=== PATIENT | male | born 1935 | race Caucasian/White ===

== ENCOUNTER 2023-03-28 11:26 | Emergency (ER) | payer MEDICARE, SELFPAY ==
--- NOTE | 2023-03-28 11:47 | ED.WOUNDLAC ---
HPI - Wound/Laceration General Chief Complaint: Wound/Laceration Stated Complaint: fall/skin tear rt elbow Time Seen by Provider: 03/28/23 11:32 Source: patient Mode of arrival: ambulatory Limitations: no limitations History of Present Illness HPI narrative: Patient is a 87 y/o M that presents with skin tear that happened one week ago. Patient states he has been cleaning it and applying antibiotic ointment. States he usually heals faster than he is currently. States there was surrounding redness and it has improved a lot but it is still there. States pain has resolved. Denies any drainage from wound. unsure of last tetanus shot. Related Data Allergies Allergy/AdvReac Type Severity Reaction Status Date / Time No Known Allergies Allergy Verified 03/28/23 11:51 Review of Systems Review of Systems: All systems reviewed & are unremarkable except as noted in HPI and below Constitutional: Constitutional: Denies body ache(s), Denies chills, Denies fatigue, Denies fever(s), Denies headache(s), Denies malaise and Denies weakness Eyes: Eyes: Denies blurry vision, Denies irritation and Denies loss of vision ENT: Denies otalgia, Denies headache(s), Denies nasal discharge, Denies sinus pain and Denies sore throat Cardiovascular: Cardiovascular: Denies chest pain, Denies irregular heart rhythm and Denies dyspnea Respiratory: Respiratory: Denies dyspnea Gastrointestinal: Gastrointestinal: Denies abdominal pain, Denies melena, Denies hematochezia, Denies diarrhea, Denies nausea and Denies vomiting Musculoskeletal: Musculoskeletal: Denies back pain, Denies myalgias and Denies arthralgias Integumentary/Breasts: Skin/Breast: Denies pruritus, Denies rash and Reports wounds Neurologic: Denies headache(s), Denies loss of vision and Denies weakness Psychiatric: Psychiatric: Reports no additional psychiatric complaints Endocrine: Endocrine: Denies fatigue PMFSH Comments At time of signature, agree with nursing past medical, surgical, social and family history. There is no relevant family history pertinent to the presenting complaint. Exam Const: General: cooperative, healthy appearing, comfortable, no acute distress and well nourished Nutritional Appearance: well nourished Orientation/consciousness: patient oriented x3 Limitations: no limitations HENMT: Head: normal to inspection, normocephalic and atraumatic Ears: hearing grossly normal bilaterally and external ears normal Face/Nose/Sinus: Normal external nose present, normal facial exam and face symmetric Face and sinus: normal facial exam and face symmetric Mouth: Yes lip normal Eyes: General: appearance normal, both eyes and all related structures Alignment and Position: alignment normal and position normal Periorbital: periorbital findings normal Eyelids: eyelids normal Pupils: Equal, round and reactive pupils present EOM: EOMs intact bilaterally Neck: Neck: normal visual inspection, full ROM and supple Chest: Chest palpation & inspection: normal inspection of the chest Resp: Effort & Inspection: normal respiratory effort and able to speak in complete sentences Auscultation: clear to auscultation bilaterally Cardio: Rate: regular rate Rhythm: regular rhythm Heart sounds: S1 normal heart sound present and S2 normal heart sound present GI: Inspection: normal to inspection Skin: General skin exam: normal color and no rashes or lesions noted Trauma: abrasion Full body images: 1. 5x7 cm area of healing granulation tissue. minor surrounding erythema and warmth. Skin tear in crescent shape. Neuro: General: patient oriented x3 and moves all extremities Cranial nerves: Yes Equal, round and reactive pupils present Speech: normal speech Gait exam (Neuro): Normal gait present Extrem: General: normal to inspection, full ROM and no edema Psych: Appearance: grossly normal and well kempt Mental Status: mental status grossly normal Speech and movement: Normal speech and
[2023-03-28 11:50] VITALS: BP 134/78; PULSE 97; RESP 18; TEMP 36; O2SAT 96
[2023-03-28 11:52] VITALS: BP 134/78; PULSE 97; RESP 18; TEMP 36; O2SAT 96
[2023-03-28] MEDS: TETANUS/DIPHTHERIA TOXOIDS ADSORB 0.5 ML VIAL (*BKC) IM (12:07)
== END 2023-03-28 12:10 | disposition home or self-care (01) ==
PROVIDERS: Emergency Provider Nurse Practitioner Family; PCP Family Medicine
DX: S51.011A Laceration without foreign body of right elbow, initial encounter (principal); L08.9 Local infection of the skin and subcutaneous tissue, unspecified; X58.XXXA Exposure to other specified factors, initial encounter; Z23 Encounter for immunization
CPT/HCPCS: 90471; 90714; 99213; G0463

== ENCOUNTER 2023-04-25 06:12 | Inpatient (IN) | payer MEDICARE, MEDICAID, SELFPAY ==
[2023-04-25] VITALS (19 sets, daily range): BP systolic 114–135; BP diastolic 57–74; PULSE 84–123; RESP 18–28; TEMP 36.6–37.4; O2SAT 94–100; BMI 28.8
--- NOTE | ~2023-04-25 | XR_ITS ---
EXAMINATION: XR chest 1V DATE: 05/01/2023 15:12 INDICATION: Cough TECHNIQUE: PA and view of the chest was obtained. COMPARISON: Chest radiograph dated 04/27/2023 FINDINGS: Persistent mild interstitial opacities at the bilateral lung bases and lateral right midlung zone. No new airspace opacities, pulmonary edema, pleural effusion or pneumothorax. Heart size is normal with bilateral pericardial fat pads. There are bridging osteophytes at multiple levels in the thoracic sp ine consistent with diffuse idiopathic skeletal hyperostosis (DISH). IMPRESSION: 1. Stable mild bibasilar predominant chronic interstitial lung disease. Reviewed, dictated and finalized at location A. SIGNAL WORKER
--- NOTE | ~2023-04-25 | XR_ITS ---
EXAMINATION: XR chest 1V portable DATE: 04/27/2023 08:42 INDICATION: Shortness of breath. TECHNIQUE: A single frontal view of the chest was obtained. COMPARISON: Chest single view 04/26/2023, chest CT 04/26/2023 FINDINGS: There are interstitial opacities in right midlung zone in the lower lung zones. No pleural effusion or pneumothorax. The heart size is normal. IMPRESSION: 1. Stable mild chronic interstitial lung disease. Reviewed, dictated and finalized at location A. ENTION PLANNER
--- NOTE | ~2023-04-25 | XR_ITS ---
EXAMINATION: XR chest 1V portable DATE: 04/25/2023 08:20 INDICATION: Weakness. TECHNIQUE: A single frontal view of the chest was obtained. COMPARISON: Chest 2 views 07/28/2017 FINDINGS: There is no pneumonia, pleural effusion, or pneumothorax. The heart size is normal. IMPRESSION: 1. No acute cardiopulmonary disease. Reviewed, dictated and finalized at location A. MARKER
--- NOTE | ~2023-04-25 | XR_ITS ---
EXAMINATION: XR lumbar spine 2-3V DATE: 05/01/2023 15:12 INDICATION: Back pain and left flank bruising post fall TECHNIQUE: Anteroposterior and lateral views of the lumbar spine, and cone-down lateral view of the l umbosacral junction were obtained. COMPARISON: 01/15/2016 FINDINGS: 12 degrees lumbar levoscoliosis. Sagittal alignment is normal. Vertebral body heights are normal. No evident fractures. Mild disc height loss at T12-L1, moderate disc height loss at L1-L2 and moderate t o severe disc height loss at L2-L3 through L5-S1. 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 Mild bilateral hip and sacroiliac osteoarthritis. IMPRESSION: 1. Moderate to severe lumbar spondylosis. Reviewed, dictated and finalized at location A. D SIGNAL DESIGN ENGINEER
--- NOTE | ~2023-04-25 | CT_ITS ---
EXAMINATION: CT brain wo con DATE: 04/25/2023 07:23 INDICATION: Head injury. TECHNIQUE: Computed tomography (CT) of the head was performed without intravenous contrast. The mA wa s adjusted according to patient size. Iterative reconstruction technique was employed. The dose-lengt h product was 605.33 mGy-cm. 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 There are scattered areas of low atte nuation in the cerebral white matter, which is within normal limits for the patient's age. There is n o intracranial hemorrhage, acute infarction, or abnormal intracranial mass lesion. The ventricles are normal in size. The orbits are normal. There is mild mucosal thickening in the paranasal sinuses. Th e mastoid air cells are normal. IMPRESSION: 1. 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 Reviewed, dictated and finalized at location A. IAL EDUCATION RESOURCE ROOM TEACHER
--- NOTE | ~2023-04-25 | XR_ITS ---
EXAMINATION: XR chest 1V portable DATE: 04/26/2023 13:42 INDICATION: Increased work of breathing. TECHNIQUE: A single frontal view of the chest was obtained. COMPARISON: Chest single view 04/25/2023, chest CT 04/26/2023 FINDINGS: There are interstitial opacities in right midlung zone and the lower lung zones. No pleural effusion or pneumothorax. The heart size is normal. IMPRESSION: 1. Mild chronic interstitial lung disease. Reviewed, dictated and finalized at location A. N RESOURCES EXECUTIVE
--- NOTE | ~2023-04-25 | US_ITS ---
EXAMINATION: US venous doppler [facility] DATE: 04/25/2023 17:18 INDICATION: Lower extremity swelling. TECHNIQUE: Grayscale images without and with compression and Doppler images of the bilateral lower ex tremity veins were obtained. COMPARISON: None FINDINGS: The right common femoral vein, profunda (deep) femoral vein, femoral vein, popliteal vein, peroneal v ein, posterior tibial veins, gastrocnemius vein, and greater saphenous vein are patent. Acute nonocclusive thrombus in the left femoral and popliteal veins. The left common femoral vein, pr ofunda (deep) femoral vein, peroneal vein, posterior tibial veins, gastrocnemius vein, and greater s aphenous vein are patent. IMPRESSION: Acute nonocclusive DVT in the left femoral and popliteal veins. Otherwise patent bilateral lower extr emity veins. No evidence of deep venous thrombosis on the right. Reviewed, dictated and finalized at location K. O WORKER IMPRESSION: Acute nonocclusive DVT in the left femoral and popliteal veins. Otherwise paten t bilateral lower extremity veins. No evidence of deep venous thrombosis on the right.
--- NOTE | ~2023-04-25 | CT_ITS ---
EXAMINATION: CT cervical spine wo con DATE: 04/25/2023 07:23 INDICATION: Head injury. TECHNIQUE: Computed tomography (CT) of the cervical spine was performed without intravenous contrast. Automated exposure control and iterative reconstruction technique were employed. The dose-length pro duct was 413.69 mGy-cm. COMPARISON: None FINDINGS: There is mild kyphosis of cervical spine. There is 2 mm anterolisthesis of C7 on T1. Verteb ral body heights are normal. There is mildly decreased disc height at C3-C4 and severely decreased di sc height from C4-C5 through C6-C7. There are bridging endplate osteophytes at C4-C5. There is interb moriah fusion at C6-C7. The following disc levels are specifically discussed: C2-C3: There is mild bilateral uncovertebral joint osteoarthritis. There is severe bilateral facet heriberto int osteoarthritis. There is mild bilateral neural foraminal stenosis. There is mild central canal st enosis. C3-C4: There is mild bilateral uncovertebral joint osteoarthritis. There is severe bilateral facet heriberto int osteoarthritis. There is mild bilateral neural foraminal stenosis. There is mild central canal st enosis. C4-C5: There is severe bilateral uncovertebral joint osteoarthritis. There is moderate right and marie re left facet joint osteoarthritis. There is mild right and moderate left neural foraminal stenosis. There is mild central canal stenosis. C5-C6: There is severe bilateral uncovertebral joint osteoarthritis. There is severe bilateral facet joint osteoarthritis. There is mild right and moderate left neural foraminal stenosis. There is mild central canal stenosis. C6-C7: There is severe bilateral uncovertebral joint hypertrophy. There is mild right and severe left facet joint osteoarthritis. There is mild right and moderate left neural foraminal stenosis. There i s mild central canal stenosis. C7-T1: There is no uncovertebral joint osteoarthritis. There is severe bilateral facet joint osteoart hritis. There is mild bilateral neural foraminal stenosis. There is no central canal stenosis. IMPRESSION: 1. No fracture. 2. Severe cervical spondylosis. Reviewed, dictated and finalized at location A. TRANSITION
--- NOTE | ~2023-04-25 | CT_ITS ---
EXAMINATION: CTA chest PE protocol DATE: 04/26/2023 10:04 INDICATION: Elevated troponin. Deep vein thrombosis. TECHNIQUE: Computed tomography angiography (CTA) of the chest was performed with 100 mL Omnipaque-350 intravenous contrast timed to evaluate the pulmonary arteries. Coronal maximum intensity projection 3D-reconstructions were created by the technologist. Automated exposure control and iterative reconst ruction technique were employed. The dose-length product was 534.15 mGy-cm. COMPARISON: None. FINDINGS: There is mild emphysema. There is peripheral septal thickening in the upper lobes and lower lobes. No bronchiectasis or honeycombing. No pleural effusion. The heart size is normal. No pleural effusion. 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 There is no pulmonary embolus. There is mild bilateral gynecomastia. There are bridging endplate osteophytes at multiple levels in the spine, consistent with diffuse idiopathic skeletal hyperostosis (DISH). There is moderate thoraci c spondylosis. IMPRESSION: 1. No pulmonary embolus. Sensitivity is mildly decreased by motion artifact. 2. 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 3. 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 Reviewed, dictated and finalized at location E. E SPECIALIST
--- NOTE | 2023-04-25 07:35 | ECG_ITS ---
Measurements Intervals [place] Rate: 90 P: 255 NC: 282 QRS: 36 QRSD: 138 T: 33 QT: 357 QTc: 437 Interpretive Statements SINUS RHYTHM WITH FIRST DEGREE AV BLOCK RIGHT BUNDLE BRANCH BLOCK BASELINE ARTIFACT- I, II, III, AVR, V1-V6 ABNORMAL ECG NO PREVIOUS ECG AVAILABLE FOR COMPARISON Electronically Signed On 04-25-2023 15:40:51 SKIDDER by Jamal Werner D.O.
[2023-04-25] MEDS: LACTATED RINGERS 1,000 ML 999 ML IV CONT (08:02)
[2023-04-25 08:06] LABS: Basophils Percent Auto 0.3 % (0.2-1.2); Eosinophils Percent Auto 0.2 % (0-4.4); Hematocrit 37.9 % (42.0-52.0); Hemoglobin 12.4 g/dL (14.0-18.0); Immature Granulocyte Absolute 0.01 K/mm3 (0.00-0.031); Immature Granulocyte Percent A 0.2 % (0-0.5); Lymphocytes Absolute Auto 0.36 K/mm3 (0.9-3.2); Lymphocytes Percent Auto 6.2 % (18.3-44.2); Mean Corpuscular HGB Conc 32.7 g/dl (32-36); Mean Corpuscular Volume 97.9 fl (80-100); Monocytes Absolute Auto 0.4 K/mm3 (0.1-0.6); Monocytes Percent Auto 7.6 % (2.6-8.5); Neutrophils Percent Auto 85.5 % (45.5-73.1); Platelet Count Result 142 k/mm3 (150-375); Red Blood Count 3.87 M/mm3 (4.6-6.20); Red Cell Distribution Width 13.9 % (11.5-14.5); White Blood Count 5.8 K/mm3 (4.5-10.0)
--- NOTE | 2023-04-25 08:06 | ED.FALL ---
HPI - Fall General Chief Complaint: Fall Stated Complaint: fall Time Seen by Provider: 04/25/23 07:05 History of Present Illness HPI Narrative: Patient states that yesterday he started feeling wobbly, and felt like he could not walk well, fell and had trouble getting up because he felt weak all over, he refused initially to come to the emergency room. This morning he got up and went to the bathroom, and after he flushed the toilet, he again felt like his legs were going to give out on him, and he fell to the ground, slicing his left ear and injuring his left elbow. When he is laying flat in the bed he states that he feels fine and has no issues. Related Data Allergies Allergy/AdvReac Type Severity Reaction Status Date / Time No Known Allergies Allergy Verified 04/25/23 06:20 Review of Systems Review of Systems: CONST: No fever. HEENT: Bleeding left ear C/V: No chest pain RESP: No cough GI: No abdominal pain : No dysuria. M/S: Chronic right hip pain SKIN: Bruising left elbow, cut left ear NEURO: Lightheadedness PSYCH: [No depression] Exam Narrative: EXAMINATION OF ORGAN SYSTEMS/BODY AREAS: Constitutional: Vital signs per nursing GENERAL:[No acute distress, non-toxic appearing.] HEAD: Normal with no signs of head trauma. EYES: EOMI, conjunctiva normal ENT: Laceration beneath pinna 0.5 cm in length LUNGS: Nonlabored breathing. HEART: [Regular rate and rhythm] ABD: [Soft], [nontender to palpation] EXT: Normal range of motion SKIN: lac below L ear; bruising L elbow NEURO: [Alert and oriented x 3. No gross focal sensory or strength deficits.] Moving all extremities. No facial droop, speech is clear. PSYCH: Normal affect Course Vital Signs Vital signs: Vital Signs Temperature 97.8 F 04/25/23 06:13 Pulse Rate 84 04/25/23 06:13 Respiratory Rate 18 04/25/23 06:13 Blood Pressure 119/70 04/25/23 06:13 Pulse Oximetry 94 04/25/23 06:13 Oxygen Delivery Room Air 04/25/23 06:13 Temperature 97.8 F 04/25/23 06:13 Pulse Rate 84 04/25/23 06:13 Respiratory Rate 18 04/25/23 06:13 Blood Pressure 119/70 04/25/23 06:13 Pulse Oximetry 94 04/25/23 06:13 Oxygen Delivery Room Air 04/25/23 06:13 Procedures Laceration Laceration 1: Date: 04/25/23 Time: 08:15 Site: face Side (If applicable): left Size (cm): 0.5 Description: linear Depth: simple, single layer Local Anesthetic: lidocaine 1% Amount of anesthesia used (mL): 1 Pre-repair: wound explored, irrigated and deep structures intact ====== Skin Level ====== Skin layer closed with: nylon Size (cm): 5-0 Number of sutures: 2 Technique: simple, interrupted ====== Subcutaneous Layer ====== ====== Muscle Layer ====== ====== Tendon Layer ====== MDM - Fall MDM Narrative Medical decision making narrative: 87M p/w 2 falls in last 2 days he states he has felt generalized weakness/ wobbly when he stands/walks. VSS, on exam has lac below pinna L ear and some bruising but no deformities, neuro intact. Lac cleaned/closed. CT head/C spine ordered due to trauma, neg for acute abnl. I will obtain labs and infectious w/u and give IVF and check orthostatics. Labs +trop; EKG w/o ischemic changes, sinus rhythm RBBB rate 90, SD 282 ms, QRS 138, Qtc 404. No JAMES. COVID+. CXR interpreted by myself, no obvious consolidations. Will adm to IMU for trop trend; pt continues to deny chest pain so will hold heparin at this time, especially given questionable h/o coumadin (pt denies this but [facility] paperwork showing coumadin on med list), p: cards recs. D/w hospitalist for admission. 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 D/w pt and family. Lab Data 04/25/23 07:44 04/25/23 07:44 Labs: Lab Results 04/25/23 04/25/23 04/25/23 Range/Units 07:43 07:44 08:42 WBC 5.8 (4.5-10.0) K/mm3 RBC 3.87 L (4.6-6.20) M
--- NOTE | 2023-04-25 08:09 | PC.NURSE ---
Pt states he received Tdap booster recently.
[2023-04-25 08:17] LABS: Alanine Aminotransferase 22 U/L (6-50); Albumin Level 3.9 g/dL (3.5-5.1); Alkaline Phosphatase 86 U/L (38-126); Anion Gap 6 mmol/L (8-16); Aspartate Amino Transferase 26 U/L (17-59); Bilirubin,Total 0.6 mg/dL (0.2-1.3); Blood Urea Nitrogen 23 mg/dL (9-20); Calcium 9.9 mg/dL (8.4-10.2); Carbon Dioxide 27 mmol/L (22-30); Chloride 103 mmol/L (98-107); Estimated CRCL calculation 39 ml/min; Estimated Glomerular Filt Rate 58; Glucose 126 mg/dL (65-110); Potassium 4.4 mmol/L (3.4-5.0); Sodium 136 mmol/L (137-145)
[2023-04-25 08:29] LABS: Troponin I 0.224 ng/mL (0.000-0.034)
[2023-04-25 08:31] LABS: Influenza A QL RT-PCR Negative (Negative); Influenza B QL RT-PCR Negative (Negative); RSV RNA, RT-PCR Negative (Negative); SARS-CoV-2 RNA PCR Positive (Negative)
[2023-04-25 08:51] LABS: Appearance Urine Clear (Clear); Bacteria Urine None Seen /hpf; Bilirubin Urine Negative (Negative); Blood Urine Negative (Negative); Color Urine Yellow (Yellow); Glucose Urine UA Negative (Negative); Ketones Urine Negative (Negative); Leukocyte Esterase Ur Negative LEU/UL (Negative); Nitrate Urine Negative (Negative); Non Pathogenic Casts 0-2; Protein Urine Trace mg/dL (Negative); RBC Urine 0-2 /hpf (0-2); Squamous Epithelial Cell Urine None seen /hpf (Few); WBC Urine 0-5 /hpf; pH Urine 6.5 (5.0-9.0)
[2023-04-25 08:52] LABS: Add Urine Microscopic? YES
[2023-04-25 09:35] LABS: INR 1.1; Prothrombin Time 14.4 Seconds (11.1-14.7)
[2023-04-25 09:36] LABS: Partial Thromboplastin Time 26.5 SECONDS (22.3-36.8)
--- NOTE | 2023-04-25 10:14 | PM.IMHP ---
H&P: HPI History of Present Illness Date/Time: 04/25/23 10:14 Chief Complaint: Fall and general weakness Narrative: Patient with unclear medical history, present ED with a chief complaint of general weakness, fall. Patient has been feeling weak in past few more days, and patient has cough with scant phlegm. Patient went to bathroom yesterday, the patient stood up, patient felt dizzy and fell on the floor. Patient denies headache, focal weakness, vision change, abdomen pain, nausea vomiting diarrhea dysuria recently. Patient fell to the ground, slicing his left ear and injuring his left elbow.? Patient was brought to ED for evaluation. In the ED, patient was found have hyponatremia, dehydration, elevated BUN creatinine patient is afebrile, white blood cell within normal limit, urinalysis unremarkable, COVID positive, flu negative. X-ray shows no acute cardiopulmonary issues. CT of head shows no acute intracranial issues, supper scan shows no fracture. Elevated troponin x1, EKG shows sinus rhythm no specific ST T wave changes. Patient received remdesivir in the ED Review of Systems Review of Systems: ROS negative except above PMFSH Social History Social History Smoking status: Never smoker Alcohol intake: current Drinks per week: 7 Substance use: never Lack of Transportation: No Lack of Food: Never True Current Housing: I Have Housing Concerned About Future Housing: No Difficulty Paying Gas/Electric Bills: No Difficulty Paying for Meds: No Currently Unemployed: No Education: High School Diploma/GED Difficulty w/ Childcare or Family Care: No Spiritual care concerns: No Meds Home Medications and Allergies Home Medications Medication Instructions Recorded Confirmed Type mupirocin 2 % topical ointment 1 applic topical BID #15 grams 03/28/23 Rx sulfamethoxazole 800 1 tablet PO Q12H 7 days #14 tabs 03/28/23 Rx mg-trimethoprim 160 mg tablet Allergies Allergy/AdvReac Type Severity Reaction Status Date / Time No Known Allergies Allergy Verified 04/25/23 06:20 Vital Signs Vital Signs - 24 hr 04/25/23 06:13 Temperature 97.8 F Pulse Rate 84 Respiratory Rate 18 Blood Pressure 119/70 Pulse Oximetry 94 Oxygen Delivery Room Air Exam Narrative: GENERAL: PLEASANT, IN NO ACUTE DISTRESS. WELL-NOURISHED. - EYES: EOMI. ANICTERIC. - HENT: MOIST MUCOUS MEMBRANES. - LUNGS: CLEAR TO AUSCULTATION BILATERALLY, NO WHEEZING, RHONCHI, OR RALES. - CARDIOVASCULAR: REGULAR RATE AND RHYTHM. NO MURMUR. NO JVD. - ABDOMEN: SOFT, NON-TENDER AND NON-DISTENDED. NO PALPABLE MASSES. - EXTREMITIES: NO EDEMA. PERIPHERAL PULSES 2+. NON-TENDER. Left elbow bruises - NEUROLOGIC: NO FOCAL NEUROLOGICAL DEFICITS. CN II-XII GROSSLY INTACT. - PSYCHIATRIC: AWAKE, ALERT AND ORIENTED X 3. APPROPRIATE MOOD AND AFFECT. - SKIN: NO RASHES OR LESIONS. WARM. - LYMPH: NO CERVICAL LYMPHADENOPATHY. H&P: Results Labs Labs: Short CBC 04/25/23 Range/Units 07:44 WBC 5.8 (4.5-10.0) K/mm3 Hgb 12.4 L (14.0-18.0) g/dL Hct 37.9 L (42.0-52.0) % Plt Count 142 L (150-375) k/mm3 BMP 04/25/23 07:44 Sodium 136 L Potassium 4.4 Chloride 103 Carbon Dioxide 27 BUN 23 H Creatinine 1.20 Glucose 126 H Calcium 9.9 Cardiac Enzymes 04/25/23 Range/Units 07:44 Troponin I 0.224 H* (0.000-0.034) ng/mL Liver Function 04/25/23 Range/Units 07:44 Total Bilirubin 0.6 (0.2-1.3) mg/dL AST 26 (17-59) U/L ALT 22 (6-50) U/L Alkaline Phosphatase 86 (38-126) U/L Albumin 3.9 (3.5-5.1) g/dL Urine 04/25/23 Range/Units 08:42 Urine Color Yellow (Yellow) Urine Appearance Clear (Clear) Urine pH 6.5 (5.0-9.0) Ur Specific [place] 1.020 (1.001-1.035) Urine Protein Trace (Negative) mg/dL Urine Glucose (UA) Negative (Negative) mg/dL Assessment and Plan Assessment and plan (1
[2023-04-25] MEDS: REMDESIVIR 200 MG/NS 250 ML 200 MG/250 ML BAG 250 MG IVPB (10:22)
--- NOTE | 2023-04-25 10:26 | ECHO_ITS ---
Patient Info Name: Ranulfo Gongora Age: 87 years : 1935 Gender: Male Ht: 68 in Wt: 195 lbs BSA: 2.08 m2 HR: 92 bpm BP: 121 / 70 mmHg Heart Rhythm: Sinus Rhythm, Right Bundle Branch Block Technical Quality: Good Exam Date: 04/25/2023 2:16 PM Exam Location: Echo Lab Patient Status: Inpatient Admit Date: 04/25/2023 Staff Ordering Physician: Jak Reyes MD Office Machine Punch Operator: Silke Washington RDCS Attending Provider: Jak Reyes MD Exam Type: CA echo doppler color flow Study Info Indications - elevated troponin Complete two-dimensional, color flow and Doppler transthoracic echocardiogram is performed. Summary 1. Technically difficult study with limited views (Patient did not allow completion of echocardiogram). 2. Left ventricular chamber dimension is normal. 3. Left ventricular systolic function is normal, estimated at 60-65%. 4. There is mildly increased left ventricular wall thickness. 5. The left ventricular diastolic function is grade I diastolic dysfunction. 6. Right ventricular systolic function is normal. 7. There is trace mitral valve regurgitation. 8. There is trace tricuspid valve regurgitation. 9. There is small anterior pericardial effusion. Left Ventricle Left ventricular chamber dimension is normal. Left ventricular systolic function is normal, estimated at 60-65%. There is mildly increased left ventricular wall thickness. The left ventricular diastolic function is grade I diastolic dysfunction. Right Ventricle Right ventricular chamber dimension is normal. Right ventricular systolic function is normal. Left Atria Left atrial chamber dimension is normal. Right Atria Right atrial chamber dimension is normal. Atrial Septum Intact interatrial septum visualized by color flow imaging. Aortic Valve The aortic valve is not well visualized. There is mild aortic valve sclerosis. There is no aortic valve stenosis. There is no aortic valve regurgitation. Pulmonic Valve The pulmonic valve is not well visualized. Mitral Valve There is trace mitral valve regurgitation. The mitral valve annulus is mildly calcified. Tricuspid Valve There is trace tricuspid valve regurgitation. Pericardium/Pleural There is small anterior pericardial effusion. Inferior Vena Cava Inferior vena cava is not well visualized. Aorta The aortic root size at the sinus of Valsalva is mildly dilated. Left Ventricular Outflow Tract Name Value Normal LVOT 2D LVOT Diameter 2.2 cm LVOT Doppler LVOT Peak Gradient 5 mmHg LVOT Mean Gradient 3 mmHg LVOT VTI 23 cm LVOT VTI/AV VTI Ratio 0.8 LVOT Stroke Volume 86 ml LVOT CO 6.5 l/min LVOT CI 3.1 l/min/m2 Pulmonic Valve Name Value Normal RVOT Doppler RVOT Peak Gradient 2
[2023-04-25 10:46] LABS: Troponin I 0.231 ng/mL (0.000-0.034)
--- NOTE | 2023-04-25 11:40 | ADMGEN ---
This patient, Ranulfo Gongora, was admitted to IMU Room 231-01. Patient/family oriented to hospital policies and general routines including ID bracelet, bed and alarms, visiting hours, pain management, procedures, bathroom and other care routines, personal items, smoking policy, room service/diet, and visiting hours. Information on how to activate the Rapid Response Team has been discussed. Patient/Family are encouraged to report perceived risks to care and to ask questions if they do not understand what they are told or what they should do.
[2023-04-25] MEDS: ASPIRIN 81 MG CHEWABLE TABLET 324 MG PO (12:05)
[2023-04-25] MEDS: SODIUM CHLORIDE 0.9% IV 1,000 ML 75 ML IV CONT (12:12)
--- NOTE | 2023-04-25 12:15 | PM.CNCAR ---
Assessment and Plan Assessment and plan (1) Elevated troponin: Code(s): R79.89 - Other specified abnormal findings of blood chemistry Status: Acute Assessment and Plan: EKG with sinus rhythm with RBBB. Troponin of 0.224 with repeat at 0.231. Patient denies any chest pain. Denies any prior cardiac history. Troponins are flat, not indicative of an acute coronary syndrome. Echocardiogram has been ordered and is pending. If echocardiogram without any significant abnormality, then no further cardiac workup needed. (2) Generalized weakness: Code(s): R53.1 - Weakness Status: Acute Assessment and Plan: Management as per Hospitalist. (3) COVID-19: Code(s): U07.1 - COVID-19 Status: Acute Assessment and Plan: Management as per Hospitalist. History of Present Illness History of Present Illness Consult date/time: 04/25/23 12:15 Requesting physician: Dee Samuel MD Consult reason: Other (Elevated troponin) Reason For Visit: Elev Trop, COVID+, Falls Narrative: We are consulted for elevated troponin. This is an 87 year old male who presented after a fall. He was feeling wobbly yesterday and felt like he could not walk well and had trouble getting up because he felt weak. This morning, he got up to use the bathroom and felt like his legs were giving out on him and then he fell to the ground, injuring his left ear and left elbow. ER workup showed EKG with sinus rhythm with RBBB. Troponin of 0.224 with repeat at 0.231. COVID is positive. CXR without acute findings. Patient denies any chest pain. Denies any prior cardiac history. He is currently feeling well sitting up in bed. Review of Systems Review of Systems: All systems reviewed & are unremarkable except as noted in HPI and below (HPI) REPLACED BY [facility] Social History Social History Smoking status: Never smoker Alcohol intake: current Drinks per week: 7 Substance use: never Lack of Transportation: No Lack of Food: Never True Current Housing: I Have Housing Concerned About Future Housing: No Difficulty Paying Gas/Electric Bills: No Difficulty Paying for Meds: No Currently Unemployed: No Education: High School Diploma/GED Difficulty w/ Childcare or Family Care: No Spiritual care concerns: No Meds Home Medications and Allergies Home Medications Medication Instructions Recorded Confirmed Type mupirocin 2 % topical ointment 1 applic topical BID #15 grams 03/28/23 Rx sulfamethoxazole 800 1 tablet PO Q12H 7 days #14 tabs 03/28/23 Rx mg-trimethoprim 160 mg tablet Allergies Allergy/AdvReac Type Severity Reaction Status Date / Time No Known Allergies Allergy Verified 04/25/23 06:20 Vital Signs Vital Signs - 24 hr 04/25/23 06:13 04/25/23 08:32 04/25/23 09:31 Temperature 36.6 C Pulse Rate 84 95 96 Respiratory Rate 18 21 H 22 H Blood Pressure 119/70 122/71 Pulse Oximetry 94 99 Oxygen Delivery Room Air 04/25/23 09:32 04/25/23 09:45 04/25/23 09:46 Temperature Pulse Rate 95 97 95 Respiratory Rate 22 H 25 H 22 H Blood Pressure 130/69 Pulse Oximetry 98 98 96 Oxygen Delivery 04/25/23 10:00 04/25/23 10:01 04/25/23 10:15 Temperature Pulse Rate 95 96 98 Respiratory Rate 21 H 21 H 28 H Blood Pressure 114/69 129/72 Pulse Oximetry 98 100 Oxygen Delivery 04/25/23 10:16 04/25/23 10:30 04/25/23 10:31 Temperature Pulse Rate 98 96 92 Respiratory Rate 20 19 22 H Blood Pressure 121/70 Pulse Oximetry Oxygen Delivery Exam Const: General: comfortable and no acute distress HENMT: Mouth: Yes moist mucous membranes Eyes: General: appearance normal, both eyes and all related structures Sclera: sclerae normal Neck: Neck: supple Resp: Effort & Inspection: normal respiratory effort Auscultation: clear to auscultation bilaterally Cardio: Rate: regular rate Rhythm: regular rhythm Heart s
[2023-04-25 13:52] LABS: Troponin I 0.217 ng/mL (0.000-0.034)
[2023-04-25 15:07] LABS: Cholesterol 161 mg/dL (0-200); HDL Direct 43 mg/dL; Triglycerides 78 mg/dL (<150)
[2023-04-25] MEDS: ACETAMINOPHEN 325 MG TABLET 650 MG PO (15:09)
[2023-04-25 15:18] LABS: LDL Cholesterol Direct 90 mg/dL
[2023-04-25] MEDS: LORATADINE 10 MG TABLET PO (17:37)
[2023-04-25] MEDS: guaiFENesin/CODEINE (*CRX) 200/20 MG 10 ML SYRUP 5 ML PO (21:05)
[2023-04-26] VITALS (17 sets, daily range): BP systolic 124–159; BP diastolic 57–92; PULSE 72–128; RESP 15–34; TEMP 36.7–39.2; O2SAT 90–100
[2023-04-26] MEDS: ACETAMINOPHEN 325 MG TABLET 650 MG PO ×3 (02:45→16:48)
[2023-04-26] MEDS: guaiFENesin/CODEINE (*CRX) 200/20 MG 10 ML SYRUP 5 ML PO ×3 (06:18→17:50)
--- NOTE | 2023-04-26 09:12 | PM.IMPN ---
Progress Note: A&P Assessment and Plan (1) Elevated troponin: Code(s): R79.89 - Other specified abnormal findings of blood chemistry Status: Acute (2) Generalized weakness: Code(s): R53.1 - Weakness Status: Acute (3) COVID-19: Code(s): U07.1 - COVID-19 Status: Acute (4) Laceration of left ear: Code(s): S01.312A - Laceration without foreign body of left ear, initial encounter Status: Acute (5) Multiple falls: Code(s): R29.6 - Repeated falls Status: Acute (6) Dehydration: Code(s): E86.0 - Dehydration Status: Acute (7) Acute DVT (deep venous thrombosis): Code(s): I82.409 - Acute embolism and thrombosis of unspecified deep veins of unspecified lower extremity Status: Acute (8) Acute respiratory failure: Code(s): J96.00 - Acute respiratory failure, unspecified whether with hypoxia or hypercapnia Status: Acute (9) Multifocal pneumonia: Code(s): J18.9 - Pneumonia, unspecified organism Status: Acute (10) Acute heart failure: Code(s): I50.9 - Heart failure, unspecified Status: Acute (11) COPD exacerbation: Code(s): J44.1 - Chronic obstructive pulmonary disease with (acute) exacerbation Status: Acute Plan General weakness, multiple falls Likely due to deconditioning, COVID infection, poor intake, dehydration CT head shows no acute intracranial issues, patient has no focal weakness Service scan shows no fracture Consult PT OT oncology social work caser for evaluation and assisting placement Elevated troponin Unclear etiology need to rule out ACS Start aspirin 325 mg once, 81 mg daily p.o., Lipitor 40 mg daily p.o. Per patient medication list, patient is on warfarin. But patient denies taking warfarin and other medications Follow-up D-dimer, venous Doppler lower extremities Follow-up echocardiogram Telemetry monitoring Consult water systems engineer for evaluation treatment COVID-19 infection Patient received remdesivir in the ED. Given patient's age and decondition, will continue remdesivir add dexamethasone iv Monitor vital signs closely Dehydration Elevated BUN creatinine Possible due to poor intake Started normal saline yesterday and stopped in the evening yesterday Cr stable Follow-up BMP, correct electrolyte abnormality accordingly Acute DVT Venous Doppler shows acute nonocclusive DVT in the left femoral and popliteal veins. Otherwise patent bilateral lower extremity veins. No evidence of deep venous thrombosis on the right. s/w Lovenox 1 milligram/kilos q.12 hour CTA shows no PE but emphysema and mild interstitial changes Acute respiratory failure Patient had a sudden onset of respiratory distress, hypoxemia On water systems engineer, differential includes acute heart failure, aspiration, Received Lasix 40 mg times 2 IV push, patient made it significant fever output Receive Solu-Medrol 125 mg once, Decadron 10 mg IV daily Acute heart failure Possible acute heart failure given elevated troponin Receive Lasix Monitor input output closely Discuss case with water systems engineer, water systems engineer will see the patient Suspecting multifocal pneumonia Stat x-ray shows patchy infiltrate in right middle lobe and lower lobe Possible multifocal pneumonia, suspected aspiration Start Zosyn IV Follow-up CBC BMP COPD exacerbation CTA suggested emphysema, possible on diagnosis COPD Start bronchodilators scheduled and p.r.n. and add dexamethasone iv Patient condition is critical, I have discussed case with reel and rewinder operator. Given significant improvement of cardiac management, and patient code status of DNR DNI, will monitor patient closely in step-down ICU. I also called and discussed patient condition with patient's daughter dontrell. She understood her father condition unstable, and she also new patient's code status DNR DNI. We will keep her updated about her father's condition changes , and a she
[2023-04-26] MEDS: ATORVASTATIN 40 MG TABLET PO (09:14)
[2023-04-26] MEDS: LORATADINE 10 MG TABLET PO (09:15)
[2023-04-26] MEDS: ASPIRIN 81 MG ENTERIC TABLET PO (09:15)
[2023-04-26] MEDS: guaiFENesin 12 HR 600 MG TABCR PO ×2 (09:37→20:23)
[2023-04-26 09:43] LABS: Basophils Percent Auto 0.3 % (0.2-1.2); Eosinophils Percent Auto 0.3 % (0-4.4); Hematocrit 37.5 % (42.0-52.0); Hemoglobin 12.2 g/dL (14.0-18.0); Immature Granulocyte Absolute 0.02 K/mm3 (0.00-0.031); Immature Granulocyte Percent A 0.3 % (0-0.5); Immature Platelet Fraction Pct 4.9 % (0.9-11.2); Lymphocytes Absolute Auto 0.58 K/mm3 (0.9-3.2); Mean Corpuscular HGB Conc 32.5 g/dl (32-36); Mean Corpuscular Hemoglobin 32.3 pg (26-34); Mean Corpuscular Volume 99.2 fl (80-100); Mean Platelet Volume 10.3 fl (7.4-10.4); Monocytes Absolute Auto 0.6 K/mm3 (0.1-0.6); Monocytes Percent Auto 9.7 % (2.6-8.5); Neutrophils Absolute Auto 5.2 K/mm3 (1.3-6.7); Neutrophils Percent Auto 80.4 % (45.5-73.1); Platelet Count Result 141 k/mm3 (150-375); Red Blood Count 3.78 M/mm3 (4.6-6.20); Red Cell Distribution Width 14.2 % (11.5-14.5); White Blood Count 6.5 K/mm3 (4.5-10.0)
[2023-04-26 09:56] LABS: Anion Gap 8 mmol/L (8-16); Blood Urea Nitrogen 25 mg/dL (9-20); Calcium 9.8 mg/dL (8.4-10.2); Carbon Dioxide 25 mmol/L (22-30); Chloride 104 mmol/L (98-107); Estimated CRCL calculation 39 ml/min; Estimated Glomerular Filt Rate 58; Glucose 112 mg/dL (65-110); Sodium 137 mmol/L (137-145)
--- NOTE | 2023-04-26 10:18 | PCOTNOTE ---
Spoke with RN prior to attempting OT eval, patient has new DVT. Hold off on therapy until tomorrow. Will follow.
[2023-04-26] MEDS: REMDESIVIR 100 MG/NS 250 ML 100 MG/250 ML BAG 250 MG IVPB (10:31)
[2023-04-26] MEDS: ENOXAPARIN 100 MG/ML SYRINGE 85 MG SUB-Q ×2 (11:56→20:23)
--- NOTE | 2023-04-26 12:23 | PCPTNOTE ---
HOLD PT eval due to new Doppler test reports LE DVT, not yet received treatment for it.
[2023-04-26] MEDS: FUROSEMIDE INJ 40 MG/4 ML VIAL IV PUSH ×2 (13:30)
[2023-04-26] MEDS: methylPREDNISolone SOD SUCC 125 MG VIAL IV PUSH (13:30)
[2023-04-26 13:44] LABS: Alveolar/Arterial O2 Gradient 456.5 mmHg; Base Excess ABG -6.5 mEq/l (+/-2.0); Fractional Inspired Oxygen 100 %; HCO3 ABG 18.8 mEq/l (22.0-26.0); Oxygen Content ABG 20.2 %vol (16.0-22.0); Oxygen Saturation ABG 99.4 % (95.0-100.0); Oxyhemoglobin 98.3 % THb (90.0-100.0); PO2 ABG 219.5 mmHg (80.0-100.0); PO2 FiO2 Ratio Arterial Blood 2.19 %; Total Hemoglobin 14.3 g/dL (12.0-18.0); pH ABG 7.324 (7.350-7.450)
[2023-04-26 13:45] LABS: Device NON-REBREATHER MASK; Modified Allen's Test Pass; Site Drawn RIGHT RADIAL
[2023-04-26] MEDS: LEVALBUTEROL NEB 1.25 MG/3 ML (13:57)
[2023-04-26 15:13] LABS: Basophils Percent Auto 0.3 % (0.2-1.2); Hematocrit 40.9 % (42.0-52.0); Hemoglobin 13.3 g/dL (14.0-18.0); Immature Granulocyte Absolute 0.01 K/mm3 (0.00-0.031); Immature Granulocyte Percent A 0.3 % (0-0.5); Lymphocytes Absolute Auto 0.17 K/mm3 (0.9-3.2); Lymphocytes Percent Auto 4.7 % (18.3-44.2); Mean Corpuscular HGB Conc 32.5 g/dl (32-36); Mean Corpuscular Hemoglobin 31.7 pg (26-34); Mean Corpuscular Volume 97.6 fl (80-100); Mean Platelet Volume 10.3 fl (7.4-10.4); Monocytes Absolute Auto 0.2 K/mm3 (0.1-0.6); Monocytes Percent Auto 5.8 % (2.6-8.5); Neutrophils Absolute Auto 3.2 K/mm3 (1.3-6.7); Neutrophils Percent Auto 88.9 % (45.5-73.1); Platelet Count Result 129 k/mm3 (150-375); Red Blood Count 4.19 M/mm3 (4.6-6.20); White Blood Count 3.6 K/mm3 (4.5-10.0)
[2023-04-26 15:21] LABS: Anion Gap 12 mmol/L (8-16); Blood Urea Nitrogen 25 mg/dL (9-20); Carbon Dioxide 21 mmol/L (22-30); Chloride 104 mmol/L (98-107); Estimated CRCL calculation 39 ml/min; Estimated Glomerular Filt Rate 58; Glucose 158 mg/dL (65-110); Potassium 3.8 mmol/L (3.4-5.0); Sodium 137 mmol/L (137-145)
[2023-04-26 15:48] LABS: NT Pro B Type Natriuretic Pept 5500 pg/mL (19.9-100)
[2023-04-26] MEDS: PIPERACILLN/TAZ 3.375GM/NS50ML 3.375 GM/50 ML BAG IVPB ×2 (16:34→20:24)
[2023-04-27] VITALS (21 sets, daily range): BP systolic 118–173; BP diastolic 64–94; PULSE 59–115; RESP 16–24; TEMP 36.4–37.1; O2SAT 93–100
[2023-04-27] MEDS: PIPERACILLN/TAZ 3.375GM/NS50ML 3.375 GM/50 ML BAG IVPB ×4 (03:32→20:56)
[2023-04-27 05:30] LABS: Basophils Percent Auto 0.2 % (0.2-1.2); Hematocrit 37.3 % (42.0-52.0); Hemoglobin 12.3 g/dL (14.0-18.0); Immature Platelet Fraction Pct 6.6 % (0.9-11.2); Lymphocytes Absolute Auto 0.26 K/mm3 (0.9-3.2); Lymphocytes Percent Auto 4.4 % (18.3-44.2); Mean Corpuscular Volume 97.1 fl (80-100); Mean Platelet Volume 10.6 fl (7.4-10.4); Monocytes Absolute Auto 0.3 K/mm3 (0.1-0.6); Monocytes Percent Auto 5.4 % (2.6-8.5); Neutrophils Absolute Auto 5.4 K/mm3 (1.3-6.7); Platelet Count Result 144 k/mm3 (150-375); Red Blood Count 3.84 M/mm3 (4.6-6.20); Red Cell Distribution Width 13.7 % (11.5-14.5)
[2023-04-27 05:48] LABS: Alanine Aminotransferase 28 U/L (6-50); Albumin Level 3.6 g/dL (3.5-5.1); Alkaline Phosphatase 65 U/L (38-126); Anion Gap 9 mmol/L (8-16); Aspartate Amino Transferase 42 U/L (17-59); Bilirubin,Total 0.7 mg/dL (0.2-1.3); Blood Urea Nitrogen 30 mg/dL (9-20); Carbon Dioxide 27 mmol/L (22-30); Chloride 102 mmol/L (98-107); Estimated CRCL calculation 34 ml/min; Estimated Glomerular Filt Rate 48; Glucose 155 mg/dL (65-110); INR 1.3; Potassium 3.6 mmol/L (3.4-5.0); Prothrombin Time 16.5 Seconds (11.1-14.7); Sodium 138 mmol/L (137-145)
[2023-04-27 06:06] LABS: Platelet Estimate Adequate (Adequate)
[2023-04-27 06:07] LABS: Anisocytosis 1+ (NORMAL); Large Platelets Present; Platelet Clumps Present; Schistocytes None Seen (NORMAL)
--- NOTE | 2023-04-27 07:47 | PM.IMPN ---
Progress Note: A&P Assessment and Plan (1) Elevated troponin: Code(s): R79.89 - Other specified abnormal findings of blood chemistry Status: Acute (2) Generalized weakness: Code(s): R53.1 - Weakness Status: Acute (3) COVID-19: Code(s): U07.1 - COVID-19 Status: Acute (4) Laceration of left ear: Code(s): S01.312A - Laceration without foreign body of left ear, initial encounter Status: Acute (5) Multiple falls: Code(s): R29.6 - Repeated falls Status: Acute (6) Dehydration: Code(s): E86.0 - Dehydration Status: Acute (7) Acute DVT (deep venous thrombosis): Code(s): I82.409 - Acute embolism and thrombosis of unspecified deep veins of unspecified lower extremity Status: Acute (8) Acute respiratory failure: Code(s): J96.00 - Acute respiratory failure, unspecified whether with hypoxia or hypercapnia Status: Acute (9) Multifocal pneumonia: Code(s): J18.9 - Pneumonia, unspecified organism Status: Acute (10) Acute heart failure: Code(s): I50.9 - Heart failure, unspecified Status: Acute (11) COPD exacerbation: Code(s): J44.1 - Chronic obstructive pulmonary disease with (acute) exacerbation Status: Acute Plan General weakness, multiple falls Likely due to deconditioning, COVID infection, poor intake, dehydration CT head shows no acute intracranial issues, patient has no focal weakness Service scan shows no fracture Consult PT OT psychosocial rehabilitation counselor case advocate for evaluation and assisting placement Elevated troponin Unclear etiology need to rule out ACS Start aspirin 325 mg once, 81 mg daily p.o., Lipitor 40 mg daily p.o. Per patient medication list, patient is on warfarin. But patient denies taking warfarin and other medications Follow-up D-dimer, venous Doppler lower extremities Follow-up echocardiogram, and reviewed, normal EF 60 to 65% of left ventricle, grade 1 diastolic dysfunction, no significant valvular disease Telemetry monitoring Consult account receivable associate for evaluation treatment COVID-19 infection Patient received remdesivir in the ED. Given patient's age and decondition, will continue remdesivir add dexamethasone iv Monitor vital signs closely Dehydration Elevated BUN creatinine Possible due to poor intake Started normal saline yesterday and stopped in the evening yesterday Cr stable Follow-up BMP, correct electrolyte abnormality accordingly Acute DVT Venous Doppler shows acute nonocclusive DVT in the left femoral and popliteal veins. Otherwise patent bilateral lower extremity veins. No evidence of deep venous thrombosis on the right. s/w Lovenox 1 milligram/kilos q.12 hour CTA shows no PE but emphysema and mild interstitial changes Acute respiratory failure Patient had a sudden onset of respiratory distress, hypoxemia On account receivable associate, differential includes acute heart failure, aspiration, Received Lasix 40 mg times 2 IV push, patient made it significant fever output Receive Solu-Medrol 125 mg once, Decadron 6 mg IV daily Acute heart failure Possible acute heart failure given elevated troponin Receive Lasix Monitor input output closely Discuss case with account receivable associate, account receivable associate will see the patient Suspecting multifocal pneumonia Stat x-ray shows patchy infiltrate in right middle lobe and lower lobe Possible multifocal pneumonia, suspected aspiration Start Zosyn IV Follow-up CBC BMP COPD exacerbation CTA suggested emphysema, possible undiagnosis COPD Worsening because of the COVID-19 pneumonia and aspiration Start bronchodilators scheduled and p.r.n. add dexamethasone iv Consult cloth edge singer for evaluation and treatment Patient condition is critical, I have discussed case with prosthetic aide. Given significant improvement of cardiac management, and patient code status of DNR DNI, will monitor patient closely in step-down ICU. I also called and discussed
--- NOTE | 2023-04-27 08:18 | PCOTNOTE ---
Spoke with nursing, as pt. currently on BiPap, nursing plans to wean and pt. may be able to participate in therapy services later today. Following.
[2023-04-27] MEDS: ATORVASTATIN 40 MG TABLET PO (09:01)
[2023-04-27] MEDS: ENOXAPARIN 100 MG/ML SYRINGE 85 MG SUB-Q ×2 (09:01→20:56)
[2023-04-27] MEDS: LORATADINE 10 MG TABLET PO (09:01)
[2023-04-27] MEDS: guaiFENesin 12 HR 600 MG TABCR PO ×2 (09:01→20:56)
[2023-04-27] MEDS: ASPIRIN 81 MG ENTERIC TABLET PO (09:01)
[2023-04-27 09:39] LABS: Procalcitonin 4.6 ng/mL
[2023-04-27] MEDS: ACETAMINOPHEN 325 MG TABLET 650 MG PO (09:49)
[2023-04-27] MEDS: REMDESIVIR 100 MG/NS 250 ML 100 MG/250 ML BAG 250 MG IVPB (11:34)
--- NOTE | 2023-04-27 12:39 | PM.CNPUL ---
Assessment and Plan Assessment and plan (1) Pneumonia due to COVID-19 virus: Code(s): U07.1 - COVID-19; J12.82 - Pneumonia due to coronavirus disease 2018 Status: Acute Assessment and Plan: Patient tested positive for COVID-19 on 04/25/2023 and started on remdesivir, dexamethasone on 04/25/23. Zosyn started on 04/26/2023 for possible aspiration. Remdesivir for 10 days Unless he should recover and tolerate room air with rest, ambulation and while sleeping. - Dexamethasone 6 mg IV for 10 days - Continuous pulse oximetry - Avoid any fluid overload. - emperic zosyn for possible aspiration. Will continue for now. Keep saturations are 90-94% with nasal cannula up to 15 L, if fails then Airvo high flow nasal cannula. Will follow with you. (2) Acute DVT (deep venous thrombosis): Code(s): I82.409 - Acute embolism and thrombosis of unspecified deep veins of unspecified lower extremity Status: Acute Assessment and Plan: Patient with left lower extremity swelling for 2 months and a DVT in his left lower extremity. Patient is on Lovenox 1 milligram/kilos twice a day. Will continue this for now. Once patient is improving and will not require any invasive procedures will switch the patient to DOAC that insurancw will cover. (3) Hypoxic respiratory failure: Code(s): J96.91 - Respiratory failure, unspecified with hypoxia Status: Acute Assessment and Plan: Etiology of hypoxic respiratory failure is likely COVID pneumonia, aspiratoration, fluid overload. He is on no oxygen at home. 04/25 06:00 room air , sats 94% 04/26 08:00 room air, sats 96% 04/26 12:15 15 L non-rebreather saturations 95% 04/26 16:00 BiPAP 10/, 50%, saturations 100% 04/27 09:00: 4 L nasal cannula saturations 98%. 04/27 12:00 2 L nasal cannula saturation 99%. 04/27 13:00 room air saturations 96%. Keep saturations are 90-94% with nasal cannula up to 15 L, if fails then Airvo high flow nasal cannula and tocilizumab or baricitinib. Patient is listed as a DNR. History of Present Illness History of Present Illness Consult date: 04/27/23 Chief complaint: Elev Trop, COVID+, Falls Narrative: 04/27/2023: This is a new pulmonary consult for COPD, COVID pneumonia and respiratory failure. 87-year-old with unknown medical history of arthritis on PRN tylenol. At baseline the patient has no activity limitation due to respiratory issues. He can walk at least 1 block. He rides a stationary bike 20-25 minutes 7 days a week for the last 10 years and has had no change in this exercise capacity. Patient smokes cigarettes from age [age] at 1/2 pack per day for a total of 1 pack years. Patient was exposed to secondhand smoke from both of his parents but none since. Patient denies vaping, illicit drug use. 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 Patient denies sandblasting, welding, asbestos were, professional painting or steel colloid mill operator. The patient tells me that for the last 2 months his left lower extremity was swollen. Patient was in his usual state of health until 04/25/2022 when he was tired and fell. He denies fever, chills, rigors, cough, phlegm production or shortness of breath at that time. Presented to the emergency room on 04/25/2023 after he had a fall. His room air saturations were 94%. His blood pressure was 119/70, his pulse rest heart rate was 84 and he was afebrile. His white blood cell count was 5.8, eosinophils 0.2%. Hemoglobin 12.4, platelets 142 1000, creatinine 1.20, his COVID RT PCR was positive. Chest x-ray on 04/25 was no acute cardiopulmonary disease. Lower extremity Doppler showed acute nonocclusive DVT in the left femoral and popliteal veins. Patient was started on remdesivir on 04/25/2023. Troponin was positive 0.224 with a repeat to 0.217. Lovenox 1 milligram/kilos q.12 was started. Lasix was given. weight on admission was 88.7 kg On 04/26
--- NOTE | 2023-04-27 13:23 | PCPTNOTE ---
Spoke to Dr. Reyes who stated pt can come off bedrest to work with therapy. Will make RN aware.
--- NOTE | 2023-04-27 14:38 | PCSTNOTE ---
Please refer to the Bedside Swallow Evaluation in the EMR. Please note, silent aspiration cannot be ruled out at bedside.
[2023-04-27] MEDS: guaiFENesin/CODEINE (*CRX) 200/20 MG 10 ML SYRUP 5 ML PO (23:24)
[2023-04-28] VITALS (11 sets, daily range): BP systolic 119–134; BP diastolic 49–72; PULSE 74–97; RESP 18–20; TEMP 35.7–36.7; O2SAT 94–99
[2023-04-28] MEDS: BENZOCAINE/MENTHOL (*BKC) 18 EA LOZENGE 1 LOZENGE PO ×2 (00:10→03:15)
[2023-04-28] MEDS: PIPERACILLN/TAZ 3.375GM/NS50ML 3.375 GM/50 ML BAG IVPB ×2 (03:46→09:16)
[2023-04-28] MEDS: ACETAMINOPHEN 325 MG TABLET 650 MG PO (05:54)
[2023-04-28] MEDS: LORATADINE 10 MG TABLET PO (05:54)
[2023-04-28 06:13] LABS: Basophils Percent Auto 0.1 % (0.2-1.2); Hematocrit 37.4 % (42.0-52.0); Hemoglobin 12.2 g/dL (14.0-18.0); Immature Granulocyte Absolute 0.01 K/mm3 (0.00-0.031); Immature Granulocyte Percent A 0.1 % (0-0.5); Lymphocytes Absolute Auto 0.41 K/mm3 (0.9-3.2); Lymphocytes Percent Auto 5.3 % (18.3-44.2); Mean Corpuscular HGB Conc 32.6 g/dl (32-36); Mean Corpuscular Hemoglobin 31.6 pg (26-34); Mean Corpuscular Volume 96.9 fl (80-100); Mean Platelet Volume 11.2 fl (7.4-10.4); Monocytes Absolute Auto 0.5 K/mm3 (0.1-0.6); Monocytes Percent Auto 5.9 % (2.6-8.5); Neutrophils Absolute Auto 6.9 K/mm3 (1.3-6.7); Neutrophils Percent Auto 88.6 % (45.5-73.1); Platelet Count Result 169 k/mm3 (150-375); Red Blood Count 3.86 M/mm3 (4.6-6.20); Red Cell Distribution Width 13.5 % (11.5-14.5); White Blood Count 7.8 K/mm3 (4.5-10.0)
[2023-04-28 06:35] LABS: Anion Gap 8 mmol/L (8-16); Blood Urea Nitrogen 43 mg/dL (9-20); Calcium 9.9 mg/dL (8.4-10.2); Carbon Dioxide 26 mmol/L (22-30); Chloride 104 mmol/L (98-107); Estimated CRCL calculation 36 ml/min; Estimated Glomerular Filt Rate 52; Glucose 122 mg/dL (65-110); Potassium 3.6 mmol/L (3.4-5.0); Sodium 138 mmol/L (137-145)
[2023-04-28] MEDS: guaiFENesin/CODEINE (*CRX) 200/20 MG 10 ML SYRUP 5 ML PO (09:10)
[2023-04-28] MEDS: guaiFENesin 12 HR 600 MG TABCR PO ×2 (09:11→21:23)
[2023-04-28] MEDS: ASPIRIN 81 MG ENTERIC TABLET PO (09:11)
[2023-04-28] MEDS: ATORVASTATIN 40 MG TABLET PO (09:11)
[2023-04-28] MEDS: ENOXAPARIN 100 MG/ML SYRINGE 85 MG SUB-Q ×2 (09:12→21:23)
[2023-04-28] MEDS: REMDESIVIR 100 MG/NS 250 ML 100 MG/250 ML BAG 250 MG IVPB (09:29)
--- NOTE | 2023-04-28 11:00 | PM.PNPUL ---
Progress Note: A&P Assessment and Plan (1) Pneumonia due to COVID-19 virus: Code(s): U07.1 - COVID-19; J12.82 - Pneumonia due to coronavirus disease 2018 Status: Acute Assessment and Plan: Patient tested positive for COVID-19 on 04/25/2023 and started on remdesivir, dexamethasone on 04/25/23. Zosyn started on 04/26/2023 for possible aspiration. Remdesivir for 10 days Unless he should recover and tolerate room air with rest, ambulation and while sleeping. - Dexamethasone 6 mg IV for 10 days - Continuous pulse oximetry - Avoid any fluid overload. - emperic zosyn for possible aspiration. Will continue for now. Keep saturations are 90-94% with nasal cannula up to 15 L, if fails then Airvo high flow nasal cannula. 04/28 patient states he is improved. He is walking in his room. His congestion is better. His hoarse voice is better. His white blood cell count is 7.8, his creatinine is 1.3 he is afebrile. He is on room air with saturations 94%. Plan: Patient is on remdesivir, day 4, dexamethasone day 3. He has improved and is currently on room air. I would finish 5 days of remdesivir and 5 days of dexamethasone. I will obtain a chest x-ray prior to discharge to serve as a new baseline. Patient does not require pulmonary specific follow-up in he should follow-up with his PCP. Will sign off, call with questions. (2) Acute DVT (deep venous thrombosis): Code(s): I82.409 - Acute embolism and thrombosis of unspecified deep veins of unspecified lower extremity Status: Acute Assessment and Plan: Patient with left lower extremity swelling for 2 months and a DVT in his left lower extremity. Patient is on Lovenox 1 milligram/kilos twice a day. Will continue this for now. Once patient is improving and will not require any invasive procedures will switch the patient to DOAC that insurancw will cover. 04/28: Patient is stable with no evidence of active bleeding. Would transition patient to DOAC that his insurance would cover. (3) Hypoxic respiratory failure: Code(s): J96.91 - Respiratory failure, unspecified with hypoxia Status: Acute Assessment and Plan: Etiology of hypoxic respiratory failure is likely COVID pneumonia, aspiration, fluid overload. He is on no oxygen at home. 04/25 06:00 room air , sats 94% 04/26 08:00 room air, sats 96% 04/26 12:15 15 L non-rebreather saturations 95% 04/26 16:00 BiPAP 10/6, 50%, saturations 100% 04/27 09:00: 4 L nasal cannula saturations 98%. 04/27 12:00 2 L nasal cannula saturation 99%. 04/27 13:00 room air saturations 96%. 04/28 08:00 room air saturations 98% 04/28: At this point I would discontinue Zosyn since he is improved clinically with no evidence of an aspiration pneumonia. Subjective Date/time seen: 04/28/23 11:00 Interval history: 04/27/2023:? This is a new pulmonary consult for COPD, COVID pneumonia and respiratory failure.? 87-year-old with unknown medical history of arthritis on PRN tylenol. At baseline the patient has no activity limitation due to respiratory issues.? He can walk at least 1 block.? He rides a stationary bike 20-25 minutes 7 days a week for the last 10 years and has had no change in this exercise capacity. Patient smokes cigarettes from age [age] at 1/2 pack per day for a total of 1 pack years.? Patient was exposed to secondhand smoke from both of his parents but none since.? Patient denies vaping, illicit drug use.? 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 Patient denies sandblasting, welding, asbestos were, professional painting or steel paper mill manager. The patient tells me that for the last 2 months his left lower extremity was swollen.? Patient was in his usual state of health until 04/25/2022 when he was tired and fell.? He denies fever, chills, rigors, cough, phlegm production or shortness of breath at that time. Presented to the emergency room on
--- NOTE | 2023-04-28 13:22 | PCPTNOTE ---
Patient declined PT stating he just returned to bed and is tired. Patient states he has been up in the chair most of the morning and has walked several times to the bathroom today. Patient requests PT return tomorrow. PT will continue to follow up per plan of care.
[2023-04-28] MEDS: polyethylene glycoL 3350 17 GM POWD.PACK PO (13:29)
--- NOTE | 2023-04-28 15:36 | PM.IMPN ---
Progress Note: A&P Assessment and Plan (1) Elevated troponin: Code(s): R79.89 - Other specified abnormal findings of blood chemistry Status: Acute (2) Generalized weakness: Code(s): R53.1 - Weakness Status: Acute (3) COVID-19: Code(s): U07.1 - COVID-19 Status: Acute (4) Laceration of left ear: Code(s): S01.312A - Laceration without foreign body of left ear, initial encounter Status: Acute (5) Multiple falls: Code(s): R29.6 - Repeated falls Status: Acute (6) Dehydration: Code(s): E86.0 - Dehydration Status: Acute (7) Acute DVT (deep venous thrombosis): Code(s): I82.409 - Acute embolism and thrombosis of unspecified deep veins of unspecified lower extremity Status: Acute (8) Acute respiratory failure: Code(s): J96.00 - Acute respiratory failure, unspecified whether with hypoxia or hypercapnia Status: Acute (9) Multifocal pneumonia: Code(s): J18.9 - Pneumonia, unspecified organism Status: Acute (10) Acute heart failure: Code(s): I50.9 - Heart failure, unspecified Status: Acute (11) COPD exacerbation: Code(s): J44.1 - Chronic obstructive pulmonary disease with (acute) exacerbation Status: Acute Plan General weakness, multiple falls Likely due to deconditioning, COVID infection, poor intake, dehydration CT head shows no acute intracranial issues, patient has no focal weakness Scan shows no fracture Consult PT OT social media strategist case management coordinator for evaluation and assisting placement Elevated troponin Unclear etiology need to rule out ACS Start aspirin 325 mg once, 81 mg daily p.o., Lipitor 40 mg daily p.o. Per patient medication list, patient is on warfarin. But patient denies taking warfarin and other medications Follow-up D-dimer, venous Doppler lower extremities Follow-up echocardiogram, and reviewed, normal EF 60 to 65% of left ventricle, grade 1 diastolic dysfunction, no significant valvular disease Telemetry monitoring Consult structural fitter for evaluation treatment COVID-19 infection Patient received remdesivir in the ED. Given patient's age and decondition, will continue remdesivir add dexamethasone iv transition to oral pt to complete 5 days of remdesivir Dehydration DC fluids Acute DVT Venous Doppler shows acute nonocclusive DVT in the left femoral and popliteal veins. Otherwise patent bilateral lower extremity veins. No evidence of deep venous thrombosis on the right. s/w Lovenox 1 milligram/kilos q.12 hour CTA shows no PE but emphysema and mild interstitial changes Acute respiratory failure Patient had a sudden onset of respiratory distress, hypoxemia On structural fitter, differential includes acute heart failure, aspiration, Received Lasix 40 mg times 2 IV push, patient made it significant fever output Receive Solu-Medrol 125 mg once, Decadron 6 mg IV daily change to oral Acute heart failure Possible acute heart failure given elevated troponin Received LasixDC lasix now Suspecting multifocal pneumonia Stat x-ray shows patchy infiltrate in right middle lobe and lower lobe Possible multifocal pneumonia, suspected aspiration stop iv zosyn COPD exacerbation CTA suggested emphysema, possible undiagnosis COPD Worsening because of the COVID-19 pneumonia and aspiration Start bronchodilators scheduled and p.r.n. add dexamethasone iv change to oral Consult commercial solar sales consultant for evaluation and treatment Patient may benefit from rehab on discharge Subjective Date/time seen: 04/28/23 15:36 Interval history: Pt doing much better off BIPAP able to eat and drink better Pt admitted with COVID and possible aspiration PNEUMONIA Doing better on RA on remdesivir continue for total of 5 days can downgrade to medical floor Review of Systems Review of Systems: No specific complaints Exam Narrative: GENERAL: No obvious distress in the morning
[2023-04-28 16:20] LABS: Basophils Percent Auto 0.1 % (0.2-1.2); Hemoglobin 12.9 g/dL (14.0-18.0); Immature Granulocyte Absolute 0.03 K/mm3 (0.00-0.031); Immature Granulocyte Percent A 0.4 % (0-0.5); Lymphocytes Absolute Auto 0.36 K/mm3 (0.9-3.2); Lymphocytes Percent Auto 4.2 % (18.3-44.2); Mean Corpuscular HGB Conc 33.9 g/dl (32-36); Mean Corpuscular Volume 94.3 fl (80-100); Mean Platelet Volume 10.8 fl (7.4-10.4); Monocytes Absolute Auto 0.3 K/mm3 (0.1-0.6); Monocytes Percent Auto 3.5 % (2.6-8.5); Neutrophils Absolute Auto 7.9 K/mm3 (1.3-6.7); Neutrophils Percent Auto 91.8 % (45.5-73.1); Platelet Count Result 188 k/mm3 (150-375); Red Blood Count 4.03 M/mm3 (4.6-6.20); Red Cell Distribution Width 13.6 % (11.5-14.5); White Blood Count 8.6 K/mm3 (4.5-10.0)
[2023-04-28 16:30] LABS: Anion Gap 9 mmol/L (8-16); Blood Urea Nitrogen 45 mg/dL (9-20); Calcium 9.8 mg/dL (8.4-10.2); Carbon Dioxide 23 mmol/L (22-30); Chloride 105 mmol/L (98-107); Estimated CRCL calculation 39 ml/min; Estimated Glomerular Filt Rate 58; Glucose 111 mg/dL (65-110); Potassium 4.1 mmol/L (3.4-5.0); Sodium 137 mmol/L (137-145)
--- NOTE | 2023-04-28 17:56 | PC.NURSE ---
Addendum entered by Katey Leon RN 04/28/23 18:32: PT MOVED AT 1830 Original Note: PT MEDICAL /SURG STATUS- REPORT GIVEN TO KAIN ELI- PT MOVED TO ROOM 304 VIA BED ACCOMPANIED BY STAFF- BELONGINGS WITH PT - PT STATED HE WILL CALL HIS DAUGHTER
--- NOTE | 2023-04-28 18:35 | PC.NURSE ---
This patient, Ranulfo Gongora, was received from [facility] on 04/28/23 at 1835. Patient/family oriented to unit policies and routines
[2023-04-29 05:25] VITALS: BP 128/79; PULSE 83; RESP 20; TEMP 35.6; O2SAT 98
[2023-04-29] MEDS: LORATADINE 10 MG TABLET PO (06:19)
[2023-04-29] MEDS: ACETAMINOPHEN 325 MG TABLET 650 MG PO (06:21)
[2023-04-29 07:04] LABS: Alanine Aminotransferase 34 U/L (6-50); Albumin Level 3.5 g/dL (3.5-5.1); Alkaline Phosphatase 69 U/L (38-126); Aspartate Amino Transferase 40 U/L (17-59); Bilirubin,Total 0.7 mg/dL (0.2-1.3)
[2023-04-29 07:10] LABS: INR 1.2; Prothrombin Time 15.7 Seconds (11.1-14.7)
[2023-04-29 08:00] VITALS: BP 145/85; PULSE 50; RESP 20; TEMP 35.8; O2SAT 100
[2023-04-29] MEDS: polyethylene glycoL 3350 17 GM POWD.PACK PO (08:05)
[2023-04-29] MEDS: DEXAMETHASONE 2 MG TABLET 6 MG PO (08:05)
[2023-04-29] MEDS: ASPIRIN 81 MG CHEWABLE TABLET PO (08:05)
[2023-04-29] MEDS: ATORVASTATIN 40 MG TABLET PO (08:05)
[2023-04-29] MEDS: ENOXAPARIN 100 MG/ML SYRINGE 85 MG SUB-Q ×2 (08:05→20:39)
[2023-04-29] MEDS: guaiFENesin 12 HR 600 MG TABCR PO ×2 (08:05→20:39)
[2023-04-29] MEDS: REMDESIVIR 100 MG/NS 250 ML 100 MG/250 ML BAG 250 MG IVPB (09:29)
--- NOTE | 2023-04-29 12:40 | P.CDI_ITS ---
CDI Query Clarification Request CHF noted in the assessment and plan. Elevated BNP on 04/26/23 lab work. Patient has received Lasix. Please specify type and acuity of heart failure if known. * Acute * Chronic * Acute on Chronic * Unknown * Systolic * Diastolic * Combined Systolic and Diastolic * Unknown <Essence Ray RN - Last Filed: 04/29/23 12:43> Clarified Diagnosis Clarified Diagnosis: Acute on chronic systolic <Sarita Arreola MD - Last Filed: 04/30/23 15:54>
--- NOTE | 2023-04-29 12:40 | WPDCDIQUERY2 ---
CDI Query Clarification Request CHF noted in the assessment and plan. Elevated BNP on 04/26/23 lab work. Patient has received Lasix. Please specify type and acuity of heart failure if known. Acute Chronic Acute on Chronic Unknown Systolic Diastolic Combined Systolic and Diastolic Unknown <Essence Ray RN - Last Filed: 04/29/23 12:43> Clarified Diagnosis Clarified Diagnosis: Acute on chronic systolic <Sarita Arreola MD - Last Filed: 04/30/23 15:54>
[2023-04-29] MEDS: traMADol HCL (*CRX) 50 MG TABLET PO ×2 (14:33→18:34)
[2023-04-29 16:00] VITALS: BP 129/71; PULSE 85; RESP 19; TEMP 36.4; O2SAT 97
--- NOTE | 2023-04-29 18:49 | PM.IMPN ---
Progress Note: A&P Assessment and Plan (1) Elevated troponin: Code(s): R79.89 - Other specified abnormal findings of blood chemistry Status: Acute (2) Generalized weakness: Code(s): R53.1 - Weakness Status: Acute (3) COVID-19: Code(s): U07.1 - COVID-19 Status: Acute (4) Laceration of left ear: Code(s): S01.312A - Laceration without foreign body of left ear, initial encounter Status: Acute (5) Multiple falls: Code(s): R29.6 - Repeated falls Status: Acute (6) Dehydration: Code(s): E86.0 - Dehydration Status: Acute (7) Acute DVT (deep venous thrombosis): Code(s): I82.409 - Acute embolism and thrombosis of unspecified deep veins of unspecified lower extremity Status: Acute (8) Acute respiratory failure: Code(s): J96.00 - Acute respiratory failure, unspecified whether with hypoxia or hypercapnia Status: Acute (9) Multifocal pneumonia: Code(s): J18.9 - Pneumonia, unspecified organism Status: Acute (10) Acute heart failure: Code(s): I50.9 - Heart failure, unspecified Status: Acute (11) COPD exacerbation: Code(s): J44.1 - Chronic obstructive pulmonary disease with (acute) exacerbation Status: Acute Plan General weakness, multiple falls Likely due to deconditioning, COVID infection, poor intake, dehydration CT head shows no acute intracranial issues, patient has no focal weakness Scan shows no fracture Consult PT OT social media intern block and case maker for evaluation and assisting placement Elevated troponin Unclear etiology need to rule out ACS Start aspirin 325 mg once, 81 mg daily p.o., Lipitor 40 mg daily p.o. Per patient medication list, patient is on warfarin. But patient denies taking warfarin and other medications Follow-up D-dimer, venous Doppler lower extremities Follow-up echocardiogram, and reviewed, normal EF 60 to 65% of left ventricle, grade 1 diastolic dysfunction, no significant valvular disease Telemetry monitoring Consult coding file clerk for evaluation treatment COVID-19 infection Patient received remdesivir in the ED. Given patient's age and decondition, will continue remdesivir add dexamethasone iv transition to oral pt to complete 5 days of remdesivir Dehydration DC fluids Acute DVT Venous Doppler shows acute nonocclusive DVT in the left femoral and popliteal veins. Otherwise patent bilateral lower extremity veins. No evidence of deep venous thrombosis on the right. s/w Lovenox 1 milligram/kilos q.12 hour CTA shows no PE but emphysema and mild interstitial changes Acute respiratory failure Patient had a sudden onset of respiratory distress, hypoxemia On coding file clerk, differential includes acute heart failure, aspiration, Received Lasix 40 mg times 2 IV push, patient made it significant fever output Receive Solu-Medrol 125 mg once, Decadron 6 mg IV daily change to oral Acute heart failure Possible acute heart failure given elevated troponin Received LasixDC lasix now Suspecting multifocal pneumonia Stat x-ray shows patchy infiltrate in right middle lobe and lower lobe Possible multifocal pneumonia, suspected aspiration stop iv zosyn COPD exacerbation CTA suggested emphysema, possible undiagnosis COPD Worsening because of the COVID-19 pneumonia and aspiration Start bronchodilators scheduled and p.r.n. add dexamethasone iv change to oral Consult referral management liaison for evaluation and treatment Patient may benefit from rehab on discharge Subjective Date/time seen: 04/29/23 18:49 Interval history: Pt doing much better off BIPAP able to eat and drink better Pt admitted with COVID and possible aspiration PNEUMONIA Doing better on RA on remdesivir continue for total of 5 days can downgrade to medical floor Pt concerned about back pains and weakness Pt is on day 4 of remdesvir Review of Systems Review of Systems: Back pains Exa
[2023-04-29 20:00] VITALS: PULSE 85; RESP 19; O2SAT 97
[2023-04-29] MEDS: MORPHINE SULFATE (*CRX) 2 MG/ML INJ IV PUSH (20:46)
[2023-04-30] VITALS (7 sets, daily range): BP systolic 114–153; BP diastolic 64–71; PULSE 70–91; RESP 18–24; TEMP 35.7–36.1; O2SAT 96–97
[2023-04-30] MEDS: traMADol HCL (*CRX) 50 MG TABLET PO (05:27)
[2023-04-30] MEDS: LORATADINE 10 MG TABLET PO (05:28)
[2023-04-30] MEDS: MORPHINE SULFATE (*CRX) 2 MG/ML INJ IV PUSH (06:43)
[2023-04-30] MEDS: ENOXAPARIN 100 MG/ML SYRINGE 85 MG SUB-Q ×2 (08:28→21:25)
[2023-04-30] MEDS: DEXAMETHASONE 2 MG TABLET 6 MG PO (08:28)
[2023-04-30] MEDS: ATORVASTATIN 40 MG TABLET PO (08:29)
[2023-04-30] MEDS: guaiFENesin 12 HR 600 MG TABCR PO ×2 (08:29→21:24)
[2023-04-30] MEDS: ASPIRIN 81 MG CHEWABLE TABLET PO (08:29)
--- NOTE | 2023-04-30 12:31 | PM.IMPN ---
Progress Note: A&P Assessment and Plan (1) Elevated troponin: Code(s): R79.89 - Other specified abnormal findings of blood chemistry Status: Acute (2) Generalized weakness: Code(s): R53.1 - Weakness Status: Acute (3) COVID-19: Code(s): U07.1 - COVID-19 Status: Acute (4) Laceration of left ear: Code(s): S01.312A - Laceration without foreign body of left ear, initial encounter Status: Acute (5) Multiple falls: Code(s): R29.6 - Repeated falls Status: Acute (6) Dehydration: Code(s): E86.0 - Dehydration Status: Acute (7) Acute DVT (deep venous thrombosis): Code(s): I82.409 - Acute embolism and thrombosis of unspecified deep veins of unspecified lower extremity Status: Acute (8) Acute respiratory failure: Code(s): J96.00 - Acute respiratory failure, unspecified whether with hypoxia or hypercapnia Status: Acute (9) Multifocal pneumonia: Code(s): J18.9 - Pneumonia, unspecified organism Status: Acute (10) Acute heart failure: Code(s): I50.9 - Heart failure, unspecified Status: Acute (11) COPD exacerbation: Code(s): J44.1 - Chronic obstructive pulmonary disease with (acute) exacerbation Status: Acute Plan General weakness, multiple falls Likely due to deconditioning, COVID infection, poor intake, dehydration CT head shows no acute intracranial issues, patient has no focal weakness Scan shows no fracture Consult PT OT social director case therapist for evaluation and assisting placement Elevated troponin Unclear etiology need to rule out ACS Start aspirin 325 mg once, 81 mg daily p.o., Lipitor 40 mg daily p.o. Per patient medication list, patient is on warfarin. But patient denies taking warfarin and other medications Follow-up D-dimer, venous Doppler lower extremities Follow-up echocardiogram, and reviewed, normal EF 60 to 65% of left ventricle, grade 1 diastolic dysfunction, no significant valvular disease Telemetry monitoring Consult tableau analyst for evaluation treatment COVID-19 infection Patient received remdesivir in the ED. Given patient's age and decondition, will continue remdesivir add dexamethasone iv transition to oral pt to complete 5 days of remdesivir 5 th day today and DC tl hopefully to rehab placement Dehydration DC fluids Acute DVT Venous Doppler shows acute nonocclusive DVT in the left femoral and popliteal veins. Otherwise patent bilateral lower extremity veins. No evidence of deep venous thrombosis on the right. s/w Lovenox 1 milligram/kilos q.12 hour CTA shows no PE but emphysema and mild interstitial changes Acute respiratory failure Patient had a sudden onset of respiratory distress, hypoxemia On tableau analyst, differential includes acute heart failure, aspiration, Received Lasix 40 mg times 2 IV push, patient made it significant fever output Receive Solu-Medrol 125 mg once, Decadron 6 mg IV daily change to oral Acute heart failure Possible acute heart failure given elevated troponin Received LasixDC lasix now Suspecting multifocal pneumonia Stat x-ray shows patchy infiltrate in right middle lobe and lower lobe Possible multifocal pneumonia, suspected aspiration stop iv zosyn COPD exacerbation CTA suggested emphysema, possible undiagnosis COPD Worsening because of the COVID-19 pneumonia and aspiration Start bronchodilators scheduled and p.r.n. add dexamethasone iv change to oral Consult tank crewmember for evaluation and treatment Patient may benefit from rehab on discharge Subjective Date/time seen: 04/30/23 12:31 Interval history: Pt doing much better off BIPAP able to eat and drink better Pt admitted with COVID and possible aspiration PNEUMONIA Doing better on RA on remdesivir continue for total of 5 days can downgrade to medical floor Pt concerned about back pains and weakness Pt is on day 5 of remdesvir Pt wanti
--- NOTE | 2023-04-30 13:22 | PM.DS ---
DS: Admitting Diagnosis Discharge Date 04/30/2023 Admitting Diagnosis Fall and general weakness DS: Discharge Diagnosis Discharge Diagnosis (1) Elevated troponin: Code(s): R79.89 - Other specified abnormal findings of blood chemistry Status: Acute (2) Generalized weakness: Code(s): R53.1 - Weakness Status: Acute (3) COVID-19: Code(s): U07.1 - COVID-19 Status: Acute (4) Laceration of left ear: Code(s): S01.312A - Laceration without foreign body of left ear, initial encounter Status: Acute (5) Multiple falls: Code(s): R29.6 - Repeated falls Status: Acute (6) Dehydration: Code(s): E86.0 - Dehydration Status: Acute (7) Acute DVT (deep venous thrombosis): Code(s): I82.409 - Acute embolism and thrombosis of unspecified deep veins of unspecified lower extremity Status: Acute (8) Acute respiratory failure: Code(s): J96.00 - Acute respiratory failure, unspecified whether with hypoxia or hypercapnia Status: Acute (9) Multifocal pneumonia: Code(s): J18.9 - Pneumonia, unspecified organism Status: Acute (10) Acute heart failure: Code(s): I50.9 - Heart failure, unspecified Status: Acute (11) COPD exacerbation: Code(s): J44.1 - Chronic obstructive pulmonary disease with (acute) exacerbation Status: Acute Plan General weakness, multiple falls Likely due to deconditioning, COVID infection, poor intake, dehydration CT head shows no acute intracranial issues, patient has no focal weakness Scan shows no fracture Consult PT OT social insurance analyst therapeutic case manager for evaluation and assisting placement Elevated troponin Unclear etiology need to rule out ACS Start aspirin 325 mg once, 81 mg daily p.o., Lipitor 40 mg daily p.o. Per patient medication list, patient is on warfarin. But patient denies taking warfarin and other medications Follow-up D-dimer, venous Doppler lower extremities Follow-up echocardiogram, and reviewed, normal EF 60 to 65% of left ventricle, grade 1 diastolic dysfunction, no significant valvular disease Telemetry monitoring Consult sweet goods machine operator for evaluation treatment COVID-19 infection Patient received remdesivir in the ED. Given patient's age and decondition, will continue remdesivir add dexamethasone iv transition to oral pt to complete 5 days of remdesivir 5 th day today and DC tl hopefully to rehab placement Dehydration DC fluids Acute DVT Venous Doppler shows acute nonocclusive DVT in the left femoral and popliteal veins. Otherwise patent bilateral lower extremity veins. No evidence of deep venous thrombosis on the right. s/w Lovenox 1 milligram/kilos q.12 hour CTA shows no PE but emphysema and mild interstitial changes Acute respiratory failure Patient had a sudden onset of respiratory distress, hypoxemia On sweet goods machine operator, differential includes acute heart failure, aspiration, Received Lasix 40 mg times 2 IV push, patient made it significant fever output Receive Solu-Medrol 125 mg once, Decadron 6 mg IV daily change to oral Acute heart failure Possible acute heart failure given elevated troponin Received LasixDC lasix now Suspecting multifocal pneumonia Stat x-ray shows patchy infiltrate in right middle lobe and lower lobe Possible multifocal pneumonia, suspected aspiration stop iv zosyn COPD exacerbation CTA suggested emphysema, possible undiagnosis COPD Worsening because of the COVID-19 pneumonia and aspiration Start bronchodilators scheduled and p.r.n. add dexamethasone iv change to oral Consult policy and planning manager for evaluation and treatment Patient may benefit from rehab on discharge DS: Summary Time Spent with Patient Time attestation: Total time spent providing and/or coordinating discharge services: Exam Narrative: GENERAL: No obvious distress in the morning, sudden onset respiratory distress abdomen. WELL-NOURISHED. - EY
[2023-04-30] MEDS: LIDOCAINE 5% PATCH 1 PATCH TRANSDERM (13:26)
[2023-05-01 01:10] VITALS: BP 130/91; PULSE 75; RESP 16; TEMP 35.6; O2SAT 98
[2023-05-01] MEDS: traMADol HCL (*CRX) 50 MG TABLET PO ×3 (03:19→21:12)
[2023-05-01] MEDS: ACETAMINOPHEN 325 MG TABLET 650 MG PO (05:49)
[2023-05-01] MEDS: LORATADINE 10 MG TABLET PO (05:49)
[2023-05-01 06:00] VITALS: BP 120/49; PULSE 68; RESP 16; TEMP 36; O2SAT 95
[2023-05-01] MEDS: LIDOCAINE 5% PATCH 1 PATCH TRANSDERM (08:46)
[2023-05-01] MEDS: ATORVASTATIN 40 MG TABLET PO (08:46)
[2023-05-01] MEDS: ASPIRIN 81 MG CHEWABLE TABLET PO (08:46)
[2023-05-01] MEDS: DEXAMETHASONE 2 MG TABLET 6 MG PO (08:46)
[2023-05-01] MEDS: ENOXAPARIN 100 MG/ML SYRINGE 85 MG SUB-Q ×2 (08:46→21:11)
[2023-05-01] MEDS: guaiFENesin 12 HR 600 MG TABCR PO ×2 (08:46→21:10)
--- NOTE | 2023-05-01 12:44 | PM.IMPN ---
Progress Note: A&P Assessment and Plan (1) Elevated troponin: Code(s): R79.89 - Other specified abnormal findings of blood chemistry Status: Acute (2) Generalized weakness: Code(s): R53.1 - Weakness Status: Acute (3) COVID-19: Code(s): U07.1 - COVID-19 Status: Acute (4) Laceration of left ear: Code(s): S01.312A - Laceration without foreign body of left ear, initial encounter Status: Acute (5) Multiple falls: Code(s): R29.6 - Repeated falls Status: Acute (6) Dehydration: Code(s): E86.0 - Dehydration Status: Acute (7) Acute DVT (deep venous thrombosis): Code(s): I82.409 - Acute embolism and thrombosis of unspecified deep veins of unspecified lower extremity Status: Acute (8) Acute respiratory failure: Code(s): J96.00 - Acute respiratory failure, unspecified whether with hypoxia or hypercapnia Status: Acute (9) Multifocal pneumonia: Code(s): J18.9 - Pneumonia, unspecified organism Status: Acute (10) Acute heart failure: Code(s): I50.9 - Heart failure, unspecified Status: Acute (11) COPD exacerbation: Code(s): J44.1 - Chronic obstructive pulmonary disease with (acute) exacerbation Status: Acute Plan Patient presented on 04/25/2023 with and fall to the ground. CT head and cervical spine was negative for any acute intracranial injury. Had left ear laceration. Mild troponin elevation with flat trend. Cardiology consulted. Tested positive for COVID. Chest x-ray with mild chronic interstitial lung disease. CTA with no PE. 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 Emphysema and mild chronic interstitial lung disease noted. Venous duplex acute non-occlusive DVT in the left femoral and popliteal vein. Started on Lovenox. Echo with EF 60-65%. Grade 1 diastolic dysfunction. No valvular abnormality Acute hypoxic respiratory failure on 04/26/23. Needing BiPAP support. Now off. related to COVID and/or aspiration. Treated with Solu Medrol diuretics. Nebulizers. treated with empiric Zosyn. D 6 off Decadron/10. Finish remdesivir 5 day course Patient reports some back pain nonradiating. Reports not able to get up to walk. Breathing has improved. Leg swelling has improved. Will switch Lovenox to oral anticoagulant Deconditioning back check x-ray currently on lidocaine patch p.r.n. Disposition: May benefit from short-term rehab. Subjective Date/time seen: 05/01/23 12:44 Interval history: Patient presented on 04/25/2023 with and fall to the ground. CT head and cervical spine was negative for any acute intracranial injury. Had left ear laceration. Mild troponin elevation with flat trend. Cardiology consulted. Tested positive for COVID. Has recurrent falls. Chest x-ray with mild chronic interstitial lung disease. CTA with no PE. 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 Emphysema and mild chronic interstitial lung disease noted. Venous duplex acute non-occlusive DVT in the left femoral and popliteal vein. Started on Lovenox. Echo with EF 60-65%. Grade 1 diastolic dysfunction. No valvular abnormality Acute hypoxic respiratory failure on 04/26/23. Needing BiPAP support. Related to COVID and/or aspiration. Review treated with Solu Medrol diuretics. Nebulizers. treated with empiric Zosyn Patient reports some back pain nonradiating. Reports not able to get up to walk. Breathing has improved. Leg swelling has improved. Review of Systems Review of Systems: All systems reviewed & are unremarkable except as noted in HPI and below Exam Narrative: GENERAL:No acute distress, non-toxic appearing. HEAD:? Normal with no signs of head trauma. EYES:? EOMI, conjunctiva normal ENT: Laceration beneath pinna 0.5 cm in length LUNGS:? Nonlabored breathing. Diminished breath sound bilaterally HEART:? Regular rate and rhythm ABD:? [Soft], [nontender to palpation] EXT: Normal r
[2023-05-01 13:27] LABS: Basophils Percent Auto 0.2 % (0.2-1.2); Hematocrit 35.1 % (42.0-52.0); Hemoglobin 11.4 g/dL (14.0-18.0); Immature Granulocyte Absolute 0.16 K/mm3 (0.00-0.031); Lymphocytes Absolute Auto 0.45 K/mm3 (0.9-3.2); Lymphocytes Percent Auto 5.6 % (18.3-44.2); Mean Corpuscular HGB Conc 32.5 g/dl (32-36); Mean Corpuscular Hemoglobin 31.9 pg (26-34); Mean Corpuscular Volume 98.3 fl (80-100); Mean Platelet Volume 10.6 fl (7.4-10.4); Monocytes Absolute Auto 0.3 K/mm3 (0.1-0.6); Monocytes Percent Auto 3.7 % (2.6-8.5); Neutrophils Absolute Auto 7.1 K/mm3 (1.3-6.7); Neutrophils Percent Auto 88.5 % (45.5-73.1); Platelet Count Result 213 k/mm3 (150-375); Red Blood Count 3.57 M/mm3 (4.6-6.20); Red Cell Distribution Width 13.6 % (11.5-14.5)
[2023-05-01 13:41] LABS: Alanine Aminotransferase 50 U/L (6-50); Albumin Level 3.7 g/dL (3.5-5.1); Alkaline Phosphatase 77 U/L (38-126); Anion Gap 6 mmol/L (8-16); Aspartate Amino Transferase 49 U/L (17-59); Bilirubin,Total 0.8 mg/dL (0.2-1.3); Blood Urea Nitrogen 39 mg/dL (9-20); Calcium 10.2 mg/dL (8.4-10.2); Carbon Dioxide 29 mmol/L (22-30); Chloride 102 mmol/L (98-107); Creatine Kinase 162 U/L (55-170); Estimated CRCL calculation 36 ml/min; Estimated Glomerular Filt Rate 52; Glucose 161 mg/dL (65-110); Magnesium 2.3 mg/dL (1.6-2.3); Potassium 4.4 mmol/L (3.4-5.0); Sodium 137 mmol/L (137-145)
[2023-05-01 14:00] VITALS: BP 138/70; PULSE 80; RESP 18; TEMP 35.7; O2SAT 96
[2023-05-02 00:10] VITALS: BP 151/82; PULSE 93; RESP 16; TEMP 36.1; O2SAT 98
[2023-05-02] MEDS: MENTHOL 10% / METHYL SALICYLATE 15% 57 GM TUBE 1 APPLIC TOPICAL ×2 (05:13→20:35)
[2023-05-02] MEDS: LORATADINE 10 MG TABLET PO (05:13)
[2023-05-02] MEDS: traMADol HCL (*CRX) 50 MG TABLET PO ×2 (05:13→20:35)
[2023-05-02 06:00] VITALS: BP 133/67; PULSE 63; RESP 18; TEMP 35.9; O2SAT 97
[2023-05-02 07:20] LABS: Basophils Percent Auto 0.3 % (0.2-1.2); Eosinophils Percent Auto 0.3 % (0-4.4); Hematocrit 31.7 % (42.0-52.0); Hemoglobin 10.5 g/dL (14.0-18.0); Immature Granulocyte Absolute 0.21 K/mm3 (0.00-0.031); Immature Granulocyte Percent A 3.3 % (0-0.5); Lymphocytes Absolute Auto 1.09 K/mm3 (0.9-3.2); Lymphocytes Percent Auto 17.1 % (18.3-44.2); Mean Corpuscular HGB Conc 33.1 g/dl (32-36); Mean Corpuscular Hemoglobin 31.9 pg (26-34); Mean Corpuscular Volume 96.4 fl (80-100); Mean Platelet Volume 10.8 fl (7.4-10.4); Monocytes Absolute Auto 0.6 K/mm3 (0.1-0.6); Monocytes Percent Auto 9.9 % (2.6-8.5); Neutrophils Absolute Auto 4.4 K/mm3 (1.3-6.7); Neutrophils Percent Auto 69.1 % (45.5-73.1); Platelet Count Result 212 k/mm3 (150-375); Red Blood Count 3.29 M/mm3 (4.6-6.20); Red Cell Distribution Width 13.8 % (11.5-14.5); White Blood Count 6.4 K/mm3 (4.5-10.0)
[2023-05-02 07:31] LABS: Alanine Aminotransferase 51 U/L (6-50); Albumin Level 3.3 g/dL (3.5-5.1); Alkaline Phosphatase 70 U/L (38-126); Anion Gap 6 mmol/L (8-16); Aspartate Amino Transferase 46 U/L (17-59); Bilirubin,Total 0.8 mg/dL (0.2-1.3); Blood Urea Nitrogen 36 mg/dL (9-20); Calcium 9.9 mg/dL (8.4-10.2); Carbon Dioxide 27 mmol/L (22-30); Chloride 103 mmol/L (98-107); Estimated CRCL calculation 36 ml/min; Estimated Glomerular Filt Rate 52; Glucose 90 mg/dL (65-110); Magnesium 2.3 mg/dL (1.6-2.3); Potassium 4.2 mmol/L (3.4-5.0); Sodium 136 mmol/L (137-145)
[2023-05-02] MEDS: ATORVASTATIN 40 MG TABLET PO (09:17)
[2023-05-02] MEDS: ENOXAPARIN 100 MG/ML SYRINGE 85 MG SUB-Q (09:17)
[2023-05-02] MEDS: ASPIRIN 81 MG CHEWABLE TABLET PO (09:17)
[2023-05-02] MEDS: guaiFENesin 12 HR 600 MG TABCR PO (09:17)
[2023-05-02] MEDS: LIDOCAINE 5% PATCH 1 PATCH TRANSDERM (09:18)
[2023-05-02] MEDS: DEXAMETHASONE 2 MG TABLET 6 MG PO (09:18)
[2023-05-02 14:00] VITALS: BP 128/71; PULSE 68; RESP 18; TEMP 36.6; O2SAT 98
--- NOTE | 2023-05-02 14:35 | PM.IMPN ---
Progress Note: A&P Assessment and Plan (1) Elevated troponin: Code(s): R79.89 - Other specified abnormal findings of blood chemistry Status: Acute (2) Generalized weakness: Code(s): R53.1 - Weakness Status: Acute (3) COVID-19: Code(s): U07.1 - COVID-19 Status: Acute (4) Laceration of left ear: Code(s): S01.312A - Laceration without foreign body of left ear, initial encounter Status: Acute (5) Multiple falls: Code(s): R29.6 - Repeated falls Status: Acute (6) Dehydration: Code(s): E86.0 - Dehydration Status: Acute (7) Acute DVT (deep venous thrombosis): Code(s): I82.409 - Acute embolism and thrombosis of unspecified deep veins of unspecified lower extremity Status: Acute (8) Acute respiratory failure: Code(s): J96.00 - Acute respiratory failure, unspecified whether with hypoxia or hypercapnia Status: Acute (9) Multifocal pneumonia: Code(s): J18.9 - Pneumonia, unspecified organism Status: Acute (10) Acute heart failure: Code(s): I50.9 - Heart failure, unspecified Status: Acute (11) COPD exacerbation: Code(s): J44.1 - Chronic obstructive pulmonary disease with (acute) exacerbation Status: Acute Plan Patient presented on 04/25/2023 with and fall to the ground. CT head and cervical spine was negative for any acute intracranial injury. Had left ear laceration. Mild troponin elevation with flat trend. Cardiology consulted. Tested positive for COVID. Chest x-ray with mild chronic interstitial lung disease. CTA with no PE. 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 Emphysema and mild chronic interstitial lung disease noted. Venous duplex acute non-occlusive DVT in the left femoral and popliteal vein. Started on Lovenox. Echo with EF 60-65%. Grade 1 diastolic dysfunction. No valvular abnormality Acute hypoxic respiratory failure on 04/26/23. Needing BiPAP support. Now off. related to COVID and/or aspiration. Treated with Solu Medrol diuretics. Nebulizers. treated with empiric Zosyn. D7 Decadron/10. Finish remdesivir 5 day course . Repeat chest x-ray with stable mild bibasilar predominant chronic interstitial lung disease. Patient reports some back pain nonradiating. Reports not able to get up to walk. Breathing has improved. Leg swelling has improved. will add Mucinex Will switch Lovenox to oral anticoagulant. Deconditioning back check x-ray currently on lidocaine patch p.r.n. 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 With ongoing pain he will benefit from pain management referral as an outpatient basis Disposition: May benefit from short-term rehab. PT OT evaluated and did well Subjective Date/time seen: 05/02/23 14:35 Interval history: Patient presented on 04/25/2023 with and fall to the ground. CT head and cervical spine was negative for any acute intracranial injury. Had left ear laceration. Mild troponin elevation with flat trend. Cardiology consulted. Tested positive for COVID. Has recurrent falls. Chest x-ray with mild chronic interstitial lung disease. CTA with no PE. 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 Emphysema and mild chronic interstitial lung disease noted. Venous duplex acute non-occlusive DVT in the left femoral and popliteal vein. Started on Lovenox. Echo with EF 60-65%. Grade 1 diastolic dysfunction. No valvular abnormality Acute hypoxic respiratory failure on 04/26/23. Needing BiPAP support. Related to COVID and/or aspiration. Review treated with Solu Medrol diuretics. Nebulizers. treated with empiric Zosyn Patient reports some back pain nonradiating. Reports not able to get up to walk. Breathing has improved. Leg swelling has improved. 05/02/2023: No overnight events. Shortness of b
[2023-05-02] MEDS: RIVAROXABAN 15 MG TABLET PO (20:35)
[2023-05-02] MEDS: guaiFENesin 12 HR 600 MG TABCR 1200 MG PO (20:36)
[2023-05-02] MEDS: ALBUTEROL SULFATE (*SP) INHALER 2 PUFF INHALATION (21:12)
[2023-05-03 01:35] VITALS: BP 129/67; PULSE 77; RESP 20; TEMP 36.2; O2SAT 98
[2023-05-03] MEDS: LORATADINE 10 MG TABLET PO (05:44)
[2023-05-03] MEDS: traMADol HCL (*CRX) 50 MG TABLET PO ×2 (05:44→20:38)
[2023-05-03 06:20] VITALS: BP 128/76; PULSE 81; RESP 18; TEMP 35.9; O2SAT 97
[2023-05-03 08:00] VITALS: O2SAT 97
[2023-05-03] MEDS: RIVAROXABAN 15 MG TABLET PO ×2 (08:49→20:38)
[2023-05-03] MEDS: ASPIRIN 81 MG CHEWABLE TABLET PO (08:49)
[2023-05-03] MEDS: guaiFENesin 12 HR 600 MG TABCR 1200 MG PO ×2 (08:49→20:38)
[2023-05-03] MEDS: DEXAMETHASONE 2 MG TABLET 6 MG PO (08:49)
[2023-05-03] MEDS: LIDOCAINE 5% PATCH 1 PATCH TRANSDERM (08:49)
[2023-05-03] MEDS: ATORVASTATIN 40 MG TABLET PO (08:49)
[2023-05-03] MEDS: polyethylene glycoL 3350 17 GM POWD.PACK PO (08:52)
--- NOTE | 2023-05-03 13:37 | PCRCNOTE ---
Patient refused albuterol MDI. RN aware
[2023-05-03 14:00] VITALS: BP 144/73; PULSE 79; RESP 18; TEMP 36.3; O2SAT 96
--- NOTE | 2023-05-03 14:11 | PM.IMPN ---
Progress Note: A&P Assessment and Plan (1) Elevated troponin: Code(s): R79.89 - Other specified abnormal findings of blood chemistry Status: Acute (2) Generalized weakness: Code(s): R53.1 - Weakness Status: Acute (3) COVID-19: Code(s): U07.1 - COVID-19 Status: Acute (4) Laceration of left ear: Code(s): S01.312A - Laceration without foreign body of left ear, initial encounter Status: Acute (5) Multiple falls: Code(s): R29.6 - Repeated falls Status: Acute (6) Dehydration: Code(s): E86.0 - Dehydration Status: Acute (7) Acute DVT (deep venous thrombosis): Code(s): I82.409 - Acute embolism and thrombosis of unspecified deep veins of unspecified lower extremity Status: Acute (8) Acute respiratory failure: Code(s): J96.00 - Acute respiratory failure, unspecified whether with hypoxia or hypercapnia Status: Acute (9) Multifocal pneumonia: Code(s): J18.9 - Pneumonia, unspecified organism Status: Acute (10) Acute heart failure: Code(s): I50.9 - Heart failure, unspecified Status: Acute (11) COPD exacerbation: Code(s): J44.1 - Chronic obstructive pulmonary disease with (acute) exacerbation Status: Acute Plan Patient presented on 04/25/2023 with and fall to the ground. CT head and cervical spine was negative for any acute intracranial injury. Had left ear laceration. Mild troponin elevation with flat trend. Cardiology consulted. Tested positive for COVID. Chest x-ray with mild chronic interstitial lung disease. CTA with no PE. 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 Emphysema and mild chronic interstitial lung disease noted. Venous duplex acute non-occlusive DVT in the left femoral and popliteal vein. Started on Lovenox. Echo with EF 60-65%. Grade 1 diastolic dysfunction. No valvular abnormality Acute hypoxic respiratory failure on 04/26/23. Needing BiPAP support. Now off. related to COVID and/or aspiration. Treated with Solu Medrol diuretics. Nebulizers. treated with empiric Zosyn. D7 Decadron/10. Finish remdesivir 5 day course . Repeat chest x-ray with stable mild bibasilar predominant chronic interstitial lung disease. Patient reports some back pain nonradiating. Reports not able to get up to walk. Breathing has improved. Leg swelling has improved. will add Mucinex Will switch Lovenox to oral anticoagulant. Switched to Xarelto. Will need to ensure this is covered before he gets discharged and will not be discharged until this is conformed by care coordination Deconditioning back check x-ray currently on lidocaine patch p.r.n. 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 With ongoing pain he will benefit from pain management referral as an outpatient basis Disposition: May benefit from short-term rehab. PT OT evaluated and did well. Concern for going back to [facility] with isolation with no help and admitted with fall recommend rehabilitation benefit from short-term Subjective Date/time seen: 05/03/23 14:11 Interval history: Patient presented on 04/25/2023 with and fall to the ground. CT head and cervical spine was negative for any acute intracranial injury. Had left ear laceration. Mild troponin elevation with flat trend. Cardiology consulted. Tested positive for COVID. Has recurrent falls. Chest x-ray with mild chronic interstitial lung disease. CTA with no PE. 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 Emphysema and mild chronic interstitial lung disease noted. Venous duplex acute non-occlusive DVT in the left femoral and popliteal vein. Started on Lovenox. Echo with EF 60-65%. Grade 1 diastolic dysfunction. No valvular abnormality Acute hypoxic respiratory failure on 04/26/23. Needing BiPAP support. Related
--- NOTE | 2023-05-03 16:46 | PCOTNOTE ---
Attempted to see pt for Occupational Therapy Treatment. Pt states he just returned to bed and wanted to sleep due to poor sleep he had last night, therefore was declining therapy today. Pt was encouraged to perform any strengthening exercises, however, pt continued to decline. Will continue per poc duration/frequency tomorrow.
[2023-05-03] MEDS: MENTHOL 10% / METHYL SALICYLATE 15% 57 GM TUBE 1 APPLIC TOPICAL (20:40)
[2023-05-03 21:52] VITALS: BP 137/83; PULSE 94; RESP 18; TEMP 35.8; O2SAT 99
[2023-05-04] MEDS: traMADol HCL (*CRX) 50 MG TABLET PO (05:23)
[2023-05-04] MEDS: LORATADINE 10 MG TABLET PO (05:23)
[2023-05-04 05:26] VITALS: BP 138/78; PULSE 94; RESP 16; TEMP 35.5; O2SAT 93
[2023-05-04 07:19] LABS: Basophils Percent Auto 0.3 % (0.2-1.2); Eosinophils Percent Auto 0.4 % (0-4.4); Hematocrit 35.1 % (42.0-52.0); Hemoglobin 11.1 g/dL (14.0-18.0); Immature Granulocyte Absolute 0.15 K/mm3 (0.00-0.031); Immature Granulocyte Percent A 2.2 % (0-0.5); Lymphocytes Absolute Auto 1.03 K/mm3 (0.9-3.2); Lymphocytes Percent Auto 15.2 % (18.3-44.2); Mean Corpuscular HGB Conc 31.6 g/dl (32-36); Mean Corpuscular Hemoglobin 31.8 pg (26-34); Mean Corpuscular Volume 100.6 fl (80-100); Mean Platelet Volume 10.8 fl (7.4-10.4); Monocytes Absolute Auto 0.7 K/mm3 (0.1-0.6); Monocytes Percent Auto 9.9 % (2.6-8.5); Neutrophils Absolute Auto 4.9 K/mm3 (1.3-6.7); Platelet Count Result 240 k/mm3 (150-375); Red Blood Count 3.49 M/mm3 (4.6-6.20); Red Cell Distribution Width 14.2 % (11.5-14.5); White Blood Count 6.8 K/mm3 (4.5-10.0)
[2023-05-04 07:30] LABS: Alanine Aminotransferase 48 U/L (6-50); Albumin Level 3.6 g/dL (3.5-5.1); Alkaline Phosphatase 64 U/L (38-126); Anion Gap 7 mmol/L (8-16); Aspartate Amino Transferase 37 U/L (17-59); Bilirubin,Total 1.3 mg/dL (0.2-1.3); Blood Urea Nitrogen 36 mg/dL (9-20); Calcium 10.4 mg/dL (8.4-10.2); Carbon Dioxide 25 mmol/L (22-30); Chloride 103 mmol/L (98-107); Estimated CRCL calculation 42 ml/min; Estimated Glomerular Filt Rate > 60; Glucose 97 mg/dL (65-110); Magnesium 2.4 mg/dL (1.6-2.3); Potassium 4.5 mmol/L (3.4-5.0); Sodium 135 mmol/L (137-145)
[2023-05-04] MEDS: DEXAMETHASONE 2 MG TABLET 6 MG PO (08:26)
[2023-05-04] MEDS: ATORVASTATIN 40 MG TABLET PO (08:27)
[2023-05-04] MEDS: ASPIRIN 81 MG CHEWABLE TABLET PO (08:27)
[2023-05-04] MEDS: RIVAROXABAN 15 MG TABLET PO ×2 (08:27→21:13)
[2023-05-04] MEDS: guaiFENesin 12 HR 600 MG TABCR 1200 MG PO ×2 (08:27→21:13)
[2023-05-04] MEDS: LIDOCAINE 5% PATCH 1 PATCH TRANSDERM (08:27)
[2023-05-04 10:26] VITALS: BMI 28.5
[2023-05-04 14:00] VITALS: BP 125/63; PULSE 86; RESP 16; TEMP 36.2; O2SAT 98
--- NOTE | 2023-05-04 16:30 | P.PNIM_ITS ---
Progress Note: A&P Assessment and Plan (1) Elevated troponin: Code(s): R79.89 - Other specified abnormal findings of blood chemistry Status: Acute (2) Generalized weakness: Code(s): R53.1 - Weakness Status: Acute (3) COVID-19: Code(s): U07.1 - COVID-19 Status: Acute (4) Laceration of left ear: Code(s): S01.312A - Laceration without foreign body of left ear, initial encounter Status: Acute (5) Multiple falls: Code(s): R29.6 - Repeated falls Status: Acute (6) Dehydration: Code(s): E86.0 - Dehydration Status: Acute (7) Acute DVT (deep venous thrombosis): Code(s): I82.409 - Acute embolism and thrombosis of unspecified deep veins of unspecified lower extremity Status: Acute (8) Acute respiratory failure: Code(s): J96.00 - Acute respiratory failure, unspecified whether with hypoxia or hypercapnia Status: Acute (9) Multifocal pneumonia: Code(s): J18.9 - Pneumonia, unspecified organism Status: Acute (10) Acute heart failure: Code(s): I50.9 - Heart failure, unspecified Status: Acute (11) COPD exacerbation: Code(s): J44.1 - Chronic obstructive pulmonary disease with (acute) exacerbation Status: Acute Plan Patient presented on 04/25/2023 with and fall to the ground. CT head and cervical spine was negative for any acute intracranial injury. Had left ear laceration. Mild troponin elevation with flat trend. Cardiology consulted. Tested positive for COVID. Chest x-ray with mild chronic interstitial lung disease. CTA with no PE. 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 Emphysema and mild chronic interstitial lung disease noted. Venous duplex acute non-occlusive DVT in the left femoral and popliteal vein. Started on Lovenox. Echo with EF 60-65%. Grade 1 diastolic dysfunction. No valvular abnormality Acute hypoxic respiratory failure on 04/26/23. Needing BiPAP support. Now off. related to COVID and/or aspiration. Treated with Solu Medrol diuretics. Nebulizers. treated with empiric Zosyn. D7 Decadron/10. Finish remdesivir 5 day course . Repeat chest x-ray with stable mild bibasilar predominant chronic interstitial lung disease. Patient reports some back pain nonradiating. Reports not able to get up to walk. Breathing has improved. Leg swelling has improved. will add Mucinex Will switch Lovenox to oral anticoagulant. Switched to Xarelto. Will need to ensure this is covered before he gets discharged and will not be discharged until this is conformed by care coordination Deconditioning back check x-ray currently on lidocaine patch p.r.n. 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 With ongoing pain he will benefit from pain management referral as an outpatient basis pain Disposition: May benefit from short-term rehab. PT OT evaluated and did well. Concern for going back to [facility] with isolation with no help and admitted with fall recommend rehabilitation benefit from short-term Subjective Date/time seen: 05/04/23 16:30 Interval history: Patient presented on 04/25/2023 with and fall to the ground. CT head and cervical spine was negative for any acute intracranial injury. Had left ear laceration. Mild troponin elevation with flat trend. Cardiology consulted. Tested positive for COVID. Has recurrent falls. Chest x-ray with mild chronic interstitial lung disease. CTA with no PE. Pseudoaneurysm of inferior aspe
[2023-05-04 21:15] VITALS: BP 132/61; PULSE 92; RESP 16; TEMP 35.7; O2SAT 97
[2023-05-05] MEDS: LORATADINE 10 MG TABLET PO (05:27)
[2023-05-05] MEDS: methocarbamoL 500 MG TABLET PO (05:29)
[2023-05-05 06:00] VITALS: BP 116/59; PULSE 88; RESP 16; TEMP 35.7; O2SAT 92
[2023-05-05] MEDS: guaiFENesin 12 HR 600 MG TABCR 1200 MG PO (09:15)
[2023-05-05] MEDS: RIVAROXABAN 15 MG TABLET PO (09:15)
[2023-05-05] MEDS: LIDOCAINE 5% PATCH 1 PATCH TRANSDERM (09:15)
[2023-05-05] MEDS: ASPIRIN 81 MG CHEWABLE TABLET PO (09:15)
[2023-05-05] MEDS: DEXAMETHASONE 2 MG TABLET 6 MG PO (09:15)
[2023-05-05 09:19] VITALS: BP 123/62; PULSE 101; RESP 14; TEMP 36.1; O2SAT 96
--- NOTE | 2023-05-05 13:00 | PM.DS ---
DS: Admitting Diagnosis Discharge Date 05/05/23 Admitting Diagnosis Fall DS: Discharge Diagnosis Discharge Diagnosis (1) Elevated troponin: Code(s): R79.89 - Other specified abnormal findings of blood chemistry Status: Acute (2) Generalized weakness: Code(s): R53.1 - Weakness Status: Acute (3) COVID-19: Code(s): U07.1 - COVID-19 Status: Acute (4) Laceration of left ear: Code(s): S01.312A - Laceration without foreign body of left ear, initial encounter Status: Acute (5) Multiple falls: Code(s): R29.6 - Repeated falls Status: Acute (6) Dehydration: Code(s): E86.0 - Dehydration Status: Acute (7) Acute DVT (deep venous thrombosis): Code(s): I82.409 - Acute embolism and thrombosis of unspecified deep veins of unspecified lower extremity Status: Acute (8) Acute respiratory failure: Code(s): J96.00 - Acute respiratory failure, unspecified whether with hypoxia or hypercapnia Status: Acute (9) Multifocal pneumonia: Code(s): J18.9 - Pneumonia, unspecified organism Status: Acute (10) Acute heart failure: Code(s): I50.9 - Heart failure, unspecified Status: Acute (11) COPD exacerbation: Code(s): J44.1 - Chronic obstructive pulmonary disease with (acute) exacerbation Status: Acute DS: Summary Hospital Course Hospital Course: Patient presented on 04/25/2023 with and fall to the ground.? CT head and cervical spine was negative for any acute intracranial injury.? Had left ear laceration.? Mild troponin elevation with flat trend.? Cardiology consulted.? Tested positive for COVID.? Chest x-ray with mild chronic interstitial lung disease.? CTA with no PE.? 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 Emphysema and mild chronic interstitial lung disease noted.? Venous duplex acute non-occlusive DVT in the left femoral and popliteal vein.? Started on Lovenox. Lovenox and then switched to Xarelto. Echo with EF 60-65%.? Grade 1 diastolic dysfunction.? No valvular abnormality Patient developed acute hypoxic respiratory failure on 04/26/23.? Needing BiPAP support.? Now off.? related to COVID and/or aspiration.? Treated with Solu Medrol diuretics.? Nebulizers.? treated with empiric Zosyn.? Missed the course of Decadron..? Finished remdesivir 5 day course .? Repeat chest x-ray with stable mild bibasilar predominant chronic interstitial lung disease. Patient reported some back pain nonradiating.? Reports not able to get up to walk.? Breathing has improved.? Leg swelling has improved. will add Mucinex Deconditioning back currently on lidocaine patch p.r.n.? X-ray lumbar spine with moderate to severe lumbar spondylosis.? 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 Mild bilateral hip and sacroiliac osteoarthritis.? With ongoing pain he will benefit from pain management referral as an outpatient basis pain Disposition:? May benefit from short-term rehab. PT OT evaluated and did well.? Not qualify radiation going back to assisted living as previously arranged Time Spent with Patient Time attestation: Total time spent providing and/or coordinating discharge services: Exam Narrative: GENERAL:No acute distress, non-toxic appearing. HEAD:? Normal with no signs of head trauma. EYES:? EOMI, conjunctiva normal ENT: Laceration beneath pinna 0.5 cm in length LUNGS:? Nonlabored breathing. Diminished breath sound bilaterally HEART:? Regular rate and rhythm ABD:? [Soft], [nontender to palpation] EXT: Normal range of motion left lower leg swelling NEURO: [Alert and oriented x 3. No gross focal sensory or strength deficits.]? Moving all extremities.? No facial droop, speech is clear. Back right paraspinal muscle tenderness PSYCH: Normal affect DS: Data Data Completed and Pending Completed studies during hospitalization: Exam Type: ? ? CA echo doppler color flow Study Info Indications ?? ?
[2023-05-05 14:00] VITALS: BP 123/68; PULSE 98; RESP 18; TEMP 35.9; O2SAT 97
[2023-05-05] MEDS: traMADol HCL (*CRX) 50 MG TABLET PO (16:16)
== END 2023-05-05 16:40 | DRG 177 ==
LOC: ANHED 09:54 → ANHIMU 11:27 → ANH2MED 04-26 13:07 → ANHIMU 04-26 13:22 → ANH3MEDSUR 04-28 18:34
PROVIDERS: Admitting Provider Hospitalist; Emergency Provider Emergency Medicine; PCP Family Medicine; Visit Provider Internal Medicine
DX: U07.1 COVID-19 (principal); I50.23 Acute on chronic systolic (congestive) heart failure; J12.82 Pneumonia due to coronavirus disease 2019; J96.01 Acute respiratory failure with hypoxia; I82.412 Acute embolism and thrombosis of left femoral vein; I82.432 Acute embolism and thrombosis of left popliteal vein; S01.312A Laceration without foreign body of left ear, initial encounter; W19.XXXA Unspecified fall, initial encounter; E87.1 Hypo-osmolality and hyponatremia; E86.0 Dehydration; I71.22 Aneurysm of the aortic arch, without rupture; J43.2 Centrilobular emphysema; M47.816 Spondylosis without myelopathy or radiculopathy, lumbar region; M16.0 Bilateral primary osteoarthritis of hip; R79.89 Other specified abnormal findings of blood chemistry; Z66 Do not resuscitate; Z87.891 Personal history of nicotine dependence; Z23 Encounter for immunization
CPT/HCPCS: 12011; 36415; 36600; 70450; 71045; 71275; 72100; 72125; 80048; 80053; 80061; 80076; 81001; 82550; 82805; 83735; 83880; 84145; 84484; 85025; 85055; 85610; 85730; 87637; 90471; 90694; 92526; 92610; 93005; 93306; 93970; 94002; 94640; 96361; 96375; 97110; 97116; 97161; 97165; 97530; 97535; 99285; A9270; G0008; J0248; J1100; J1650; J1940; J2270; J2543; J2930; J7030; J7120; J8540; Q9967

== ENCOUNTER 2023-06-24 11:30 | Outpatient (CLI) | payer MEDICARE, OTHER, MEDICAID, SELFPAY ==
[2023-06-24 11:48] LABS: Basophils Absolute Auto 0.1 K/mm3 (0.0-0.1); Eosinophils Absolute Auto 0.5 K/mm3 (0-0.3); Hematocrit 39.5 % (42.0-52.0); Hemoglobin 13.1 g/dL (14.0-18.0); Immature Granulocyte Absolute 0.01 K/mm3 (0.00-0.031); Immature Granulocyte Percent A 0.2 % (0-0.5); Lymphocytes Absolute Auto 0.99 K/mm3 (0.9-3.2); Lymphocytes Percent Auto 16.8 % (18.3-44.2); Mean Corpuscular HGB Conc 33.2 g/dl (32-36); Mean Corpuscular Hemoglobin 32.8 pg (26-34); Mean Corpuscular Volume 98.8 fl (80-100); Mean Platelet Volume 9.7 fl (7.4-10.4); Monocytes Absolute Auto 0.5 K/mm3 (0.1-0.6); Monocytes Percent Auto 8.5 % (2.6-8.5); Neutrophils Absolute Auto 3.9 K/mm3 (1.3-6.7); Neutrophils Percent Auto 65.5 % (45.5-73.1); Platelet Count Result 206 k/mm3 (150-375); White Blood Count 5.9 K/mm3 (4.5-10.0)
[2023-06-24 12:41] LABS: Alanine Aminotransferase 21 U/L (6-50); Albumin Level 3.8 g/dL (3.5-5.1); Alkaline Phosphatase 84 U/L (38-126); Anion Gap 9 mmol/L (8-16); Aspartate Amino Transferase 24 U/L (17-59); Bilirubin,Total 0.5 mg/dL (0.2-1.3); Blood Urea Nitrogen 25 mg/dL (9-20); Calcium 10.1 mg/dL (8.4-10.2); Carbon Dioxide 27 mmol/L (22-30); Chloride 107 mmol/L (98-107); Estimated Glomerular Filt Rate > 60; Glucose 94 mg/dL (65-110); Potassium 4.5 mmol/L (3.4-5.0); Sodium 143 mmol/L (137-145)
[2023-06-24 13:12] LABS: Prostate Specific Antigen 4.1 ng/mL (< OR = 4.0)
[2023-07-01 13:02] LABS: Testosterone Total <1 ng/dL (250-1100)
== END 2023-06-24 11:31 | disposition home or self-care (01) ==
LOC: ANHLAB 11:34
PROVIDERS: PCP Family Medicine; Visit Provider Internal Medicine Hematology & Oncology
DX: C61 Malignant neoplasm of prostate (principal)
CPT/HCPCS: 36415; 80053; 84153; 84402; 84403; 85025

== ENCOUNTER 2023-09-30 10:51 | Outpatient (CLI) | payer MEDICARE, MEDICAID, SELFPAY ==
[2023-09-30 11:28] LABS: Basophils Percent Auto 0.7 % (0.2-1.2); Eosinophils Absolute Auto 0.5 K/mm3 (0-0.3); Eosinophils Percent Auto 8.6 % (0-4.4); Hematocrit 40.1 % (42.0-52.0); Hemoglobin 13.2 g/dL (14.0-18.0); Immature Granulocyte Absolute 0.02 K/mm3 (0.00-0.031); Immature Granulocyte Percent A 0.4 % (0-0.5); Lymphocytes Absolute Auto 0.84 K/mm3 (0.9-3.2); Mean Corpuscular HGB Conc 32.9 g/dl (32-36); Mean Corpuscular Hemoglobin 32.1 pg (26-34); Mean Corpuscular Volume 97.6 fl (80-100); Mean Platelet Volume 9.4 fl (7.4-10.4); Monocytes Absolute Auto 0.4 K/mm3 (0.1-0.6); Monocytes Percent Auto 7.9 % (2.6-8.5); Neutrophils Absolute Auto 3.8 K/mm3 (1.3-6.7); Neutrophils Percent Auto 67.4 % (45.5-73.1); Platelet Count Result 205 k/mm3 (150-375); Red Blood Count 4.11 M/mm3 (4.6-6.20); White Blood Count 5.6 K/mm3 (4.5-10.0)
[2023-09-30 16:34] LABS: Alanine Aminotransferase 29 U/L (6-50); Albumin Level 4.4 g/dL (3.5-5.1); Alkaline Phosphatase 87 U/L (38-126); Anion Gap 6 mmol/L (4-12); Aspartate Amino Transferase 28 U/L (17-59); Bilirubin,Total 0.6 mg/dL (0.2-1.3); Blood Urea Nitrogen 26 mg/dL (9-20); Calcium 10.6 mg/dL (8.4-10.2); Carbon Dioxide 27 mmol/L (22-30); Chloride 109 mmol/L (98-107); Estimated Glomerular Filt Rate 52; Glucose 91 mg/dL (65-110); Potassium 4.3 mmol/L (3.4-5.0); Sodium 142 mmol/L (137-145)
[2023-09-30 17:08] LABS: Prostate Specific Antigen 8.8 ng/mL (< OR = 4.0)
[2023-09-30 17:17] LABS: Vitamin D 25 Hydroxy 15.8 ng/mL
== END 2023-09-30 10:52 | disposition home or self-care (01) ==
LOC: ANHLAB 10:54
PROVIDERS: PCP Family Medicine; Visit Provider Internal Medicine Hematology & Oncology
DX: C61 Malignant neoplasm of prostate (principal); E55.9 Vitamin D deficiency, unspecified
CPT/HCPCS: 36415; 80053; 82306; 84153; 85025

== ENCOUNTER 2024-01-04 12:31 | Outpatient (CLI) | payer MEDICARE, MEDICAID, SELFPAY ==
--- NOTE | ~2024-01-04 | PE_ITS ---
EXAMINATION: PET_PETPSMAST_PT DATE: 01/04/2024 14:49 INDICATION: Prostate cancer TECHNIQUE: 5.344 mCi of Locametz Ga-68([id number]) was administered i.v. Low dose computed tl ography (CT) images were acquired from the base of the brain to the base of the brain to the proximal thighs for attenuation correction and anatomic localization. Positron emission tomography (PET) imag es were acquired in the same distribution beginning 85 minutes after injection. Images including fuse d PET/CT images were reconstructed in axial, coronal, and sagittal planes. Automated exposure control technique was employed. The dose-length product was 1079.67mGy-cm. COMPARISON: Chest CT dated 04/26/2023 FINDINGS: Head/neck: Typical pattern of symmetric physiologic increased activity in the lacrimal, parotid and submandibula r glands as well as along the mucosa of the nasal and oral cavities, pharynx and hypopharynx. No path ologically enlarged cervical lymphadenopathy or suspicious foci of increased uptake in the visualized head or neck. Chest: Mild emphysema. 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 No suspicious pulmonary nodules or pleural eff usion. Heart size is normal. Atherosclerotic coronary artery calcific location. No pericardial effusi on. Thoracic aorta is normal in caliber with diverticulum of, coronal on the anterior arch. Small sli ding-type hiatal hernia. No pathologically enlarged or PSMA avid thoracic lymphadenopathy. Abdomen/pelvis/proximal thighs: Physiologic renal accumulation and excretion of activity in the kidneys, bladder and along portions o f ureters. The prostate appears small, without evident PSMA uptake and with V-shaped configuration of the base of the bladder suggesting prior at least partial prostatectomy without evident residual or locally recurrent disease. There are several relatively low-attenuation bilateral renal lesions the l argest in the right kidney with associated photopenic defect most likely representing renal cysts alt damian attenuation at several of the lesions is slightly greater than simple fluid attenuation. Normal degree and slightly heterogenous pattern of increased uptake throughout the liver and spleen without radiologic correlate or dominant PSMA avid lesion. The gallbladder, pancreas and bilateral adrenal g lands are normal. Moderate uptake scattered throughout the bowels with typical duodenal and proximal jejunal predominance and without radiologic correlate, also likely physiologic. MM appendix. Extensiv e colonic diverticulosis without adjacent from trace stranding to suggest diverticulitis. 15 x 8 mm P SMA avid lymph nodes slightly caudal to the left iliac bifurcation with maximal SUV of 5.2 No other a bnormal foci of increased uptake or pathologically enlarged lymphadenopathy in the abdomen, pelvis or proximal thighs. Musculoskeletal: 1.4 cm lytic lesion with prominent increased PSMA uptake with maximal SUV of 31.6 in the L3 vertebral body. Severe lumbar and lower cervical spondylosis with bridging osteophytes at multiple levels in t he intervening thoracic spine consistent with diffuse idiopathic skeletal hyperostosis (DISH). IMPRESSION: 1. Increased PSMA activity such with a mildly prominent but still normal-sized left pelvic lymph node near the iliac bifurcation and at a lytic lesion at the L3 vertebral body consistent with metastatic disease. 2. A few bilateral low-attenuation renal lesions without PSMA uptake which have slightly greater than simple fluid attenuation with differential including proteinaceous/hemorrhagic cysts or less likely solid neoplasm. Consider either further evaluation with pre and postcontrast MRI or CT. 3. 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
== END 2024-01-04 12:32 | disposition home or self-care (01) ==
PROVIDERS: PCP Family Medicine; Visit Provider Internal Medicine Hematology & Oncology
DX: C61 Malignant neoplasm of prostate (principal); J43.9 Emphysema, unspecified
CPT/HCPCS: 78815; A9596

== ENCOUNTER 2024-10-31 10:41 | Outpatient (CLI) | payer MEDICARE, MEDICAID, SELFPAY ==
--- NOTE | ~2024-10-31 | PE_ITS ---
EXAMINATION: PET_PETPSMAST_PT DATE: 10/31/2024 12:56 INDICATION: Gastric cancer TECHNIQUE: 4.953 mCi of Illucix Ga-68(12-[id number]) was administered i.v. Low dose computed darryl graphy (CT) images were acquired from the base of the brain to the base of the brain to the proximal thighs for attenuation correction and anatomic localization. Positron emission tomography (PET) image s were acquired in the same distribution beginning 86 minutes after injection. Images including fused PET/CT images were reconstructed in axial, coronal, and sagittal planes. Automated exposure control technique was employed. The dose-length product was 987.66mGy-cm. COMPARISON: None FINDINGS: Head/neck: Typical pattern of symmetric physiologic increased activity in the lacrimal, parotid and submandibula r glands as well as along the mucosa of the nasal and oral cavities, pharynx and hypopharynx. No path ologically enlarged cervical lymphadenopathy or suspicious foci of increased uptake in the visualized head or neck. Chest: Mild emphysema. 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 No suspicious pulmonary nodules or pleural eff usion. Heart size is normal. No pericardial effusion. Thoracic aorta is normal in caliber with divert iculum of Kommerell anterior arch. Small sliding-type hiatal hernia. Mild bilateral gynecomastia. Sma ll sliding-type hiatal hernia. No pathologically enlarged or PSMA avid thoracic lymphadenopathy. Abdomen/pelvis/proximal thighs: Physiologic renal accumulation and excretion of activity in the kidneys, bladder and along portions o f ureters. Status post prostatectomy. Again seen are bilateral low-attenuation renal cysts. There is been some increased size of a previous a 1.5 cm, currently 2.0 cm exophytic lesion at the lower pole of the right kidney with slightly greater than simple fluid attenuation which is indeterminate but st atistically most likely to represent a proteinaceous/hemorrhagic cyst. Interval decrease in size and degree of the PSMA activity along a likely left external iliac chain lymph node near the left ureter which previously measured 1.8 x 0.9 cm with maximal SUV of 19.3, currently measuring 8 x 7 mm with ma ximal SUV of 6.6. Normal degree and slightly heterogenous pattern of increased uptake throughout the liver and spleen without radiologic correlate or dominant PSMA avid lesion. The gallbladder, pancreas and bilateral adrenal glands are normal. Moderate uptake scattered throughout the bowels with typica l duodenal and proximal jejunal predominance and without radiologic correlate, also likely physiologi c. Numerous scattered colonic diverticula without adjacent comparison to suggest diverticulitis. Norm al appendix. No other abnormal foci of increased uptake or pathologically enlarged lymphadenopathy in the abdomen, pelvis or proximal thighs. Musculoskeletal: No significant interval change in size with new thin peripheral rim of sclerosis at the previously no ailyn PSMA avid lytic lesion in the L3 vertebral body with slight increase in maximal SUV from 22 to cu rrently 31.4, similar in degree to the uptake at the time of an earlier PET study on 01/04/2024. No ne w suspicious lytic, blastic or abnormally PSA may avid bone lesions. IMPRESSION: 1. Interval decrease in size and degree of PSMA activity associated with a now 8 x 7 mm left external iliac chain lymph node consistent with response to treatment of metastatic disease. 2. Interval increase in degree of PSMA activity associated with a 1.5 cm lytic lesion in the L3 verte bral body with new peripheral rim of sclerosis suggesting mixed/incomplete response to treatment. 3. Interval increase in size of an indeterminate previously 1.5 cm, currently 2.0 cm exophytic lesion at the lower pole of the left kidney statistically more likely to represent a proteinaceous/hemorrha gic cyst than renal cell carcinoma. If this would affect clinical management would recommend pre and postcontrast MRI or CT for further evaluation. Reviewed, dictated and finalized at location A. IMPRESSION: 1. Interval decrease in size and degree of PSMA activity associated with a now 8 x 7 mm left external iliac chain lymph node consistent with response to treat ment of metastatic disease. 2. Interval increase in degree of PSMA activity associated with a 1.5 cm lytic lesion in the L3 vertebral body with new peripheral rim of sclerosis suggesting mixed/incomplete response to treatment. 3. Interval increase in size of an indeterminate previously 1.5 cm, currently 2 .0 cm exophytic lesion at the lower pole of the left kidney statistically more likely to represent a proteinaceous/hemorrhagic cyst than renal cell carcinoma. If this would affect clinical management would recommend pre and postcontrast MRI or CT for further evaluation.
--- OUTSIDE RECORDS SUMMARY | 2024-10-31 11:14 | XMS_ITS | Clinical Summary ---
Author Organization [facility] Address [address] [place] [address] Care Team Providers Care Cardiology Technician Name Role Phone Unavailable Primary Care Provider Unavailabl e Source Comments [facility],non-owned Affiliates and Associated Physician Practices is amultiple site organization consisting of ambulatory clinics and hospital sitesin [place], [place] and [place]. This disclosure is being madepursuant to the Care Everywhere program and may not contain all information available regarding this patient. Last updated 18.[facility] Social History Tobacco Use Types Packs/Day Years Used Date Smoking Tobacco: Never Assessed Sex and Gender Information Value Date Recorded Sex Assigned at Not on file Legal Sex Male 3:44 PM CDT Gender Identity Not on file Sexual Orientation Not on file Plan of Treatment Health Maintenance Due Date Last Done Comments DTAP/TDAP/TD VACCINES (1 - Tdap) 1954 PNEUMOCOCCAL VACCINE 50+ (1 of 1 - PCV) 09/11/1987 ZOSTER VACCINE (1 of 2) 09/11/1987 Respiratory Syncytial Virus (RSV) Vaccine Pt: or over 60 yrs (1 - 1-dose 75+ series) 2012 COVID-19 VACCINE ( - 2023-2 5 season) 2024 DEPRESSION SCREENING 06/15/2024 MEDICARE AWV CALENDAR YEAR 2024 INFLUENZA VACCINE (Season Ended) 2025 HEPATITIS B VACCINE Aged Out No longe r eligible based on patient's age to complete this topic HIB VACCINE Aged Out No longer eligi ble based on patient's age to complete this topic HPV VACCINE Aged Out No longer eligi ble based on patient's age to complete this topic MENINGOCOCCAL (Group B) VACC INE SHARED DECISION-MAKING Aged Out No longer eligibl e based on patient's age to complete this topic MENINGOCOCCAL GROUPS A/C/Y/W VACCINE Aged Out No longer eligible b ased on patient's age to complete this topic Insurance [employer] MEDICARE ADV
--- OUTSIDE RECORDS SUMMARY | 2024-10-31 11:14 | XMS_ITS | Referral Summary ---
Author Organization [facility] Address [address] [place] [address] Care Team Providers Care Airdrop Systems Technician Name Role Phone Geoffrey Kelley MD Primary Care Provider [phone] Stacey Pike RN Unavailable UnavailMireya Saleem PT Unavailable Unavailable Demetra Patel PTA Unavailable Unavailable Jorge Chand MD PhD Unavailable + [phone] Barry Adame MD Unavailable + [phone] Encounters Date Type Department Care Team Description 10/26/2024 Telephone [facility] [address] [phone] Geoffrey Kelley MD Additional Services Or Orders 10/07/2024 Telephone [facility] [address] [phone] Geoffrey Kelley MD Medical Question/Miscellaneou s 09/12/2024 Telephone [facility] [address] [phone] Geoffrey Kelley MD 08/31/2024 Telephone [facility] [address] [phone] Geoffrey Kelley MD Medical Question/Miscellaneou s 08/23/2024 12:00 PM CDT Office Visit [facility] Primary Care at [address] [phone] Geoffrey Kelley MD Malignant neoplasm of prostate (HCC) (Primary Dx); Stage 3a chronic kidney disease (HCC); History of DVT (deep vein thrombosis); Squamous cell carcinoma in situ; Cancer, 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) 08/16/2024 Telephone [facility] [place] [address] [facility] [place] [address] Geoffrey Kelley MD Medical Question/Miscellaneou s from Last 3 Months Allergies No known active allergies Medications aspirin 81 mg enteric coated tablet Take 1 tablet (81 mg total) by mouth daily Active clobetasoL (TEMOVATE) 0.05 % external solutionIndicat ions:Dermatosis of the Scalp Apply topically 2 (two) times a day 50 mL 3 3 Active Additional Information Patient not taking.Reported on 01/27/2023 meloxicam (MOBIC) 15 mg tablet Take 1 tablet (15 mg total) by mouth daily 30 tablet 11 3 Active guaiFENesin-dex tromethorphan ER (MUCINEX DM) 600-30 mg tablet extended release 12 hr Take 1 tablet by mouth 2 (two) times a day 28 tablet 3 3 Active rivaroxaban (XARELTO) 20 mg tablet Take 1 tablet (20 mg total) by mouth daily with breakfast 30 tablet 2 3 Active loratadine (CLARITIN) 10 mg tablet Take 1 tablet (10 mg total) by mouth daily as needed for allergies 90 tablet 4 3 Active guaiFENesin ER (MUCINEX) 600 mg 12 hr tablet Take 1 tablet (600 mg total) by mouth 2 (two) times a day 60 tablet 11 3 Active vibegron 75 mg tablet Take 75 mg by mouth daily 90 tablet 1 4 Active guaiFENesin-cod eine (GUAITUSS AC) liquid 100-10 mg/5 mL Take 5-10 mL by mouth every 4 (four) hours as needed for cough 120 mL 4 Active triamcinolone (NASACORT) 55 mcg nasal inhaler Administer 2 sprays into each nostril daily 16.9 mL 3 4 Active ceramides 1,3,6-II cream Apply thin coat to affected area twice daily 340 g 2 4 Active azelastine (ASTELIN) 137 mcg (0.1 %) nasal spray Administer 1 spray into each nostril 2 (two) times a day Use in each nostril as directed 30 mL 2 4 Active tolterodine (DETROL) 2 mg tablet Take 1 tablet (2 mg total) by mouth 2 (two) times a day 60 tablet 11 4 03/17/20 25 Active Active Problems Problem Noted Date Diagnosed Date Cancer, metastatic to bone 08/23/2024 Assessment & Plan (08/23/2024 1:36 PM CDT): Continues on zytiga, prednisone, deciding on taxotere or other adjunctive therapies. BMI 31.0-31.9,adult 2021 Refused influenza vaccine 08/17/2020 Assessment & Plan (08/17/2020 5:19 PM CLOSING AGENT): Discussed and the patient refuses immunization today. Educated regarding the need to vaccinate for personal protection and to limit the viruses in the community to protect those most vulnerable. Current use of terminal carman anticoagulation 021 Assessment & Plan (08/17/2020 4:55 PM CLOSING AGENT): Reviewed INRs from time of hospitalization. Has been on 3mg nightly. To have INR repeat approx 318. Standing order sent to [facility] as well as copy of orders given to mr Velez. Reviewed INR goal/parameters. OAB (overactive bladder) 08/17/2020 Assessment & Plan (05/24/2024 8:35 AM CLOSING AGENT): Continue on supportive measure, timed voiding. Assessment & Plan (08/17/2020 5:17 PM CLOSING AGENT): Improved bladder control w/oxybutynin. Denies any med SEs. Refilled oxybutynin. COVID-19 07/23/2020 History of DVT (deep vein thrombosis) 07/22/2020 Assessment & Plan (08/23/2024 1:36 PM CDT): Continues on xaretlo and will follow respnse. Assessment & Plan (07/22/2020 3:00 PM CLOSING AGENT): History of RLE DVT. Patient is on Coumadin 4 mg at home, but his noticed he as not been taking it the past week since he has been sick. INR is a little subtherapeutic at 1.7. As the patient is already in a prothrombotic state as he is dealing with COVID right now, would prefer to bridge him with Lovenox. Initiated Lovenox 100 mg Q12H along with home dose of coumadin 4 mg. Continue bridging per pharmacy protocol. Noted to have RLE swelling, will get a duplex usg to rule out an acute DVT. Pneumonia due to COVID-19 virus 07/21/2020 Assessment & Plan (08/17/2020 5:20 PM CLOSING AGENT): Using O2 at HS (1L NC). Discussed O2 w/activity as needed. Has pulse ox that he uses to frequently check sats. Slowly improving. Using symbicort inhaler bid. Reviewed red flags; what would warrant call/rtc or ED for more emergent need. Assessment & Plan (07/22/2020 12:32 PM CLOSING AGENT): With onset of symptoms about a week prior to admission. Tested positive or COVID 19 on 07/20. Presented with hypoxia. CXR reported mild scattered pulmonary opacities. Continue management with supplemental oxygen, Decadron and Remdesivir. Will check LDH and Ferritin. Continue pulse oximetry. Skin neoplasm 03/26/2020 Squamous cell carcinoma in situ 03/10/2019 Assessment & Plan (08/23/2024 1:36 PM CDT): COntniue f/u with dermatolgoy. Assessment & Plan (05/24/2024 8:35 AM CLOSING AGENT): COntinue f/u with dermatology. COntinues to have remodelling of scalp lesion. Assessment & Plan (03/22/2019 10:18 AM CDT): Left parietal scalp, 1 week status post biopsy Biopsy site healing well, no complications or evidence of infection reported or noted on exam. Pathology results and diagnosis discussed. I discussed excision with the patient which he would like to avoid. I offered him using Efudex/imiquimod 1st in an attempt to eradicate what is remaining of his skin cancer and he would like to try this 1st. His insurance approved use of Efudex and so I will order that instead of imiquimod. Diligent sun protection encouraged. Follow-up in 6 weeks. Assessment & Plan (03/11/2019 11:25 AM CDT): Scant seeping controlled today in office with very light silver nitrate application. Patient instructed on firm pressure application if bleeding continues. Will return at scheduled visit next week. Assessment & Plan (03/10/2019 1:33 PM CDT): Left scalp Biopsy/ies done per procedure note. Wound care reviewed with patient. Follow-up per path. Actinic keratosis 03/10/2019 Assessment & Plan (03/10/2019 1:34 PM CDT): Left scalp Diagnosis discussed. Discussed treatment options of cryotherapy versus imiquimod/Efudex cream. As this lesion is discrete and quite small, the patient agrees that cryotherapy is likely the best choice and we will move forward with this in the office today. Please see procedure note. Follow-up p.r.n. Malignant neoplasm of prostate 12/07/2017 Cancer Staging:Clinical stage from 01/05/2018:Stage IIB(T2c, N0, M0, PSA: 20 or greater, Kinjal 8-10) - Signed by Jorge Chand MD PhD on 01/05/2018 Assessment & Plan (08/23/2024 1:35 PM CDT): Continue f/u with Dr. Anderson to discuss regimen related to the current regemin. Assessment & Plan (05/24/2024 8:35 AM CLOSING AGENT): Continue f/u with urology and will monitor response. NO gross hematuria. Discogenic low back pain 09/04/2017 Chronic kidney disease, stage III (moderate) Overview (09/18/2016): Chronic kidney disease stage 3 Assessment & Plan (08/23/2024 1:36 PM CDT): COntinue aggressive hydration and blood pressure control. Continues on momthly basis and will follwor esponse. Assessment & Plan (05/24/2024 8:36 AM CLOSING AGENT): Continue aggressive hyudration and will follow response. Assessment & Plan (07/22/2020 12:33 PM CLOSING AGENT): Creatinine is 1.37, which is around this patient's baseline. Continue to monitor creatinine while admitted. Avoid nephrotoxic meds. Vitamin D deficiency 07/31/2014 Overview (09/18/2016): Vitamin D deficiency Thoracic or lumbosacral neur itis or radiculitis, unspecified 03/03/2013 Myalgia and myositis 02/17/2013 Overview (11/27/2020): Primary localized osteoarthrosis, pelvic region and thigh 02/17/2013 Osteoarthritis of both hips 02/10/2013 Inflammation of sacroiliac joint 01/24/2013 Pain in joint, shoulder region 01/24/2013 Elevated serum creatinine 10/01/2012 Leukocytosis 10/01/2012 Postoperative anemia due to acute blood loss S/P total knee replacement, left 09/30/2012 Assessment & Plan (05/24/2024 8:35 AM CLOSING AGENT): Gait is stable. No increased pain. Remains active. 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 Reviewed recommendations for daily intake & activity 20-30 minutes/day. Discussed healthy diet and importance of regular physical activity. Acute respiratory failure with hypoxia 07/22/2020 08/17/2020 Assessment & Plan (07/22/2020 12:40 PM CLOSING AGENT): Secondary to COVID 19 pneumonia. EMS reported SpO2 of 90-91% on RA upon arrival, but increased to 98% on 4L NC. Continue management of COVID as stated. Wean O2 as tolerated. 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 Immunizations Immunization Administration Dates Next Due Influenza, Quadrivalent, Hig h Dose, Preservative Free, Intrr 05/05/2023,04/20/2022,03/19/2021 Influenza, Trivalent, Cell Culture-based MDCK, Preservative Free, Antibiotic Free, Intramuscular 04/05/2014 Influenza, Unspecified 10/08/2022(Deferr ed: Patient Refused),02/13/2022(Deferred: Patient Refused),09/05/2021(Deferred: Patient Refused),09/05/2021(Deferred: Patient Refused),03/07/2021(Deferred: Patient Refused),02/13/2021(Deferred: Patient Refused),02/13/2021(Deferred: Patient Refused),08/17/2020(Deferred: Patient Refused),06/15/2020(Deferred: Patient Refused),08/02/2019(Deferred: Patient Refused),05/18/2019(Deferred: Patient Refused),03/15/2019(Deferred: Patient Refused),03/15/2019(Deferred: Patient Refused),07/29/2018(Deferred: Patient Refused),03/15/2018(Deferred: Patient Refused),03/15/2018(Deferred: Patient Refused),03/15/2018(Deferred: Patient Refused),01/21/2018(Deferred: Patient Refused),06/15/2017(Deferred: Patient Refused) Pneumococcal Conjugate PCV 13 07/26/2014 Pneumococcal Polysaccharide PPV23 07/25/2014 TD Preservative Free 07/18/2014 Td, Not Adsorbed 03/28/2023 Td, Unspecified 07/18/2014 Social History Tobacco Use Types Packs/Day Years Used Date Smoking Tobacco: Former Cigarettes Q uit: 1970 Smokeless Tobacco: Never Tobacco Cessation:Counseling Given: Not Answered Comments:Smoking History Packs/day: 0.5 Packs Alcohol Use Standard Drinks/Week Comments Yes 0 (1 standard drink = 0.6 oz pur e alcohol) PHQ-2 Answer Date Recorded PHQ-2 Total Score (If total score is 3 or more points, staff should administer the PHQ-9) 2 10/08/2022 Sex and Gender Information Value Date Recorded Sex Assigned at Not on file Legal Sex Male 1:01 AM CLOSING AGENT Gender Identity Male 02/07/2021 1:09 PM CDT Sexual Orientation Not on file Last Filed Vital Signs Vital Sign Reading Time Taken Comments Blood Pressure 130/66 01/27/2023 10:03 AM CDT Pulse 85 01/27/2023 10:03 AM CDT Temperature 36.1 C (96.9 F) 01/27/2023 10:03 AM CDT Respiratory Rate 18 01/27/2023 10:03 AM CDT Oxygen Saturation 98% 01/27/2023 10:03 AM CDT Inhaled Oxygen Concentration - - Weight 84.1 kg (185 lb 6.4 oz) 10/08/2022 1:47 P M CDT Height 172.7 cm (5' 8 ) 10/08/2022 1:47 PM CDT Body Mass Index 28.19 10/08/2022 1:47 PM CDT Plan of Treatment Not on file Insurance AETNA [facility] [place] AETNA MCR [facility] ADVANTRA Advance Directives For more information, please contact: [phone] * Full Code (Latest Code Status on File) Date Activated Date Inactivated Comments 07/21/2020 10:08 PM 08/02/2020 4:19 PM Care Teams Airdrop Systems Technician Relationship Specialty Start Date End Date Geoffrey Kelley MD [address] [place] [address] PCP - General 08/01/16 Stacey Pike, RN Registered Nurse 09/01/17 Mireya Jimenez, PT Physical Therapist Physical Therapy 11/16/17 Demetra Patel EXECUTIVE CHAIRMAN Supply Chain Business Analyst Physical Therapy 11/26/17 Jorge Chand MD PhD [address] [place] [address] Radiation Oncologist Radiation Oncology 01/05/18 Barry Adame MD [address] [address] Referring Physician General Surgery 01/05/18
--- OUTSIDE RECORDS SUMMARY | 2024-10-31 11:14 | XMS_ITS | Clinical Summary ---
Author Organization [facility] Address [address] [place] [address] Care Team Providers Care Civil Engineering Drafter Name Role Phone Geoffrey Kelley MD Primary Care Provider [phone] Stacey Pike RN Unavailable UnavailMireya Saleem PT Unavailable Unavailable Demetra Patel PTA Unavailable Unavailable Jorge Chand MD PhD Unavailable + [phone] Barry Adame MD Unavailable + [phone] Allergies No known active allergies Medications aspirin [...] 08/17/2020 Assessment & Plan (08/17/2020 5:19 PM DIGITIZER): Discussed and the patient refuses immunization today. Educated regarding the need to vaccinate for personal protection and to limit the viruses in the community to protect those most vulnerable. Current use of exterminator termite anticoagulation 021 Assessment & Plan (08/17/2020 4:55 PM DIGITIZER): Reviewed INRs from time of hospitalization. Has been on 3mg nightly. To have INR repeat approx 08/30. Standing order sent to [facility] as well as copy of orders given to mr Velez. Reviewed INR goal/parameters. OAB (overactive bladder) 08/17/2020 Assessment & Plan (05/24/2024 8:35 AM DIGITIZER): Continue on supportive measure, timed voiding. Assessment & Plan (08/17/2020 5:17 PM DIGITIZER): Improved bladder control w/oxybutynin. Denies any med SEs. Refilled oxybutynin. COVID-19 07/23/2020 History of DVT (deep vein thrombosis) 07/22/2020 Assessment & Plan (08/23/2024 1:36 PM CDT): Continues on xaretlo and will follow respnse. Assessment & Plan (07/22/2020 3:00 PM DIGITIZER): History of RLE DVT. Patient is on [...] 07/21/2020 Assessment & Plan (08/17/2020 5:20 PM DIGITIZER): Using O2 at HS (1L NC). Discussed O2 w/activity as needed. Has pulse ox that he uses to frequently check sats. Slowly improving. Using symbicort inhaler bid. Reviewed red flags; what would warrant call/rtc or ED for more emergent need. Assessment & Plan (07/22/2020 12:32 PM DIGITIZER): With onset of symptoms about a week [...] dermatolgoy. Assessment & Plan (05/24/2024 8:35 AM DIGITIZER): COntinue f/u with dermatology. COntinues to have [...] regemin. Assessment & Plan (05/24/2024 8:35 AM DIGITIZER): Continue f/u with urology and will monitor response. NO gross hematuria. Discogenic low back pain 09/04/2017 Chronic kidney disease, stage III (moderate) Overview (09/18/2016): Chronic kidney disease stage 3 Assessment & Plan (08/23/2024 1:36 PM CDT): COntinue aggressive hydration and blood pressure control. Continues on momthly basis and will follwor esponse. Assessment & Plan (05/24/2024 8:36 AM DIGITIZER): Continue aggressive hyudration and will follow response. Assessment & Plan (07/22/2020 12:33 PM DIGITIZER): Creatinine is 1.37, which is around this [...] 09/30/2012 Assessment & Plan (05/24/2024 8:35 AM DIGITIZER): Gait is stable. No increased pain. Remains active. 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 Reviewed recommendations for daily intake & activity 20-30 minutes/day. Discussed healthy diet and importance of regular physical activity. Acute respiratory failure with hypoxia 07/22/2020 08/17/2020 Assessment & Plan (07/22/2020 12:40 PM DIGITIZER): Secondary to COVID 19 pneumonia. EMS reported SpO2 of 90-91% on RA upon arrival, but increased to 98% on 4L NC. Continue management of COVID as stated. Wean O2 as tolerated. 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 Encounters Date Type Department Care Team Description 10/26/2024 Telephone [facility] [address] [phone] Geoffrey Kelley MD Additional Services Or Orders 10/07/2024 Telephone [facility] [address] [phone] Geoffrey Kelley MD Medical Question/Miscellaneou s 09/12/2024 Telephone [facility] [address] [phone] Geoffrey Kelley MD 08/31/2024 Telephone [facility] [address] [phone] Geoffrey Kelley MD Medical Question/Miscellquique s 08/23/2024 12:00 PM CDT Office Visit [facility] Primary Care at [address] [phone] Geoffrey Kelley MD Malignant neoplasm of prostate (HCC) (Primary Dx); Stage 3a chronic kidney disease (HCC); History of DVT (deep vein thrombosis); Squamous cell carcinoma in situ; Cancer, 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) 08/16/2024 Telephone [facility] [address] [address] Geoffrey Kelley MD Medical Question/Miscellaneou s from Last 3 Months Immunizations Immunization Administration Dates Next Due Influenza, [...] Td, Not Adsorbed 03/28/2023 Td, Unspecified 07/18/2014 Surgical History Surgery Date Site/Laterality Comments KNEE ARTHROPLASTY Left Knee replacement JOINT REPLACEMENT Medical History Medical History Date Comments Embolism (HCC) 11/02/2014 Blood clots; Com ments: TRESA 02/05/2015 -; Laterality: right Cancer (HCC) 02/2017 prostate cancer Low back pain Vitamin D deficiency Chronic kidney disease Malignant neoplasm of prostate (HCC) Dystrophia unguium COVID-19 virus detected 07/30/2020 History of blood clots blood lorraine ts in leg Arthritis couple years Chronic bronchitis (HCC) every winter Family History Medical History Relation Name Comments Heart disease Father Wiliam Velez Cardiovascul ar disease; Heart attack Mother Vi Heart disease Mother Vi Cardiovascular disease; Arthritis Other Family history of Arthritis; Lung cancer Sister Cancer, lung; Relation Name Status Comments Father Wiliam Velez Mother Vi Other Sister Social History Tobacco Use Types Packs/Day Years [...] on file Legal Sex Male 1:01 AM DIGITIZER Gender Identity Male 02/07/2021 1:09 PM CDT Sexual Orientation Not on file Obstetrics History Last Filed Vital Signs Vital Sign Reading [...] 10/08/2022 1:47 PM CDT Plan of Treatment Health Maintenance Due Date Last Done Comments Hepatitis B Screening 09/11/1953 Zoster Vaccine (1 of 2) 1954 Well Visit 65+ 2002 Depression Screening 10/09/2023 10/08/2022, 09/05/2021, 03/07/2021, Additional history exists Fall Risk Assessment 01/28/2024 01/27/2023, 10/08/2022, 09/05/2021, Additional history exists Covid-19 Vaccine (2023-2 5 season) 2024 12/24/2021, 05/23/2021, 09/17/2020 Pneumococcal vaccine 65+ Completed 07/26/2014, 07/16 DTaP/Tdap/Td Vaccine Discontinued 03/28/2023, 07/18/2014, 07/18/2014 Influenza Vaccine Discontinued 05/05/2023, , 03/19/2021, Additional history exists Insurance [employer] [facility] ADVANTRA COVENTRY ADVANTRA AETNA MCR ADV REF AETNA [facility] ADVANTRA [facility] ADVANTRA Advance Directives For more information, please contact: [phone] * Full Code (Latest Code Status on File) Date Activated Date Inactivated Comments 07/21/2020 10:08 PM 08/02/2020 4:19 PM Care Teams Civil Engineering Drafter Relationship Specialty Start Date End Date Geoffrey Kelley MD [address] [place] [address] PCP - General 08/01/16 Stacey Pike, RN Registered Nurse 09/01/17 Mireya Jimenez, PT Physical Therapist Physical Therapy 11/16/17 Dmeetra Patel PTA Machine Shop Inspector Physical Therapy 11/26/17 Jorge Chand MD PhD [address] [place] [id number] Radiation Oncologist Radiation Oncology 01/05/18 Barry Adame MD [address] [facility] [address] [place] [address] [place] [address] Referring Physician General Surgery 01/05/18
--- OUTSIDE RECORDS SUMMARY | 2024-10-31 11:14 | XMS_ITS | Clinical Summary ---
Author Organization [facility] Address [address] [place] [address] Phone Care Team Providers Care Director Of Alumni Relations Name Role Phone Geoffrey Kelley MD Primary Care Provider [phone] Allergies No known active allergies Medications Cholecalciferol (VITAMIN D3) 1000 UNIT Tablet Take by mouth. Active Aspirin 81 MG Tablet Take 81 mg by mouth daily. Active warfarin (COUMADIN) 3 MG Tablet Take by mouth. Active Active Problems No known active problems Social History Tobacco Use Types Packs/Day Years Used Date Smoking Tobacco: Never Smokeless Tobacco: Never Alcohol Use Standard Drinks/Week Comments Yes 0 (1 standard drink = 0.6 oz pur e alcohol) Sex and Gender Information Value Date Recorded Sex Assigned at Not on file Legal Sex Male 10:37 PM CDT Gender Identity Not on file Sexual Orientation Not on file Last Filed Vital Signs Vital Sign Reading Time Taken Comments Blood Pressure 120/68 03/06/2018 12:16 PM CDT Pulse 80 03/06/2018 12:16 PM CDT Temperature 36.6 C (97.8 F) 03/06/2018 12:16 PM CDT Respiratory Rate 16 03/06/2018 12:16 PM CDT Oxygen Saturation 96% 03/06/2018 12:16 PM CDT Inhaled Oxygen Concentration - - Weight 90.7 kg (200 lb) 03/06/2018 12:16 PM CDT Height - - Body Mass Index - - Plan of Treatment Health Maintenance Due Date Last Done Comments Hepatitis C Virus (HCV) Screening 1935 TdaP Immunization 1935 Pneumococcal Immunization (5 0+ years) (1 of 1 - PCV) 09/11/1987 Zoster Immunization (1 of 2) 09/11/1987 Respiratory Syncytial Virus (RSV) Immunization (Adult) (1 - 1-dose 75+ series) 2012 Influenza Immunization (#1) 2024 SARS-COV-2 Immunization ( - season) 2024 12/24/2021, 05/23/2021, 09/17/2020 Hepatitis B Immunization Aged Out No longer eligible based on patient's age to complete this topic Meningococcal Immunization (ACWY) Aged Out No longer eligible b ased on patient's age to complete this topic Rotavirus Immunization Aged Out No lo nger eligible based on patient's age to complete this topic Care Teams Director Of Alumni Relations Relationship Specialty Start Date End Date Geoffrey Kelley MD [address] [place] [address] PCP - General Internal Medicine 03/06/18
--- OUTSIDE RECORDS SUMMARY | 2024-10-31 11:14 | XMS_ITS | Encounter Summary ---
Author Organization [facility] Healthcare Address [address] [place] [address] Care Team Providers Care Commissions Manager Name Role Phone Geoffrey Kelley MD Primary Care Provider [phone] Stacey Pike RN Unavailable Unavailabl Mireya George PT Unavailable Unavailable Demetra Patel PTA Unavailable Unavailable Jroge Chand MD PhD Unavailable + [phone] Barry Adame MD Unavailable + [phone] Reason for Visit * Reason Onset Date Comments Medical Question/Miscellaneous 10/07/2024 Encounter Details Date Type Department Care Team (Late st Contact Info) Description 10/07/2024 Telephone Family [facility]icians [address] [address] Geoffrey Kelley MD [address] [place] [address] Medical Question/Miscellaneous Social History Tobacco Use Types Packs/Day Years Used Date Smoking Tobacco: Former Cigarettes Q uit: 1970 Smokeless Tobacco: Never Comments:Smoking History Pac ks/day: 0.5 Packs Alcohol Use Standard Drinks/Week Comments Yes 0 (1 standard drink = 0.6 oz pur e alcohol) PHQ-2 Answer Date Recorded PHQ-2 Total Score (If total score is 3 or more points, staff should administer the PHQ-9) 2 10/08/2022 Sex and Gender Information Value Date Recorded Sex Assigned at Not on file Legal Sex Male 1:01 AM PULP MAKER Gender Identity Male 02/07/2021 1:09 PM CDT Sexual Orientation Not on file documented as of this encounter Miscellaneous Notes * Telephone Encounter - Angelita Ruiz MA - 10/07/2024 4:00 PM CDT Spoke w/ Marlee and she is aware. Scheduled pt for December 01 at 12 pm for home visit * Telephone Encounter - Angelita Ruiz MA - 10/07/2024 3:38 PM CDT Spoke w/ Marlee and she states that Dr Kelley sees the pt at [facility] and wanted to know sinceDr Kelley is no longer going to [place] is he able to still see him there or would pt need to establish with another PCP? Also, if okay to still see him at [place] when would you like to see beatris as he does not have a follow up apt scheduled? Please advise. Thanks. * Telephone Encounter - Shabana Cardona - 10/07/2024 11:45 AM CDT Medical Question/Miscellaneous Callerâ€™s Concern: Patient's daughter Marlee, called in wanting to verify that Dr. Kelley will not longer be seeing patient's in [place]. CREDIT RISK ASSOCIATE relayed that that is correct. Marlee also asked if a nurse can call her about the patient, she had some questions about Dr. Kelley seeing him at the [facility], where patient is residing. Does message need to be routed? Yes-Action Needed documented in this encounter Plan of Treatment Not on file documented as of this encounter Visit Diagnoses Not on filedocumented in this encounter Care Teams Commissions Manager Relationship Specialty Start Date End [place] [address] PCP - General 08/01/16 Stacey Pike, RN Registered Nurse 09/01/17 Mireya Jimenez, PT Physical Therapist Physical Therapy 11/16/17 Demetra Patel, HAND MITER OPERATOR Junior Architect Physical Therapy 11/26/17 Jorge Chand MD PhD [address] [place] [address] Radiation Oncologist Radiation Oncology 01/05/18 Barry Adame MD [address] [address] Referring Physician General Surgery 01/05/18 documented as of this encounter
--- OUTSIDE RECORDS SUMMARY | 2024-10-31 11:14 | XMS_ITS | Encounter Summary ---
Author Organization [facility] Address [address] [place] [address] Phone Care Team Providers Care Door Repairer Bus Name Role Phone Geoffrey Kelley MD Primary Care Provider [phone] Stacey Pike RN Unavailable UnavailMireya Saleem PT Unavailable Unavailable Demetra Patel PTA Unavailable Unavailable Jorge Chand MD PhD Unavailable + [phone] Barry Aadme MD Unavailable + [phone] Encounter Details Date Type Department Care Team (Late st Contact Info) Description 10/01/2017 Orders Only [facility] ProviderAnirudh MD [address] [place] [address] Social History Tobacco Use Types Packs/Day Years Used Date Smoking Tobacco: Former Smokeless Tobacco: Never Comments:Smoking History Pac ks/day: 0.5 Packs Alcohol Use Standard Drinks/Week Comments Yes 0 (1 standard drink = 0.6 oz pur e alcohol) Sex and Gender Information Value Date Recorded Sex Assigned at Not on file Legal Sex Male 1:01 AM JAILER/TRAINING OFFICER Gender Identity Male 02/07/2021 1:09 PM CDT Sexual Orientation Not on file documented as of this encounter Plan of Treatment Not on file documented as of this encounter Procedures Procedure Name Priority Date/Time Associated Diagnosis Comments GENERAL RADIOLOGY REPORT 10/01/2017 documented in this encounter Results * GENERAL RADIOLOGY REPORT (10/01/2017) Anatomical Region Laterality Modality Radiographic Elo ging Narrative 10/01/2017 Ordered by an unspecified provider. us Historical Provider MD WHITAKER XR PROCEDURES Final R esult documented in this encounter Visit Diagnoses Not on filedocumented in this encounter Additional Health Concerns Infection Onset Date Last Indicated Resolved Time COVID19 Comment:Patient has documented SpO2 < 94% which required supplemental oxygen. Based on a S&S onset date of 07/20/20 plus the need for supplemental oxygen this patient is eligible for COVID: Recovered evaluation on 08/10/20. ADAM Mayen 07/20/2020 07/20/2020 03/0 09/2020 3:07 AM JAILER/TRAINING OFFICER COVID: Recovered Comment:Added based on recent COVID infection. 08/16/2020 08/16/2020 12/14/2020 3:05 AM C DT documented as of this encounter Care Teams Door Repairer Bus Relationship Specialty Start Date End Date Geoffrey Kelley MD [address] [place] [address] PCP - General 08/01/16 Stacey Pike, RN Registered Nurse 09/01/17 Mireya Jimenez, PT Physical Therapist Physical Therapy 11/16/17 Demetra Patel, PRINTING MACHINE OPERATOR TAPE RULES Feed Mill Lab Technician Physical Therapy 11/26/17 Jorge Chand MD PhD [address] [place] [address] Radiation Oncologist Radiation Oncology 01/05/18 Barry Adame MD [address] [address] Referring Physician General Surgery 01/05/18 documented as of this encounter
--- OUTSIDE RECORDS SUMMARY | 2024-10-31 11:14 | XMS_ITS | Clinical Summary ---
Author Organization [facility] Address [address] [place] [address] Phone Care Team Providers Care Medical Communication Specialist Name Role Phone Geoffrey Kelley MD Primary Care Provider [phone] Allergies No known active allergies Medications mirabegron (MYRBETRIQ) 25 mg Extended Release 24 hour tablet Take 25 mg by mouth daily. 06/03/2023 Active rivaroxaban (XARELTO) 20 mg Tablet Take 20 mg by mouth daily with breakfast. 05/26/2023 Active vibegron 75 mg Tablet Take 75 mg by mouth daily. 09/04/2023 Active fluorouraciL (EFUDEX) 5 % Cream Apply to affected area. 10/07/2023 Active abiraterone (ZYTIGA) 250 mg tablet Take 4 Tablets (1,000 mg) by mouth daily before breakfast. 120 Tablet 6 01/18/2024 Active predniSONE (DELTASONE) 5 mg tablet Take 1 Tablet (5 mg) by mouth daily. 30 Tablet 6 01/18/2024 Active HYDROcodone-aj taminophen (NORCO) 5-325 mg tabletIndicatio ns:Prostate cancer (CMS/HCC) Take 1 Tablet by mouth every 6 hours as needed for Pain, Moderate. 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 Resolved Problems Problem Noted Date Diagnosed Date Resolved Date Routine general medical exam ination at a health care facility 09/30/2012 10/01/2012 Routine general medical exam ination at a health care facility 09/30/2012 10/01/2012 Encounters Date Type Department Care Team Description 10/26/2024 Telephone [facility] Oncology and Hematology - [place] [address] [place] [address] Charlie Anderson MD Medication Questions 10/12/2024 Orders Only [facility] Oncology and [facility] - [place] [address] [place] [address] Charlie Anderson MD 10/11/2024 9:00 AM CDT Office Visit [facility] [place] [address] Amina Schmid MD Prostate cancer ([facility]/HCC) (Primary Dx) 10/11/2024 Orders Only [facility] Oncology and Hematology - [place] [address] [place] [id number] Charlie Anderson MD 10/10/2024 Orders Only [facility] [place] [address] [place] [id number] Charlie Anderson MD Prostate cancer ([facility]/HCC) (Primary Dx) 09/20/2024 Orders Only [facility] Oncology [facility] - [place] [address] [place] [id number] Charlie Anderson MD 09/07/2024 Refill [facility] - [place] [address] [place] [id number] Charlie Anderson MD Prostate cancer ([facility]/HCC) 09/06/2024 11:00 AM CDT Telephone Check Up [facility] [place] [address] [place] [id number] Charlie Anderson MD Prostate cancer ([facility]/HCC) (Primary Dx) 08/31/2024 External Device Data STL ABSTRACTION Provider, Abstract 08/20/2024 External Device Data [facility] ABSTRACTION Provider, Abstract 08/19/2024 External Device Data [facility] ABSTRACTION Provider, Abstract 08/15/2024 Telephone [facility] [address] [facility] [address] [place] [address] Charlie Anderson MD Chemo Questions from Last 3 Months Family History Relation Name Status Comments Daughter 1 Alive Daughter 2 Alive Father Mother Sister Son Alive Social History Tobacco Use Types Packs/Day Years Used Date Smoking Tobacco: Former Cigarettes 0 06/19/1967 - 06/19/1969 Tobacco Cessation:Counseling Given: Not Answered Alcohol Use Standard Drinks/Week Comments Yes 0 (1 standard drink = 0.6 oz pur e alcohol) social Sex and Gender Information Value Date Recorded Sex Assigned at Not on file Legal Sex Male 9:51 AM CDT Gender Identity Not on file Sexual Orientation Not on file Last Filed Vital Signs Vital Sign Reading Time Taken Comments Blood Pressure 149/93 10/11/2024 9:24 AM CDT Pulse 97 10/11/2024 9:21 AM CDT Temperature 35.7 C (96.2 F) 10/11/2024 9:21 AM CDT Respiratory Rate 15 10/11/2024 9:21 AM CDT Oxygen Saturation 95% 10/11/2024 9:21 AM CDT Inhaled Oxygen Concentration - - Weight 80.5 kg (177 lb 6.4 oz) 10/11/2024 9:21 A M CDT Height 172.7 cm (5' 8 ) 06/24/2023 10:26 AM QUENCHER OPERATOR Body Mass Index 26.97 06/24/2023 10:26 AM QUENCHER OPERATOR Plan of Treatment Upcoming Encounters Date Type Department Care Team (Late st Contact Info) Description 11/09/2024 9:30 AM CDT Office Visit [facility] Oncology [facility] H[facility] [address] [place] [address] Charlie Anderson MD [address] [facility] [address] [place] [address] Health Maintenance Due Date Last Done Comments ZOSTER VACCINE (1 of 2) 1954 RSV VACCINE (60+ or ) (1 - 1-dose 75+ series) 2012 DTAP/TDAP/TD VACCINES (1 - Tdap) 03/29/2023 03/28/2023, 07/18/2014, 07/18/2014 INFLUENZA VACCINE (#1) 2024 , 04/20/2022, 03/19/2021, Additional history exists [place] Preventative Visit/Annual Wellness Visit 06/15/2024 PNEUMOCOCCAL VACCINE 50+ YEARS Completed 07/26/2014 , 07/25/2014 Medical Devices Implanted Type Area Feeder Driver Device Identifier Shelf Expiration Date Model / Serial / Lot Log [id number] - Cement - 1 - Cement [place] G-Hv 40g [id number] Implanted:Qty: 1 on 09/30/2012 at [facility] Cement Left: Knee [employer] 04/14/2014 [id number] / / [id number] Comp Fem Vngrd Cr Intrlk Lt 70mm [id number] - [id number] Implanted:Qty: 1 on 09/30/2012 at [facility] Knee Left: Knee [employer] 06/14/2022 [id number] / / [id number] Comp Tib Cocr Finned 79mm [id number] - [id number] Implanted:Qty: 1 on 09/30/2012 at [facility] Knee Left: Knee [employer] 08/12/2022 [id number] / / [id number] Brg Tib Vngrd Ant Stblzd [id number] - [id number] Implanted:Qty: 1 on 09/30/2012 at [facility] Knee Left: Knee [employer] 04/14/2016 [id number] / / [id number] Patella 3peg Series A [id number] - [id number] Implanted:Qty: 1 on 09/30/2012 at [facility] Left: Knee [employer] 08/12/2017 [id number] / / [id number] Procedures Procedure Name Priority Date/Time Associated Diagnosis Comments CBC MIXED CELL DIFFERENTIAL Routine 10/11/2024 12:51 PM CDT BASIC METABOLIC PANEL Routine 10/11/2024 12:48 PM CDT COMPREHENSIVE METABOLIC PANEL Routine 10/11/2024 8:54 AM CDT COMPREHENSIVE METABOLIC PANEL Routine 09/20/2024 4:23 PM CDT CBC MIXED CELL DIFFERENTIAL Routine 09/20/2024 3:52 PM CDT from Last 3 Months Results * CBC MIXED CELL DIFFERENTIAL (10/11/2024 12:51 PM CDT) Only the most recent of2 resultswithin the time period is included. Blood us Charlie Anderson MD HEMATOLOGY ORDERABLES Final Res ult * BASIC METABOLIC PANEL (10/11/2024 12:48 PM CDT) Blood us Charlie Anderson MD CHEMISTRY ORDERABLES Final Resu lt * COMPREHENSIVE METABOLIC PANEL (10/11/2024 8:54 AM CDT) Only the most recent of2 resultswithin the time period is included. Blood us Charlie Anderson MD CHEMISTRY ORDERABLES Final Resu lt from Last 3 Months Insurance [place] AETNA OPEN CHOICE PPO AETNA O [facility] RX AETNA Medicare Part D [place] [facility] [place] Address: [address] [place] [address] Advance Directives For more information, please contact: [phone] * Full Code (Latest Code Status on File) Date Activated Date Inactivated Comments 09/30/2012 1:03 PM 10/02/2012 5:10 PM * Full Code Date Activated Date Inactivated Comments 09/30/2012 9:31 AM 09/30/2012 1:03 PM * Full Code Date Activated Date Inactivated Comments 09/30/2012 8:37 AM 09/30/2012 9:31 AM Care Teams Medical Communication Specialist Relationship Specialty Start Date End Date Geoffrey Kelley MD PCP - General Family Practice 05/22/17
--- OUTSIDE RECORDS SUMMARY | 2024-10-31 11:14 | XMS_ITS ---
Author Organization [facility] Address [address] [place] [address] Care Team Providers Care Claim Technician Name Role Phone Geoffrey Kelley MD Primary Care Provider [phone] Stacey Pike RN Unavailable Unavailabl Mireya George PT Unavailable Unavailable Demetra Patel PTA Unavailable Unavailable Jorge Calderon MD PhD Unavailable + [phone] Barry Adame MD Unavailable + [phone] Active Problems Problem Noted Date Diagnosed Date Cancer, metastatic to bone 08/23/2024 Assessment & Plan (08/23/2024 1:36 PM CDT): Continues on zytiga, prednisone, deciding on taxotere or other adjunctive therapies. BMI 31.0-31.9,adult 2021 Refused influenza vaccine 08/17/2020 Assessment & Plan (08/17/2020 5:19 PM ENERGY AND SUSTAINABILITY MANAGER): Discussed and the patient refuses immunization today. Educated regarding the need to vaccinate for personal protection and to limit the viruses in the community to protect those most vulnerable. Current use of assisted anticoagulation 021 Assessment & Plan (08/17/2020 4:55 PM ENERGY AND SUSTAINABILITY MANAGER): Reviewed INRs from time of hospitalization. Has been on 3mg nightly. To have INR repeat approx 08/30. Standing order sent to [facility] as well as copy of orders given to mr Montague. Reviewed INR goal/parameters. OAB (overactive bladder) 08/17/2020 Assessment & Plan (05/24/2024 8:35 AM ENERGY AND SUSTAINABILITY MANAGER): Continue on supportive measure, timed voiding. Assessment & Plan (08/17/2020 5:17 PM ENERGY AND SUSTAINABILITY MANAGER): Improved bladder control w/oxybutynin. Denies any med SEs. Refilled oxybutynin. COVID-19 07/23/2020 History of DVT (deep vein thrombosis) 07/22/2020 Assessment & Plan (08/23/2024 1:36 PM CDT): Continues on xaretlo and will follow respnse. Assessment & Plan (07/22/2020 3:00 PM ENERGY AND SUSTAINABILITY MANAGER): History of RLE DVT. Patient is on [...] 07/21/2020 Assessment & Plan (08/17/2020 5:20 PM ENERGY AND SUSTAINABILITY MANAGER): Using O2 at HS (1L NC). Discussed O2 w/activity as needed. Has pulse ox that he uses to frequently check sats. Slowly improving. Using symbicort inhaler bid. Reviewed red flags; what would warrant call/rtc or ED for more emergent need. Assessment & Plan (07/22/2020 12:32 PM ENERGY AND SUSTAINABILITY MANAGER): With onset of symptoms about a week [...] dermatolgoy. Assessment & Plan (05/24/2024 8:35 AM ENERGY AND SUSTAINABILITY MANAGER): COntinue f/u with dermatology. COntinues to have [...] greater, Kinjal 8-10) - Signed by Jorge Calderon MD PhD on 01/05/2018 Assessment & Plan (08/23/2024 1:35 PM CDT): Continue f/u with Dr. Anderson to discuss regimen related to the current regemin. Assessment & Plan (05/24/2024 8:35 AM ENERGY AND SUSTAINABILITY MANAGER): Continue f/u with urology and will monitor response. NO gross hematuria. Discogenic low back pain 09/04/2017 Chronic kidney disease, stage III (moderate) Overview (09/18/2016): Chronic kidney disease stage 3 Assessment & Plan (08/23/2024 1:36 PM CDT): COntinue aggressive hydration and blood pressure control. Continues on momthly basis and will follwor esponse. Assessment & Plan (05/24/2024 8:36 AM ENERGY AND SUSTAINABILITY MANAGER): Continue aggressive hyudration and will follow response. Assessment & Plan (07/22/2020 12:33 PM ENERGY AND SUSTAINABILITY MANAGER): Creatinine is 1.37, which is around this [...] 09/30/2012 Assessment & Plan (05/24/2024 8:35 AM ENERGY AND SUSTAINABILITY MANAGER): Gait is stable. No increased pain. Remains active. 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 Past Treatment and Therapy Plans Specialty Infusion Treatment Plan Name Start Date Discontinue Date Treatment Medications Discontinue Reason Plan Provider ADULT BAMLANIVIMAB - EMERGENCY USE AUTHORIZATION 07/23/2020 08/10/2023 No medications scheduled. Automatic discontinuation of dormant plans Geoffrey Kelley MD ELIGARD INJECTION - 45 MG EVERY 24 WEEKS 12/21/2018 07/07/2019 leuprolide (ELIGARD) Therapy Complete Jorge Calderon MD PhD ELIGARD 45MG PER DR CALDERON 8 11/18/2018 leuprolide (ELIGARD) Therapy Complete Jorge Calderon MD PhD ELIGARD [address] CALDERON 12/08/2017 01/05/2018 leuprolide (ELIGARD) Therapy Complete Jorge Calderon MD PhD Specialty Infusion Treatment 2 Plan Name Start Date Discontinue Date Treatment Medications Discontinue Reason Plan Provider ELIGARD INJECTION - 45 MG EVERY 24 WEEKS 01/27/2023 01/27/2023 leuprolide (ELIGARD) Therapy Complete Jorge Calderon MD PhD ELIGARD INJECTION - 45 MG EVERY 24 WEEKS 07/29/2022 07/29/2022 leuprolide (ELIGARD) Therapy Complete Jorge Calderon MD PhD Radiation Treatments * Course C1 PROSTATE 2018 08/04/2017 - 10/01/2017 Treatment Period Energy Fraction Dose Fractions Total Dose Plans Planned PrstSV 09/07/2017 - 10/01/2017 180 19 / 3,420 PelvANDPrstSV 08/04/2017 - 09/04/2017 180 25 / 4,500 Reference Points Delivered PROSTATE_DPV 09/07/2017 - 10/01/2017 3,420 PELVIS_DPV 08/04/2017 - 09/04/2017 4,500 Resolved Problems Problem Noted Date Diagnosed Date Resolved Date BMI 29.0-29.9,adult 08/17/2020 03/08/20 21 Assessment & Plan (08/17/2020 4:50 PM ENERGY AND SUSTAINABILITY MANAGER): Reviewed need to lose weight, reviewed health benefits. Reviewed recommendations for daily intake & activity 20-30 minutes/day. Discussed healthy diet and importance of regular physical activity. Acute respiratory failure with hypoxia 07/22/2020 08/17/2020 Assessment & Plan (07/22/2020 12:40 PM ENERGY AND SUSTAINABILITY MANAGER): Secondary to COVID 19 pneumonia. EMS reported [...]
--- OUTSIDE RECORDS SUMMARY | 2024-10-31 11:14 | XMS_ITS | Encounter Summary ---
Author Organization [facility] Address [address] [place] [address] Phone Care Team Providers Care Certified Shorthand Reporter Name Role Phone Geoffrey Kelley MD Primary Care Provider [phone] Stacey Pike RN Unavailable UnavailMireya Saleem PT Unavailable Unavailable Demetra Patel PTA Unavailable Unavailable Jorge Chand MD PhD Unavailable + [phone] Barry Adame MD Unavailable + [phone] Encounter Details Date Type Department Care Team (Late st Contact Info) Description 11/03/2017 Orders Only [facility] ProviderAnirudh MD [address] [place] [address] Social History Tobacco Use Types Packs/Day Years Used Date Smoking Tobacco: Former Smokeless Tobacco: Never Comments:Smoking History Pac ks/day: 0.5 Packs Alcohol Use Standard Drinks/Week Comments Yes 0 (1 standard drink = 0.6 oz pur e alcohol) Sex and Gender Information Value Date Recorded Sex Assigned at Not on file Legal Sex Male 1:01 AM STUDENT Gender Identity Male 02/07/2021 1:09 PM CDT Sexual Orientation Not on file documented as of this encounter Plan of Treatment Not on file documented as of this encounter Procedures Procedure Name Priority Date/Time Associated Diagnosis Comments GENERAL RADIOLOGY REPORT 11/03/2017 documented in this encounter Results * GENERAL RADIOLOGY REPORT (11/03/2017) Anatomical Region Laterality Modality Radiographic Elo ging Narrative 11/03/2017 Ordered by an unspecified provider. us Historical [...] Mayen 07/20/2020 07/20/2020 03/0 09/2020 3:07 AM STUDENT COVID: Recovered Comment:Added based on recent COVID infection. 08/16/2020 08/16/2020 12/14/2020 3:05 AM C DT documented as of this encounter Care Teams Certified Shorthand Reporter Relationship Specialty Start Date End Date Geoffrey Kelley MD [address] [place] [address] PCP - General 08/01/16 Stacey Pike, RN Registered Nurse 09/01/17 Mireya Jimenez, PT Physical Therapist Physical Therapy 11/16/17 Demetra Patel, SECURITY BUSINESS ANALYST Refrigerating Machine Operator Physical Therapy 11/26/17 Jorge Chand MD PhD [address] [place] [address] Radiation Oncologist Radiation Oncology 01/05/18 Barry Adame MD [address] [address] Referring Physician General Surgery 01/05/18 documented as of this encounter
--- OUTSIDE RECORDS SUMMARY | 2024-10-31 11:14 | XMS_ITS | Encounter Summary ---
Author Organization [facility] Address [address] [place] [address] Care Team Providers Care Mainspring Strip Gauger Name Role Phone Unavailable Primary Care Provider Unavailabl e Encounter Details Date Type Department Care Team (Late st Contact Info) Description 04/06/2024 Lab Requisition [facility] - DermPath Lab [address] [place] [address] Gifty Goel PA-C [address] [place] [phone] Neoplasm of uncertain behavior of skin Social History Tobacco Use Types Packs/Day Years Used Date Smoking Tobacco: Never Assessed Sex and Gender Information Value Date Recorded Sex Assigned at Not on file Legal Sex Male 3:44 PM CDT Gender Identity Not on file Sexual Orientation Not on file documented as of this encounter Plan of Treatment Not on file documented as of this encounter Procedures Procedure Name Priority Date/Time Associated Diagnosis Comments DERMATOPATHOLOGY Routine 04/06/2024 12:0 0 AM CDT Neoplasm of uncertain behavior of skin documented in this encounter Results * DERMATOPATHOLOGY (04/06/2024 12:00 AM CDT) Case Report Dermatopathology Report Case: [id number] Authorizing Provider: Gifty Goel PA-C Collected: 04/06/2024 12:00 AM Ordering Location: [facility] Physician [facility] - Received: 04/07/2024 04:19 PM DermPath Lab Pathologist: Anny Alvarez MD Specimen: Skin, left mid back 11:27 AM CDT DERMATOPATHOLOGY LABORATORY Final Diagnosis Specimen A. SKIN, left mid back: SEBORRHEIC KERATOSIS, INFLAMED (L82.0) 11:27 AM T DERMATOPATHOLOGY LABORATORY at 1127 CDT Clinical History Atypical Nevus vs Seborrheic Keratosis 11:27 AM CDT DERMATOPATHOLOGY LABORATORY Gross Description Specimen A: Received is one formalin filled container labeled with the patient's name and designated left mid back. The specimen consists of a shave biopsy measuring 7x5x2 mm. Jar 0. 11:27 AM T DERMATOPATHOLOGY LABORATORY Microscopic Description Specimen A. SKIN, left mid back: There is hyperkeratosis, parakeratosis, papillomatosis, and acanthosis of the epidermis. There is a lymphohistiocytic infiltrate within the papillary dermis that is focally lichenoid. 11:27 AM T DERMATOPATHOLOGY LABORATORY Disclaimer An external and internal positive and negative controls are appropriate for the histochemical, immunohistochemical and immunofluorescence stain(s) in this case (if any), except where stated explicitly. The performance characteristics of the stain(s) cited in this report were developed and its performance characteristic determined by the Dermatopathology Laboratory at [facility], directed by Dr. Savage Brunson. These tests need not be, and therefore are not, approved by the [place] Food and Drug Administration. The tests are used for clinical purposes. Billing Codes Specimen Charges Stain Charges 10844 1 11:27 AM CDT DERMATOPATHOLOGY LABORATORY Embedded Images 11:27 AM CDT DERMATOPATHOLOGY LABORATORY Pathology/Cytolog y TISSUE SPECIMEN FROM SKIN / Unknown 04/06/2024 04/07/2024 4:19 PM CDT Gifty Goel PA-C LAB - PATHOLOGY/CYTOLOGY TALONE PAMELA Final Result DERMATOPATHOLOGY LABORATORY [facility] - Department of Dermatology [address] [place] [address], [facility] [phone] documented in this encounter Visit Diagnoses Diagnosis Neoplasm of uncertain behavior of skin documented in this encounter
--- OUTSIDE RECORDS SUMMARY | 2024-10-31 11:14 | XMS_ITS | Encounter Summary ---
Author Organization [facility] Address [address] [place] [address] Care Team Providers Care Professor Of Religion Name Role Phone Unavailable Primary Care Provider Unavailabl e Encounter Details Date Type Department Care Team (Late st Contact Info) Description 10/06/2023 Lab Requisition [facility] - DermPath Lab [address] [facility] [place] [address] Michael Boykin MD [facility] DERMATOLOGY [address] [place] [phone] Neoplasm of uncertain behavior of skin; Other specified erythematous conditions; Other disturbances of skin sensation Social History Tobacco Use Types Packs/Day Years [...] Priority Date/Time Associated Diagnosis Comments DERMATOPATHOLOGY Routine 10/06/2023 3:33 AM CDT Neoplasm of uncertain behavior of skin Other specified erythematous conditions Other disturbances of skin sensation documented in this encounter Results * DERMATOPATHOLOGY (10/06/2023 3:33 AM CDT) Case Report Dermatopathology Report Case: [id number] Authorizing Provider: Michael Boykin MD Collected: 10/06/2023 03:33 AM Ordering Location: [facility] Physician [facility] - Received: 10/07/2023 03:24 PM DermPath Lab Pathologist: Marlin Noland MD Specimen: Skin, right arm 11:20 AM CDT DERMATOPATHOLOGY LABORATORY Final Diagnosis Specimen A. 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 Check margins. 11:20 AM T DERMATOPATHOLOGY LABORATORY Gross Description Specimen A: Received is one formalin filled container labeled with the patient's name and designated right arm. The specimen consists of a 53c32v3 mm piece of skin. The specimen is serially sectioned and a employment representative section is submitted in cassette 1. Jar 1. 11:20 AM T DERMATOPATHOLOGY LABORATORY Microscopic Description Specimen A. SKIN, right arm: Sections show a well-circumscribed nodulocystic proliferation of keratinocytes, consisting both of rims of matrical cells and collections of anucleate keratinocytes (shadow cells), and histiocytes in defects in the wall of the proliferation. In some areas, the epithelial lining is complex and multinodular. Mitotic activity is brisk. Nucleoli are small and inconspicuous and nuclear pleomorphism is not observed. 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 Given the well-circumscribed nature of this neoplasm and absence of marked cytologic atypia, carcinoma is not favored. 11:20 AM [facility] DERMATOPATHOLOGY LABORATORY Disclaimer An external and internal positive and negative controls are appropriate for the histochemical, immunohistochemical and immunofluorescence stain(s) in this case (if any), except where stated explicitly. The performance characteristics of the stain(s) cited in this report were developed and its performance characteristic determined by the Dermatopathology Laboratory at [facility], directed by Dr. Savage Brunson. These tests need not be, and therefore are not, approved by the [place] Food and Drug Administration. The tests are used for clinical purposes. Billing Codes Specimen Charges Stain Charges 16531 1 11:20 AM CDT DERMATOPATHOLOGY LABORATORY Embedded Images 11:20 AM CDT DERMATOPATHOLOGY LABORATORY Pathology/Cytolo gy TISSUE SPECIMEN FROM SKIN / Unknown 10/06/2023 3:33 AM CDT 10/07/2023 3:24 PM CDT us Michael Boykin MD LAB - PATHOLOGY/CYTOLOGY GREGG SANTIAGO Final Result DERMATOPATHOLOGY LABORATORY [facility] - Department of Dermatology [address] [phone] documented in this encounter Visit Diagnoses Diagnosis Neoplasm of uncertain behavior of skin Other specified erythematous conditions Other disturbances of skin sensation documented in this encounter
== END 2024-10-31 10:42 | disposition home or self-care (01) ==
PROVIDERS: PCP Family Medicine; Visit Provider Radiology Radiation Oncology
DX: C61 Malignant neoplasm of prostate (principal); C79.51 Secondary malignant neoplasm of bone
CPT/HCPCS: 78815; A9596

== ENCOUNTER 2024-11-09 11:36 | Outpatient (CLI) | payer MEDICARE, MEDICAID, SELFPAY ==
--- NOTE | ~2024-11-09 | MR_ITS ---
EXAMINATION: MR lumbar spine wo/w con DATE: 11/09/2024 12:50 INDICATION: Malignant neoplasm of bone TECHNIQUE: Magnetic resonance imaging (MRI) of the lumbar spine was performed without and with 16 mL Multihance intravenous contrast. Sequences included sagittal T2-weighted FSE, sagittal T2-weighted FS FSE, and sagittal and axial T1-weighted FSE. Postcontrast sequences included axial T2-weighted FSE, sagittal T1-weighted FSE, and axial and sagittal T1-weighted FS FSE. COMPARISON: PET/CT dated 10/31/2024 and radiographs dated 05/01/2023 FINDINGS: 15 degrees lumbar levoscoliosis. 2 mm retrolisthesis L1 on L2 and L2 on L3. L5 is fused anteriorly to S1 with 3 mm anterolisthesis. Chronic minimal anterior wedging at T11, T12 and L1. There is a 1.5 cm T1 hypointense, T2 hyperintense and enhancing lesion in the left posterior aspect of the L3 vertebra l body which demonstrate increased PSA may uptake on prior PET/CT consistent with metastatic prostate cancer. Otherwise normal bone marrow signal with no other bone lesions identified. No other abnormal ly enhancing lesions identified. Severe disc height loss at L2-L3, L3-L4 and L4-L5. Moderate disc hei ght loss at L1-L2 and mild disc height loss at T10-T11 through T12-L1. The conus medullaris terminate s at L1. There is normal signal in the caudal spinal cord. Bilateral T2 hyperintense nonenhancing adolph al cysts the largest on the left measuring 1.7 cm. Paravertebral soft tissues are unremarkable. The f ollowing disc levels are specifically discussed: T12-L1: Disc is minimally bulging. There is mild left and moderate right facet joint osteoarthritis. There is no neural foraminal stenosis. There is no central canal stenosis. L1-L2: Disc is bulging with annular fissure. There is hypertrophy of the ligamentum flavum. There is severe bilateral facet joint osteoarthritis. There is moderate to severe bilateral neural foraminal stenosis. There is moderate to severe central canal stenosis. L2-L3: Disc is mildly bulging with annular fissure. There is moderate bilateral facet joint osteoarth ritis. There is moderate bilateral neural foraminal stenosis. There is moderate central canal stenosi s. L3-L4: Disc is bulging with annular fissure. There is hypertrophy of the ligamentum flavum. There is moderate left and severe right facet joint osteoarthritis. There is moderate bilateral neural forami nal stenosis. There is mild to moderate central canal stenosis. L4-L5: Disc is bulging with annular fissure. There is severe bilateral facet joint osteoarthritis. Th ere is mild to moderate bilateral neural foraminal stenosis. There is mild central canal stenosis. L5-S1: Disc space is fused to small posterior endplate osteophytes. There is moderate left and modera te to severe right facet joint osteoarthritis. There is moderate bilateral neural foraminal stenosis. There is minimal central canal stenosis. IMPRESSION: 1. 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 2. 2 cm enhancing lesion in the L3 vertebral body with increased PSA may uptake on prior PET/CT consi stent with metastatic prostate cancer. No other metastatic lesions identified. Reviewed, dictated and finalized at location A. IMPRESSION: 1. 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 2. 2 cm enhancing lesion in the L3 vertebral body with increased PSA may uptake on prior PET/CT consistent with metastatic prostate cancer. No other metastati c lesions identified.
--- OUTSIDE RECORDS SUMMARY | 2024-11-09 11:42 | XMS_ITS | Clinical Summary ---
Author Organization [facility] Address [address] [facility] [address] [place] [address] Care Team Providers Care Radiocommunications Technician Name Role Phone Unavailable Primary Care Provider Unavailabl e Source Comments [facility],non-owned Affiliates and Associated Physician Practices is amultiple site organization consisting of ambulatory clinics and hospital sitesin [place], [place], [place] and [place]. This disclosure is being madepursuant to the Care Everywhere program and may not contain all information available regarding this patient. Last updated 18.[facility] Social History Tobacco Use Types Packs/Day Years [...]
--- OUTSIDE RECORDS SUMMARY | 2024-11-09 11:42 | XMS_ITS | Clinical Summary ---
Author Organization [facility] Address [address] [place] [address] Care Team Providers Care Timers Inspector Name Role Phone Geoffrey Kelley MD Primary Care Provider [phone] Stacey Pike RN Unavailable Unavailabl Mireya George PT Unavailable Unavailable Demetra Patel PTA Unavailable Unavailable Jorge Chand MD PhD Unavailable + [phone] Barry Adame MD Unavailable + [phone] Allergies No known active allergies Medications clobetasoL (TEMOVATE) 0.05 % external solutionIndica tions:Dermatos is of the Scalp Apply topically 2 (two) times a day 50 mL 3 3 Active Additional Information Patient not taking.Reported on 01/27/2023 meloxicam (MOBIC) 15 mg tablet Take 1 tablet (15 mg total) by mouth daily 30 tablet 11 3 Active guaiFENesin-de xtromethorphan ER (MUCINEX DM) 600-30 mg tablet extended [...] mouth daily 90 tablet 1 4 Active guaiFENesin-co deine (GUAITUSS AC) liquid 100-10 mg/5 mL Take [...] 60 tablet 11 4 03/17/20 25 Active aspirin 81 mg enteric coated tablet Take 1 tablet (81 mg total) by mouth daily 11/02/19 25 Discontin ued(Thera py completed ) Active Problems Problem Noted Date Diagnosed Date Cancer, metastatic to bone 08/23/2024 Assessment & Plan (11/01/2024 2:15 PM CDT): See discussoin as above. Recommended increased follow up and mobility aid with rollator walker that is appopriately sized for his height. Assessment & Plan (08/23/2024 1:36 PM CDT): Continues on zytiga, prednisone, deciding on taxotere or other adjunctive therapies. BMI 31.0-31.9,adult 2021 Refused influenza vaccine 08/17/2020 Assessment & Plan (08/17/2020 5:19 PM DEPUTY SHERIFF K9 HANDLER): Discussed and the patient refuses immunization today. Educated regarding the need to vaccinate for personal protection and to limit the viruses in the community to protect those most vulnerable. Current use of termite control servicer anticoagulation 021 Assessment & Plan (08/17/2020 4:55 PM DEPUTY SHERIFF K9 HANDLER): Reviewed INRs from time of hospitalization. Has been on 3mg nightly. To have INR repeat approx 08/30. Standing order sent to [facility] as well as copy of orders given to mr Velez. Reviewed INR goal/parameters. OAB (overactive bladder) 08/17/2020 Assessment & Plan (11/01/2024 2:14 PM CDT): COntinues on gemtesa and will follow response. Assessment & Plan (05/24/2024 8:35 AM DEPUTY SHERIFF K9 HANDLER): Continue on supportive measure, timed voiding. Assessment & Plan (08/17/2020 5:17 PM DEPUTY SHERIFF K9 HANDLER): Improved bladder control w/oxybutynin. Denies any med SEs. Refilled oxybutynin. COVID-19 07/23/2020 History of DVT (deep vein thrombosis) 07/22/2020 Assessment & Plan (08/23/2024 1:36 PM CDT): Continues on xaretlo and will follow respnse. Assessment & Plan (07/22/2020 3:00 PM DEPUTY SHERIFF K9 HANDLER): History of RLE DVT. Patient is on [...] 07/21/2020 Assessment & Plan (08/17/2020 5:20 PM DEPUTY SHERIFF K9 HANDLER): Using O2 at HS (1L NC). Discussed O2 w/activity as needed. Has pulse ox that he uses to frequently check sats. Slowly improving. Using symbicort inhaler bid. Reviewed red flags; what would warrant call/rtc or ED for more emergent need. Assessment & Plan (07/22/2020 12:32 PM DEPUTY SHERIFF K9 HANDLER): With onset of symptoms about a week [...] dermatolgoy. Assessment & Plan (05/24/2024 8:35 AM DEPUTY SHERIFF K9 HANDLER): COntinue f/u with dermatology. COntinues to have [...] MD PhD on 01/05/2018 Assessment & Plan (11/01/2024 2:14 PM CDT): COntinue f/u with Dr. Anderson. Continuing on zytiga and now will be initiating adt injection therapy. Assessment & Plan (08/23/2024 1:35 PM CDT): Continue f/u with Dr. Anderson to discuss regimen related to the current regemin. Assessment & Plan (05/24/2024 8:35 AM DEPUTY SHERIFF K9 HANDLER): Continue f/u with urology and will monitor response. NO gross hematuria. Discogenic low back pain 09/04/2017 Assessment & Plan (11/01/2024 2:15 PM CDT): NO bowel/bladder symptoms and will follow response. Chronic kidney disease, stage III (moderate) Overview (09/18/2016): Chronic kidney disease stage 3 Assessment & Plan (08/23/2024 1:36 PM CDT): COntinue aggressive hydration and blood pressure control. Continues on momthly basis and will follwor esponse. Assessment & Plan (05/24/2024 8:36 AM DEPUTY SHERIFF K9 HANDLER): Continue aggressive hyudration and will follow response. Assessment & Plan (07/22/2020 12:33 PM DEPUTY SHERIFF K9 HANDLER): Creatinine is 1.37, which is around this [...] 09/30/2012 Assessment & Plan (05/24/2024 8:35 AM DEPUTY SHERIFF K9 HANDLER): Gait is stable. No increased pain. Remains active. 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 Reviewed recommendations for daily intake & activity 20-30 minutes/day. Discussed healthy diet and importance of regular physical activity. Acute respiratory failure with hypoxia 07/22/2020 08/17/2020 Assessment & Plan (07/22/2020 12:40 PM DEPUTY SHERIFF K9 HANDLER): Secondary to COVID 19 pneumonia. EMS reported SpO2 of 90-91% on RA upon arrival, but increased to 98% on 4L NC. Continue management of COVID as stated. Wean O2 as tolerated. 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 Primary [facility] at [address] [phone] Geoffrey Kelley MD Malignant neoplasm of prostate (HCC) (Primary Dx); OAB (overactive bladder); Cancer, 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); Discogenic low back pain 10/26/2024 Telephone [facility] [address] [phone] Geoffrey Kelley MD Additional Services Or Orders 10/07/2024 Telephone [facility] [address] [phone] Geoffrey Kelley MD Medical Question/Miscellaneou s 09/12/2024 Telephone [facility] [address] [phone] Geoffrey Kelley MD 08/31/2024 Telephone [facility] [address] [phone] Geoffrey Kelley MD Medical Question/Miscellaneou s 08/23/2024 12:00 PM CDT Office Visit [facility] Primary Care at [address] [phone] Geoffrey Kelley MD Malignant neoplasm of prostate (HCC) (Primary Dx); Stage 3a chronic kidney disease (HCC); History of DVT (deep vein thrombosis); Squamous cell carcinoma in situ; Cancer, 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) 08/16/2024 [facility]phone [facility] [address] [place] [address] Geoffrey Kelley MD Medical Question/Miscellaneou [...] on file Legal Sex Male 1:01 AM DEPUTY SHERIFF K9 HANDLER Gender Identity Male 02/07/2021 1:09 PM CDT [...] P M CDT Height 172.7 cm (5' 8) 10/08/2022 1:47 PM CDT Body Mass Index [...] Discontinued 05/05/2023, , 03/19/2021, Additional history exists Procedures Procedure Name Priority Date/Time Associated Diagnosis Comments PULMONARY - RESULT SCAN 10/31/2024 from Last 3 Months Results * PULMONARY - RESULT SCAN (10/31/2024) Anatomical Region Laterality Modality Other Provider Scanning Final Result from Last 3 Months [facility] [employer] [place] [employer] [place], [place] [address]RA [facility] ADV REF [facility] ADVANTRA AETNA [facility] ADVANTRA Advance Directives For more information, please contact: [phone] * Full Code (Latest Code Status on File) Date Activated Date Inactivated Comments 07/21/2020 10:08 PM 08/02/2020 4:19 PM Care Teams Timers Inspector Relationship Specialty Start Date End Date Geoffrey Kelley MD [address] [place] [address] PCP - General 08/01/16 Stacey Pike, RN Registered Nurse 09/01/17 Mireya Jimenez, PT Physical Therapist Physical Therapy 11/16/17 Demetra Patel [employer] Physical Therapy 11/26/17 Jorge Chand MD PhD [address] [place] [address] Radiation Oncologist Radiation Oncology 01/05/18 Barry Adame MD [address] [address] Referring Physician General Surgery 01/05/18
--- OUTSIDE RECORDS SUMMARY | 2024-11-09 11:42 | XMS_ITS | Encounter Summary ---
Author Organization [facility] Address [address] [place] [address] Care Team Providers Care Skimmer Name Role Phone Unavailable Primary Care Provider Unavailabl e Encounter Details Date Type Department Care Team (Late st Contact Info) Description 10/06/2023 Lab Requisition [facility] - DermPath Lab [address] [place] [address] Michael Boykin MD [facility] DERMATOLOGY [address] [place] [id number] Neoplasm of uncertain behavior of skin; [...] AM CDT) Case Report Dermatopathology Report Case: [id number] Authorizing Provider: Michael Boykin MD Collected: 10/06/2023 03:33 AM Ordering Location: [facility] Physician [facility] - Received: 10/07/2023 03:24 PM DermPath Lab [...] right arm. The specimen consists of a [id number] mm piece of skin. The specimen is serially sectioned and a packaging sales representative section is submitted in cassette 1. [...] atypia, carcinoma is not favored. 11:20 AM [facility] DERMATOPATHOLOGY LABORATORY Disclaimer An external and internal positive and negative controls are appropriate for the histochemical, immunohistochemical and immunofluorescence stain(s) in this case (if any), except where stated explicitly. The performance characteristics of the stain(s) cited in this report were developed and its performance characteristic determined by the Dermatopathology Laboratory at [facility], directed by Dr. Savage Brunson. These tests need not be, and therefore are not, approved by the [place] Food and Drug Administration. The tests are used for clinical purposes. Billing Codes Specimen Charges Stain Charges 39919 1 11:20 AM CDT DERMATOPATHOLOGY LABORATORY Embedded Images 11:20 AM CDT DERMATOPATHOLOGY LABORATORY Pathology/Cytolo gy TISSUE SPECIMEN FROM SKIN / Unknown 10/06/2023 3:33 AM CDT 10/07/2023 3:24 PM CDT us Michael Boykin MD LAB - PATHOLOGY/CYTOLOGY [place]GG S[place]IAGO Final Result DERMATOPATHOLOGY LABORATORY [facility] - Department of Dermatology [address], [address] [phone] documented in this encounter Visit Diagnoses Diagnosis Neoplasm of uncertain behavior of skin Other specified erythematous conditions Other disturbances of skin sensation documented in this encounter
--- OUTSIDE RECORDS SUMMARY | 2024-11-09 11:42 | XMS_ITS | Encounter Summary ---
Author Organization [facility] CONNIE Lubin [facility] Address [address] [place] [address] Care Team Providers Care Financial Advisor Name Role Phone Geoffrey Kelley MD Primary Care Provider [phone] Reason for Visit * Reason Comments Cancer Follow Up Encounter Details Date Type Department Care Team (Late st Contact Info) Description 11/09/2024 9:30 AM CDT Office Visit [facility] Oncology and Hematology - [place] [address] [facility] [address] [place] [address] Charlie Anderson MD [address] [facility] [address] [place] [address] Prostate cancer (CMS/HCC) (Primary Dx) Social History Tobacco Use Types Packs/Day Years [...] on file documented as of this encounter Last Filed Vital Signs Vital Sign Reading Time Taken Comments Blood Pressure 131/86 11/09/2024 9:35 AM CDT Pulse 109 11/09/2024 9:35 AM CDT Temperature 35.7 C (96.2 F) 11/09/2024 9:35 AM CDT Respiratory Rate 15 11/09/2024 9:35 AM CDT Oxygen Saturation 93% 11/09/2024 9:35 AM CDT Inhaled Oxygen Concentration - - Weight 80.8 kg (178 lb 3.2 oz) 11/09/2024 9:35 A M CDT Height - - Body Mass Index 27.1 06/24/2023 10:26 AM AERONAUTICAL ENGINEERING PROFESSOR documented in this encounter Progress Notes * Charlie Anderson MD - 11/09/2024 10:15 AM CDT HEMATOLOGY / ONCOLOGY PROGRESS NOTE Patient Identification: Name: Ranulfo Montague Age: 89 y.o. Sex: male : 1935 DIAGNOSIS Metastatic prostate cancer with bone involvement. Initially diagnosed with adenocarcinoma prostate clinical T2c stage II disease with Kinjal score 5+5 equal stent presenting PSA 60.4 and negative metastatic workup status post definitive radiation therapy with concurrent ADT completed in October 01, 2017. CURRENT TREATMENT Lupron on every 3-month basis started on July 22, 2023. Zytiga 1000 mg and prednisone 5 mg daily started December 2023. TREATMENT HISTORY Patient received last Lupron treatment in January 2023. SUBJECTIVE Patient came to the office for follow-up visit. He is complaining of intermittent lightheadedness and dizziness especially in the morning time. Bone pain is under control and not requiring pain medication. No other new complaints. Review of system Constitutional: Patient did not mention fevers, sweats, complain of mild tiredness and fatigue HEENT: Patient did not mention sinus congestion, hearing or vision problems Respiratory: Patient did not mention cough, dyspnea, wheeze Cardiovascular: Patient did not mention chest pain, exertional chest pressure/discomfort, nausea, syncope, shortness of breath GI: Patient did not mention constipation, diarrhea, dsyphagia, reflux symptoms, vomiting, melena : Patient did not mention dysuria, frequency, incontinence, urgency Integumentary system: no lymphadenopathy, sweats, flushing Musculoskeletal: Patient not mention: myalgia, denies any bone pain Neurological: Patient did not mention blurry or disturbed vision, numbness/weakness, complain of occasional lightheadedness and dizziness Skin: No lumps, rash on the face which is currently being treated for skin cancer. 12 point review of system was reviewed Objective: Vital signs in last 24 hours: As per nursing note Exam: General appearance: alert, cooperative, no distress, appears stated age Head: normocephalic, without obvious abnormality, atraumatic Eyes: conjunctivae/corneas clear, EOM's intact Ears: normal external ear canals AU Nose: Nares normal. Septum midline. Mucosa normal. No drainage or sinus tenderness Throat: Lips, mucosa, and tongue normal. Teeth and gums normal Neck: supple, symmetrical, trachea midline. Lungs: clear to auscultation bilaterally Heart: regular rate and rhythm, S1, S2 normal, no murmur, click, rub or gallop Abdomen: soft, non-tender. Bowel sounds normal. No masses, No organomegaly Extremities: extremities normal, atraumatic, no cyanosis or edema Skin: Skin color, texture, turgor normal. No rashes or lesions Lymph nodes: No lymphadenopathy Neuro: No obvious focal deficit Exam as above PATH LABS Labs from June 24 showed creatinine 1.1 total bili 0.5 PSA 4.1 testosterone unable to calculate. Labs from December 21 showed PSA 12.3 creatinine 1.4 GFR 48 total bilirubin 0.7 calcium 10.6 hemoglobin 13.8 WBC 4.9 platelet 202,000 Labs from March 15 showed creatinine 1.5 PSA 4.0 WBC 5.2 hemoglobin 13.6 platelet 198,000 Labs from May 17 showed creatinine 1.3 PSA 0.0 hemoglobin 14.2 total bilirubin 0.8 alkaline phosphatase 68 Labs from July 07 showed WBC 6.1 hemoglobin 12.5 platelet 1 77,000 PSA 11.3 Labs from August 30 showed hemoglobin 13.3 creatinine 1.2 PSA 13.3 Labs from October 11 showed hemoglobin 14.1 PSA 16.1 Assessment: Plan: Patient Active Problem List Diagnosis Date Noted Metastasis to bone (CMS/HCC) 04/11/2024 Postoperative anemia due to acute blood loss 10/01/2012 Leukocytosis 10/01/2012 Elevated serum creatinine 10/01/2012 S/P total knee replacement, LEFT 09/30/2012 Adenocarcinoma prostate clinical T2c stage II disease with Rodman score 5+5 equal stent presentingPSA 60.4 and negative metastatic workup status post definitive radiation therapy with concurrent ADT completed in October 01, 2017. He had subsequent biochemical failure with PSA peaked at 8.63 in June 2022 and started on androgen depression therapy with Lupron. His last treatment was in October at January 2023 Patient restarted treatment with Lupron on July 22, 2023. PET PSMA was done performed due to elevated PSA of 12.3. PET scan done on January 03 showed increased PSMA activity and mildly prominent left pelvic lymph node and L3 lytic lesion consistent with metastatic disease. Repeat PET PSMA done on July 07, 2024 showed increase in size and degree of PSMA activity and left external iliac chain lymph node now measures 1.8 x 0.9 cm. Labs from October 11 showed PSA level of 16.1. 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 Patient was seen by radiation oncologist and MRI was ordered prior to starting radiation treatment to the bone metastasis. Patient is going to continue Zytiga along with prednisone. I will see him back in 4 weeks with repeat labs. Bone metastasis. Plan is to start radiation therapy. Patient has been prescribed Nedrow that he is rarely using. Continue Xgeva with vitamin D. Left lower extremity DVT diagnosed in April 2023. Stable on Xarelto. Follow-up in 4 weeks. 11/09/2024 Charlie Anderson MD documented in this encounter Plan of Treatment Upcoming Encounters Date Type Department Care Team (Late st Contact Info) Description 12/13/2024 9:45 AM CDT Office Visit [facility] Oncology and Hematology - [place] [address] [facility] [address] [place] [address] Charlie Anderson MD [address] [facility] [address] [place] [address] Scheduled Orders Name Type Priority Associated Diagnoses Orde r Schedule CBC WITH DIFFERENTIAL Lab Stat Prostate cancer ([facility]/HCC) Expected: 11/09/2024, Expires: 11/09/2025 BASIC METABOLIC PANEL Lab Stat Prostate cancer ([facility]/HCC) Expected: 11/09/2024, Expires: 11/09/2025 PSA Lab Routine Prostate cancer (CMS/HCC) Expected: 11/09/2024, Expires: 11/09/2025 documented as of this encounter Visit Diagnoses Diagnosis Prostate cancer (CMS/HCC)- Primary Malignant neoplasm of prostate documented in this encounter Care Teams Financial Advisor Relationship Specialty Start Date End Date Geoffrey Kelley MD PCP - General Family Practice 05/22/17 documented as of this encounter
--- OUTSIDE RECORDS SUMMARY | 2024-11-09 11:42 | XMS_ITS | Clinical Summary ---
Author Organization [facility] Address [address] [place] [address] Phone Care Team Providers Care Naprapath Name Role Phone Geoffrey Kelley MD Primary Care Provider [phone] Allergies No known active allergies Medications Cholecalciferol [...] age to complete this topic Care Teams Naprapath Relationship Specialty Start Date End Date Geoffrey Kelley MD [address] [place] [address] PCP - General Internal Medicine 03/06/18
--- OUTSIDE RECORDS SUMMARY | 2024-11-09 11:42 | XMS_ITS ---
Author Organization [facility] Address [address] [place] [address] Care Team Providers Care Senior It Business Analyst Name Role Phone Geoffrey Kelley MD Primary Care Provider [phone] Stacey Pike RN Unavailable Unavailabl Mireya George PT Unavailable Unavailable Demetra Patel PTA Unavailable Unavailable Jorge Calderon MD PhD Unavailable + [phone] Barry Adame MD Unavailable + [phone] Active Problems Problem Noted Date Diagnosed Date [...] 08/17/2020 Assessment & Plan (08/17/2020 5:19 PM DIRECTOR OF CORPORATE STRATEGY): Discussed and the patient refuses immunization today. Educated regarding the need to vaccinate for personal protection and to limit the viruses in the community to protect those most vulnerable. Current use of snf anticoagulation 021 Assessment & Plan (08/17/2020 4:55 PM DIRECTOR OF CORPORATE STRATEGY): Reviewed INRs from time of hospitalization. Has been on 3mg nightly. To have INR repeat approx 08/30. Standing order sent to Kenia Jerrell as well as copy of orders given to mr Montague. Reviewed INR goal/parameters. OAB (overactive bladder) 08/17/2020 Assessment & Plan (11/01/2024 2:14 PM CDT): COntinues on gemtesa and will follow response. Assessment & Plan (05/24/2024 8:35 AM DIRECTOR OF CORPORATE STRATEGY): Continue on supportive measure, timed voiding. Assessment & Plan (08/17/2020 5:17 PM DIRECTOR OF CORPORATE STRATEGY): Improved bladder control w/oxybutynin. Denies any med SEs. Refilled oxybutynin. COVID-19 07/23/2020 History of DVT (deep vein thrombosis) 07/22/2020 Assessment & Plan (08/23/2024 1:36 PM CDT): Continues on xaretlo and will follow respnse. Assessment & Plan (07/22/2020 3:00 PM DIRECTOR OF CORPORATE STRATEGY): History of RLE DVT. Patient is on [...] 07/21/2020 Assessment & Plan (08/17/2020 5:20 PM DIRECTOR OF CORPORATE STRATEGY): Using O2 at HS (1L NC). Discussed O2 w/activity as needed. Has pulse ox that he uses to frequently check sats. Slowly improving. Using symbicort inhaler bid. Reviewed red flags; what would warrant call/rtc or ED for more emergent need. Assessment & Plan (07/22/2020 12:32 PM DIRECTOR OF CORPORATE STRATEGY): With onset of symptoms about a week [...] dermatolgoy. Assessment & Plan (05/24/2024 8:35 AM DIRECTOR OF CORPORATE STRATEGY): COntinue f/u with dermatology. COntinues to have [...] IIB(T2c, N0, M0, PSA: 20 or greater, [place] 8-10) - Signed by Jorge Calderon MD PhD on 01/05/2018 Assessment & Plan (11/01/2024 2:14 PM CDT): COntinue f/u with Dr. Anderson. Continuing on zytiga and now will be initiating adt injection therapy. Assessment & Plan (08/23/2024 1:35 PM CDT): Continue f/u with Dr. Anderson to discuss regimen related to the current regemin. Assessment & Plan (05/24/2024 8:35 AM DIRECTOR OF CORPORATE STRATEGY): Continue f/u with urology and will monitor [...] esponse. Assessment & Plan (05/24/2024 8:36 AM DIRECTOR OF CORPORATE STRATEGY): Continue aggressive hyudration and will follow response. Assessment & Plan (07/22/2020 12:33 PM DIRECTOR OF CORPORATE STRATEGY): Creatinine is 1.37, which is around this [...] 09/30/2012 Assessment & Plan (05/24/2024 8:35 AM DIRECTOR OF CORPORATE STRATEGY): Gait is stable. No increased pain. Remains active. 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 Past Treatment and Therapy Plans Specialty Infusion Treatment Plan Name Start Date Discontinue Date Treatment Medications Discontinue Reason Plan Provider ADULT [facility] - EMERGENCY USE AUTHORIZATION 07/23/2020 08/10/2023 No medications scheduled. Automatic discontinuation of dormant plans Geoffrey Kelley MD ELIGARD INJECTION - 45 MG EVERY 24 WEEKS 12/21/2018 07/07/2019 leuprolide (ELIGARD) Therapy Complete Jorge Calderon MD PhD ELIEVELIN 45MG PER DR CALDERON 8 11/18/2018 leuprolide (ELIGARD) Therapy Complete Jorge Calderon MD PhD JULIET [address] CALDERON 12/08/2017 01/05/2018 leuprolide [...] 21 Assessment & Plan (08/17/2020 4:50 PM DIRECTOR OF CORPORATE STRATEGY): Reviewed need to lose weight, reviewed health benefits. Reviewed recommendations for daily intake & activity 20-30 minutes/day. Discussed healthy diet and importance of regular physical activity. Acute respiratory failure with hypoxia 07/22/2020 08/17/2020 Assessment & Plan (07/22/2020 12:40 PM DIRECTOR OF CORPORATE STRATEGY): Secondary to COVID 19 pneumonia. EMS reported [...]
--- OUTSIDE RECORDS SUMMARY | 2024-11-09 11:42 | XMS_ITS | Encounter Summary ---
Author Organization [facility] Address [address] [place] [address] Care Team Providers Care Environmental Aide Name Role Phone Unavailable Primary Care Provider Unavailabl e Encounter Details Date Type Department Care Team (Late st Contact Info) Description 04/06/2024 Lab Requisition [facility] - DermPath Lab [address] [place] [address] Gifty Goel PA-C [address] [place] [phone] Neoplasm of uncertain behavior of skin [...] AM CDT) Case Report Dermatopathology Report Case: [id number] Authorizing Provider: Gifty Goel PA-C Collected: 04/06/2024 12:00 AM Ordering Location: [facility] Physician [facility] - Received: 04/07/2024 04:19 PM DermPath Lab [...] characteristic determined by the Dermatopathology Laboratory at [facility], directed by Dr. Savage Brunson. These tests need not be, and therefore are not, approved by the [place] Food and Drug Administration. The tests are used for clinical purposes. Billing Codes Specimen Charges Stain Charges 11279 1 11:27 AM CDT DERMATOPATHOLOGY LABORATORY Embedded Images 11:27 AM CDT DERMATOPATHOLOGY LABORATORY Pathology/Cytolog y TISSUE SPECIMEN FROM SKIN / Unknown 04/06/2024 04/07/2024 4:19 PM CDT Gifty Goel PA-C LAB - PATHOLOGY/CYTOLOGY [place]AMELA Final Result DERMATOPATHOLOGY LABORATORY [facility] - Department of Dermatology [address] [place] [address], [facility] [phone] documented in this encounter Visit Diagnoses Diagnosis Neoplasm of uncertain behavior of skin documented in this encounter
--- OUTSIDE RECORDS SUMMARY | 2024-11-09 11:42 | XMS_ITS | Encounter Summary ---
Author Organization [facility] Address [address] [place] [address] Phone Care Team Providers Care Crime Scene Evidence Technician Name Role Phone Geoffrey Kelley MD Primary Care Provider [phone] Stacey Pike RN Unavailable UnavailMireya Saleem PT Unavailable Unavailable Demetra Patel PTA Unavailable Unavailable Jorge Chand MD PhD Unavailable + [phone] Barry Adame MD Unavailable + [phone] Encounter Details Date Type Department Care Team (Late st Contact Info) Description 10/01/2017 Orders Only [facility] ProviderAnirudh MD [address] [place] [address] Social History Tobacco Use Types Packs/Day Years Used Date Smoking Tobacco: Former Smokeless Tobacco: Never Comments:Smoking History Pac ks/day: 0.5 Packs Alcohol Use Standard Drinks/Week Comments Yes 0 (1 standard drink = 0.6 oz pur e alcohol) Sex and Gender Information Value Date Recorded Sex Assigned at Not on file Legal Sex Male 1:01 AM PAIRER ODDS Gender Identity Male 02/07/2021 1:09 PM CDT [...] Mayen 07/20/2020 07/20/2020 03/0 09/2020 3:07 AM PAIRER ODDS COVID: Recovered Comment:Added based on recent COVID infection. 08/16/2020 08/16/2020 12/14/2020 3:05 AM C DT documented as of this encounter Care Teams Crime Scene Evidence Technician Relationship Specialty Start Date End Date Geoffrey Kelley MD [address] [place] [address] PCP - General 08/01/16 Stacey Pike, RN Registered Nurse 09/01/17 Mireya Jimenez, PT Physical Therapist Physical Therapy 11/16/17 Demetra Patel, PRESSURE WELDER Motor Vehicle Field Representative Physical Therapy 11/26/17 Jorge Chand MD PhD [address] [place] [address] Radiation Oncologist Radiation Oncology 01/05/18 Barry Adame MD [address] [address] Referring Physician General Surgery 01/05/18 documented as of this encounter
--- OUTSIDE RECORDS SUMMARY | 2024-11-09 11:42 | XMS_ITS | Clinical Summary ---
Author Organization [facility] Address [address] [place] [address] Phone Care Team Providers Care Test Conductor Name Role Phone Geoffrey Kelley MD Primary Care Provider [phone] Allergies No known active allergies Medications mirabegron [...] Encounters Date Type Department Care Team Description 11/09/2024 9:30 AM CDT Office Visit [facility] Oncology and Hematology [facility] [address] [place] [address] Charlie Anderson MD Prostate cancer ([facility]/HCC) (Primary Dx) 11/03/2024 External Device Data STL ABSTRACTION Provider, Abstract 11/03/2024 External Device Data STL ABSTRACTION Provider, Abstract 11/02/2024 External Device Data STL ABSTRACTION Provider, Abstract 10/26/2024 Telephone [facility] Oncology and Hematology - [place] [address] [place] [phone] Charlie Anderson MD Medication Questions 10/12/2024 Orders Only [facility] Oncology and Hematology [place] [address] [place] [phone] Charlie Anderson MD 10/11/2024 9:00 AM CDT Office Visit [facility] Oncology and Hematology [facility] [address] [place] [phone] Amnia Schmid MD Prostate cancer ([facility]/HCC) (Primary Dx) 10/11/2024 Orders Only [facility] Oncology and Hematology - [place] [address] [place] [address] Charlie Anderson MD 10/10/2024 Orders Only [facility] Oncology and Hematology - [place] [address] [place] [address] Charlie Anderson MD Prostate cancer ([facility]/HCC) (Primary Dx) 09/20/2024 Orders Only [facility] Oncology and Hematology - [place] [address] [place] [address] Charlie Anderson MD 09/07/2024 Refill [facility] Oncology and Hematology [facility] [address] [place] [address] Charlie Anderson MD Prostate cancer (CMS/HCC) 09/06/2024 11:00 AM CDT Telephone Check Up [facility] Oncology [facility] Hematology [facility] [address] [place] [address] Charlie Anderson MD Prostate cancer ([facility]/HCC) (Primary Dx) 08/31/2024 External Device Data STL ABSTRACTION Provider, Abstract 08/20/2024 External Device Data STL ABSTRACTION Provider, Abstract 08/19/2024 External Device Data STL ABSTRACTION Provider, Abstract 08/15/2024 Telephone [facility] Oncology and Hematology [facility] [address] [place] [address] Charlie Anderson MD Chemo Questions from Last [...] oz) 11/09/2024 9:35 A M CDT Height 172.7 cm (5' 8) 06/24/2023 10:26 AM GROCERY STORE MANAGER Body Mass Index 27.1 06/24/2023 10:26 AM GROCERY STORE MANAGER Plan of Treatment Upcoming Encounters Date Type Department Care Team (Late st Contact Info) Description 12/13/2024 9:45 AM CDT Office Visit [facility] Oncology and Hematology - [place] [address] [facility] [address] [place] [address] Charlie Anderson MD [address] [facility] [address] [place] [address] Health Maintenance Due Date Last Done Comments ZOSTER VACCINE (1 of 2) 1956 RSV VACCINE (60+ or ) (1 - 1-dose 75+ series) 2012 DTAP/TDAP/TD VACCINES (1 - Tdap) 03/29/2023 03/28/2023, 07/18/2014, 07/18/2014 INFLUENZA VACCINE (#1) 2024 , 04/20/2022, 03/19/2021, Additional history exists Medicare Ad[place]age ([place]) Preventative Visit/Annual Wellness Visit 06/15/2024 PNEUMOCOCCAL VACCINE 50+ YEARS Completed 07/26/2014 , 07/25/2014 Medical Devices Implanted Type Area Office Service Coordinator Device Identifier Shelf Expiration Date Model / Serial / Lot Log [id number] - Cement - 1 - Cement [place] G-Hv 40g [id number] Implanted:Qty: 1 on 09/30/2012 at [facility] Cement Left: Knee [employer] 04/14/2014 [id number] / / [id number] Comp Fem Vngrd Cr Intrlk Lt 70mm [id number] - [id number] Implanted:Qty: 1 on 09/30/2012 at [facility] Knee Left: Knee [employer] 06/14/2022 [id number] / / [id number] Comp Tib Cocr Finned 79mm [id number] - [id number] Implanted:Qty: 1 on 09/30/2012 at [facility] Knee Left: Knee [employer] 08/12/2022 [id number] / / [id number] Brg Tib Vngrd Ant Stblzd [id number] - [id number] Implanted:Qty: 1 on 09/30/2012 at [facility] Knee Left: Knee [employer] 04/14/2016 [id number] / / [id number] Patella 3peg Series A [id number] - [id number] Implanted:Qty: 1 on 09/30/2012 at [facility] Left: Knee [employer] 08/12/2017 [id number] / / [id number] Procedures Procedure Name Priority Date/Time Associated Diagnosis [...] [place] OPEN CHOICE PPO AETNA O [facility] [address] [place] [address] RX AET Medicare Part D MEDICA[place] AET[place] OPEN CHOICE PPO AETNA O [facility] Advance Directives For more information, please contact: [phone] * Full Code (Latest Code Status on File) Date Activated Date Inactivated Comments 09/30/2012 1:03 PM 10/02/2012 5:10 PM * Full Code Date Activated Date Inactivated Comments 09/30/2012 9:31 AM 09/30/2012 1:03 PM * Full Code Date Activated Date Inactivated Comments 09/30/2012 8:37 AM 09/30/2012 9:31 AM Care Teams Test Conductor Relationship Specialty Start Date End Date Geoffrey Kelley MD PCP - General Family Practice 05/22/17
--- OUTSIDE RECORDS SUMMARY | 2024-11-09 11:42 | XMS_ITS | Referral Summary ---
Author Organization [facility] Address [address] [place] [address] Care Team Providers Care Melt Room Operator Name Role Phone Geoffrey Kelley MD Primary Care Provider Stacey Pike RN Unavailable UnavailMireya Saleem PT Unavailable Unavailable Demetra Patel PTA Unavailable Unavailable Jorge Chand MD PhD Unavailable + [phone] Barry Adame MD Unavailable + [phone] Encounters Date Type Department Care Team Description 11/01/2024 12:00 PM CDT Office Visit [facility] Primary Care at [address] [address] Geoffrey Kelley MD Malignant neoplasm of prostate (HCC) (Primary Dx); OAB (overactive bladder); Cancer, 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); Discogenic low back pain 10/26/2024 Telephone [facility] [address] [address] Geoffrey Kelley MD Additional Services Or Orders 10/07/2024 Telephone [facility] [address] [address] Geoffrey Kelley MD Medical Question/Miscellaneou s 09/12/2024 Telephone [facility] [address] [phone] Geoffrey Kelley MD 08/31/2024 Telephone [facility] [address] [address] Geoffrey Kelley MD Medical Question/Dean s 08/23/2024 12:00 PM CDT Office Visit [facility] Primary Care at [address] [address] Geoffrey Kelley MD Malignant neoplasm of prostate (HCC) (Primary Dx); Stage 3a chronic kidney disease (HCC); History of DVT (deep vein thrombosis); Squamous cell carcinoma in situ; Cancer, 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 Educated regarding the need to vaccinate for personal protection and to limit the viruses in the community to protect those most vulnerable. Current use of assisted anticoagulation 021 Assessment & Plan (08/17/2020 4:55 PM WELDING MACHINE OPERATOR ELECTRO GAS): Reviewed INRs from time of hospitalization. Has been on 3mg nightly. To have INR repeat approx 08/30. Standing order sent to [facility] as well as copy of orders given to mr Velez. Reviewed INR goal/parameters. OAB (overactive bladder) 08/17/2020 Assessment & Plan (11/01/2024 2:14 PM CDT): COntinues on gemtesa and will follow response. Assessment & Plan (05/24/2024 8:35 AM WELDING MACHINE OPERATOR ELECTRO GAS): Continue on supportive measure, timed voiding. Assessment & Plan (08/17/2020 5:17 PM WELDING MACHINE OPERATOR ELECTRO GAS): Improved bladder control w/oxybutynin. Denies any med SEs. Refilled oxybutynin. COVID-19 07/23/2020 History of DVT (deep vein thrombosis) 07/22/2020 Assessment & Plan (08/23/2024 1:36 PM CDT): Continues on xaretlo and will follow respnse. Assessment & Plan (07/22/2020 3:00 PM WELDING MACHINE OPERATOR ELECTRO GAS): History of RLE DVT. Patient is on [...] 07/21/2020 Assessment & Plan (08/17/2020 5:20 PM WELDING MACHINE OPERATOR ELECTRO GAS): Using O2 at HS (1L NC). Discussed O2 w/activity as needed. Has pulse ox that he uses to frequently check sats. Slowly improving. Using symbicort inhaler bid. Reviewed red flags; what would warrant call/rtc or ED for more emergent need. Assessment & Plan (07/22/2020 12:32 PM WELDING MACHINE OPERATOR ELECTRO GAS): With onset of symptoms about a week [...] dermatolgoy. Assessment & Plan (05/24/2024 8:35 AM WELDING MACHINE OPERATOR ELECTRO GAS): COntinue f/u with dermatology. COntinues to have [...] IIB(T2c, N0, M0, PSA: 20 or greater, Dudley 8-10) - Signed by Jorge Chand MD PhD on 01/05/2018 Assessment & Plan (11/01/2024 2:14 PM CDT): COntinue f/u with Dr. Anderson. Continuing on zytiga and now will be initiating adt injection therapy. Assessment & Plan (08/23/2024 1:35 PM CDT): Continue f/u with Dr. Anderson to discuss regimen related to the current regemin. Assessment & Plan (05/24/2024 8:35 AM WELDING MACHINE OPERATOR ELECTRO GAS): Continue f/u with urology and will monitor [...] esponse. Assessment & Plan (05/24/2024 8:36 AM WELDING MACHINE OPERATOR ELECTRO GAS): Continue aggressive hyudration and will follow response. Assessment & Plan (07/22/2020 12:33 PM WELDING MACHINE OPERATOR ELECTRO GAS): Creatinine is 1.37, which is around this [...] 09/30/2012 Assessment & Plan (05/24/2024 8:35 AM WELDING MACHINE OPERATOR ELECTRO GAS): Gait is stable. No increased pain. Remains active. 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 Reviewed recommendations for daily intake & activity 20-30 minutes/day. Discussed healthy diet and importance of regular physical activity. Acute respiratory failure with hypoxia 07/22/2020 08/17/2020 Assessment & Plan (07/22/2020 12:40 PM WELDING MACHINE OPERATOR ELECTRO GAS): Secondary to COVID 19 pneumonia. EMS reported [...] on file Legal Sex Male 1:01 AM WELDING MACHINE OPERATOR ELECTRO GAS Gender Identity Male 02/07/2021 1:09 PM CDT [...] CDT Plan of Treatment Not on file Procedures Procedure Name Priority Date/Time Associated Diagnosis Comments PULMONARY - RESULT SCAN 10/31/2024 from Last 3 Months Results * PULMONARY - RESULT SCAN (10/31/2024) Anatomical Region Laterality Modality Other Provider Scanning Final Result from Last 3 Months Insurance [facility] Advance Directives For more information, please contact: [phone] * Full Code (Latest Code Status on File) Date Activated Date Inactivated Comments 07/21/2020 10:08 PM 08/02/2020 4:19 PM Care Teams Melt Room Operator Relationship Specialty Start Date End Date Geoffrey Kelley MD [address] [facility] [place] [address] PCP - General 08/01/16 Stacey Pike, RN Registered Nurse 09/01/17 Mireya Jimenez, PT Physical Therapist Physical Therapy 11/16/17 Demetra Patel PTA Sales Review Clerk Physical Therapy 11/26/17 Jorge Chand MD PhD [address] [place] [address] Radiation Oncologist Radiation Oncology 01/05/18 Barry Adame MD [address] [place] [address] Referring Physician General Surgery 01/05/18
--- OUTSIDE RECORDS SUMMARY | 2024-11-09 11:42 | XMS_ITS | Encounter Summary ---
Author Organization [facility] Address [address] [place] [address] Phone Care Team Providers Care Operations Expert Name Role Phone Geoffrey Kelley MD Primary Care Provider [phone] Stacey Pike RN Unavailable UnavailMireya Saleem PT Unavailable Unavailable Demetra Patel PTA Unavailable Unavailable Jorge Chand MD PhD Unavailable + [phone] Barry Adame MD Unavailable + [phone] Encounter Details Date Type Department Care Team (Late st Contact Info) Description 11/03/2017 Orders Only [facility] ProviderAnirudh MD [address] [place] [id number] Social History Tobacco Use Types Packs/Day Years Used Date Smoking Tobacco: Former Smokeless Tobacco: Never Comments:Smoking History Pac ks/day: 0.5 Packs Alcohol Use Standard Drinks/Week Comments Yes 0 (1 standard drink = 0.6 oz pur e alcohol) Sex and Gender Information Value Date Recorded Sex Assigned at Not on file Legal Sex Male 1:01 AM SUBCONTRACT ADMINISTRATOR Gender Identity Male 02/07/2021 1:09 PM CDT [...] Mayen 07/20/2020 07/20/2020 03/0 09/2020 3:07 AM SUBCONTRACT ADMINISTRATOR COVID: Recovered Comment:Added based on recent COVID infection. 08/16/2020 08/16/2020 12/14/2020 3:05 AM C DT documented as of this encounter Care Teams Operations Expert Relationship Specialty Start Date End Date Geoffrey Kelley MD [address] [place] [address] PCP - General 08/01/16 Stacey Pike, RN Registered Nurse 09/01/17 Mireya Jimenez, PT Physical Therapist Physical Therapy 11/16/17 Demetra Patel, LATHE PULLER Raw Finish Mill Operator Physical Therapy 11/26/17 Jorge Chand MD PhD [address] [place] [address] Radiation Oncologist Radiation Oncology 01/05/18 Barry Adame MD [address] [address] Referring Physician General Surgery 01/05/18 documented as of this encounter
== END 2024-11-09 11:37 | disposition home or self-care (01) ==
PROVIDERS: PCP Family Medicine; Visit Provider Radiology Radiation Oncology
DX: M41.86 Other forms of scoliosis, lumbar region (principal); M47.816 Spondylosis without myelopathy or radiculopathy, lumbar region; R93.89 Abnormal findings on diagnostic imaging of other specified body structures; C79.51 Secondary malignant neoplasm of bone; C61 Malignant neoplasm of prostate
CPT/HCPCS: 72158; A9579

== ENCOUNTER 2025-01-24 08:43 | Outpatient (CLI) | payer MEDICARE, MEDICAID, SELFPAY ==
--- OUTSIDE RECORDS SUMMARY | 2025-01-24 09:00 | XMS_ITS | Clinical Summary ---
Author Organization [facility] Address [address] [place] [address] Phone Care Team Providers Care Photogrammetric Tech Name Role Phone Geoffrey Kelley MD Primary Care Provider [phone] Allergies No known active allergies Medications mirabegron (MYRBETRIQ) 25 mg Extended Release 24 hour tablet Take 25 mg by mouth daily. 3 Active rivaroxaban (XARELTO) 20 mg Tablet Take 20 mg by mouth daily with breakfast. 3 Active vibegron 75 mg Tablet Take 75 mg by mouth daily. 4 Active fluorouraciL (EFUDEX) 5 % Cream Apply to affected area. 4 Active abiraterone (ZYTIGA) 250 mg tablet Take 4 Tablets (1,000 mg) by mouth daily before breakfast. 120 Tablet 6 4 Active HYDROcodone-aj taminophen (NORCO) 5-325 mg tabletIndicatio ns:Prostate cancer (CMS/HCC) Take 1 Tablet by mouth every 6 hours as needed for Pain, Moderate. Max Daily Amount: 4 Tablets 60 Tablet 5 Active lidocaine-prilo robb (EMLA) 2.5-2.5 % CreamIndication s:Prostate cancer (CMS/HCC) Apply a quarter size amount to port site 30 minutes before access. 30 Gram 5 Active ondansetron (ZOFRAN ODT) 8 mg Tablet, Rapid DissolveIndicat ions:Prostate cancer (CMS/HCC) Dissolve 1 tablet on top of tongue then swallow with saliva every 8 hours as needed for nausea or vomiting 30 Tablet 1 5 Active dexAMETHasone (DECADRON) 4 mg tabletIndicatio ns:Prostate cancer (CMS/HCC) Take 2 Tablets (8 mg) by mouth 2 times daily starting day before, day of, and day after treatment with Docetaxel. 12 Tablet 4 5 Active predniSONE (DELTASONE) 5 mg tabletIndicatio ns:Prostate cancer (CMS/HCC) Take 1 Tablet (5 mg) by mouth BID days 1-21 of each cycle. 42 Tablet 2 5 Active predniSONE (DELTASONE) 5 mg tabletIndicatio ns:Prostate cancer (CMS/HCC) Take 1 Tablet (5 mg) by mouth BID days 1-21 of each cycle. 42 Tablet 2 5 12/29/19 25 Discontinu ed(Reorder ) dexAMETHasone (DECADRON) 4 mg tabletIndicatio ns:Prostate cancer (CMS/HCC) Take 2 Tablets (8 mg) by mouth 2 times daily starting day before, day of, and day after treatment with Docetaxel. 12 Tablet 4 5 12/29/19 25 Discontinu ed(Reorder ) Active Problems Problem Noted Date Diagnosed [...] Encounters Date Type Department Care Team Description 01/23/2025 Orders Only [facility] Oncology and Hematology - [place] [address] [place] [phone] Charlie Anderson MD Prostate cancer (CMS/HCC) 01/17/2025 External Device Data STL ABSTRACTION Provider, Abstract 01/17/2025 Orders Only [facility] Oncology and Hematology - [place] [address] [place] [address] Charlie Anderson MD 01/16/2025 Telephone [facility] Oncology and Hematology - [place] [address] [place] [phone] Charlie Anderson MD Port Placement 01/11/2025 Orders Only [facility] Oncology and Hematology - [place] [address] [place] [address] Charlie Anderson MD 01/09/2025 Orders Only [facility] Oncology and Hematology - [place] [address] [place] [phone] Charlie Anderson MD Prostate cancer ([facility]/HCC) 01/05/2025 Orders Only [facility] Oncology and Hematology - [place] [address] [place] [phone] Charlie Anderson MD 01/03/2025 9:15 AM CDT Office Visit [facility] On[facility] and Hematology [facility] [address] [place] [phone] Charlie Anderson MD Prostate cancer ([facility]/HCC) (Primary Dx) 12/28/2024 External Device Data STL ABSTRACTION Provider, Abstract 12/28/2024 Refill [facility] On[facility] and Hematology [facility] [address] [place] [address] Charlie Anderson MD Prostate cancer ([facility]/HCC) 12/27/2024 External Device Data STL ABSTRACTION Provider, Abstract 12/26/2024 Orders Only [facility] Oncology and Hematology - [place] [address] [place] [phone] Charlie Anderson MD Prostate cancer ([facility]/HCC) (Primary Dx) 12/22/2024 Refill [facility] Oncology and Hematology [facility] [address] [place] [address] Charlie Anderson MD Prostate cancer ([facility]/HCC) (Primary Dx) 12/13/2024 9:45 AM CDT Office Visit [facility] On[facility] and Hematology [facility] [address] [place] [phone] Charlie Anderson MD Prostate cancer ([facility]/HCC) (Primary Dx) 12/13/2024 Telephone [facility] Oncology and Hematology [facility] [address] [place] [phone] Charlie Anderson MD Chemotherapy 12/06/2024 Orders Only [facility] Oncology and Hematology [facility] [address] Charlie Anderson MD 11/30/2024 External Device Data STL ABSTRACTION Provider, Abstract 11/29/2024 External Device Data STL ABSTRACTION Provider, Abstract 11/09/2024 9:30 AM CDT Office Visit [facility] Oncology and Hematology [facility] [address] [place] [address] Charlie Anderson MD Prostate cancer ([facility]/HCC) (Primary Dx) 11/09/2024 Orders Only [facility] Oncology and Hematology [facility] [address] [place] [address] Charlie Anderson MD 11/03/2024 External Device Data STL ABSTRACTION Provider, Abstract 11/03/2024 External Device Data STL ABSTRACTION Provider, Abstract 11/02/2024 External Device Data STL ABSTRACTION Provider, Abstract 10/26/2024 Telephone [facility] Hematology [facility] [address] [place] [address] Charlie Anderson MD Medication Questions from Last 3 Months Family History [...] Sign Reading Time Taken Comments Blood Pressure 102/82 01/03/2025 9:38 AM CDT Pulse 80 01/03/2025 9:38 AM CDT Temperature 35.7 C (96.2 F) 01/03/2025 9:38 AM CDT Respiratory Rate 15 01/03/2025 9:38 AM CDT Oxygen Saturation 90% 01/03/2025 9:38 AM CDT Inhaled Oxygen Concentration - - Weight 79.7 kg (175 lb 12.8 oz) 01/03/2025 9:38 AM CDT Height 172.7 cm (5' 8) 06/24/2023 10:2 6 AM CENTRAL SERVICE TECH Body Mass Index 26.73 06/24/2023 10:26 AM CENTRAL SERVICE TECH Plan of Treatment Health Maintenance Due Date Last Done Comments ZOSTER VACCINE (1 of 2) 1956 RSV VACCINE (60+ or ) (1 - 1-dose 75+ series) 2012 DTAP/TDAP/TD VACCINES (1 - Tdap) 03/29/2023 03/28/2023, 07/18/2014, 07/18/2014 INFLUENZA VACCINE (#1) 2025 , 04/20/2022, 03/19/2021, Additional history exists PNEUMOCOCCAL VACCINE 50+ YEARS Completed 07/26/2014 , 07/25/2014 Medical Devices Implanted Type Area Customer Advocate Device Identifier Shelf Expiration Date Model / Serial / Lot Log [id number] - Cement - 1 - Cement Oriental G-Hv 40g [id number] Implanted:Qty: 1 on 09/30/2012 at [facility] Cement Left: Knee [employer] 04/14/2014 [id number] / / [id number] Comp Fem Vngrd Cr Intrlk Lt 70mm [id number] - [id number] Implanted:Qty: 1 on 09/30/2012 at [facility] Knee Left: Knee [employer] 06/14/2022 [id number] / / [id number] Comp Tib Cocr Finned 79mm [id number] - [id number] Implanted:Qty: 1 on 09/30/2012 at [facility] Knee Left: Knee [employer] 08/12/2022 [id number] / / [id number] Brg Tib Vngrd Ant Stblzd [id number] - [id number] Implanted:Qty: 1 on 09/30/2012 at [facility] Knee Left: Knee [employer] 04/14/2016 [id number] / / [id number] Patella 3peg Series A [id number] - [id number] Implanted:Qty: 1 on 09/30/2012 at [facility] Left: Knee [employer] 08/12/2017 [id number] / / [id number] Procedures Procedure Name Priority Date/Time Associated Diagnosis Comments COMPREHENSIVE METABOLIC PANEL Routine 01/17/2025 12:44 PM CDT CBC WITH AUTODIFFERENTIAL Routine 2024 12:43 PM CDT BASIC METABOLIC PANEL Routine 01/10/2025 2:39 PM CDT COMPREHENSIVE METABOLIC PANEL Routine 01/10/2025 12:10 PM CDT COMPREHENSIVE METABOLIC PANEL Routine 01/03/2025 2:12 PM CDT BASIC METABOLIC PANEL Routine 01/03/2025 2:03 PM CDT BASIC METABOLIC PANEL Routine 12/06/2024 5:42 PM CDT BASIC METABOLIC PANEL Routine 11/09/2024 3:43 PM CDT from Last 3 Months Results * COMPREHENSIVE METABOLIC PANEL (01/17/2025 12:44 PM CDT) Only the most recent of3 resultswithin the time period is included. Blood us Charlie Anderson MD CHEMISTRY ORDERABLES Final Resu lt * CBC WITH AUTODIFFERENTIAL (01/17/2025 12:43 PM CDT) Blood us Charlie Anderson MD HEMATOLOGY ORDERABLES Final Res ult * BASIC METABOLIC PANEL (01/10/2025 2:39 PM CDT) Only the most recent of4 resultswithin the time period is included. Blood us Charlie Anderson MD CHEMISTRY ORDERABLES Final Resu lt from Last 3 Months Insurance MEDICAID [place] AETNA OPEN CHOICE [facility] AETNA [facility] [place] [place] Address: [address] [address] RX AETNA Medicare Part D MEDICA[place] AETNA OPEN CHOICE O AETNA O [facility] Advance Directives For more information, please contact: [phone] * Full Code (Latest Code Status on File) Date Activated Date Inactivated Comments 09/30/2012 1:03 PM 10/02/2012 5:10 PM * Full Code Date Activated Date Inactivated Comments 09/30/2012 9:31 AM 09/30/2012 1:03 PM * Full Code Date Activated Date Inactivated Comments 09/30/2012 8:37 AM 09/30/2012 9:31 AM Care Teams Photogrammetric Tech Relationship Specialty Start Date End Date Geoffrey Kelley MD PCP - General Family Practice 05/22/17
--- OUTSIDE RECORDS SUMMARY | 2025-01-24 09:00 | XMS_ITS | Encounter Summary ---
Author Organization [facility] Address [address] [place] [address] Care Team Providers Care School Counsellor Name Role Phone Unavailable Primary Care Provider Unavailabl e Encounter Details Date Type Department Care Team (Late st Contact Info) Description 10/06/2023 Lab Requisition [facility] - DermPath Lab [address] [facility] [place] [phone] Michael Boykin MD [facility] DERMATOLOGY [address] [place] [phone] Neoplasm of uncertain behavior of skin; [...] AM CDT) Case Report Dermatopathology Report Case: [id number] Authorizing Provider: Michael Boykin MD Collected: 10/06/2023 03:33 AM Ordering Location: [facility] Physician [facility] - Received: 10/07/2023 03:24 PM DermPath [...] right arm. The specimen consists of a [id number] mm piece of skin. The specimen is serially sectioned and a sales representative adding machines section is submitted in cassette 1. Jar [...] atypia, carcinoma is not favored. 11:20 AM T DERMATOPATHOLOGY LABORATORY Disclaimer An external and internal positive and negative controls are appropriate for the histochemical, immunohistochemical and immunofluorescence stain(s) in this case (if any), except where stated explicitly. The performance characteristics of the stain(s) cited in this report were developed and its performance characteristic determined by the Dermatopathology Laboratory at [facility], directed by Dr. Savage Brunson. These tests need not be, and therefore are not, approved by the [place] Food and Drug Administration. The tests are used for clinical purposes. Billing Codes Specimen Charges Stain Charges 73502 1 11:20 AM CDT DERMATOPATHOLOGY LABORATORY Embedded Images 11:20 AM T DERMATOPATHOLOGY LABORATORY Pathology/Cytolo gy TISSUE SPECIMEN FROM SKIN / Unknown 10/06/2023 3:33 AM CDT 10/07/2023 3:24 PM CDT us Michael Boykin MD LAB - PATHOLOGY/CYTOLOGY GREGG SANTIAGO Final Result DERMATOPATHOLOGY LABORATORY [facility] - Department of Dermatology [address], [address] [phone] documented in this encounter Visit Diagnoses Diagnosis Neoplasm of uncertain behavior of skin Other specified erythematous conditions Other disturbances of skin sensation documented in this encounter
--- OUTSIDE RECORDS SUMMARY | 2025-01-24 09:00 | XMS_ITS | Clinical Summary ---
Author Organization [facility] Address [address] [place] [address] Care Team Providers Care Quarter Backer Name Role Phone Unavailable Primary Care Provider Unavailabl e Source Comments [facility],non-owned Affiliates and Associated Physician Practices is amultiple site organization consisting of ambulatory clinics and hospital sitesin [place], [place], [place] and [place]. This disclosure is being madepursuant to the Care Everywhere program and may not contain all information available regarding this patient. Last updated 18.[facility] Encounters Date Type Department Care Team Description 12/05/2024 Lab Requisition [facility] - DermPath Lab [address] [facility] [place] [address] Michael Boykin MD Neoplasm of uncertain behavior of skin from Last 3 Months Social History Tobacco Use Types Packs/Day Years [...] MEDICARE AWV CALENDAR YEAR 2024 INFLUENZA VACCINE (#1) 2025 HEPATITIS B VACCINE Aged Out No [...] on patient's age to complete this topic Procedures Procedure Name Priority Date/Time Associated Diagnosis Comments DERMATOPATHOLOGY Routine 12/05/2024 12:0 0 AM CDT Neoplasm of uncertain behavior of skin from Last 3 Months Results * DERMATOPATHOLOGY (12/05/2024 12:00 AM CDT) Case Report Dermatopathology Report Case: [id number] Authorizing Provider: Michael Boykin MD Collected: 12/05/2024 12:00 AM Ordering Location: [facility] - Received: 12/06/2024 11:47 AM DermPath Lab Pathologist: Anny Alvarez MD Specimens: A) - Skin, right lower calf B) - Skin, right mu-ism C) - Skin, right forehead 4:10 PM CDT DERMATOPATHOLOGY LABORATORY Final Diagnosis Specimen A. 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 SKIN, right forehead: SQUAMOUS CELL CARCINOMA IN SITU ([place]'S DISEASE) (D04.39) 4:10 PM CDT DERMATOPATHOLOGY LABORATORY at 1610 CDT Clinical History A-C: SCC vs Keratoacanthoma 4:10 PM CDT DERMATOPATHOLOGY LABORATORY Gross Description Specimen A: Received is one formalin filled container labeled with the patient's name and designated right lower calf. The specimen consists of a shave biopsy measuring 2 pieces 8x8x2,6x3x1 mm. Jar 0. Specimen B: Received is one formalin filled container labeled with the patient's name and designated right mu-ism. The specimen consists of a shave biopsy measuring 5x5x3 mm. Jar 0. Specimen C: Received is one formalin filled container labeled with the patient's name and designated right forehead. The specimen consists of a shave biopsy measuring 7x5x2 mm. Jar 0. 4:10 PM T DERMATOPATHOLOGY LABORATORY Microscopic Description Specimen A. SKIN, right lower calf: Arising in the epidermis and extending into the dermis there are irregularly shaped aggregates of keratinocytes showing evidence of premature cornification. The dermis shows a sparse, perivascular lymphocytic infiltrate surrounding dilated, thick-walled vessels, which are increased in number. Specimen B. SKIN, right mu-ism: Sections show an acanthotic lesion composed of relatively uniform keratinocytes. There is hyperkeratosis and pseudo horn cysts formation. Neutrophils, histiocytes, and multinucleated giant cells are also present within the dermis. Specimen C. SKIN, right forehead: The epidermis shows parakeratosis, full thickness disorderly maturation of keratinocytes, mitoses at different levels, and dyskeratotic cells. 4:10 PM T DERMATOPATHOLOGY LABORATORY Disclaimer An external and internal positive and negative controls are appropriate for the histochemical, immunohistochemical and immunofluorescence stain(s) in this case (if any), except where stated explicitly. The performance characteristics of the stain(s) cited in this report were developed and its performance characteristic determined by the Dermatopathology Laboratory at [facility], directed by Dr. Savage Brunson. These tests need not be, and therefore are not, approved by the [place] Food and Drug Administration. The tests are used for clinical purposes. Billing Codes Specimen Charges Stain Charges 00247 68472 23636 1 1 1 4:10 PM CDT DERMATOPATHOLOGY LABORATORY Embedded Images 4:10 PM CDT DERMATOPATHOLOGY LABORATORY Pathology/Cytology TISSUE SPECIMEN FROM SKIN / Unknown 12/05/2024 12/06/2024 11:47 AM CDT Miscellaneous samples (specimen) TISSUE SPECIMEN FROM SKIN / Unknown 12/05/2024 12/06/2024 11:47 AM CDT Miscellaneous samples (specimen) TISSUE SPECIMEN FROM SKIN / Unknown 12/05/2024 12/06/2024 11:47 AM CDT Michael Boykin MD LAB - PATHOLOGY/CYTOLOGY GREGG SANTIAGO Final Result DERMATOPATHOLOGY LABORATORY [facility] - Department of Dermatology [facility] Medicine [facility] [facility] [place] [address], [facility] [phone] from Last 3 Months Insurance AETNA MEDICARE ADV
--- OUTSIDE RECORDS SUMMARY | 2025-01-24 09:00 | XMS_ITS | Encounter Summary ---
Author Organization [facility] Address [address] [place] [address] Care Team Providers Care Laundry Pricing Clerk Name Role Phone Unavailable Primary Care Provider Unavailabl e Encounter Details Date Type Department Care Team (Late st Contact Info) Description 12/05/2024 Lab Requisition [facility] - DermPath Lab [address] [facility] [place] [phone] Michael Boykin MD [facility] DERMATOLOGY [address] [place] [phone] Neoplasm of uncertain behavior of skin [...] documented in this encounter Results * DERMATOPATHOLOGY (12/05/2024 12:00 AM CDT) Case Report Dermatopathology Report Case: [id number] Authorizing Provider: Michael Boykin MD Collected: 12/05/2024 12:00 AM Ordering Location: [facility] Physician [facility] - Received: 12/06/2024 11:47 AM DermPath Lab Pathologist: Anny Alvarez MD Specimens: A) - Skin, right lower calf B) - Skin, right amish C) - Skin, right forehead 4:10 PM CDT DERMATOPATHOLOGY LABORATORY Final Diagnosis Specimen A. 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 SKIN, right amish: SEBORRHEIC KERATOSIS (L82.1) GRANULOMATOUS DERMATITIS CONSISTENT WITH [...] with the patient's name and designated right amish. The specimen consists of a shave biopsy measuring 5x5x3 mm. Jar 0. Specimen C: Received is one formalin filled container labeled with the patient's name and designated right forehead. The specimen consists of a shave biopsy measuring 7x5x2 mm. Jar 0. 4:10 PM CDT DERMATOPATHOLOGY LABORATORY Microscopic Description Specimen A. SKIN, right lower calf: Arising in the epidermis and extending into the dermis there are irregularly shaped aggregates of keratinocytes showing evidence of premature cornification. The dermis shows a sparse, perivascular lymphocytic infiltrate surrounding dilated, thick-walled vessels, which are increased in number. Specimen B. SKIN, right amish: Sections show an acanthotic lesion composed of relatively uniform keratinocytes. There is hyperkeratosis and pseudo horn cysts formation. Neutrophils, histiocytes, and multinucleated giant cells are also present within the dermis. Specimen C. SKIN, right forehead: The epidermis shows parakeratosis, full thickness disorderly maturation of keratinocytes, mitoses at different levels, and dyskeratotic cells. 4:10 PM CDT DERMATOPATHOLOGY LABORATORY Disclaimer An external and internal positive and negative controls are appropriate for the histochemical, immunohistochemical and immunofluorescence stain(s) in this case (if any), except where stated explicitly. The performance characteristics of the stain(s) cited in this report were developed and its performance characteristic determined by the Dermatopathology Laboratory at [facility], directed by Dr. Savage Brunson. These tests need not be, and therefore are not, approved by the [place] Food and Drug Administration. The tests are used for clinical purposes. Billing Codes Specimen Charges Stain Charges 24902 37840 55770 1 1 1 5 4:10 PM CDT DERMATOPATHOLOGY LABORATORY Embedded Images 5 4:10 PM CDT DERMATOPATHOLOGY LABORATORY Pathology/Cytology TISSUE SPECIMEN FROM SKIN / Unknown 12/05/2024 12/06/2024 11:47 AM CDT Miscellaneous samples (specimen) TISSUE SPECIMEN FROM SKIN / Unknown 12/05/2024 12/06/2024 11:47 AM CDT Miscellaneous samples (specimen) TISSUE SPECIMEN FROM SKIN / Unknown 12/05/2024 12/06/2024 11:47 AM CDT Michael Boykin MD LAB - PATHOLOGY/CYTOLOGY GREGG SANTIAGO Final Result DERMATOPATHOLOGY LABORATORY [facility] - Department of Dermatology [facility] Medicine [address] [place] [address], [address] [phone] documented in this encounter Visit Diagnoses Diagnosis Neoplasm of uncertain behavior of skin documented in this encounter
--- OUTSIDE RECORDS SUMMARY | 2025-01-24 09:00 | XMS_ITS ---
Author Organization [facility] Address [address] [place] [address] Care Team Providers Care Biogeographer Name Role Phone Geoffrey Kelley MD Primary Care Provider [phone] Stacey Pike RN Unavailable Unavailabl Mireya George PT Unavailable Unavailable Demetra Patel PTA Unavailable Unavailable Jorge Calderon MD PhD Unavailable + [phone] Barry Adame MD Unavailable + [phone] Active Problems Problem Noted Date Diagnosed Date [...] 08/17/2020 Assessment & Plan (08/17/2020 5:19 PM INDIAN NANNY): Discussed and the patient refuses immunization today. Educated regarding the need to vaccinate for personal protection and to limit the viruses in the community to protect those most vulnerable. Current use of intermediate project manager anticoagulation 021 Assessment & Plan (08/17/2020 4:55 PM INDIAN NANNY): Reviewed INRs from time of hospitalization. Has been on 3mg nightly. To have INR repeat approx 08/30. Standing order sent to [facility] as well as copy of orders given to mr Montague. Reviewed INR goal/parameters. OAB (overactive bladder) 08/17/2020 Assessment & Plan (12/25/2024 11:05 AM CDT): Reviweed treatment attmpets int eh past with anticholinergic and new generation of therapy with no sig improvement. Reviewed r/b and syptmomatic nature of treatment and no need to continue if not seeing clinical benefit. Assessment & Plan (11/01/2024 2:14 PM CDT): COntinues on gemtesa and will follow response. Assessment & Plan (05/24/2024 8:35 AM INDIAN NANNY): Continue on supportive measure, timed voiding. Assessment & Plan (08/17/2020 5:17 PM INDIAN NANNY): Improved bladder control w/oxybutynin. Denies any med SEs. Refilled oxybutynin. COVID-19 07/23/2020 History of DVT (deep vein thrombosis) 07/22/2020 Assessment & Plan (08/23/2024 1:36 PM CDT): Continues on xaretlo and will follow respnse. Assessment & Plan (07/22/2020 3:00 PM INDIAN NANNY): History of RLE DVT. Patient is on [...] 07/21/2020 Assessment & Plan (08/17/2020 5:20 PM INDIAN NANNY): Using O2 at HS (1L NC). Discussed O2 w/activity as needed. Has pulse ox that he uses to frequently check sats. Slowly improving. Using symbicort inhaler bid. Reviewed red flags; what would warrant call/rtc or ED for more emergent need. Assessment & Plan (07/22/2020 12:32 PM INDIAN NANNY): With onset of symptoms about a week [...] dermatolgoy. Assessment & Plan (05/24/2024 8:35 AM INDIAN NANNY): COntinue f/u with dermatology. COntinues to have [...] IIB(T2c, N0, M0, PSA: 20 or greater, Leonidas 8-10) - Signed by Jorge Calderon MD PhD on 01/05/2018 Assessment & Plan (12/25/2024 11:03 AM CDT): Reviewed ongoing therapy with urology and decision tree on systemic vs localized xrt and r/b associated with both. Continue to support leaning on urology expertise for decision making. Do not encourage otc vitamin therapy given anecdotal nature of patient response and risk of untreated. Assessment & Plan (11/01/2024 2:14 PM CDT): COntinue f/u with Dr. Anderson. Continuing on zytiga and now will be initiating adt injection therapy. Assessment & Plan (08/23/2024 1:35 PM CDT): Continue f/u with Dr. Anderson to discuss regimen related to the current regemin. Assessment & Plan (05/24/2024 8:35 AM INDIAN NANNY): Continue f/u with urology and will monitor response. NO gross hematuria. Discogenic low back pain 09/04/2017 Assessment & Plan (11/01/2024 2:15 PM CDT): NO bowel/bladder symptoms and will follow response. Chronic kidney disease, stage III (moderate) Overview (09/18/2016): Chronic kidney disease stage 3 Assessment & Plan (12/25/2024 11:04 AM CDT): Continue aggressive hydration. No hematuria. Revieweed labwork completed at [facility] last week and stable at present time. Assessment & Plan (08/23/2024 1:36 PM CDT): COntinue aggressive hydration and blood pressure control. Continues on momthly basis and will follwor vone. Assessment & Plan (05/24/2024 8:36 AM INDIAN NANNY): Continue aggressive hyudration and will follow response. Assessment & Plan (07/22/2020 12:33 PM INDIAN NANNY): Creatinine is 1.37, which is around this patient's baseline. Continue to monitor creatinine while admitted. Avoid nephrotoxic meds. Vitamin D deficiency 07/31/2014 Overview (09/18/2016): Vitamin D deficiency Thoracic or lumbosacral neur itis or radiculitis, unspecified 03/03/2013 Myalgia and myositis 02/17/2013 Overview (11/27/2020): Primary localized osteoarthrosis, pelvic region and thigh 02/17/2013 Osteoarthritis of both hips 02/10/2013 Inflammation of sacroiliac joint 01/24/2013 Assessment & Plan (12/25/2024 11:06 AM CDT): Reviweed low back modalities and treatmetn with topical agent ot good effect. Reviewed mallory-2 and tylenol dosing. Reviweed red flag s/s. Reviwed fall prevention and previously completed mobility assessment and dme for rollator walker. 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 No increased pain. Remains [...] 21 Assessment & Plan (08/17/2020 4:50 PM INDIAN NANNY): Reviewed need to lose weight, reviewed health benefits. Reviewed recommendations for daily intake & activity 20-30 minutes/day. Discussed healthy diet and importance of regular physical activity. Acute respiratory failure with hypoxia 07/22/2020 08/17/2020 Assessment & Plan (07/22/2020 12:40 PM INDIAN NANNY): Secondary to COVID 19 pneumonia. EMS reported [...]
--- OUTSIDE RECORDS SUMMARY | 2025-01-24 09:00 | XMS_ITS | Encounter Summary ---
Author Organization [facility] Address [address] [place] [address] Care Team Providers Care Terrazzo Tile Setter Name Role Phone Geoffrey Kelley MD Primary Care Provider [phone] Stacey Pike RN Unavailable Unavailabl Mireya George PT Unavailable Unavailable Demetra Patel PTA Unavailable Unavailable Jorge Chand MD PhD Unavailable + [phone] Barry Adame MD Unavailable + [phone] Encounter Details Date Type Department Care Team (Late st Contact Info) Description 01/17/2025 Telephone [facility] [address] [place] [address] Geoffrey Kelley MD [address] [place] [address] Social History Tobacco Use Types Packs/Day Years [...] on file Legal 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 * Telephone Encounter - Marlin Marie - 01/17/2025 8:32 AM CDT Rec'd fax from [facility] Dr. Vieyra for clearancec for port a cath placement. Placed in harms folder. documented in this encounter Plan of Treatment Not on file documented as of this encounter Visit Diagnoses Not on filedocumented in this encounter Care Teams Terrazzo Tile Setter Relationship Specialty Start Date End Date Geoffrey Kelley MD [address] [place] [address] PCP - General 08/01/16 Stacey Pike, RN Registered Nurse 09/01/17 Mireya Jimenez, PT Physical Therapist Physical Therapy 11/16/17 Demetra Patel, CRYOGENICS REPAIRER Organisational Psychologist Physical Therapy 11/26/17 Jorge Chand MD PhD [address] [place] [address] Radiation Oncologist Radiation Oncology 01/05/18 Barry Adame MD [address] [address] Referring Physician General Surgery 01/05/18 documented as of this encounter
--- OUTSIDE RECORDS SUMMARY | 2025-01-24 09:00 | XMS_ITS | Encounter Summary ---
Author Organization [facility] Address [address] [place] [address] Phone Care Team Providers Care Restaurant And Bar Manager Name Role Phone Geoffrey Kelley MD Primary Care Provider [phone] Stacey Pike RN Unavailable UnavailMireya Saleem PT Unavailable Unavailable Demetra Patel PTA Unavailable Unavailable Jorge Chand MD PhD Unavailable + [phone] Barry Adame MD Unavailable + [phone] Encounter Details Date Type Department Care Team (Late st Contact Info) Description 10/01/2017 Orders Only [facility] ProviderAnirudh MD [address] [place] [address] Social History Tobacco Use Types Packs/Day Years Used Date Smoking Tobacco: Former Smokeless Tobacco: Never Comments:Smoking History Pac ks/day: 0.5 Packs Alcohol Use Standard Drinks/Week Comments Yes 0 (1 standard drink = 0.6 oz pur e alcohol) Sex and Gender Information Value Date Recorded Sex Assigned at Not on file Legal Sex Male 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 08/16/2020 08/16/2020 12/14/2020 3:05 AM C DT documented as of this encounter Care Teams Restaurant And Bar Manager Relationship Specialty Start Date End Date Geoffrey Kelley MD [address] [place] [address] PCP - General 08/01/16 Stacey Pike, RN Registered Nurse 09/01/17 Mireya Jimenez, PT Physical Therapist Physical Therapy 11/16/17 Demetra Patel, INDUSTRIAL AUTOMATION SPECIALIST Community Engagement Specialist Physical Therapy 11/26/17 Jorge Chand MD PhD [address] [place] [address] Radiation Oncologist Radiation Oncology 01/05/18 Barry Adame MD [address] [address] Referring Physician General Surgery 01/05/18 documented as of this encounter
--- OUTSIDE RECORDS SUMMARY | 2025-01-24 09:00 | XMS_ITS | Clinical Summary ---
Author Organization [facility] Address [address] [place] [address] Phone Care Team Providers Care Assembler For Puller Over Hand Name Role Phone Geoffrey Kelley MD Primary Care Provider [phone] Allergies No known active allergies Medications Cholecalciferol [...] (Adult) (1 - 1-dose 75+ series) 2012 SARS-COV-2 Immunization (4 - season) 2024 12/24/2021, 05/23/2021, 09/17/2020 Influenza Immunization (#1) 2025 Hepatitis B Immunization Aged Out No longer eligible based on patient's age to complete this topic Human Papillomavirus (HPV) Immunization Aged Out No longer eligible b ased on patient's age to complete this topic Meningococcal Immunization (ACWY) Aged Out No longer eligible b ased on patient's age to complete this topic Rotavirus Immunization Aged Out No lo nger eligible based on patient's age to complete this topic Care Teams Assembler For Puller Over Hand Relationship Specialty Start Date End Date Geoffrey Kelley MD [address] [place] [address] PCP - General Internal Medicine 03/06/18
--- OUTSIDE RECORDS SUMMARY | 2025-01-24 09:00 | XMS_ITS | Encounter Summary ---
Author Organization [facility] Address [address] [place] [address] Care Team Providers Care Skirt Maker Name Role Phone Unavailable Primary Care Provider Unavailabl e Encounter Details Date Type Department Care Team (Late st Contact Info) Description 04/06/2024 Lab Requisition [facility] - DermPath Lab [address] [facility] [place] [address] Gifty Goel PA-C [address] [place] [address] Neoplasm of uncertain behavior of skin [...] AM CDT) Case Report Dermatopathology Report Case: [id number] Authorizing Provider: Gifty Goel PA-C Collected: 04/06/2024 12:00 AM Ordering Location: [facility] Physician [facility] - Received: 04/07/2024 04:19 PM DermPath Lab Pathologist: Anny Alvarez MD Specimen: Skin, left mid back 11:27 AM CDT DERMATOPATHOLOGY LABORATORY Final Diagnosis Specimen A. SKIN, left mid back: SEBORRHEIC KERATOSIS, INFLAMED (L82.0) 11:27 AM CDT DERMATOPATHOLOGY LABORATORY at 1127 CDT Clinical History Atypical Nevus vs Seborrheic Keratosis 11:27 AM CDT DERMATOPATHOLOGY LABORATORY Gross Description Specimen A: Received is one formalin filled container labeled with the patient's name and designated left mid back. The specimen consists of a shave biopsy measuring 7x5x2 mm. Jar 0. 11:27 AM CDT DERMATOPATHOLOGY LABORATORY Microscopic Description Specimen A. SKIN, left mid back: There is hyperkeratosis, parakeratosis, papillomatosis, and acanthosis of the epidermis. There is a lymphohistiocytic infiltrate within the papillary dermis that is focally lichenoid. 11:27 AM CDT DERMATOPATHOLOGY LABORATORY Disclaimer An external and internal positive and negative controls are appropriate for the histochemical, immunohistochemical and immunofluorescence stain(s) in this case (if any), except where stated explicitly. The performance characteristics of the stain(s) cited in this report were developed and its performance characteristic determined by the Dermatopathology Laboratory at [facility], directed by Dr. Savage Brunson. These tests need not be, and therefore are not, approved by the [place] Food and Drug Administration. The tests are used for clinical purposes. Billing Codes Specimen Charges Stain Charges 51423 1 11:27 AM CDT DERMATOPATHOLOGY LABORATORY Embedded Images 11:27 AM CDT DERMATOPATHOLOGY LABORATORY Pathology/Cytolog y TISSUE SPECIMEN FROM SKIN / Unknown 04/06/2024 04/07/2024 4:19 PM CDT Gifty Gole PA-C LAB - PATHOLOGY/CYTOLOGY [facility] Final Result DERMATOPATHOLOGY LABORATORY [facility] - Department of Dermatology [address] [place] [address], [facility] [phone] documented in this encounter Visit Diagnoses Diagnosis Neoplasm of uncertain behavior of skin documented in this encounter
--- OUTSIDE RECORDS SUMMARY | 2025-01-24 09:00 | XMS_ITS | Encounter Summary ---
Author Organization [facility] Address [address] [place] [address] Care Team Providers Care Fuel Operator Name Role Phone Geoffrey Kelley MD Primary Care Provider [phone] Encounter Details Date Type Department Care Team (Late st Contact Info) Description 01/23/[address] [facility] Oncology and Hematology - [place] [address] [facility] [address] [place] [address] Charlie Anderson MD [address] [facility] [address] [place] [address] Prostate cancer (CMS/HCC) Social History Tobacco Use Types Packs/Day Years Used Date Smoking Tobacco: Former Cigarettes 0 06/19/1967 - 06/19/1969 Alcohol Use Standard Drinks/Week Comments Yes 0 [...] this encounter Visit Diagnoses Diagnosis Prostate cancer (CMS/HCC) Malignant neoplasm of prostate documented in this encounter Care Teams Fuel Operator Relationship Specialty Start Date End Date Geoffrey Kelley MD PCP - General Family Practice 05/22/17 documented as of this encounter
--- OUTSIDE RECORDS SUMMARY | 2025-01-24 09:00 | XMS_ITS | Encounter Summary ---
Author Organization [facility] Address [address] [place] [address] Phone Care Team Providers Care Academic Affairs Coordinator Name Role Phone Geoffrey Kelley MD Primary Care Provider [phone] Stacey Pike RN Unavailable UnavailMireya Saleem PT Unavailable Unavailable Demetra Patel PTA Unavailable Unavailable Jorge Chand MD PhD Unavailable + [phone] Barry Adame MD Unavailable + [phone] Encounter Details Date Type Department Care Team (Late st Contact Info) Description 11/03/2017 Orders Only [facility] ProviderAnirudh MD [address] [place] [address] Social History Tobacco Use Types Packs/Day Years Used Date Smoking Tobacco: Former Smokeless Tobacco: Never Comments:Smoking History Pac ks/day: 0.5 Packs Alcohol Use Standard Drinks/Week Comments Yes 0 (1 standard drink = 0.6 oz pur e alcohol) Sex and Gender Information Value Date Recorded Sex Assigned at Not on file Legal Sex Male 1:01 AM HOME IMPROVEMENT CONTRACTOR Gender Identity Male 02/07/2021 1:09 PM CDT [...] Mayen 07/20/2020 07/20/2020 03/0 09/2020 3:07 AM HOME IMPROVEMENT CONTRACTOR COVID: Recovered Comment:Added based on recent COVID infection. 08/16/2020 08/16/2020 12/14/2020 3:05 AM C DT documented as of this encounter Care Teams Academic Affairs Coordinator Relationship Specialty Start Date End Date Geoffrey Kelley MD [address] [place] [address] PCP - General 08/01/16 Stacey Pike, RN Registered Nurse 09/01/17 Mireya Jimenez, PT Physical Therapist Physical Therapy 11/16/17 Demetra Patel, SWINE GENETICS RESEARCHER Nanotechnology Technician Physical Therapy 11/26/17 Jorge Chand MD PhD [address] [place] [address] Radiation Oncologist Radiation Oncology 01/05/18 Barry Adame MD [address] [address] Referring Physician General Surgery 01/05/18 documented as of this encounter
--- OUTSIDE RECORDS SUMMARY | 2025-01-24 09:00 | XMS_ITS | Clinical Summary ---
Author Organization [facility] Address [address] [place] [address] Care Team Providers Care Senior Network Systems Engineer Name Role Phone Geoffrey Kelley MD Primary Care Provider [phone] Stacey Pike RN Unavailable Unavailabl Mireya George PT Unavailable Unavailable Demetra Patel PTA Unavailable Unavailable Jorge Chand MD PhD Unavailable + [phone] Barry Adame MD Unavailable + [phone] Allergies No known active allergies Medications clobetasoL (TEMOVATE) 0.05 % external solutionIndicat ions:Dermatosis [...] 08/17/2020 Assessment & Plan (08/17/2020 5:19 PM HORTICULTURAL TECHNICAL OFFICER): Discussed and the patient refuses immunization today. Educated regarding the need to vaccinate for personal protection and to limit the viruses in the community to protect those most vulnerable. Current use of nursing home anticoagulation 021 Assessment & Plan (08/17/2020 4:55 PM HORTICULTURAL TECHNICAL OFFICER): Reviewed INRs from time of hospitalization. Has been on 3mg nightly. To have INR repeat approx 08/30. Standing order sent to [facility] [employer] as well as copy of orders given [...] response. Assessment & Plan (05/24/2024 8:35 AM HORTICULTURAL TECHNICAL OFFICER): Continue on supportive measure, timed voiding. Assessment & Plan (08/17/2020 5:17 PM HORTICULTURAL TECHNICAL OFFICER): Improved bladder control w/oxybutynin. Denies any med SEs. Refilled oxybutynin. COVID-19 07/23/2020 History of DVT (deep vein thrombosis) 07/22/2020 Assessment & Plan (08/23/2024 1:36 PM CDT): Continues on xaretlo and will follow respnse. Assessment & Plan (07/22/2020 3:00 PM HORTICULTURAL TECHNICAL OFFICER): History of RLE DVT. Patient is on [...] 07/21/2020 Assessment & Plan (08/17/2020 5:20 PM HORTICULTURAL TECHNICAL OFFICER): Using O2 at HS (1L NC). Discussed O2 w/activity as needed. Has pulse ox that he uses to frequently check sats. Slowly improving. Using symbicort inhaler bid. Reviewed red flags; what would warrant call/rtc or ED for more emergent need. Assessment & Plan (07/22/2020 12:32 PM HORTICULTURAL TECHNICAL OFFICER): With onset of symptoms about a week [...] dermatolgoy. Assessment & Plan (05/24/2024 8:35 AM HORTICULTURAL TECHNICAL OFFICER): COntinue f/u with dermatology. COntinues to have [...] regemin. Assessment & Plan (05/24/2024 8:35 AM HORTICULTURAL TECHNICAL OFFICER): Continue f/u with urology and will monitor response. NO gross hematuria. Discogenic low back pain 09/04/2017 Assessment & Plan (11/01/2024 2:15 PM CDT): NO bowel/bladder symptoms and will follow response. Chronic kidney disease, stage III (moderate) Overview (09/18/2016): Chronic kidney disease stage 3 Assessment & Plan (12/25/2024 11:04 AM CDT): Continue aggressive hydration. No hematuria. Revieweed labwork completed at [facility] last week and stable at present time. Assessment & Plan (08/23/2024 1:36 PM CDT): COntinue aggressive hydration and blood pressure control. Continues on momthly basis and will follwor esponse. Assessment & Plan (05/24/2024 8:36 AM HORTICULTURAL TECHNICAL OFFICER): Continue aggressive hyudration and will follow response. Assessment & Plan (07/22/2020 12:33 PM HORTICULTURAL TECHNICAL OFFICER): Creatinine is 1.37, which is around this [...] 09/30/2012 Assessment & Plan (05/24/2024 8:35 AM HORTICULTURAL TECHNICAL OFFICER): Gait is stable. No increased pain. Remains active. 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 Reviewed recommendations for daily intake & activity 20-30 minutes/day. Discussed healthy diet and importance of regular physical activity. Acute respiratory failure with hypoxia 07/22/2020 08/17/2020 Assessment & Plan (07/22/2020 12:40 PM HORTICULTURAL TECHNICAL OFFICER): Secondary to COVID 19 pneumonia. EMS reported [...] Encounters Date Type Department Care Team Description 01/17/2025 Telephone [facility] [address] [phone] Geoffrey Kelley MD 01/03/2025 Telephone [facility] [address] [phone] Geoffrey Kelley MD 12/15/2024 12:00 PM CDT [facility] [address] [phone] Geoffrey Kelley MD Malignant neoplasm of prostate (HCC) (Primary Dx); Stage 3a chronic kidney disease (HCC); OAB (overactive bladder); Inflammation of sacroiliac joint 12/15/2024 Telephone [facility] [address] [phone] Geoffrey Kelley MD 12/07/2024 Telephone [facility] [address] [phone] Geoffrey Kelley MD Medical Question/Miscellaneo us 11/29/2024 Telephone [facility] [address] [phone] Geoffrey Kelley MD Medical Question/Miscellaneo us 11/09/2024 Orders Only [facility] Health Information Management [address] [place] [id number] Scanning, Provider 11/01/2024 12:00 PM CDT Office Visit [facility] Primary Care at [address] [phone] Geoffrey Kelley MD Malignant neoplasm of prostate (HCC) (Primary Dx); OAB (overactive bladder); Cancer, 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); Discogenic low back pain 10/26/2024 Telephone [facility] [address] [phone] Geoffrey Kelley MD Additional Services Or Orders; Call Back from Last 3 Months Immunizations Immunization Administration [...] on file Legal Sex Male 1:01 AM HORTICULTURAL TECHNICAL OFFICER Gender Identity Male 02/07/2021 1:09 PM [...] 10/08/2022, 09/05/2021, Additional history exists Covid-19 Vaccine (2023- 5 season) 2024 12/24/2021, 05/23/2021, 09/17/2020 Pneumococcal vaccine 65+ Completed 07/26/2014, 07/16 DTaP/Tdap/Td Vaccine Discontinued 03/28/2023, 07/18/2014, 07/18/2014 Influenza Vaccine Discontinued 05/05/2023, , 03/19/2021, Additional history exists Procedures Procedure Name Priority Date/Time Associated Diagnosis Comments SCAN - RADIOLOGY/IMAGING 11/09/2024 PULMONARY - RESULT SCAN 10/31/2024 from Last 3 Months Results * SCAN - RADIOLOGY/IMAGING (11/09/2024) Anatomical Region Laterality Modality Other us Provider Scanning Final Result * PULMONARY - RESULT SCAN (10/31/2024) Anatomical Region Laterality Modality Other us Provider Scanning Final Result from Last 3 Months Insurance [facility] ADVANTRA LEAD ADVANTRA LEAD AD[facility]TRA [facility] REF [facility] Advance Directives For more information, please contact: [phone] * Full Code (Latest Code Status on File) Date Activated Date Inactivated Comments 07/21/2020 10:08 PM 08/02/2020 4:19 PM Care Teams Senior Network Systems Engineer Relationship Specialty Start Date End Date Geoffrey Kelley MD [address] [facility] [place] [address] PCP - General 08/01/16 Stacey Pike, RN Registered Nurse 09/01/17 Mireya Jimenez, PT Physical Therapist Physical Therapy 11/16/17 Demetra Patel, BACKSIDE GRINDER Hl7 Developer Physical Therapy 11/26/17 Jorge Chand MD PhD [address] [place] [address] Radiation Oncologist Radiation Oncology 01/05/18 Barry Adame MD [address] [facility] [facility] [address] [place] [address] Referring Physician General Surgery 01/05/18
[2025-01-24 09:32] LABS: INR 4.1; Prothrombin Time 38.6 Seconds (11.1-14.7)
[2025-01-24 09:33] LABS: Partial Thromboplastin Time 52.7 Seconds (22.3-36.8)
== END 2025-01-24 08:44 | disposition home or self-care (01) ==
PROVIDERS: PCP Family Medicine; Visit Provider Surgery
DX: Z01.818 Encounter for other preprocedural examination (principal); C61 Malignant neoplasm of prostate
CPT/HCPCS: 36415; 85610; 85730

== ENCOUNTER 2025-03-03 01:30 | Inpatient (IN) | payer MEDICARE, MEDICAID, SELFPAY ==
[2025-03-03] VITALS (8 sets, daily range): BP systolic 110–160; BP diastolic 76–116; PULSE 85–128; RESP 14–18; TEMP 36.6–37.2; O2SAT 96–100; BMI 25.7
--- NOTE | ~2025-03-03 | CT_ITS ---
EXAMINATION: CT brain wo con DATE: 03/03/2025 03:58 INDICATION: Head injury. TECHNIQUE: Computed tomography (CT) of the head was performed without intravenous contrast. The mA was adjusted according to patient size. Iterative reconstruction technique was employed. The dose-length product was 681.00 mGy-cm. 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 There are scattered areas of low attenuation in the cerebral white matter, which is within normal limits for the patient's age. There is no intracranial hemorrhage, acute infarction, or abnormal intracranial mass lesion. The ventricles are normal in size. There is mucosal thickening in the paranasal sinuses. The orbits are normal. The mastoid air cells are normal. There is a right frontal scalp laceration. IMPRESSION: 1. 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 Reviewed, dictated and finalized at location E. IMPRESSION: 1. Old infarcts involving the right basal ganglia and anterior limb right inter nal capsule.
--- NOTE | ~2025-03-03 | XR_ITS ---
Examination: XR chest 1V portable Clinical History: possible fluid overload/ complaints of SOB Comparison: 05/01/2023 Technique: Portable AP Findings: Heart size normal. Worsening interstitial markings superimposed upon chronic markings. No focal airspace consolidation or pleural effusion. No acute bony abnormality. IMPRESSION: 1. Probable developing interstitial pulmonary edema and/or pneumonitis on chronic interstitial lung disease. Reviewed, dictated and finalized at location R. IMPRESSION: 1. 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
--- NOTE | ~2025-03-03 | XR_ITS ---
EXAMINATION: XR abdomen/kub 1V, 03/07/2025 17:10 CDT HISTORY: constipation COMPARISON: No comparisons available. Technique: 3 view. Findings: Moderate fecal content, no dilated bowel loops No free air. No abnormal calcifications No acute osseous abnormality. Impression: 1. No acute abnormality. Reviewed, dictated and finalized at location A. Impression: 1. No acute abnormality.
--- NOTE | ~2025-03-03 | CT_ITS ---
CT CERVICAL SPINE WITHOUT CONTRAST CLINICAL HISTORY: Fall,Hit head,blood thinners. Head LAC Technique: Axial images thoracic inlet to skull base Sagittal and coronal reformats. No contrast CT images acquired with automatic exposure control for dose reduction DLP: 286 6 mGy-cm Comparison: None Findings: No acute fracture. Grade 1 anterolisthesis C7 on T1. Straightening of normal cervical lordosis. Moderate degenerative changes. Multilevel disc disease. Prevertebral soft tissues within normal limits. Visualized lung apices: Clear. Visualized thyroid: Unremarkable. No enlarged cervical nodes. IMPRESSION: 1. No acute findings. Reviewed, dictated and finalized at location R. IMPRESSION: 1. No acute findings.
--- OUTSIDE RECORDS SUMMARY | 2025-03-03 03:41 | XMS_ITS ---
Author Organization [facility] Address [address] [place] [address] Care Team Providers Care Consumer Loan Officer Name Role Phone Geoffrey Kelley MD Primary Care Provider [phone] Stacey Pike RN Unavailable Unavailabl Mireya George PT Unavailable Unavailable Demetra Patel PTA Unavailable Unavailable Jorge Calderon MD PhD Unavailable + [phone] Barry Adame MD Unavailable + [phone] Active Problems Problem Noted Date Diagnosed Date [...] 08/17/2020 Assessment & Plan (08/17/2020 5:19 PM EQUIPMENT RECORDS SUPERVISOR): Discussed and the patient refuses immunization today. Educated regarding the need to vaccinate for personal protection and to limit the viruses in the community to protect those most vulnerable. Current use of nursing home anticoagulation 021 Assessment & Plan (08/17/2020 4:55 PM EQUIPMENT RECORDS SUPERVISOR): Reviewed INRs from time of hospitalization. Has been on 3mg nightly. To have INR repeat approx 08/30. Standing order sent to [employer] as well as copy of orders [...] response. Assessment & Plan (05/24/2024 8:35 AM EQUIPMENT RECORDS SUPERVISOR): Continue on supportive measure, timed voiding. Assessment & Plan (08/17/2020 5:17 PM EQUIPMENT RECORDS SUPERVISOR): Improved bladder control w/oxybutynin. Denies any med SEs. Refilled oxybutynin. COVID-19 07/23/2020 History of DVT (deep vein thrombosis) 07/22/2020 Assessment & Plan (08/23/2024 1:36 PM CDT): Continues on xaretlo and will follow respnse. Assessment & Plan (07/22/2020 3:00 PM EQUIPMENT RECORDS SUPERVISOR): History of RLE DVT. Patient is on [...] 07/21/2020 Assessment & Plan (08/17/2020 5:20 PM EQUIPMENT RECORDS SUPERVISOR): Using O2 at HS (1L NC). Discussed O2 w/activity as needed. Has pulse ox that he uses to frequently check sats. Slowly improving. Using symbicort inhaler bid. Reviewed red flags; what would warrant call/rtc or ED for more emergent need. Assessment & Plan (07/22/2020 12:32 PM EQUIPMENT RECORDS SUPERVISOR): With onset of symptoms about a week [...] dermatolgoy. Assessment & Plan (05/24/2024 8:35 AM EQUIPMENT RECORDS SUPERVISOR): COntinue f/u with dermatology. COntinues to have [...] IIB(T2c, N0, M0, PSA: 20 or greater, [place] 8-10) - Signed by Jorge Calderon MD [...] regemin. Assessment & Plan (05/24/2024 8:35 AM EQUIPMENT RECORDS SUPERVISOR): Continue f/u with urology and will monitor response. NO gross hematuria. Discogenic low back pain 09/04/2017 Assessment & Plan (11/01/2024 2:15 PM CDT): NO bowel/bladder symptoms and will follow response. Chronic kidney disease, stage III (moderate) Overview (09/18/2016): Chronic kidney disease stage 3 Assessment & Plan (12/25/2024 11:04 AM CDT): Continue aggressive hydration. No hematuria. Revieweed labwork completed at [facility] last week and stable at present time. Assessment & Plan (08/23/2024 1:36 PM CDT): COntinue aggressive hydration and blood pressure control. Continues on momthly basis and will follwor vone. Assessment & Plan (05/24/2024 8:36 AM EQUIPMENT RECORDS SUPERVISOR): Continue aggressive hyudration and will follow response. Assessment & Plan (07/22/2020 12:33 PM EQUIPMENT RECORDS SUPERVISOR): Creatinine is 1.37, which is around this [...] 09/30/2012 Assessment & Plan (05/24/2024 8:35 AM EQUIPMENT RECORDS SUPERVISOR): Gait is stable. No increased pain. Remains [...] 21 Assessment & Plan (08/17/2020 4:50 PM EQUIPMENT RECORDS SUPERVISOR): Reviewed need to lose weight, reviewed health benefits. Reviewed recommendations for daily intake & activity 20-30 minutes/day. Discussed healthy diet and importance of regular physical activity. Acute respiratory failure with hypoxia 07/22/2020 08/17/2020 Assessment & Plan (07/22/2020 12:40 PM EQUIPMENT RECORDS SUPERVISOR): Secondary to COVID 19 pneumonia. EMS reported [...]
--- OUTSIDE RECORDS SUMMARY | 2025-03-03 03:41 | XMS_ITS | Clinical Summary ---
Author Organization [facility] Address [address] [place] [address] Care Team Providers Care Crossbow Maker Name Role Phone Unavailable Primary Care Provider Unavailabl e Source Comments [facility],non-owned Affiliates and Associated Physician Practices is amultiple site organization consisting of ambulatory clinics and hospital sitesin [place], [place], [place] and [place]. This disclosure is being madepursuant to the Care Everywhere program and may not contain all information available regarding this patient. Last updated 18.[facility] Encounters Date Type Department Care Team Description 12/05/2024 Lab Requisition [facility] - DermPath Lab [address] [place] [address] Michael Boykin MD Neoplasm of [...] yrs (1 - 1-dose 75+ series) 2012 DEPRESSION SCREENING 06/15/2024 MEDICARE AWV CALENDAR YEAR 2024 COVID-19 VACCINE (1 - 2023-2 5 season) 2025 INFLUENZA VACCINE (#1) 2025 HEPATITIS B VACCINE [...] AM CDT) Case Report Dermatopathology Report Case: [id number] Authorizing Provider: Michael Boykin MD Collected: 12/05/2024 12:00 AM Ordering Location: [facility] - Received: 12/06/2024 11:47 AM DermPath Lab Pathologist: Anny Alvarez MD Specimens: A) - Skin, right lower calf B) - Skin, right denominational C) - Skin, right forehead 4:10 PM CDT DERMATOPATHOLOGY LABORATORY Final Diagnosis Specimen A. 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 SKIN, right denominational: SEBORRHEIC KERATOSIS (L82.1) GRANULOMATOUS DERMATITIS CONSISTENT WITH [...] with the patient's name and designated right denominational. The specimen consists of a shave biopsy [...] increased in number. Specimen B. SKIN, right denominational: Sections show an acanthotic lesion composed of [...] characteristic determined by the Dermatopathology Laboratory at [facility], directed by Dr. Savage Brunson. These tests need not be, and therefore are not, approved by the [place] Food and Drug Administration. The tests are used for clinical purposes. Billing Codes Specimen Charges Stain Charges 24573 [id number] 1 1 1 4:10 PM CDT DERMATOPATHOLOGY [...] PATHOLOGY/CYTOLOGY GREGG SANTIAGO Final Result DERMATOPATHOLOGY LABORATORY [facility] - Department of Dermatology [facility] Medicine [facility]rd [place] [address], [facility] [phone] from Last 3 Months Insurance [employer] MEDICARE ADV
--- OUTSIDE RECORDS SUMMARY | 2025-03-03 03:41 | XMS_ITS | Clinical Summary ---
Author Organization [facility] Address [address] [place] [address] Care Team Providers Care Cold Header Name Role Phone Geoffrey Kelley MD Primary Care Provider [phone] Stacey Pike RN Unavailable Unavailabl Mireya George PT Unavailable Unavailable Demetra Patel PTA Unavailable Unavailable Jorge Chand MD PhD Unavailable + [phone] Barry Adame MD Unavailable + [phone] Allergies No known active allergies Medications clobetasoL [...] 60 tablet 11 4 03/17/20 25 Active sertraline (ZOLOFT) 50 mg tablet Take 1 tablet (50 mg total) by mouth daily 30 tablet 2 5 02/07/20 26 Active Active Problems Problem Noted Date Diagnosed [...] 08/17/2020 Assessment & Plan (08/17/2020 5:19 PM MATERIAL PLANNING ANALYST): Discussed and the patient refuses immunization today. Educated regarding the need to vaccinate for personal protection and to limit the viruses in the community to protect those most vulnerable. Current use of [facility] anticoagulation 03/05/2 021 Assessment & Plan (08/17/2020 4:55 PM MATERIAL PLANNING ANALYST): Reviewed INRs from time of hospitalization. Has been on 3mg nightly. To have INR repeat approx 08/30. Standing order sent to [employer] as well as copy of orders given [...] response. Assessment & Plan (05/24/2024 8:35 AM MATERIAL PLANNING ANALYST): Continue on supportive measure, timed voiding. Assessment & Plan (08/17/2020 5:17 PM MATERIAL PLANNING ANALYST): Improved bladder control w/oxybutynin. Denies any med SEs. Refilled oxybutynin. COVID-19 07/23/2020 History of DVT (deep vein thrombosis) 07/22/2020 Assessment & Plan (08/23/2024 1:36 PM CDT): Continues on xaretlo and will follow respnse. Assessment & Plan (07/22/2020 3:00 PM MATERIAL PLANNING ANALYST): History of RLE DVT. Patient is on [...] 07/21/2020 Assessment & Plan (08/17/2020 5:20 PM MATERIAL PLANNING ANALYST): Using O2 at HS (1L NC). Discussed O2 w/activity as needed. Has pulse ox that he uses to frequently check sats. Slowly improving. Using symbicort inhaler bid. Reviewed red flags; what would warrant call/rtc or ED for more emergent need. Assessment & Plan (07/22/2020 12:32 PM MATERIAL PLANNING ANALYST): With onset of symptoms about a week [...] dermatolgoy. Assessment & Plan (05/24/2024 8:35 AM MATERIAL PLANNING ANALYST): COntinue f/u with dermatology. COntinues to have [...] IIB(T2c, N0, M0, PSA: 20 or greater, [place] 8-10) - Signed by Jorge Chand MD [...] regemin. Assessment & Plan (05/24/2024 8:35 AM MATERIAL PLANNING ANALYST): Continue f/u with urology and will monitor response. NO gross hematuria. Discogenic low back pain 09/04/2017 Assessment & Plan (11/01/2024 2:15 PM CDT): NO bowel/bladder symptoms and will follow response. Chronic kidney disease, stage III (moderate) Overview (09/18/2016): Chronic kidney disease stage 3 Assessment & Plan (12/25/2024 11:04 AM CDT): Continue aggressive hydration. No hematuria. Revieweed labwork completed at [facility] last week and stable at present time. Assessment & Plan (08/23/2024 1:36 PM CDT): COntinue aggressive hydration and blood pressure control. Continues on momthly basis and will follwor esponse. Assessment & Plan (05/24/2024 8:36 AM MATERIAL PLANNING ANALYST): Continue aggressive hyudration and will follow response. Assessment & Plan (07/22/2020 12:33 PM MATERIAL PLANNING ANALYST): Creatinine is 1.37, which is around this [...] 09/30/2012 Assessment & Plan (05/24/2024 8:35 AM MATERIAL PLANNING ANALYST): Gait is stable. No increased pain. Remains active. 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 Reviewed recommendations for daily intake & activity 20-30 minutes/day. Discussed healthy diet and importance of regular physical activity. Acute respiratory failure with hypoxia 07/22/2020 08/17/2020 Assessment & Plan (07/22/2020 12:40 PM MATERIAL PLANNING ANALYST): Secondary to COVID 19 pneumonia. EMS reported [...] Encounters Date Type Department Care Team Description 02/27/2025 Telephone [facility] [address] [phone] Geoffrey Kelley MD 02/06/2025 Orders Only [facility] [address] [phone] Geoffrey Kelley MD 02/06/2025 Telephone [facility] [address] [phone] Geoffrey Kelley MD Medication Request 02/06/2025 Telephone [facility] [address] [phone] Geoffrey Kelley MD Forms Request 01/24/2025 Orders Only [facility] Health Information Management [address] [place] [address] Scanning, Provider 01/17/2025 Telephone [facility] [address] [phone] Geoffrey Kelley MD 01/03/2025 Telephone [facility] [address] [phone] Geoffrey Kelley MD 12/15/2024 12:00 PM CDT Office Visit [facility] [address] [phone] Geoffrey Kelley MD Malignant neoplasm of prostate (HCC) (Primary Dx); Stage 3a chronic kidney disease (HCC); OAB (overactive bladder); Inflammation of sacroiliac joint 12/15/2024 Telephone [facility] [address] [phone] Geoffrey Kelley MD 12/07/2024 Telephone [facility] [address] [phone] Geoffrey Kelley MD Medical Question/Miscellaneo us from Last 3 Months Immunizations Immunization Administration [...] History Relation Name Comments Heart disease Father iWliam Velez Cardiovascul ar disease; Heart attack Mother [...] on file Legal Sex Male 1:01 AM MATERIAL PLANNING ANALYST Gender Identity Male 02/07/2021 1:09 PM CDT [...] 10/08/2022, 09/05/2021, Additional history exists Covid-19 Vaccine (2024- 6 season) 2025 12/24/2021, 05/23/2021, 09/17/2020 Pneumococcal vaccine 65+ Completed 07/26/2014, 07/16 DTaP/Tdap/Td Vaccine Discontinued 03/28/2023, 07/18/2014, 07/18/2014 Influenza Vaccine Discontinued 05/05/2023, , 03/19/2021, Additional history exists Procedures Procedure Name Priority Date/Time Associated Diagnosis Comments SCAN - LABS 01/24/2025 from Last 3 Months Results * SCAN - LABS (01/24/2025) us Provider Scanning Final Result from Last 3 Months [facility] [place] [facility] ADV[facility] Advance Directives For more information, please contact: [phone] Documents on File Type Date Recorded Patient Research Coordinator Expl anation ADVANCE DIRECTIVE 02/06/2025 2:03 PM POLST - Phys Order for PT Preferences * Full Code (Latest Code Status on File) Date Activated Date Inactivated Comments 07/21/2020 10:08 PM 08/02/2020 4:19 PM Care Teams Cold Header Relationship Specialty Start Date End Date Geoffrey Kelley MD [address] [facility] [address] PCP - General 08/01/16 Stacey Pike, RN Registered Nurse 09/01/17 Mireya Jimenez, PT Physical Therapist Physical Therapy 11/16/17 Demetra Patel ICT BUSINESS DEVELOPMENT MANAGER Wire Stripping Machine Operator Physical Therapy 11/26/17 Jorge Chand MD PhD [address] [place] [address] Radiation Oncologist Radiation Oncology 01/05/18 Barry Adame MD [address] [facility] [address] [address] Referring Physician General Surgery 01/05/18
--- OUTSIDE RECORDS SUMMARY | 2025-03-03 03:42 | XMS_ITS | Continuity of Care Document ---
Author Organization [facility] Address [address] [facility] [address] [facility] [address] [place] [address] Insurance Providers Payer Plan Claims Address Claims Phone Policy Number Group Number Relation Employer Guarantor Name Guarantor Guarantor Address Guarantor Phone [employer]V [address], [place] [address] tel:[phone] Self Ranulfo Gongora 1935 [address], [place] [id number] [employer] [address], [place] [address] tel:[phone] Self Ranulfo Gongora 1935 [address], [place] [address] [employer] [address], [place] [address] tel:[phone] Self Ranulfo Gongora 1935 [address], [place] [address] Problems Condition ICD9 code ICD10 code SNOMED code Start Date End Date S tatus Malignant neoplasm of prostate C61 Working Results No Results Allergies, adverse reactions, alerts No known allergies and adverse reactions Medications No administered medications reported Vital Signs No vital signs reported Social History No smoking Hx information available
--- OUTSIDE RECORDS SUMMARY | 2025-03-03 03:42 | XMS_ITS | Encounter Summary ---
Author Organization [facility] Address [address] [place] [address] Phone Care Team Providers Care Tobacco Cloth Reclaimer Name Role Phone Geoffrey Kelley MD Primary Care Provider [phone] Stacey Pike RN Unavailable UnavailMireya Saleem PT Unavailable Unavailable Demetra Patel PTA Unavailable Unavailable Jorge Chand MD PhD Unavailable + [phone] Barry Adame MD Unavailable + [phone] Encounter Details Date Type Department Care Team (Late st Contact Info) Description 11/03/2017 Orders Only [facility] ProviderAnirudh MD [address] [place] [address] Social History Tobacco Use Types Packs/Day Years Used Date Smoking Tobacco: Former Smokeless Tobacco: Never Comments:Smoking History Pac ks/day: 0.5 Packs Alcohol Use Standard Drinks/Week Comments Yes 0 (1 standard drink = 0.6 oz pur e alcohol) Sex and Gender Information Value Date Recorded Sex Assigned at Not on file Legal Sex Male 1:01 AM 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 08/16/2020 08/16/2020 12/14/2020 3:05 AM C DT documented as of this encounter Care Teams Tobacco Cloth Reclaimer Relationship Specialty Start Date End Date Geoffrey Kelley MD [address] [place] [address] PCP - General 08/01/16 Stacey Pike, RN Registered Nurse 09/01/17 Mireya Jimenez, PT Physical Therapist Physical Therapy 11/16/17 Demetra Patel, ASSISTANT DIRECTOR OF SECURITY Deckhand Oyster Dredge Physical Therapy 11/26/17 Jorge Chand MD PhD [address] [place] [address] Radiation Oncologist Radiation Oncology 01/05/18 Barry Adame MD [address] [address] Referring Physician General Surgery 01/05/18 documented as of this encounter
--- OUTSIDE RECORDS SUMMARY | 2025-03-03 03:42 | XMS_ITS | Encounter Summary ---
Author Organization [facility] Healthcare Address [address] [place] [address] Care Team Providers Care Sweatband Flanger Name Role Phone Geoffrey Kelley MD Primary Care Provider Stacey Pike RN Unavailable Unavailabl e Mireya Jimenez PT Unavailable Unavailable Demetra Patel PTA Unavailable Unavailable Jorge Chand MD PhD Unavailable + [phone] Barry Adame MD Unavailable + [phone] Reason for Visit * Reason Onset Date Comments Forms Request 02/06/2025 Encounter Details Date Type Department Care Team (Late st Contact Info) Description 02/06/2025 Telephone [facility] [address] [place] [address] Geoffrey Kelley MD [address] [place] [address] Forms Request Social History Tobacco Use Types Packs/Day Years [...] on file Legal Sex Male 1:01 AM 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 * Telephone Encounter - Breann Baugh - 02/06/2025 9:30 AM CDT Let daughter know we have not rec'd any paperwork on patient. I went ahead and filled out the paperwork, sent to [facility] for Pt to sign, and once they send ti back signed, I will get it to micki for signature and get it faxed back to [facility]. Per daughter, patient does not want CPR or any other measures but comfort care. Put a note on the paperwork for patient to review, and if agreeable, to sign. * Telephone Encounter - Asya Arellano - 02/06/2025 8:45 AM CDT Medical Question/Miscellaneous Caller???s Concern: DaughterMarlee on HIPAA, called about the DNR forms that he was given at his 12/15/24 appointment an they have not received them back yet. [facility] did not locate notes or scanned in items confirming the DNR was completed and sent back- please advise. Marking hp as it has been over a month. Does message need to be routed? Yes-Action Needed documented in this encounter Plan of Treatment Not on file documented as of this encounter Visit Diagnoses Not on filedocumented in this encounter Care Teams Sweatband Flanger Relationship Specialty Start Date End Date Geoffrey Kelley MD [address] [place] [address] PCP - General 08/01/16 Stacey Pike, RN Registered Nurse 09/01/17 Mireya Jimenez, PT Physical Therapist Physical Therapy 11/16/17 Demetra Patel TITLE CHECKER Zipper Trimmer Physical Therapy 11/26/17 Jorge Chand MD PhD [address] [place] [address] Radiation Oncologist Radiation Oncology 01/05/18 Barry Adame MD [address] [address] Referring Physician General Surgery 01/05/18 documented as of this encounter
--- OUTSIDE RECORDS SUMMARY | 2025-03-03 03:42 | XMS_ITS | Clinical Summary ---
Author Organization [facility] Address [address] [place] [address] Phone Care Team Providers Care Group Home Manager Name Role Phone Geoffrey Kelley MD Primary Care Provider [phone] Allergies No known active allergies Medications mirabegron [...] before breakfast. 120 Tablet 6 4 Active lidocaine-prilo robb (EMLA) 2.5-2.5 % CreamIndication [...] each cycle. 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 Resolved Problems Problem Noted Date Diagnosed Date Resolved Date Routine general medical exam ination at a health care facility 09/30/2012 10/01/2012 Routine general medical exam ination at a health care facility 09/30/2012 10/01/2012 Encounters Date Type Department Care Team Description 03/01/2025 External Device Data [facility] ABSTRACTION Provider, Abstract 02/28/2025 External Device Data [facility] ABSTRACTION Provider, Abstract 02/21/2025 9:30 AM CDT Office Visit [facility] Oncology and Hematology - [address] [place] [address] Amina Schmid MD Prostate cancer ([facility]) (Primary Dx); Cancer, metastatic to bone ([facility]/HCC) 02/21/2025 Orders Only [facility] Oncology and Hematology - [place] [address] [place] [address] Charlie Anderson MD 02/20/2025 Orders Only [facility] Oncology and Hematology - [place] [address] [place] [address] Charlie Anderson MD Prostate cancer ([facility]) 02/06/2025 Orders Only [facility] Oncology and Hematology - [place] [address] [place] [address] Charlie Anderson MD Prostate cancer ([facility]) 01/31/2025 External Device Data [facility] ABSTRACTION Provider, Abstract 01/31/2025 External Device Data [facility] ABSTRACTION Provider, Abstract 01/24/2025 8:45 AM CDT Office Visit [facility] Oncology and Hematology - [place] [address] [place] [address] Charlie Anderson MD Prostate cancer ([facility]) (Primary Dx) 01/24/2025 Orders Only [facility] Oncology and Hematology - [place] [address] [place] [phone] Charlie Anderson MD 01/23/2025 Orders Only [facility] Oncology and Hematology - [place] [address] Charlie Anderson MD Prostate cancer ([facility]) 01/17/2025 External Device Data ST[facility] ABSTRACTION Provider, Abstract 01/17/2025 Orders Only [facility] Oncology and Hematology - [place] [address] [place] [address] Charlie Anderson MD 01/16/2025 Telephone [facility] Oncology and Hematology - [place] [address] [place] [phone] Charlie Anderson MD Port Placement 01/11/2025 Orders Only [facility] Oncology and Hematology - [place] [address] [place] [phone] Charlie Anderson MD 01/09/2025 Orders Only [facility] Oncology and Hematology - [place] [address] [place] [address] Charlie Anderson MD Prostate cancer ([facility]) 01/05/2025 Orders Only [facility] Oncology and Hematology - [place] [address] [place] [address] Charlie Anderson MD 01/03/2025 9:15 AM CDT Office Visit [facility] Oncology and Hematology - [place] [address] [place] [address] Charlie Anderson MD Prostate cancer ([facility]) (Primary Dx) 12/28/2024 External Device Data STL ABSTRACTION Provider, Abstract 12/28/2024 Refill [facility] Oncology and Hematology [facility] [address] [place] [address] Charlie Anderson MD Prostate cancer ([facility]) 12/27/2024 External Device Data STL ABSTRACTION Provider, Abstract 12/26/2024 Orders Only [facility] Oncology and Hematology [facility] [address] Charlie Anderson MD Prostate cancer ([facility]) (Primary Dx) 12/22/2024 Refill [facility] Oncology and Hematology [facility] [address] Charlie Anderson MD Prostate cancer ([facility]) (Primary Dx) 12/13/2024 9:45 AM CDT Office Visit [facility] Oncology and Hematology [facility] [address] [place] [phone] Charlie Anderson MD Prostate cancer ([facility]) (Primary Dx) 12/13/2024 Telephone [facility] Oncology [facility] Hematology [facility] [address] [place] [phone] Charlie Anderson MD Chemotherapy 12/06/2024 Orders Only [facility] Oncology and Hematology [facility] [address] [place] [phone] Charlie Anderosn MD from Last 3 Months Family History Relation [...] Sign Reading Time Taken Comments Blood Pressure 131/81 02/21/2025 9:12 AM CDT Pulse 85 02/21/2025 9:12 AM CDT Temperature 36.1 C (96.9 F) 02/21/2025 9:12 AM CDT Respiratory Rate 15 02/21/2025 9:12 AM CDT Oxygen Saturation 97% 02/21/2025 9:12 AM CDT Inhaled Oxygen Concentration - - Weight 78.7 kg (173 lb 9.6 oz) 02/21/2025 9:12 A M CDT Height 172.7 cm (5' 8) 06/24/2023 10:26 AM HAND MOLDER AND CASTER Body Mass Index 26.4 06/24/2023 10:26 AM HAND MOLDER AND CASTER Plan of Treatment Upcoming Encounters Date Type Department Care Team (Late st Contact Info) Description 03/21/2025 9:45 AM CDT Office Visit [facility] Oncology and Hematology - [place] [address] [facility] [address] [place] [address] Charlie Anderson MD [address] [facility] [address] [place] [address] Health Maintenance Due Date Last Done Comments ZOSTER VACCINE (1 of 2) 1954 RSV VACCINE (60+ or ) (1 - 1-dose 75+ series) 2012 DTAP/TDAP/TD VACCINES (1 - Tdap) 03/29/2023 03/28/2023, 07/18/2014, 07/18/2014 INFLUENZA VACCINE (#1) 2025 3, 04/20/2022, 03/19/2021, Additional history exists PNEUMOCOCCAL VACCINE 50+ YEARS Completed 07/26/2014 , 07/25/2014 Medical Devices Implanted Type Area Hydroelectric Component Machinist Device Identifier Shelf Expiration Date Model / Serial / Lot Log [id number] - Cement - 1 - Cement [place] G-Hv 40g [id number] Implanted:Qty: 1 on 09/30/2012 at [facility] Cement Left: Knee [employer] 04/14/2014 [id number] / / [id number] Comp Fem Vngrd Cr Intrlk Lt 70mm [id number] - [id number] Implanted:Qty: 1 on 09/30/2012 at [facility] Knee Left: Knee [employer] 06/14/2022 [id number] / / [id number] Comp Tib Cocr Finned 79mm [id number] - [id number] Implanted:Qty: 1 on 09/30/2012 at [facility] Knee Left: Knee [employer] 08/12/2022 [id number] / / [id number] Brg Tib Vngrd Ant Stblzd [id number] - [id number] Implanted:Qty: 1 on 09/30/2012 at [facility] Knee Left: Knee [employer] 04/14/2016 [id number] / / [id number] Patella 3peg Series A [id number] - [id number] Implanted:Qty: 1 on 09/30/2012 at [facility] Left: Knee [employer] 08/12/2017 [id number] / / [id number] Procedures Procedure Name Priority Date/Time Associated Diagnosis Comments PSA Routine 02/21/2025 3:48 PM CDT BASIC METABOLIC PANEL Routine 02/21/2025 3:36 PM CDT CBC WITH AUTODIFFERENTIAL Routine 2024 3:34 PM CDT BASIC METABOLIC PANEL Routine 01/24/2025 1:12 PM CDT COMPREHENSIVE METABOLIC PANEL Routine 01/24/2025 1:11 PM CDT COMPREHENSIVE METABOLIC PANEL Routine 01/17/2025 12:44 PM CDT CBC WITH AUTODIFFERENTIAL Routine 2024 12:43 PM CDT BASIC METABOLIC PANEL Routine 01/10/2025 2:39 PM CDT COMPREHENSIVE METABOLIC PANEL Routine 01/10/2025 12:10 PM CDT COMPREHENSIVE METABOLIC PANEL Routine 01/03/2025 2:12 PM CDT BASIC METABOLIC PANEL Routine 01/03/2025 2:03 PM CDT BASIC METABOLIC PANEL Routine 12/06/2024 5:42 PM CDT from Last 3 Months Results * PSA (02/21/2025 3:48 PM CDT) Blood us Charlie Anderson MD CHEMISTRY ORDERABLES Final Resu lt * BASIC METABOLIC PANEL (02/21/2025 3:36 PM CDT) Only the most recent of5 resultswithin the time period is included. Blood us Charlie Anderson MD CHEMISTRY ORDERABLES Final Resu lt * CBC WITH AUTODIFFERENTIAL (02/21/2025 3:34 PM CDT) Only the most recent of2 resultswithin the time period is included. Blood Charlie Anderson MD HEMATOLOGY ORDERABLES Final Res ult * COMPREHENSIVE METABOLIC PANEL (01/24/2025 1:11 PM CDT) Only the most recent of4 resultswithin the time period is included. Blood us Charlei Anderson MD CHEMISTRY ORDERABLES Final Resu lt from Last 3 Months Insurance [place]ICAID [place] AETNA OPEN CHOICE [facility] AETNA O [facility] RX AETNA Medicare Part D [place] AETNA OPEN CHOICE O AETNA HMO MCR Advance Directives For more information, please contact: [phone] * Full Code (Latest Code Status on File) Date Activated Date Inactivated Comments 09/30/2012 1:03 PM 10/02/2012 5:10 PM * Full Code Date Activated Date Inactivated Comments 09/30/2012 9:31 AM 09/30/2012 1:03 PM * Full Code Date Activated Date Inactivated Comments 09/30/2012 8:37 AM 09/30/2012 9:31 AM Care Teams Group Home Manager Relationship Specialty Start Date End Date Geoffrey Kelley MD PCP - General Family Practice 05/22/17
--- OUTSIDE RECORDS SUMMARY | 2025-03-03 03:42 | XMS_ITS | Encounter Summary ---
Author Organization [facility] Address [address] [place] [address] Care Team Providers Care Extension Course Counselor Name Role Phone Unavailable Primary Care Provider Unavailabl e Encounter Details Date Type Department Care Team (Late st Contact Info) Description 04/06/2024 Lab Requisition [facility] - DermPath Lab [address] [facility] [place] [address] Gifty Goel PA-C [address] [place] [address] Neoplasm of uncertain behavior of [...] AM CDT) Case Report Dermatopathology Report Case: [id number] Authorizing Provider: Gifty Goel PA-C Collected: 04/06/2024 12:00 AM Ordering Location: [facility] Physician [facility] - Received: 04/07/2024 04:19 PM DermPath Lab [...] characteristic determined by the Dermatopathology Laboratory at [facility], directed by Dr. Savage Brunson. These tests need not be, and therefore are not, approved by the [place] Food and Drug Administration. The tests are used for clinical purposes. Billing Codes Specimen Charges Stain Charges 34656 1 11:27 AM CDT DERMATOPATHOLOGY LABORATORY Embedded Images 11:27 AM CDT DERMATOPATHOLOGY LABORATORY Pathology/Cytolog y TISSUE SPECIMEN FROM SKIN / Unknown 04/06/2024 04/07/2024 4:19 PM CDT Gifty Goel PA-C LAB - PATHOLOGY/CYTOLOGY [place]ONE PAMELA Final Result DERMATOPATHOLOGY LABORATORY [facility] - Department of Dermatology [address] [place] [address], [facility] [phone] documented in this encounter Visit Diagnoses Diagnosis Neoplasm of uncertain behavior of skin documented in this encounter
--- OUTSIDE RECORDS SUMMARY | 2025-03-03 03:42 | XMS_ITS | Encounter Summary ---
Author Organization [facility] Address [address] [facility] [place] [address] Care Team Providers Care Bilingual Speech Therapist Name Role Phone Unavailable Primary Care Provider Unavailabl e Encounter Details Date Type Department Care Team (Late st Contact Info) Description 10/06/2023 Lab Requisition [facility] [place] [facility] - DermPath Lab [address] [facility] [place] [address] Michael Boykin MD [facility] DERMATOLOGY [address] [place] [phone] Neoplasm of uncertain behavior of skin; [...] AM CDT) Case Report Dermatopathology Report Case: [id number] Authorizing Provider: Michael Boykin MD Collected: 10/06/2023 03:33 AM Ordering Location: [facility] [place] Physician [facility] - Received: 10/07/2023 03:24 PM DermPath [...] right arm. The specimen consists of a [id number] mm piece of skin. The specimen is serially sectioned and a cash posting representative section is submitted in cassette 1. [...] characteristic determined by the Dermatopathology Laboratory at [facility], directed by Dr. Savage Brunson. These tests need not be, and therefore are not, approved by the [place] Food and Drug Administration. The tests are used for clinical purposes. Billing Codes Specimen Charges Stain Charges 00197 1 11:20 AM CDT DERMATOPATHOLOGY LABORATORY Embedded Images 11:20 AM T DERMATOPATHOLOGY LABORATORY Pathology/Cytolo gy TISSUE SPECIMEN FROM SKIN / Unknown 10/06/2023 3:33 AM CDT 10/07/2023 3:24 PM CDT us Michael Boykin MD LAB - PATHOLOGY/CYTOLOGY GREGG [place] Final Result DERMATOPATHOLOGY LABORATORY [facility] [place] - Department of Dermatology [address] [phone] documented in this encounter Visit Diagnoses Diagnosis Neoplasm of uncertain behavior of skin Other specified erythematous conditions Other disturbances of skin sensation documented in this encounter
--- OUTSIDE RECORDS SUMMARY | 2025-03-03 03:42 | XMS_ITS | Encounter Summary ---
Author Organization [facility] Address [address] [facility] [place] [address] Care Team Providers Care Manager Safe Name Role Phone Unavailable Primary Care Provider Unavailabl e Encounter Details Date Type Department Care Team (Late st Contact Info) Description 12/05/2024 Lab Requisition [facility] - DermPath Lab [address] [facility] [place] [address] Michael Boykin MD [facility] DERMATOLOGY [address] [place] [address] Neoplasm of uncertain behavior of skin [...] AM CDT) Case Report Dermatopathology Report Case: [id number] Authorizing Provider: Michael Boykin MD Collected: 12/05/2024 12:00 AM Ordering Location: [facility] Physician [facility] - Received: 12/06/2024 11:47 AM DermPath Lab Pathologist: Anny Alvarez MD Specimens: A) - Skin, right lower calf B) - Skin, right religion C) - Skin, right forehead 4:10 PM CDT DERMATOPATHOLOGY LABORATORY Final Diagnosis Specimen A. 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 SKIN, right religion: SEBORRHEIC KERATOSIS (L82.1) GRANULOMATOUS DERMATITIS CONSISTENT WITH [...] with the patient's name and designated right religion. The specimen consists of a shave biopsy [...] increased in number. Specimen B. SKIN, right religion: Sections show an acanthotic lesion composed of [...] characteristic determined by the Dermatopathology Laboratory at [facility], directed by Dr. Savage Brunson. These tests need not be, and therefore are not, approved by the [place] Food and Drug Administration. The tests are used for clinical purposes. Billing Codes Specimen Charges Stain Charges 40545 [address]71[address] 27523 1 1 1 5 4:10 PM CDT [...] PATHOLOGY/CYTOLOGY GREGG S[place]IAGO Final Result DERMATOPATHOLOGY LABORATORY [facility] - Department of Dermatology [facility] Medicine [address] [place] [address], [address] [phone] documented in this encounter Visit Diagnoses Diagnosis Neoplasm of uncertain behavior of skin documented in this encounter
--- OUTSIDE RECORDS SUMMARY | 2025-03-03 03:42 | XMS_ITS | Encounter Summary ---
Author Organization [facility] Address [address] [place] [address] Phone Care Team Providers Care Band Tacker Name Role Phone Geoffrey Kelley MD Primary Care Provider [phone] Stacey Pike RN Unavailable UnavailMireya Saleem PT Unavailable Unavailable Demetra Patel PTA Unavailable Unavailable Jorge Chand MD PhD Unavailable + [phone] Barry Adame MD Unavailable + [phone] Encounter Details Date Type Department Care Team (Late st Contact Info) Description 10/01/2017 Orders Only [facility] ProviderAnirudh MD [address] [place] [address] Social History Tobacco Use Types Packs/Day Years Used Date Smoking Tobacco: Former Smokeless Tobacco: Never Comments:Smoking History Pac ks/day: 0.5 Packs Alcohol Use Standard Drinks/Week Comments Yes 0 (1 standard drink = 0.6 oz pur e alcohol) Sex and Gender Information Value Date Recorded Sex Assigned at Not on file Legal Sex Male 1:01 AM OPTOMETRIC COORDINATOR Gender Identity Male 02/07/2021 1:09 PM CDT [...] Mayen 07/20/2020 07/20/2020 03/0 09/2020 3:07 AM OPTOMETRIC COORDINATOR COVID: Recovered Comment:Added based on recent COVID infection. 08/16/2020 08/16/2020 12/14/2020 3:05 AM C DT documented as of this encounter Care Teams Band Tacker Relationship Specialty Start Date End Date Geoffrey Kelley MD [address] [place] [address] PCP - General 08/01/16 Stacey Pike, RN Registered Nurse 09/01/17 Mireya Jimenez, PT Physical Therapist Physical Therapy 11/16/17 Demetra Patel, SILVERWARE BUFFING MACHINE OPERATOR Machine Stapler Physical Therapy 11/26/17 Jorge Chand MD PhD [address] [place] [address] Radiation Oncologist Radiation Oncology 01/05/18 Barry Adame MD [address] [address] Referring Physician General Surgery 01/05/18 documented as of this encounter
--- OUTSIDE RECORDS SUMMARY | 2025-03-03 03:42 | XMS_ITS | Clinical Summary ---
Author Organization [facility] Address [address] [place] [address] Phone Care Team Providers Care Guest Services Associate Name Role Phone Geoffrey Kelley MD Primary Care Provider [phone] Allergies No known active allergies Medications Cholecalciferol [...] 1-dose 75+ series) 2012 Influenza Immunization (#1) 2025 SARS-COV-2 Immunization (4 - season) 2025 12/24/2021, 05/23/2021, 09/17/2020 Hepatitis B Immunization Aged [...] age to complete this topic Care Teams Guest Services Associate Relationship Specialty Start Date End Date Geoffrey Kelley MD [address] [place] [address] PCP - General Internal Medicine 03/06/18
--- NOTE | 2025-03-03 04:04 | ED.FALL ---
HPI - Fall General Stated Complaint: Head Laceration Fall History of Present Illness HPI Narrative: Patient presenting here with fall while he was sitting on the toilet, he actually forward and hit his face, was bleeding, was having trouble getting up on his own, ambulance arrived to bring him here and he was able to walk. He is having some pain to his left shoulder. As on blood thinners Related Data Home Medications ?Medication ?Instructions ?Recorded ?Confirmed ?Last Taken ?Type loratadine 10 mg tablet 10 mg PO DAILY 04/25/23 01/23/25 Unknown History mirabegron 25 mg tablet,extended 25 mg PO DAILY 07/22/23 01/23/25 Unknown History release 24 hr abiraterone 250 mg tablet 1,000 mg PO DAILY 01/23/25 01/24/25 Unknown History azelastine 137 mcg (0.1 %) nasal 2 spray intranasal Q12H 01/23/25 01/24/25 Unknown History spray methocarbamol 500 mg tablet 500 mg PO Q6H PRN muscle pain 01/23/25 01/24/25 Unknown History oxycodone-acetaminophen 5 mg-325 1 tablet PO Q6H PRN pain 01/23/25 01/24/25 Unknown History mg tablet (Percocet) prednisone 5 mg tablet 5 mg PO DAILY chemo 01/23/25 01/24/25 Unknown History vibegron 75 mg tablet (Gemtesa) 75 mg PO DAILY 01/23/25 01/24/25 Unknown History Allergies Allergy/AdvReac Type Severity Reaction Status Date / Time No Known Allergies Allergy Verified 01/24/25 09:47 Review of Systems Review of Systems: All systems reviewed & are unremarkable except as noted in HPI and below PMFSH Social History Social History Smoking packs per day: 1 Smoking cigarettes per day: 20.0 Years smoked: 15 Smoking pack-years: 15.00 Smoking status: Never smoker Tobacco type: cigarettes Smoking end date: 06/15/77 Alcohol intake: current Drinks per week: 7 Alcohol use details: 2 per month Substance use: never Lack of Transportation: No Lack of Food: Never True Current Housing: I Have Housing Concerned About Future Housing: No Difficulty Paying Gas/Electric Bills: No Difficulty Paying for Meds: No Currently Unemployed: No Education: High School Diploma/GED Difficulty w/ Childcare or Family Care: No Living arrangements: assisted living Additional living arrangements comments: [facility] phone Spiritual care concerns: No Exam Narrative: EXAMINATION OF ORGAN SYSTEMS/BODY AREAS: Constitutional: Vital signs per nursing GENERAL:[No acute distress, non-toxic appearing.] HEAD: Head injury EYES: EOMI, conjunctiva normal ENT: Hearing grossly intact. 6 cm laceration with slow oozing to right forehead LUNGS: Nonlabored breathing. HEART: [Regular rate and rhythm] ABD: [Soft], [nontender to palpation] EXT: Normal range of motion, no tenderness to palpation to either hips or shoulders bilaterally SKIN: Facial laceration NEURO: [Alert. No gross focal sensory or strength deficits.] PSYCH: Normal affect Procedures Laceration Laceration 1: Date: 03/03/25 Time: 04:06 Site: face Side (If applicable): right Size (cm): 6 Description: linear Depth: simple, single layer Local Anesthetic: lidocaine 1% and with epi Amount of anesthesia used (mL): 5 Pre-repair: wound explored, irrigated, irrigated extensively, minor debridement and deep structures intact ====== Skin Level ====== Skin layer closed with: vicryl Size (cm): 5-0 Number of sutures: 6 Technique: simple, interrupted ====== Subcutaneous Layer ====== ====== Muscle Layer ====== ====== Tendon Layer ====== MDM - Fall MDM Narrative Medical decision making narrative: Patient presents here after fall, with head injury, initially had some left shoulder pain however is resolved now, he has normal range of motion, no signs of bruising or tenderness to his extremities, he does have a facial laceration. This is cleaned extensively, I did remove clot, then anesthetized and closed. CT head C-spine obtain are thankfully negative for acute fractures. Patient had been able ambulate. Denies pain or injury elsewhere, would like to go home. Does not want to be admitted I did discuss this with patient given my concern for his falls but he would like to go home. He is informed he can always return to the ER if he changes his mind and to follow-up with his PCP. With her precautions/instructions given. Discharge Plan Discharge Instructions: Facial Laceration (ED) Additional Instructions: Please keep the wound clean and covered, follow-up with your doctor, if you start noticing any redness or swelling or pain, bleeding or or discharge, please come back to the hospital. Patient Language: Azeri Prescriptions: No Action mirabegron 25 mg Tablet Extended Release 24 Hr 25 mg PO DAILY Patient Comments: . loratadine 10 mg Tablet 10 mg PO DAILY Patient Comments: .... Xarelto 20 mg tablet 20 mg PO DAILY Qty: 30 0RF Patient Comments: HOLD 3 days prior to Infusaport procedure, last dose is 01/28/25 Rx Instructions: must administer with evening meal after 15 mg twice daily dosing for 21 days abiraterone 250 mg tablet 1,000 mg PO DAILY Rx Instructions: Before Breakfast azelastine 137 mcg (0.1 %) spray,non-aerosol 2 spray INTRANASAL Q12H Gemtesa 75 mg tablet 75 mg PO DAILY oxycodone-acetaminophen [Percocet] 5-325 mg tablet 1 tablet PO Q6H PRN (Reason: pain) prednisone 5 mg tablet 5 mg PO DAILY Rx Instructions: Take BID on the days 1-21 of cycle methocarbamol 500 mg tablet 500 mg PO Q6H PRN (Reason: muscle pain) Follow-up/Referrals: Harms,Geoffrey Chacon M.D. [Primary Care Provider] - 2 Days
--- NOTE | 2025-03-03 07:03 | PC.NURSE ---
pt stood up to use bedside urinal and became extremely dizzy. ERP made aware and spoke with patient stating he needed to stay in the hosptial. Pt agreed. Miriam called and updated. I asked for them to look in his room for his wallet and they will be returning a phone call.
[2025-03-03 07:04] LABS: Hematocrit 34.7 % (42.0-52.0); Hemoglobin 11.3 g/dL (14.0-18.0); Immature Granulocyte Percent A 0.4 % (0-0.5); Lymphocytes Absolute Auto 1.11 K/mm3 (0.9-3.2); Mean Corpuscular HGB Conc 32.6 g/dl (32-36); Mean Corpuscular Hemoglobin 32.3 pg (26-34); Mean Corpuscular Volume 99.1 fl (80-100); Nucleated Red Blood Cells Absolute Auto 0.000 K/mm3 (0.0-0.012); Nucleated Red Blood Cells Perc 0.0 % (0.0-0.2); Platelet Count Result 202 k/mm3 (150-375); Red Blood Count 3.50 M/mm3 (4.6-6.20); White Blood Count 8.0 K/mm3 (4.5-10.0)
[2025-03-03 07:25] LABS: Anion Gap 5 mmol/L (4-12); Blood Urea Nitrogen 17 mg/dL (9-20); Calcium 9.4 mg/dL (8.4-10.2); Carbon Dioxide 26 mmol/L (22-30); Chloride 108 mmol/L (98-107); Estimated Glomerular Filt Rate > 60; Glucose 112 mg/dL (65-110); Potassium 3.6 mmol/L (3.4-5.0); Sodium 139 mmol/L (137-145)
[2025-03-03 07:58] LABS: Add Urine Microscopic? NO; Appearance Urine Clear (Clear); Glucose Urine UA Negative (Negative); Leukocyte Esterase Ur Negative LEU/UL (Negative); Nitrate Urine Negative (Negative); Specific Grav Ur 1.015 (1.001-1.035)
--- NOTE | 2025-03-03 08:01 | PC.NURSE ---
spoke with patients daughter Marlee with patient update and update to plan of care.
[2025-03-03 08:47] LABS: Influenza A QL RT-PCR Negative (Negative); Influenza B QL RT-PCR Negative (Negative); RSV RNA, RT-PCR Negative (Negative); SARS-CoV-2 RNA PCR Negative (Negative)
--- NOTE | 2025-03-03 11:36 | PCCCNOTE ---
Called to ER to consult on getting SNF rehab. Pt currently has [employer] M[employer] and Medicaid. Pt currently resides in [facility] in assisted living. I spoke with pt and daughter. Pt has prostate cancer and was receiving chemotherapy. They have stopped the chemotherapy d/t it has made him sick and weak. They wish to get rehab so he can go back to [facility]. Their 1st choice is [facility] and 2nd would be [facility].
--- NOTE | 2025-03-03 12:55 | ADMGEN ---
This patient, Ranulfo Montague, was admitted to Medical Room 348-01. Patient/family oriented to hospital policies and general routines including ID bracelet, bed and alarms, visiting hours, pain management, procedures, bathroom and other care routines, personal items, smoking policy, room service/diet, and visiting hours. Information on how to activate the Rapid Response Team has been discussed. Patient/Family are encouraged to report perceived risks to care and to ask questions if they do not understand what they are told or what they should do.
--- NOTE | 2025-03-03 17:43 | PM.IMHP ---
H&P: HPI History of Present Illness Date/Time: 03/03/25 17:43 Chief Complaint: Fall at home Narrative: 89-year-old male living in independent living with PMH prostate cancer, AFib on Xarelto, previous COVID with acute hypoxic respiratory failure, history of left lower extremity DVT presents from home as he was trying to sit on the toilet any fell forwards and hit the top of his head. He denies syncope, seizure, feeling dizzy prior, reports it was a mechanical fall. Prior to admission he lives independently use a walker for ambulation. Hemoglobin 11.3, CT cervical spine without acute findings, head CT without acute findings. Laceration on top of his head has been sutured in the ER. No longer bleeding. Patient denies any complaints. He does not want shoulder x-rays as the family requested, he declined. Review of Systems Review of Systems: All systems reviewed & are unremarkable except as noted in HPI and below (Subjective) [facility] Family History Family History (Updated 03/03/25 @ 13:09 by Natividad Zambrano RN) Other Unknown family medical history Social History Social History Smoking packs per day: 1 Smoking cigarettes per day: 20.0 Years smoked: 15 Smoking pack-years: 15.00 Smoking status: Never smoker Alcohol intake: former Drinks per week: 0 Alcohol use details: 2 per month Substance use: never Lack of Transportation: No Lack of Food: Never True Current Housing: I Have Housing Concerned About Future Housing: No Difficulty Paying Gas/Electric Bills: No Difficulty Paying for Meds: No Currently Unemployed: No Education: High School Diploma/GED Difficulty w/ Childcare or Family Care: No Living arrangements: assisted living Additional living arrangements comments: [facility] phone Spiritual care concerns: No Meds Home Medications and Allergies Home Medications ?Medication ?Instructions ?Recorded ?Confirmed ?Type loratadine 10 mg tablet 10 mg PO DAILY 04/25/23 03/03/25 History rivaroxaban 20 mg tablet (Xarelto) 20 mg PO DAILY #30 tabs 05/03/23 03/03/25 Rx abiraterone 250 mg tablet 250 mg PO QID 01/23/25 03/03/25 History azelastine 137 mcg (0.1 %) nasal 2 spray intranasal Q12H PRN 01/23/25 03/03/25 History spray allergy symptoms acetaminophen 650 mg 650 mg PO Q8H PRN pain 03/03/25 03/03/25 History tablet,extended release (8 Hour Pain Reliever) sertraline 50 mg tablet 50 mg PO DAILY 03/03/25 03/03/25 History Allergies Allergy/AdvReac Type Severity Reaction Status Date / Time No Known Allergies Allergy Verified 03/03/25 13:09 Vital Signs Vital Signs - 24 hr 03/03/25 08:42 03/03/25 12:14 03/03/25 13:00 Temperature 98 F Pulse Rate 85 Respiratory Rate 18 Blood Pressure 157/116 H 160/82 H Pulse Oximetry 97 Oxygen Delivery Room Air Room Air 03/03/25 14:07 03/03/25 14:11 03/03/25 14:14 Temperature Pulse Rate Respiratory Rate Blood Pressure Pulse Oximetry 96 Oxygen Delivery Room Air Room Air Room Air 03/03/25 16:29 Temperature 98.4 F Pulse Rate 101 H Respiratory Rate 16 Blood Pressure 153/84 H Pulse Oximetry 100 Oxygen Delivery Exam Const: General: comfortable and no acute distress HENMT: Mouth: Yes moist mucous membranes Eyes: Pupils: Equal, round and reactive pupils present Neck: Neck: supple Resp: Effort & Inspection: normal respiratory effort Auscultation: clear to auscultation bilaterally Cardio: Rate: regular rate Rhythm: regular rhythm GI: GI Palp: Yes Soft to palpation : General: Yes bladder normal to palpation Neuro: Motor exam (neuro): 5/5 motor strength present throughout Extrem: General: no edema H&P: Results Labs Labs: Short CBC 03/03/25 Range/Units 07:00 WBC 8.0 (4.5-10.0) K/mm3 Hgb 11.3 L (14.0-18.0) g/dL Hct 34.7 L (42.0-52.0) % Plt Count 202 (150-375) k/mm3 BMP 03/03/25 07:00 Sodium 139 Potassium 3.6 Chloride 108 H Carbon Dioxide 26 BUN 17 Creatinine 0.94 Glucose 112 H Calcium 9.4 Urine 03/03/25 Range/Units 07:51 Urine Color Yellow (Yellow) Urine Appearance Clear (Clear) Urine pH 7.0 (5.0-9.0) Ur Specific [place] 1.015 (1.001-1.035) Urine Protein Negative (Negative) mg/dL Urine Glucose (UA) Negative (Negative) mg/dL Assessment and Plan Assessment and plan (1) Fall at home: Code(s): W19.XXXA - Unspecified fall, initial encounter; Y92.009 - Unspecified place in unspecified non-institutional (private) residence as the place of occurrence of the external cause Status: Acute Plan Monitor hemoglobin. Ambulate with assistance, fall precautions. Patient was unable to walk from the ER therefore he is admitted for PT OT and possible placement. Patient wishes to be DNR. 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 Hospitalist MIPS Advance Care Plan I have confirmed that the patient's Advanced Care Plan is present, code status is documented, or surrogate decision maker is listed in patient medical record.: Yes Medication Reconciliation I have utilized all available resources to obtain, update and review the patients current medications (includes all prescriptions, OTC, herbals, cannabis, and nutritional supplements).: Yes
--- NOTE | 2025-03-03 18:09 | PC.NURSE ---
Abiraterone unavailable at this time. Daughter, Marlee, notified to bring when available. She stated she will either be here tomorrow or Thursday.
--- NOTE | 2025-03-03 20:49 | ECG_ITS ---
Test Date: 2025-03-03 21:32:13 Measurements Intervals [place] Rate: 135 P: 197 MO: 137 QRS: 21 QRSD: 136 T: 9 QT: 331 QTc: 496 Interpretive Statements ATRIAL TACHYCARDIA, SUSPECT ATYPICAL ATRIAL FLUTTER RIGHT BUNDLE BRANCH BLOCK [120+ ms QRS DURATION, UPRIGHT V1, 40+ ms S IN I/aVL/V4/V5/V6] ABNORMAL ECG No previous ECG available for comparison Electronically Signed On 03-04-2025 08:42:38 CDT by Ranulfo Rivas M.D.
[2025-03-03] MEDS: SODIUM CHLORIDE 0.9% IV 1,000 ML 500 ML IV CONT (22:25)
[2025-03-04 00:29] VITALS: BP 113/68; PULSE 123; RESP 14; TEMP 36.8; O2SAT 99
[2025-03-04 05:01] VITALS: BP 125/71; PULSE 97; RESP 16; TEMP 36.4; O2SAT 98
[2025-03-04 05:59] LABS: Hematocrit 32.6 % (42.0-52.0); Hemoglobin 10.4 g/dL (14.0-18.0); Mean Corpuscular HGB Conc 31.9 g/dl (32-36); Mean Corpuscular Hemoglobin 31.7 pg (26-34); Mean Corpuscular Volume 99.4 fl (80-100); Platelet Count Result 172 k/mm3 (150-375); Red Blood Count 3.28 M/mm3 (4.6-6.20); White Blood Count 5.8 K/mm3 (4.5-10.0)
[2025-03-04 06:18] LABS: Anion Gap 4 mmol/L (4-12); Blood Urea Nitrogen 16 mg/dL (9-20); Calcium 8.6 mg/dL (8.4-10.2); Carbon Dioxide 24 mmol/L (22-30); Chloride 112 mmol/L (98-107); Estimated CRCL calculation 51 ml/min; Estimated Glomerular Filt Rate > 60; Glucose 104 mg/dL (65-110); Magnesium 2.2 mg/dL (1.6-2.3); Potassium 3.5 mmol/L (3.4-5.0); Sodium 140 mmol/L (137-145)
[2025-03-04] MEDS: SERTRALINE HCL 50 MG TABLET PO (08:54)
[2025-03-04] MEDS: LORATADINE 10 MG TABLET PO (08:54)
[2025-03-04] MEDS: ACETAMINOPHEN 325 MG TABLET 650 MG PO ×2 (08:55→17:02)
--- NOTE | 2025-03-04 13:29 | P.PNIM_ITS ---
Progress Note: A&P Assessment and Plan (1) Dehydration: Code(s): E86.0 - Dehydration Status: Acute (2) Orthostatic hypotension: Code(s): I95.1 - Orthostatic hypotension Status: Acute (3) Multiple falls: Code(s): R29.6 - Repeated falls Status: Acute (4) Generalized weakness: Code(s): R53.1 - Weakness Status: Acute (5) Atrial fibrillation: Code(s): I48.91 - Unspecified atrial fibrillation Status: Acute Plan 89-year-old male living in independent living with PMH prostate cancer, AFib on Xarelto, previous COVID with acute hypoxic respiratory failure, history of left lower extremity DVT presents from home as he was trying to sit on the toilet any fell forwards and hit the top of his head. He denies syncope, seizure, feeling dizzy prior, reports it was a mechanical fall. Prior to admission he lives independently use a walker for ambulation. Hemoglobin 11.3, CT cervical spine without acute findings, head CT without acute findings. Laceration on top of his head has been sutured in the ER. No longer bleeding. Patient denies any complaints. He does not want shoulder x-rays as the family requested, he declined. ---- Fall precautions, ambulate with assistance, PT/OT evaluations. He lives alone and will likely need placement. Continue to coordinate discharge with care coordination. The patient is frail and weak. Feels dehydrated but upon receiving fluids he develops interstitial edema and shortness of breath. He has orthostatic hypotension will be difficult to treat with fluids. Therefore, at this time we will hold off on fluids, do not initiate antihypertensives for now. No evidence of Parkinson's at this moment. Nursing communication left and patient educated about a slow rising to stand. Buttock clinching, crossing of the legs, place abdominal binder and waist high compression stockings. Monitor with this treatment. Orthostatic vitals Q shift. Patient is at risk for exsanguination as he has been falling. Still wants continued Xarelto for previous DVT in atrial fibrillation. Risks versus benefits discussed. The laceration on the top of his head is healing well after placement of 6 interrupted 5-0 Vicryl sutures He can follow with primary care or have the stitches removed in 7 days from placement if he is still here. Patient wishes to be DNR. 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 Time Spent With Patient Time with patient: Greater than 35 minutes Subjective Date/time seen: 03/04/25 13:29 Interval history: Overnight the patient was given fluids as he felt he was dehydrated. He then shortness of breath and a chest x-ray demonstrated mild interstitial edema. He then received Lasix. This morning, he rest comfortably in denies cough, chest pain, shortness of breath, dizziness. He did report dizziness when walking with the nurse yesterday although. Review of Systems Review of Systems: All systems reviewed & are unremarkable except as noted in HPI and below (Subjective) Exam Const: General: comfortable and no acute distress HENMT: Mouth: Yes moist mucous membranes Eyes: Pupils: Equal, round and reactive pupils present Neck: Neck: supple Resp: Effort & Inspection: normal respiratory effort Auscultation: clear to auscultation bilaterally Cardio: Rate: regular rate Rhythm: regular rhythm GI: GI Palp: Yes Soft to palpation : General: Yes bladder normal to palpation Neuro: Motor exam (neuro): 5/5 motor strength present throughout Extrem: General: no edema Objective Data Vital Signs Vital Signs: Vital Signs - 24 hr 03/03/25 14:07 03/03/25 14:11 03/03/25 14:14 Temperature Pulse Rate Respiratory Rate Blood Pressure Pulse Oximetry 96 Oxygen Delivery Room Air Room Air Room Air 03/03/25 16:29 03/03/25 19:50 03/03/25 19:55 Temperature 98.4 F Pulse Rate 101 H Respiratory Rate 16 Blood Pressure 153/84 H 135/105 H 129/93 H Pulse Oximetry 100 Oxygen Delivery 03/03/25 20:00 03/03/25 20:25 03/03/25 20:25 Temperature 98.9 F Pulse Rate 128 H Respiratory Rate 14 Blood Pressure 126/84 110/76 Pulse Oximetry 96 Oxygen Delivery Room Air 03/04/25 00:29 03/04/25 05:01 03/04/25 08:00 Temperature 98.2 F 97.5 F L Pulse Rate 123 H 97 Respiratory Rate 14 16 Blood Pressure 113/68 125/71 Pulse Oximetry 99 98 Oxygen Delivery Room Air Intake/Output Intake/Output: Intake & Output 09/1703/02/25 03/03/25 03/04/25 23:59 23:59 23:59 23:59 Intake Total 1200 1480 Output Total 275 Balance 1200 1205 Meds/Results Medications: Active Medications Generic Name Dose Route Start Last Admin Trade Name Freq PRN Reason Stop Dose Admin Acetaminophen 650 mg 03/03/25 17:41 03/04/25 08:55 Acetaminophen 325 Mg Tablet PO 650 mg Q8H PRN Administration Pain 1-3 Albuterol 2.5 mg 03/04/25 02:31 Albuterol Sulfate Neb 2.5 Mg/3 Ml Inh INHALATION Q4HRT PRN Shortness Of Breath Azelastine HCl 2 spray 03/03/25 17:41 Azelastine Hcl Nasal 0.1% 137 Mcg/Spr 30 Ml Btl NASAL Q12H PRN allergy symptoms Loratadine 10 mg 03/04/25 09:00 03/04/25 08:54 Loratadine 10 Mg Tablet PO 10 mg DAILY [facility] Administration Miscellaneous Information 0 each 03/03/25 00:01 Abiraterone Nonform Can Pt Bring From Home? XX 04/02/25 00:00 CLARIFY SAMSON Non-Formulary Medication 250 mg 03/03/25 21:00 Abiraterone PO 04/02/25 20:59 QID SAMSON Rivaroxaban 20 mg 03/04/25 17:00 Rivaroxaban 20 Mg Tablet PO DAILY@1700 [facility] Sertraline HCl 50 mg 03/04/25 09:00 03/04/25 08:54 Sertraline Hcl 50 Mg Tablet PO 50 mg DAILY SAMSON Administration Radiology Results: ITS Impressions Head CT 03/03/25 07:56 IMPRESSION: 1. 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 Cervical Spine CT 03/03/25 08:27 IMPRESSION: 1. No acute findings. Chest X-Ray 03/04/25 10:02 IMPRESSION: 1. Probable developing interstitial pulmonary edema and/or pneumonitis on chronic interstitial lung disease. Labs Labs: Laboratory Results - last 24 hr 03/04/25 05:44 WBC 5.8 RBC 3.28 L Hgb 10.4 L Hct 32.6 L MCV 99.4 MCH 31.7 MCHC 31.9 L RDW 14.8 H Plt Count 172 MPV 9.7 Sodium 140 Potassium 3.5 Chloride 112 H Carbon Dioxide 24 Anion Gap 4 BUN 16 Creatinine 0.87 Estim Creat Clear Calc 51 Estimated GFR > 60 Glucose 104 Calcium 8.6 Magnesium 2.2
[2025-03-04 14:00] VITALS: BP 139/77; PULSE 101; RESP 20; TEMP 36.8; O2SAT 99
[2025-03-04] MEDS: RIVAROXABAN 20 MG TABLET PO (17:02)
[2025-03-04 20:00] VITALS: PULSE 93; RESP 18; O2SAT 100
[2025-03-04 22:14] VITALS: BP 150/86; PULSE 93; RESP 18; TEMP 36.2; O2SAT 100
[2025-03-05] MEDS: ACETAMINOPHEN 325 MG TABLET 650 MG PO ×3 (01:16→20:37)
[2025-03-05 01:27] VITALS: BP 163/91; PULSE 91; RESP 18; TEMP 36.3; O2SAT 98
[2025-03-05 01:28] VITALS: BP 172/80; PULSE 102; RESP 18; TEMP 36.3; O2SAT 100
[2025-03-05 01:30] VITALS: BP 118/83; PULSE 103; RESP 18; TEMP 36.2; O2SAT 99
[2025-03-05 05:43] VITALS: BP 162/82; PULSE 95; RESP 18; TEMP 36.2; O2SAT 99
--- NOTE | 2025-03-05 06:56 | PM.IMPN ---
Progress Note: A&P Assessment and Plan (1) Multiple falls: Code(s): R29.6 - Repeated falls Status: Acute Assessment and Plan: Patient was sitting on the toilet and fell forward and hit the top of his head. Down for approximately 2 hours before EMS arrival. Denies syncope, seizure, prior dizziness, reports it was a mechanical fall. Prior to admission he lives at assisted living and uses a walker for ambulation Laceration to right forehead was sutured in the ER. Follow with primary care or have the stitches removed in 7 days from placement if he is still here. 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 C Spine CT: No acute findings endorsing left neck pain with turning, denies any tingling/numbness/shooting pain. Lidocaine patch. Fall precautions, ambulate with assistance Again discussed risks and benefits of Xarelto with patient. Patient wishes to continue Xarelto for previous DVT in atrial fibrillation. PT/OT recommending acute inpatient rehab Care coordination following for placement, awaiting acceptance (2) Orthostatic hypotension: Code(s): I95.1 - Orthostatic hypotension Status: Acute Assessment and Plan: On admission patient was thought to be dehydrated but upon receiving fluids he developed interstitial edema and shortness of breath. Chest XR: Probable developing interstitial pulmonary edema and/or pneumonitis on chronic interstitial lung disease. He has orthostatic hypotension however this will be difficult to treat with fluids given this development. Hold off on fluids, do not initiate antihypertensives for now. Continue to monitor blood pressures. Encourage slow rising to stand, buttock clinching, crossing of the legs, place abdominal binder and waist high compression stockings. Orthostatic vitals Q shift. (3) Generalized weakness: Code(s): R53.1 - Weakness Status: Acute Assessment and Plan: Fall precautions, ambulate with assistance PT/OT evaluations. Care coordination following for placement, awaiting acceptance (4) Atrial fibrillation: Code(s): I48.91 - Unspecified atrial fibrillation Status: Acute Assessment and Plan: Chronic Current home medication: Xarelto 20 mg daily Patient wishes to continue Xarelto for previous DVT in atrial fibrillation. (5) Prostate CA: Code(s): C61 - Malignant neoplasm of prostate Status: Acute Assessment and Plan: Continue abiraterone 1 mg QID Time Spent With Patient Time with patient: 25 - 35 minutes Subjective Date/time seen: 03/05/25 06:56 Interval history: 89-year-old male with past medical history of metastatic prostate cancer with bone involvement, AFib on Xarelto, previous COVID with acute hypoxic respiratory failure, history of left lower extremity DVT presents to the hospital from assisted living as he was trying to sit on the toilet any fell forwards and hit the top of his head. Patient is pleasant lying comfortably in bed with family at bedside. He is endorsing left-sided neck pain that is further exacerbated with turning. He denies any associated tingling/numbness or shooting pain. Patient states he is overall feeling better since admission. Patient denies that he was dizzy or lightheaded prior to the fall. He has no other complaints denying chest pain, shortness a breath, palpitations, nausea/vomiting, abdominal pain. Review of Systems Review of Systems: All systems reviewed & are unremarkable except as noted in HPI and below (Subjective) Exam Narrative: AF HR 95 RR 18 Spo2 99 BP 162/82 General: male in no acute respiratory distress who is nontoxic appearing, lying semi recumbent in bed. HEENT: Normocephalic. 6 interrupted sutures to the right forehead. Bruising to the bilateral periorbital region and nose. Extraocular movement intact. Sclera clear and anicteric. No facial asymmetry. Chest: Lungs are clear to auscultation bilaterally. No wheezes or crackles. CV: Heart was regular rate and rhythm. S1/S2. No murmurs, gallops, or rubs. Abd: Abdomen was soft. Nontender. Nondistended. Positive bowel sounds. Ext: No clubbing, cyanosis. DP pulses bilaterally. Trivial BLE edema. Neuro: Patient is alert and oriented x3. Speech is clear. Objective Data Vital Signs Vital Signs: Vital Signs - 24 hr 03/04/25 08:00 03/04/25 14:00 03/04/25 20:00 Temperature 98.3 F Pulse Rate 101 H 93 Respiratory Rate 20 18 Blood Pressure 139/77 Pulse Oximetry 99 100 Oxygen Delivery Room Air Room Air 03/04/25 22:14 03/05/25 01:27 03/05/25 01:28 Temperature 97.2 F L 97.4 F L 97.4 F L Pulse Rate 93 91 102 H Respiratory Rate 18 18 18 Blood Pressure 150/86 H 163/91 H 172/80 H Pulse Oximetry 100 98 100 Oxygen Delivery 03/05/25 01:30 03/05/25 05:43 Temperature 97.2 F L 97.1 F L Pulse Rate 103 H 95 Respiratory Rate 18 18 Blood Pressure 118/83 162/82 H Pulse Oximetry 99 99 Oxygen Delivery Intake/Output Intake/Output: Intake & Output 03/02/25 03/03/25 03/04/25 03/05/25 23:59 23:59 23:59 23:59 Intake Total 1200 2820 500 Output Total 275 600 Balance 1200 2545 -100 Meds/Results Medications: Active Medications Generic Name Dose Route Start Last Admin Trade Name Freq PRN Reason Stop Dose Admin Acetaminophen 650 mg 03/03/25 17:41 03/05/25 01:16 Acetaminophen 325 Mg Tablet PO 650 mg Q8H PRN Administration Pain 1-3 Albuterol 2.5 mg 03/04/25 02:31 Albuterol Sulfate Neb 2.5 Mg/3 Ml Inh INHALATION Q4HRT PRN Shortness Of Breath Azelastine HCl 2 spray 03/03/25 17:41 Azelastine Hcl Nasal 0.1% 137 Mcg/Spr 30 Ml Btl NASAL Q12H PRN allergy symptoms Loratadine 10 mg 03/04/25 09:00 03/04/25 08:54 Loratadine 10 Mg Tablet PO 10 mg DAILY [facility] Administration Miscellaneous Information 0 each 03/03/25 00:01 Abiraterone Nonform Can Pt Bring From Home? XX 04/02/25 00:00 CLARIFY [facility] Non-Formulary Medication 250 mg 03/03/25 21:00 Abiraterone PO 04/02/25 20:59 QID [facility] Rivaroxaban 20 mg 03/04/25 17:00 03/04/25 17:02 Rivaroxaban 20 Mg Tablet PO 20 mg DAILY@1700 [facility] Administration Sertraline HCl 50 mg 03/04/25 09:00 03/04/25 08:54 Sertraline Hcl 50 Mg Tablet PO 50 mg DAILY [facility] Administration Radiology Results: ITS Impressions Head CT 03/03/25 07:56 IMPRESSION: 1. 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 Cervical Spine CT 03/03/25 08:27 IMPRESSION: 1. No acute findings. Chest X-Ray 03/04/25 10:02 IMPRESSION: 1. Probable developing interstitial pulmonary edema and/or pneumonitis on chronic interstitial lung disease. Quality VTE Prophylaxis VTE prophylaxis: pharmacologic ordered
[2025-03-05 07:59] LABS: Hematocrit 32.5 % (42.0-52.0); Hemoglobin 10.5 g/dL (14.0-18.0); Mean Corpuscular HGB Conc 32.3 g/dl (32-36); Mean Corpuscular Hemoglobin 32.4 pg (26-34); Mean Corpuscular Volume 100.3 fl (80-100); Platelet Count Result 182 k/mm3 (150-375); Red Blood Count 3.24 M/mm3 (4.6-6.20); White Blood Count 5.7 K/mm3 (4.5-10.0)
[2025-03-05 08:01] LABS: Alanine Aminotransferase 12 U/L (6-50); Albumin Level 3.1 g/dL (3.5-5.1); Alkaline Phosphatase 79 U/L (38-126); Anion Gap 3 mmol/L (4-12); Aspartate Amino Transferase 33 U/L (17-59); Bilirubin,Total 0.7 mg/dL (0.2-1.3); Blood Urea Nitrogen 17 mg/dL (9-20); Calcium 8.5 mg/dL (8.4-10.2); Carbon Dioxide 24 mmol/L (22-30); Chloride 110 mmol/L (98-107); Estimated CRCL calculation 49 ml/min; Estimated Glomerular Filt Rate > 60; Glucose 97 mg/dL (65-110); Potassium 3.3 mmol/L (3.4-5.0); Sodium 137 mmol/L (137-145); Total Protein 5.6 g/dL (6.3-8.2)
[2025-03-05] MEDS: LORATADINE 10 MG TABLET PO (08:48)
[2025-03-05] MEDS: POTASSIUM CHLORIDE 20 MEQ ER TABLET 40 MEQ PO (08:48)
[2025-03-05] MEDS: SERTRALINE HCL 50 MG TABLET PO (08:48)
--- NOTE | 2025-03-05 11:18 | PHAR ---
Home medication identified. White tablet G 135= Abiraterone 250mg. Returned to [address] [place] [address]
[2025-03-05] MEDS: LIDOCAINE 5% PATCH 1 PATCH TRANSDERM (13:11)
[2025-03-05 14:00] VITALS: BP 129/68; PULSE 89; RESP 18; TEMP 36.9; O2SAT 100
[2025-03-05] MEDS: ABIRATERONE 250 MG 250 EACH PO ×2 (17:04→20:30)
[2025-03-05] MEDS: RIVAROXABAN 20 MG TABLET PO (17:04)
[2025-03-05 20:13] VITALS: BP 139/84; PULSE 94; RESP 16; TEMP 36.5; O2SAT 97
[2025-03-06] VITALS (11 sets, daily range): BP systolic 123–187; BP diastolic 54–94; PULSE 90–106; RESP 16–20; TEMP 36–37; O2SAT 96–99
[2025-03-06 05:50] LABS: Hematocrit 31.3 % (42.0-52.0); Hemoglobin 10.2 g/dL (14.0-18.0); Mean Corpuscular HGB Conc 32.6 g/dl (32-36); Mean Corpuscular Hemoglobin 32.1 pg (26-34); Mean Corpuscular Volume 98.4 fl (80-100); Platelet Count Result 187 k/mm3 (150-375); Red Blood Count 3.18 M/mm3 (4.6-6.20); White Blood Count 5.8 K/mm3 (4.5-10.0)
[2025-03-06 06:08] LABS: Alanine Aminotransferase 13 U/L (6-50); Albumin Level 3.1 g/dL (3.5-5.1); Alkaline Phosphatase 66 U/L (38-126); Anion Gap 5 mmol/L (4-12); Aspartate Amino Transferase 31 U/L (17-59); Bilirubin,Total 0.6 mg/dL (0.2-1.3); Blood Urea Nitrogen 17 mg/dL (9-20); Calcium 8.6 mg/dL (8.4-10.2); Carbon Dioxide 23 mmol/L (22-30); Chloride 110 mmol/L (98-107); Estimated CRCL calculation 48 ml/min; Estimated Glomerular Filt Rate > 60; Glucose 98 mg/dL (65-110); Potassium 3.6 mmol/L (3.4-5.0); Sodium 138 mmol/L (137-145); Total Protein 5.6 g/dL (6.3-8.2)
--- NOTE | 2025-03-06 07:48 | PM.IMPN ---
Progress Note: A&P Assessment and Plan (1) Multiple falls: Code(s): R29.6 - Repeated falls Status: Acute Assessment and Plan: Patient was sitting on the toilet and fell forward and hit the top of his head. Down for approximately 2 hours before EMS arrival. Denies syncope, seizure, prior dizziness, reports it was a mechanical fall. Prior to admission he lives at assisted living and uses a walker for ambulation Laceration to right forehead was sutured in the ER. Follow with primary care or have the stitches removed in 7 days from placement if he is still here. 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 C Spine CT: No acute findings Endorsed left neck pain with turning, denies any tingling/numbness/shooting pain. Lidocaine patch. Improving pain, no midline tenderness Fall precautions, ambulate with assistance Previously discussed risks and benefits of Xarelto with patient. Patient wishes to continue Xarelto for previous DVT in atrial fibrillation. PT/OT recommending acute inpatient rehab Care coordination following for placement, awaiting acceptance (2) Orthostatic hypotension: Code(s): I95.1 - Orthostatic hypotension Status: Acute Assessment and Plan: On admission patient was thought to be dehydrated but upon receiving fluids he developed interstitial edema and shortness of breath. Chest XR: Probable developing interstitial pulmonary edema and/or pneumonitis on chronic interstitial lung disease. He has orthostatic hypotension however this will be difficult to treat with fluids given this development. Hold off on fluids, do not initiate antihypertensives for now. Continue to monitor blood pressures. Encourage slow rising to stand, buttock clinching, crossing of the legs, place abdominal binder and waist high compression stockings. Orthostatic vitals Negative. Slight dizziness with sitting up. Resolved without intervention. Continue to monitor. (3) Generalized weakness: Code(s): R53.1 - Weakness Status: Acute Assessment and Plan: Fall precautions, ambulate with assistance PT/OT evaluations. Care coordination following for placement, awaiting acceptance (4) Atrial fibrillation: Code(s): I48.91 - Unspecified atrial fibrillation Status: Acute Assessment and Plan: Chronic Current home medication: Xarelto 20 mg daily Patient wishes to continue Xarelto for previous DVT in atrial fibrillation. (5) Prostate CA: Code(s): C61 - Malignant neoplasm of prostate Status: Acute Assessment and Plan: Continue abiraterone 1 mg QID Time Spent With Patient Time with patient: 25 - 35 minutes Subjective Date/time seen: 03/06/25 07:48 Interval history: 89-year-old male with past medical history of metastatic prostate cancer with bone involvement, AFib on Xarelto, previous COVID with acute hypoxic respiratory failure, history of left lower extremity DVT presents to the hospital from assisted living as he was trying to sit on the toilet any fell forwards and hit the top of his head. Patient is pleasant sitting up comfortably on the side of the bed. He continues to endorse left-sided neck pain that he states has much improved since the lidocaine patch. During assessment orthostatic vital signs were performed and patient did no mild dizziness when sitting up on the side of the bed that resolved without intervention after a minute of sitting there. He denied any dizziness with standing. Patient has no other complaints denying chest pain, shortness a breath, palpitations, nausea/vomiting, and abdominal pain. Review of Systems Review of Systems: All systems reviewed & are unremarkable except as noted in HPI and below (Subjective) Exam Narrative: AF HR 90 RR 18 Spo2 99 BP 165/92 General: male in no acute respiratory distress who is nontoxic appearing, lying semi recumbent in bed. HEENT: Normocephalic. 6 interrupted sutures to the right forehead. Bruising to the bilateral periorbital region and nose. Extraocular movement intact. Sclera clear and anicteric. No facial asymmetry. No cervical midline tenderness. Chest: Lungs are clear to auscultation bilaterally. No wheezes or crackles. CV: Heart was regular rate and rhythm. Abd: Abdomen was soft. Nontender. Nondistended. Positive bowel sounds. Ext: No clubbing, cyanosis. DP pulses bilaterally. Neuro: Patient is alert and oriented x3. Speech is clear. Objective Data Vital Signs Vital Signs: Vital Signs - 24 hr 03/05/25 08:00 03/05/25 14:00 03/05/25 20:00 Temperature 98.5 F Pulse Rate 89 Respiratory Rate 18 Blood Pressure 129/68 Pulse Oximetry 100 Oxygen Delivery Room Air Room Air 03/05/25 20:13 03/06/25 04:00 03/06/25 04:05 Temperature 97.7 F 97.8 F Pulse Rate 94 106 H Respiratory Rate 16 18 Blood Pressure 139/84 170/86 H 146/85 H Pulse Oximetry 97 99 Oxygen Delivery 03/06/25 04:08 Temperature Pulse Rate Respiratory Rate Blood Pressure 123/72 Pulse Oximetry Oxygen Delivery Intake/Output Intake/Output: Intake & Output 03/03/25 03/04/25 03/05/25 03/06/25 23:59 23:59 23:59 23:59 Intake Total 1200 2820 2000 Output Total 275 800 650 Balance 1200 2545 1200 -650 Meds/Results Medications: Active Medications Generic Name Dose Route Start Last Admin Trade Name Freq PRN Reason Stop Dose Admin Acetaminophen 650 mg 03/03/25 17:41 03/05/25 20:37 Acetaminophen 325 Mg Tablet PO 650 mg Q8H PRN Administration Pain 1-3 Albuterol 2.5 mg 03/04/25 02:31 Albuterol Sulfate Neb 2.5 Mg/3 Ml Inh INHALATION Q4HRT PRN Shortness Of Breath Azelastine HCl 2 spray 03/03/25 17:41 Azelastine Hcl Nasal 0.1% 137 Mcg/Spr 30 Ml Btl NASAL Q12H PRN allergy symptoms Lidocaine 1 patch 03/05/25 12:00 03/05/25 13:11 Lidocaine 5% Patch TRANSDERM 1 patch DAILY [facility] Administration Loratadine 10 mg 03/04/25 09:00 03/05/25 08:48 Loratadine 10 Mg Tablet PO 10 mg DAILY [facility] Administration Abiraterone 250 Mg 250 mg 03/03/25 17:00 03/05/25 20:30 Tablet *Home Supply* PO 04/02/25 16:59 250 mg QID [facility] Administration Polyethylene Glycol 17 gm 03/05/25 11:42 Polyethylene Glycol 3350 17 Gm Powd.Pack PO QAM PRN Constipation Rivaroxaban 20 mg 03/04/25 17:00 03/05/25 17:04 Rivaroxaban 20 Mg Tablet PO 20 mg DAILY@1700 [facility] Administration Sertraline HCl 50 mg 03/04/25 09:00 03/05/25 08:48 Sertraline Hcl 50 Mg Tablet PO 50 mg DAILY [facility] Administration Radiology Results: ITS Impressions Head CT 03/03/25 07:56 IMPRESSION: 1. 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 Cervical Spine CT 03/03/25 08:27 IMPRESSION: 1. No acute findings. Chest X-Ray 03/04/25 10:02 IMPRESSION: 1. Probable developing interstitial pulmonary edema and/or pneumonitis on chronic interstitial lung disease. Labs Labs: Laboratory Results - last 24 hr 03/05/25 03/06/25 07:10 05:34 WBC 5.7 5.8 RBC 3.24 L 3.18 L Hgb 10.5 L 10.2 L Hct 32.5 L 31.3 L MCV 100.3 H 98.4 MCH 32.4 32.1 MCHC 32.3 32.6 RDW 14.8 H 14.7 H Plt Count 182 187 MPV 10.2 10.0 Sodium 137 138 Potassium 3.3 L 3.6 Chloride 110 H 110 H Carbon Dioxide 24 23 Anion Gap 3 L 5 BUN 17 17 Creatinine 0.91 0.92 Estim Creat Clear Calc 49 48 Estimated GFR > 60 > 60 Glucose 97 98 Calcium 8.5 8.6 Total Bilirubin 0.7 0.6 AST 33 31 ALT 12 13 Alkaline Phosphatase 79 66 Total Protein 5.6 L 5.6 L Albumin 3.1 L 3.1 L Quality VTE Prophylaxis VTE prophylaxis: pharmacologic ordered
[2025-03-06] MEDS: LIDOCAINE 5% PATCH 1 PATCH TRANSDERM (09:56)
[2025-03-06] MEDS: LORATADINE 10 MG TABLET PO (09:56)
[2025-03-06] MEDS: SERTRALINE HCL 50 MG TABLET PO (09:56)
[2025-03-06] MEDS: ABIRATERONE 250 MG 250 EACH PO ×3 (09:58→20:04)
[2025-03-06] MEDS: RIVAROXABAN 20 MG TABLET PO (18:01)
[2025-03-06] MEDS: ACETAMINOPHEN 325 MG TABLET 650 MG PO (20:43)
[2025-03-07 06:17] LABS: Hematocrit 33.2 % (42.0-52.0); Hemoglobin 10.3 g/dL (14.0-18.0); Mean Corpuscular HGB Conc 31.0 g/dl (32-36); Mean Corpuscular Hemoglobin 32.4 pg (26-34); Mean Corpuscular Volume 104.4 fl (80-100); Platelet Count Result 193 k/mm3 (150-375); Red Blood Count 3.18 M/mm3 (4.6-6.20); White Blood Count 6.2 K/mm3 (4.5-10.0)
[2025-03-07 06:58] VITALS: BP 175/89; PULSE 88; RESP 16; TEMP 36.7; O2SAT 98
[2025-03-07 07:08] LABS: Alanine Aminotransferase 10 U/L (6-50); Albumin Level 3.2 g/dL (3.5-5.1); Alkaline Phosphatase 69 U/L (38-126); Anion Gap 5 mmol/L (4-12); Aspartate Amino Transferase 29 U/L (17-59); Bilirubin,Total 0.9 mg/dL (0.2-1.3); Blood Urea Nitrogen 15 mg/dL (9-20); Calcium 8.4 mg/dL (8.4-10.2); Carbon Dioxide 22 mmol/L (22-30); Chloride 109 mmol/L (98-107); Estimated CRCL calculation 54 ml/min; Estimated Glomerular Filt Rate > 60; Glucose 103 mg/dL (65-110); Potassium 3.7 mmol/L (3.4-5.0); Sodium 136 mmol/L (137-145); Total Protein 5.8 g/dL (6.3-8.2)
--- NOTE | 2025-03-07 09:13 | PM.IMPN ---
Progress Note: A&P Assessment and Plan (1) Multiple falls: Code(s): R29.6 - Repeated falls Status: Acute Assessment and Plan: Patient was sitting on the toilet and fell forward and hit the top of his head. Down for approximately 2 hours before EMS arrival. Denies syncope, seizure, prior dizziness, reports it was a mechanical fall. Prior to admission he lives at assisted living and uses a walker for ambulation Laceration to right forehead was sutured in the ER. Follow with primary care or have the stitches removed in 7 days from placement if he is still here. 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 C Spine CT: No acute findings Endorsed left neck pain with turning, denies any tingling/numbness/shooting pain. Lidocaine patch. Improving pain, no midline tenderness Fall precautions, ambulate with assistance Previously discussed risks and benefits of Xarelto with patient. Patient wishes to continue Xarelto for previous DVT in atrial fibrillation. PT/OT recommending acute inpatient rehab Care coordination following for placement, awaiting acceptance (2) Orthostatic hypotension: Code(s): I95.1 - Orthostatic hypotension Status: Acute Assessment and Plan: On admission patient was thought to be dehydrated but upon receiving fluids he developed interstitial edema and shortness of breath. Chest XR: Probable developing interstitial pulmonary edema and/or pneumonitis on chronic interstitial lung disease. He has orthostatic hypotension however this will be difficult to treat with fluids given this development. Hold off on fluids, do not initiate antihypertensives for now. Continue to monitor blood pressures. Orthostatic vitals positive however no significant hypotension noted with standing blood pressures in the 120 systolic. No fluids or midodrine required as patient is not significantly hypotensive. Continue to monitor. Encourage slow rising to stand, buttock clinching, crossing of the legs, place abdominal binder and waist high compression stockings. (3) Generalized weakness: Code(s): R53.1 - Weakness Status: Acute Assessment and Plan: Fall precautions, ambulate with assistance PT/OT evaluations. Care coordination following for placement, awaiting acceptance (4) Atrial fibrillation: Code(s): I48.91 - Unspecified atrial fibrillation Status: Acute Assessment and Plan: Chronic Current home medication: Xarelto 20 mg daily Patient wishes to continue Xarelto for previous DVT in atrial fibrillation. (5) Prostate CA: Code(s): C61 - Malignant neoplasm of prostate Status: Acute Assessment and Plan: Continue abiraterone 1 mg QID Time Spent With Patient Time with patient: 25 - 35 minutes Subjective Date/time seen: 03/07/25 09:13 Interval history: 89-year-old male with past medical history of metastatic prostate cancer with bone involvement, AFib on Xarelto, previous COVID with acute hypoxic respiratory failure, history of left lower extremity DVT presents to the hospital from assisted living as he was trying to sit on the toilet any fell forwards and hit the top of his head. Patient is pleasant lying comfortably in bed with family at bedside. He endorses ongoing neck pain without associated tingling/numbness/shooting pain to the extremities. Patient originally stating well treated with the Tylenol and lidocaine however today he endorses increased stiffness. He states the pain caused him to have a few episodes of vomiting earlier this morning. He denies any abdominal pain. He does note that he has not had a bowel movement in about 1 week and is not passing flatus. Ordered KUB. He denies any current nausea during assessment. He has no other complaints denying chest pain, palpitations and shortness of breath. Review of Systems Review of Systems: All systems reviewed & are unremarkable except as noted in HPI and below (Subjective) Exam Narrative: AF HR General: male in no acute respiratory distress who is nontoxic appearing, lying semi recumbent in bed. HEENT: Normocephalic. 6 interrupted sutures to the right forehead. Bruising to the bilateral periorbital region and nose. No cervical midline tenderness. Lidocaine patch in place. Chest: Lungs are clear to auscultation bilaterally. No wheezes or crackles. CV: Heart was regular rate and rhythm. Abd: Abdomen was soft. Nontender. Nondistended. Positive bowel sounds. Ext: No clubbing, cyanosis. DP pulses bilaterally. Neuro: Patient is alert and oriented x3. Speech is clear. Objective Data Vital Signs Vital Signs: Vital Signs - 24 hr 03/06/25 09:56 03/06/25 15:08 03/06/25 19:39 Temperature 96.8 F L Pulse Rate 91 94 Respiratory Rate 18 20 Blood Pressure 147/82 H Pulse Oximetry 99 96 Oxygen Delivery Room Air Room Air Fraction of Inspired Oxygen 21 03/06/25 20:12 03/06/25 20:15 03/06/25 20:15 Temperature 98.6 F Pulse Rate 96 Respiratory Rate 16 Blood Pressure 187/89 H 187/89 H 124/54 L Pulse Oximetry 97 Oxygen Delivery Fraction of Inspired Oxygen 03/06/25 21:50 03/07/25 06:58 Temperature 98.0 F Pulse Rate 88 Respiratory Rate 16 Blood Pressure 129/73 175/89 H Pulse Oximetry 98 Oxygen Delivery Fraction of Inspired Oxygen Intake/Output Intake/Output: Intake & Output 03/04/25 03/05/25 03/06/25 03/07/25 23:59 23:59 23:59 23:59 Intake Total 2820 2000 1310 200 Output Total 532 592 9584 600 Balance 2545 1200 -140 -400 Meds/Results Medications: Active Medications Generic Name Dose Route Start Last Admin Trade Name Freq PRN Reason Stop Dose Admin Acetaminophen 650 mg 03/03/25 17:41 03/06/25 20:43 Acetaminophen 325 Mg Tablet PO 650 mg Q8H PRN Administration Pain 1-3 Albuterol 2.5 mg 03/04/25 02:31 Albuterol Sulfate Neb 2.5 Mg/3 Ml Inh INHALATION Q4HRT PRN Shortness Of Breath Azelastine HCl 2 spray 03/03/25 17:41 Azelastine Hcl Nasal 0.1% 137 Mcg/Spr 30 Ml Btl NASAL Q12H PRN allergy symptoms Lidocaine 1 patch 03/05/25 12:00 03/06/25 09:56 Lidocaine 5% Patch TRANSDERM 1 patch DAILY [facility] Administration Loratadine 10 mg 03/04/25 09:00 03/06/25 09:56 Loratadine 10 Mg Tablet PO 10 mg DAILY [facility] Administration Abiraterone 250 Mg 250 mg 03/03/25 17:00 03/06/25 20:04 Tablet *Home Supply* PO 04/02/25 16:59 250 mg QID [facility] Administration Polyethylene Glycol 17 gm 03/05/25 11:42 Polyethylene Glycol 3350 17 Gm Powd.Pack PO QAM PRN Constipation Rivaroxaban 20 mg 03/04/25 17:00 03/06/25 18:01 Rivaroxaban 20 Mg Tablet PO 20 mg DAILY@1700 [facility] Administration Sertraline HCl 50 mg 03/04/25 09:00 03/06/25 09:56 Sertraline Hcl 50 Mg Tablet PO 50 mg DAILY [facility] Administration Radiology Results: ITS Impressions Head CT 03/03/25 07:56 IMPRESSION: 1. 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 Cervical Spine CT 03/03/25 08:27 IMPRESSION: 1. No acute findings. Chest X-Ray 03/04/25 10:02 IMPRESSION: 1. Probable developing interstitial pulmonary edema and/or pneumonitis on chronic interstitial lung disease. Labs Labs: Laboratory Results - last 24 hr 03/07/25 05:45 WBC 6.2 RBC 3.18 L Hgb 10.3 L Hct 33.2 L MCV 104.4 H D MCH 32.4 MCHC 31.0 L RDW 14.5 Plt Count 193 MPV 10.0 Sodium 136 L Potassium 3.7 Chloride 109 H Carbon Dioxide 22 Anion Gap 5 BUN 15 Creatinine 0.82 Estim Creat Clear Calc 54 Estimated GFR > 60 Glucose 103 Calcium 8.4 Total Bilirubin 0.9 AST 29 ALT 10 Alkaline Phosphatase 69 Total Protein 5.8 L Albumin 3.2 L Quality VTE Prophylaxis VTE prophylaxis: pharmacologic ordered
[2025-03-07] MEDS: LORATADINE 10 MG TABLET PO (09:41)
[2025-03-07] MEDS: ABIRATERONE 250 MG 250 EACH PO ×4 (09:41→22:20)
[2025-03-07] MEDS: SERTRALINE HCL 50 MG TABLET PO (09:41)
[2025-03-07] MEDS: LIDOCAINE 5% PATCH 1 PATCH TRANSDERM (09:41)
--- NOTE | 2025-03-07 09:54 | PC.NURSE ---
RN called hospitalist Teresa SANTOS at [phone] for family medication request. No answer at this time.
[2025-03-07] MEDS: ACETAMINOPHEN 325 MG TABLET 650 MG PO ×2 (13:58→22:19)
[2025-03-07 14:46] VITALS: BP 161/86; PULSE 95
[2025-03-07 14:47] VITALS: BP 126/75; BP 143/83; PULSE 112; PULSE 99
[2025-03-07 14:50] VITALS: BP 161/86; PULSE 95; RESP 18; TEMP 36.7; O2SAT 99
--- NOTE | 2025-03-07 16:15 | PC.NURSE ---
Marlee patients daughter called wanting to speak with charge nurse. Marlee reports she has been asking for a muscle relaxer for her dad since Thursday. She reports this has been thru several nurses and shifts and no one seems to know about it. She reports Nurse Tim reports she called provider Teresa who said she will look into it. Stitching Machine Setter was present when Nurse Tim called Teresa @ 1620 this still has not been addressed and she reports her dad neck is stiff and sore. Stitching Machine Setter called Teresa to get update on progress. Teresa reports she is not comfortable ordering a muscle relaxer because patient came in with syncope and is 89yrs old. Teresa states she was told by patient and nursing pain is improving and patient has lidocaine patch. Stitching Machine Setter repeated the conversation that was had with Marlee. Teresa reports she will review chart and order something. Stitching Machine Setter called Marlee back and made aware of conversation. Ensured Marlee will follow up with Teresa in 1hr if nothing is ordered. Marlee reports she still thinks it should have not taken three days to get this answer. Stitching Machine Setter transferred her to patient advocate to further investigate this issues for future reference.
[2025-03-07] MEDS: RIVAROXABAN 20 MG TABLET PO (16:47)
[2025-03-07] MEDS: KETOROLAC 10 MG TABLET PO (16:47)
[2025-03-07 20:00] VITALS: BP 122/74; PULSE 95; RESP 18; TEMP 36.4; O2SAT 98
[2025-03-07 20:05] VITALS: BP 128/69; PULSE 85
[2025-03-08 05:24] VITALS: BP 140/79; PULSE 96; RESP 16; TEMP 37.4; O2SAT 96
[2025-03-08 05:30] LABS: Hematocrit 30.4 % (42.0-52.0); Hemoglobin 10.2 g/dL (14.0-18.0); Mean Corpuscular HGB Conc 33.6 g/dl (32-36); Mean Corpuscular Hemoglobin 32.7 pg (26-34); Mean Corpuscular Volume 97.4 fl (80-100); Platelet Count Result 189 k/mm3 (150-375); Red Blood Count 3.12 M/mm3 (4.6-6.20); White Blood Count 5.4 K/mm3 (4.5-10.0)
[2025-03-08 05:48] LABS: Alanine Aminotransferase 11 U/L (6-50); Albumin Level 3.2 g/dL (3.5-5.1); Alkaline Phosphatase 68 U/L (38-126); Anion Gap 5 mmol/L (4-12); Aspartate Amino Transferase 27 U/L (17-59); Bilirubin,Total 0.7 mg/dL (0.2-1.3); Blood Urea Nitrogen 19 mg/dL (9-20); Calcium 8.3 mg/dL (8.4-10.2); Carbon Dioxide 22 mmol/L (22-30); Chloride 107 mmol/L (98-107); Estimated CRCL calculation 47 ml/min; Estimated Glomerular Filt Rate > 60; Glucose 97 mg/dL (65-110); Potassium 3.3 mmol/L (3.4-5.0); Sodium 134 mmol/L (137-145); Total Protein 5.7 g/dL (6.3-8.2)
[2025-03-08] MEDS: LORATADINE 10 MG TABLET PO (09:38)
[2025-03-08] MEDS: SERTRALINE HCL 50 MG TABLET PO (09:38)
[2025-03-08] MEDS: ABIRATERONE 250 MG 250 EACH PO ×2 (09:39→12:09)
[2025-03-08] MEDS: LIDOCAINE 5% PATCH 1 PATCH TRANSDERM (09:39)
--- NOTE | 2025-03-08 11:36 | P.DS_ITS ---
DS: Admitting Diagnosis Discharge Date 03/08 Admitting Diagnosis fall DS: Discharge Diagnosis Discharge Diagnosis (1) Multiple falls: Code(s): R29.6 - Repeated falls Status: Acute (2) Orthostatic hypotension: Code(s): I95.1 - Orthostatic hypotension Status: Acute (3) Generalized weakness: Code(s): R53.1 - Weakness Status: Acute (4) Atrial fibrillation: Code(s): I48.91 - Unspecified atrial fibrillation Status: Acute (5) Prostate CA: Code(s): C61 - Malignant neoplasm of prostate Status: Acute Assessment and Plan: Continue abiraterone 1 mg QID DS: Summary Hospital Course Hospital Course: 89-year-old male with past medical history of metastatic prostate cancer with bone involvement, AFib on Xarelto, previous COVID with acute hypoxic respiratory failure, history of left lower extremity DVT presents to the hospital from assisted living as he was trying to sit on the toilet any fell forwards and hit the top of his head. Several issues were addressed: #multiple falls Patient was sitting on the toilet and fell forward and hit the top of his head. Down for approximately 2 hours before EMS arrival. Denies syncope, seizure, prior dizziness, reports it was a mechanical fall. Prior to admission he lives at assisted living and uses a walker for ambulation Laceration to right forehead was sutured in the ER. Follow with primary care or have the stitches removed in 7 days from placement if he is still here. 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 C Spine CT: No acute findings Endorsed left neck pain with turning, denies any tingling/numbness/shooting pain. Lidocaine patch. Improving pain, no midline tenderness Fall precautions, ambulate with assistance Previously discussed risks and benefits of Xarelto with patient. Patient wishes to continue Xarelto for previous DVT in atrial fibrillation. PT/OT recommending acute inpatient rehab Care coordination following for placement, awaiting acceptance #orthostatic hypotension On admission patient was thought to be dehydrated but upon receiving fluids he developed interstitial edema and shortness of breath. Chest XR: Probable developing interstitial pulmonary edema and/or pneumonitis on chronic interstitial lung disease. He has orthostatic hypotension however this will be difficult to treat with fluids given this development. Hold off on fluids, do not initiate antihypertensives for now. Continue to monitor blood pressures. Orthostatic vitals positive however no significant hypotension noted with standing blood pressures in the 120 systolic. No fluids or midodrine required as patient is not significantly hypotensive. Encourage slow rising to stand, buttock clinching, crossing of the legs, place abdominal binder and waist high compression stockings. Had been stable. # afib Chronic Current home medication: Xarelto 20 mg daily Patient wishes to continue Xarelto for previous DVT in atrial fibrillation. Pt is fall/bleeding risk #Prostate CA Continue abiraterone 1 mg QID Status at Discharge Functional status at discharge: uses cane/walker Overall status at discharge: patient is progressing back to baseline Time Spent with Patient Time attestation: Total time spent providing and/or coordinating discharge services: Time spent: Greater than 30 minutes Exam Narrative: General: male in no acute respiratory distress who is nontoxic appearing, lying semi recumbent in bed. HEENT: Normocephalic. 6 interrupted sutures to the right forehead. Bruising to the bilateral periorbital region and nose. No cervical midline tenderness. Lidocaine patch in place. Chest: Lungs are clear to auscultation bilaterally. No wheezes or crackles. CV: Heart was regular rate and rhythm. Abd: Abdomen was soft. Nontender. Nondistended. Positive bowel sounds. Ext: No clubbing, cyanosis. DP pulses bilaterally. Neuro: Patient is alert and oriented x3. Speech is clear. Const: General: comfortable and no acute distress HENMT: Mouth: Yes moist mucous membranes Eyes: Pupils: Equal, round and reactive pupils present Neck: Neck: supple Resp: Effort & Inspection: normal respiratory effort Auscultation: clear to auscultation bilaterally Cardio: Rate: regular rate Rhythm: regular rhythm : General: Yes bladder normal to palpation Neuro: Cranial nerves: Yes Equal, round and reactive pupils present Motor exam (neuro): 5/5 motor strength present throughout Extrem: General: no edema DS: Data Data Completed and Pending Labs on day of discharge: Labs from last 24 hours 03/08/25 05:17 WBC 5.4 RBC 3.12 L Hgb 10.2 L Hct 30.4 L MCV 97.4 D MCH 32.7 MCHC 33.6 RDW 14.4 Plt Count 189 MPV 9.9 Sodium 134 L Potassium 3.3 L Chloride 107 Carbon Dioxide 22 Anion Gap 5 BUN 19 Creatinine 0.95 Estim Creat Clear Calc 47 Estimated GFR > 60 Glucose 97 Calcium 8.3 L Total Bilirubin 0.7 AST 27 ALT 11 Alkaline Phosphatase 68 Total Protein 5.7 L Albumin 3.2 L Discharge Plan Discharge Attending physician on discharge: Sage Wooten Consulting providers: Alexandra Johnson Discharging Clinician: [place] Patient Disposition: SNF Activity: october shower Diet: heart healthy Discharge Instructions: Pt was admitted for multiple falls Laceration to right forehead was sutured in the ER. Follow with primary care or have the stitches removed in 7 days from placement if he is still here. 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 C Spine CT: No acute findings #orthostatic hypotension On admission patient was thought to be dehydrated but upon receiving fluids he developed interstitial edema and shortness of breath. Chest XR: Probable developing interstitial pulmonary edema and/or pneumonitis on chronic interstitial lung disease. He has orthostatic hypotension however this will be difficult to treat with flu ids given this development. Hold off on fluids, do not initiate antihypertensives for now. Continue to monitor blood pressures. Orthostatic vitals positive however no significant hypotension noted with standing blood pressures in the 120 systolic. No fluids or midodrine required as patient is not significantly hypotensive. Encourage slow rising to stand, buttock clinching, crossing of the legs, place abdominal binder and waist high compression stockings. Had been stable. # afib Chronic Current home medication: Xarelto 20 mg daily Patient wishes to continue Xarelto for previous DVT in atrial fibrillation. Pt is fall/bleeding risk Patient Instructions: Rivaroxaban (By mouth) Patient Language: Azerbaijani Stand Alone Forms: General Discharge Information Follow-up/Referrals: Harms,Geoffrey Chacon M.D. [Primary Care Provider] - 2 Weeks Discharge Medications: New polyethylene glycol 3350 [Miralax] 17 gram Powder In Packet 17 g PO QAM PRN (Reason: Constipation) Qty: 10 0RF Continued loratadine 10 mg Tablet 10 mg PO DAILY Patient Comments: .... Xarelto 20 mg tablet 20 mg PO DAILY Qty: 30 0RF Rx Instructions: must administer with evening meal after 15 mg twice daily dosing for 21 days sertraline 50 mg tablet 50 mg PO DAILY acetaminophen [8 Hour Pain Reliever] 650 mg tablet extended release 650 mg PO Q8H PRN (Reason: pain) abiraterone 250 mg tablet 250 mg PO QID azelastine 137 mcg (0.1 %) spray,non-aerosol 2 spray INTRANASAL Q12H PRN (Reason: allergy symptoms) Date of admission: 03/04/25 17:37 Primary Care Provider: RoshanGeoffrey Admitting Provider: Laz Winslow Attending physician on admission: Laz Winslow Condition: Stable Quality VTE Prophylaxis VTE prophylaxis: pharmacologic ordered Hospitalist MIPS Heart Failure (Exclusion) Patient has history of Heart Transplant or Left Ventricular Assistive Device?: No IF YES, STOP HERE Heart Failure (Qualifier) Patient has current or prior documentation of LVEF less than or equal to 40%, or mod/servere depressed LVSF?: No IF NO, STOP HERE
[2025-03-08 12:45] LABS: SARS-CoV-2 RNA PCR Negative (Negative)
== END 2025-03-08 14:35 | DRG 605 ==
LOC: ANHED 04:08 → ANH3MED 12:06
PROVIDERS: Emergency Medicine; General Practice; Student in an Organized Health Care Education/Training Program; Admitting Provider Internal Medicine; Emergency Provider Emergency Medicine; PCP Family Medicine; Visit Provider Nurse Practitioner
DX: S01.01XA Laceration without foreign body of scalp, initial encounter (principal); I48.20 Chronic atrial fibrillation, unspecified; C61 Malignant neoplasm of prostate; W19.XXXA Unspecified fall, initial encounter; I95.1 Orthostatic hypotension; R29.6 Repeated falls; Z79.01 Long term (current) use of anticoagulants; Z86.718 Personal history of other venous thrombosis and embolism; Z66 Do not resuscitate; Z86.73 Personal history of transient ischemic attack (TIA), and cerebral infarction without residual deficits; Z11.52 Encounter for screening for COVID-19; Z20.822 Contact with and (suspected) exposure to COVID-19
CPT/HCPCS: 36415; 70450; 71045; 72125; 74018; 80048; 80053; 81003; 83735; 85025; 85027; 87635; 87637; 93005; 96360; 96361; 97110; 97116; 97161; 97165; 97530; 99285; A9270; G0378; J7030

== ENCOUNTER 2025-03-30 01:15 | Inpatient (IN) | payer MEDICARE, MEDICAID, SELFPAY ==
[2025-03-30] VITALS (49 sets, daily range): BP systolic 119–178; BP diastolic 65–113; PULSE 94–149; RESP 20–39; TEMP 37–39; O2SAT 91–98; BMI 27.1
--- NOTE | ~2025-03-30 | US_ITS ---
COMPARISON: [None.] FINDINGS: [The liver parenchyma is unremarkable.] [No intrahepatic ductal dilatation is evident.] Gallbladder is distended. There is echogenic debris in the gallbladder. No pericholecystic fluid. The common bile duct is normal in size, measuring 5.1 mm. IMPRESSION echogenic debris in the gallbladder may represent sludge. Common bowel loss normal in thickness. There are no pericholecystic fluid. Reviewed, dictated and finalized at location S. IMPRESSION echogenic debris in the gallbladder may represent sludge. Common bow el loss normal in thickness. There are no pericholecystic fluid.
--- NOTE | ~2025-03-30 | CT_ITS ---
CT HEAD NON-CONTRAST Clinical History: Mental status changes Comparison: CT brain 03/03/2025 Technique: Unenhanced axial images skull base to vertex Coronal, sagittal reformats CT images acquired with automatic exposure control for dose reduction DLP: 757 mGy-cm Findings: Severe age-related atrophy. Chronic white matter microvascular ischemic changes. Right basal ganglia lacunae. Sulci, ventricles: Unremarkable. No intracerebral hemorrhage. No evidence acute territorial infarct. No mass effect, midline shift. Bony calvarium intact. Visualized paranasal sinuses: Clear. Mastoid air cells: Clear. IMPRESSION: 1. No acute intracranial findings. Reviewed, dictated and finalized at location R.
--- NOTE | ~2025-03-30 | XR_ITS ---
XR ankle RT min 3V 04/06/2025 13:46 Indication: Right ankle pain Procedure: 4 views right ankle Comparison: 01/15/2016 Findings: There are degenerative changes of the ankle. No acute fracture or traumatic malalignment. Talar dome is normal. Ankle mortise intact. Small degenerative calcaneal enthesophytes. Impression: 1: Mild polyarticular osteoarthritis. Reviewed, dictated and finalized at location O. Impression: 1: Mild polyarticular osteoarthritis.
--- NOTE | ~2025-03-30 | XR_ITS ---
Examination: XR chest 1V portable Clinical History: Fever Comparison: 03/04/2025 Technique: Portable AP Findings: Heart size enlarged. Minimal chronic interstitial changes and/or scarring. Lungs otherwise clear. No acute bony abnormality. IMPRESSION: 1. No acute cardiopulmonary findings given portable technique. Reviewed, dictated and finalized at location R.
--- NOTE | ~2025-03-30 | XR_ITS ---
Examination: XR chest 1V portable Clinical History: possible aspiration Comparison: 2:00 AM same day Technique: Portable AP Findings: Heart size enlarged. Trace worsening bibasilar opacities. Mild chronic interstitial changes and/or scarring. No acute bony abnormality. IMPRESSION: 1. Minimal bibasilar aspiration not excluded. 2. No large airspace disease. Reviewed, dictated and finalized at location R.
--- NOTE | ~2025-03-30 | CT_ITS ---
CTA CHEST CLINICAL HISTORY: Hypoxia hx of PE . COMPARISON: Chest x-ray today TECHNIQUE: Helical CTA performed from thoracic inlet to upper abdomen IV contrast information not listed in PACS Coronal, sagittal reformats. Multiplanar MIPS CT images acquired with automatic exposure control for dose reduction DLP: 521 mGy-cm FINDINGS: Severe respiratory motion artifact. Pulmonary arteries: No PE identified. Thoracic Aorta: 2 cm saccular aneurysm along inferior distal arch. Heart/pericardium: Unremarkable. RV/LV ratio: Normal. Lungs/Pleura: Airspace disease dependent right upper lobe. Mild bibasilar atelectasis and/or airspace disease Tracheobronchial tree: Patent. Nodes: No enlarged nodes. Bones: No acute bony abnormality. Soft tissues: Unremarkable. Visualized upper abdomen: Cirrhosis. Hepatomegaly. IMPRESSION: 1. Right upper lobe aspiration pneumonia. 2. 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 Recommend endovascular or surgical consultation for management. 3. No large central PE identified. Respiratory motion artifact precludes evaluation of segmental branches and beyond. Reviewed, dictated and finalized at location R. IMPRESSION: 1. Right upper lobe aspiration pneumonia. 2. 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 Recommend endova scular or surgical consultation for management. 3. No large central PE identified. Respiratory motion artifact precludes evalu ation of segmental branches and beyond.
--- NOTE | ~2025-03-30 | CT_ITS ---
EXAMINATION: CT abdomen pelvis w con DATE: 03/30/2025 02:48 INDICATION: Abdominal pain. Fever. TECHNIQUE: Computed tomography (CT) of the abdomen and pelvis was performed with 100 mL Omnipaque 350 intravenous contrast. Automated exposure control and iterative reconstruction technique were employed. The dose-length product was 1046.34 mGy-cm. COMPARISON: None. FINDINGS: The visualized portions of the lung bases demonstrate peripheral septal thickening and mild bronchiectasis, consistent with chronic interstitial lung disease. There is a trace left pleural effusion. The heart size is normal. There are coronary artery calcifications. No pericardial effusion. There is a small sliding hiatal hernia. The liver demonstrates focal steatosis adjacent to the falciform ligament. There is a 9 mm cyst in the liver. Gallbladder distention is noted. The spleen, pancreas, and adrenal glands are normal. There is cortical thinning of the kidneys. There are cysts in the kidneys measuring up to 2.3 cm on the right. There is a 1.9 cm mass in left kidney. The bladder is distended. Stool distends the rectum. There is diverticulosis of the colon without evidence of diverticulitis. The appendix is normal. There are no pathologically enlarged lymph nodes. There is no free intraperitoneal fluid. There is severe lumbar spondylosis. There are bridging endplate osteophytes at multiple levels in the thoracic spine, consistent with diffuse idiopathic skeletal hyperostosis (DISH). There is a healing fracture of right 11th rib. IMPRESSION: 1. Stool distends the rectum. 2. Gallbladder distention, which may be secondary to fasting. Correlate with physical exam to exclude acute cholecystitis. 3. 1.9 cm left kidney mass which may be a hemorrhagic cyst or renal cell carcinoma. Abdomen CT or MRI without and with contrast is recommended. 4. Chronic interstitial lung disease. 5. Small sliding hiatal hernia. Reviewed, dictated and finalized at location E. IMPRESSION: 1. Stool distends the rectum. 2. Gallbladder distention, which may be secondary to fasting. Correlate with ph ysical exam to exclude acute cholecystitis. 3. 1.9 cm left kidney mass which may be a hemorrhagic cyst or renal cell carcin cris. Abdomen CT or MRI without and with contrast is recommended. 4. Chronic interstitial lung disease. 5. Small sliding hiatal hernia.
--- NOTE | 2025-03-30 01:39 | ECG_ITS ---
Test Date: 2025-03-30 02:34:27 Measurements Intervals [place] Rate: 124 P: 0 MA: 0 QRS: 12 QRSD: 141 T: 24 QT: 342 QTc: 492 Interpretive Statements ATRIAL FLUTTER/TACHYCARDIA WITH RAPID VENTRICULAR RESPONSE RIGHT BUNDLE BRANCH BLOCK BASELINE ARTIFACT- I, II, III, AVR, AVL, AVF, V1-V6 ABNORMAL ECG Compared to ECG 03/03/2025 21:32:13 NO SIGNIFICANT CHANGE Electronically Signed On 03-30-2025 05:14:28 CDT by Jamal Werner D.O.
--- NOTE | 2025-03-30 01:49 | ED.GENADULT ---
HPI - General Adult General Chief complaint: Nausea/Vomiting/Diarrhea <Elder Dean MD - Last Filed: 03/30/25 01:52> Stated complaint: VOMITING/CHILLS <Elder Dean MD - Last Filed: 03/30/25 01:52> Time Seen by Provider: 03/30/25 01:30 <Elder Dean MD - Last Filed: 03/30/25 01:52> History of Present Illness HPI narrative: Patient is a 9-year-old gentleman who presents emergency department with chief complaint of nausea vomiting chills and fever. Patient is resident of [facility] and started having multiple episodes of nausea vomiting the patient states he is having chills the patient states that he does does not feel well <Elder Dean MD - Last Filed: 03/30/25 01:52> Patient is a 89-year-old gentleman who presents emergency department with chief complaint of nausea vomiting chills and fever. Patient is resident of [facility] and started having multiple episodes of nausea vomiting the patient states he is having chills the patient states that he does does not feel well <Pierre Chakraborty MD - Last Filed: 03/30/25 19:47> Related Data Home medications: Home Medications ?Medication ?Instructions ?Recorded ?Confirmed ?Last Taken ?Type loratadine 10 mg tablet 10 mg PO DAILY 04/25/23 03/30/25 03/02/25 History abiraterone 250 mg tablet 250 mg PO QID 01/23/25 03/30/25 03/02/25 History azelastine 137 mcg (0.1 %) nasal 2 spray intranasal Q12H PRN 01/23/25 03/30/25 Unknown History spray allergy symptoms acetaminophen 650 mg 650 mg PO Q8H PRN pain 03/03/25 03/30/25 Unknown History tablet,extended release (8 Hour Pain Reliever) sertraline 50 mg tablet 50 mg PO DAILY 03/03/25 03/30/25 03/02/25 History melatonin 5 mg tablet 5 mg PO HS 03/30/25 03/30/25 Unknown History <Elder Dean MD - Last Filed: 03/30/25 01:52> Allergies/adverse reactions: Allergies Allergy/AdvReac Type Severity Reaction Status Date / Time No Known Allergies Allergy Verified 03/30/25 14:35 <Elder Dean MD - Last Filed: 03/30/25 01:52> Review of Systems Review of Systems: A 10 system review of systems was completed on the patient and is negative except for what is stated in the HPI. Nursing and ancillary documentation was reviewed. <Elder Dean MD - Last Filed: 03/30/25 01:52> PMFSH Past Medical History Medical History: Medical History (Updated 03/30/25 @ 13:50 by Peri Aponte, PREFABRICATOR) Multiple falls COVID-19 Secondary malignant neoplasm of bone Prostate CA Atrial fibrillation Orthostatic hypotension CHF (congestive heart failure) <Elder Dean MD - Last Filed: 03/30/25 01:52> Family History Family History: Family History Other Unknown family medical history <Elder Dean MD - Last Filed: 03/30/25 01:52> Social History Social History: Social History Smoking packs per day: 1 Smoking cigarettes per day: 20.0 Years smoked: 15 Smoking pack-years: 15.00 Smoking status: Former smoker Alcohol intake: never Drinks per week: 0 Alcohol use details: 2 per month Substance use: never Lack of Transportation: No Lack of Food: Never True Current Housing: I Have Housing Concerned About Future Housing: No Difficulty Paying Gas/Electric Bills: No Difficulty Paying for Meds: No Currently Unemployed: No Education: High School Diploma/GED Difficulty w/ Childcare or Family Care: No Living arrangements: assisted living Additional living arrangements comments: [facility] phone Spiritual care concerns: Yes <Elder Dean MD - Last Filed: 03/30/25 01:52> Exam Narrative: GENERAL: Well-appearing, well-nourished, and is actively dry heaving. HEAD: Normocephalic, atraumatic. EYES: PERRLA and EOMI. ENT: Nares clear, no rhinorrhea or epistaxis. Mucous membranes moist. NECK: Supple. CHEST: Clear to auscultation. No respiratory distress. HEART: Tachycardic rate and rhythm. No murmur heard. Normal peripheral pulses. ABDOMEN: Soft, nontender, nondistended, normal active bowel sounds. EXTREMITIES: Normal range of motion. No edema. SKIN: Warm, dry, no rash. NEURO: No focal deficits. Alert and oriented x3. PSYCH: Normal mood and affect. <Elder Dean MD - Last Filed: 03/30/25 01:52> Course Course Emergency Course: 06:00 - This patient was signed out to me by previous ED physician, Dr. Dean pending CT. 10:00 - The patient began the setting further in was put on 4 L of nasal cannula. Repeat chest x-ray on my evaluation showed changes concerning for aspiration pneumonia on the right side. On re-evaluation, the patient had rhonchi and was tachycardic to the 130s. EKG demonstrates AFib with RVR with blood pressure in the 170 systolic. The patient was started on Cardizem drip. BNP is elevated 2710, down from 5000 previously. All further discussion with family members, the patient has had a history of PE. CT PE study negative for PE though does show right upper lobe aspiration pneumonia. The patient's heart rate is decreased to 109 with Cardizem drip. I discussed the patient with hospitalist, Dr. Abreu who accepts admission to IMU. <Pierre Chakraborty MD - Last Filed: 03/30/25 19:47> Vital Signs Vital signs: Vital Signs Temperature 99.9 F H 03/30/25 01:20 Pulse Rate 133 H 03/30/25 01:20 Respiratory Rate 26 H 03/30/25 01:20 Blood Pressure 154/92 H 03/30/25 01:20 Pulse Oximetry 97 03/30/25 01:20 Oxygen Delivery Room Air 03/30/25 01:20 Temperature 98.6 F 03/30/25 07:35 Pulse Rate 107 H 03/30/25 09:03 Respiratory Rate 38 H 03/30/25 09:03 Blood Pressure 176/81 H 03/30/25 09:03 Pulse Oximetry 96 03/30/25 09:18 Oxygen Delivery Nasal Cannula 03/30/25 09:18 Oxygen Flow Rate 4 03/30/25 09:18 <Elder Dean MD - Last Filed: 03/30/25 01:52> Vital Signs Temperature 99.9 F H 03/30/25 01:20 Pulse Rate 133 H 03/30/25 01:20 Respiratory Rate 26 H 03/30/25 01:20 Blood Pressure 154/92 H 03/30/25 01:20 Pulse Oximetry 97 03/30/25 01:20 Oxygen Delivery Room Air 03/30/25 01:20 Temperature 98.6 F 03/30/25 07:35 Pulse Rate 107 H 03/30/25 09:03 Respiratory Rate 38 H 03/30/25 09:03 Blood Pressure 176/81 H 03/30/25 09:03 Pulse Oximetry 96 03/30/25 09:18 Oxygen Delivery Nasal Cannula 03/30/25 09:18 Oxygen Flow Rate 4 03/30/25 09:18 <Pierre Chakraborty MD - Last Filed: 03/30/25 19:47> Medical Decision Making MDM Narrative Medical decision making narrative: Plan: Labs, imaging, EKG, troponin, reassess <Pierre Chakraborty MD - Last Filed: 03/30/25 19:47> Differential Diagnosis Differential Diagnosis: UTI, pneumonia, ACS, metabolic abnormality, renal failure, aspiration pneumonia, CHF exacerbation, other <Pierre Chakraborty MD - Last Filed: 03/30/25 19:47> Vital Signs Vital Signs: Vital Signs Temperature 99.9 F H 03/30/25 01:20 Pulse Rate 133 H 03/30/25 01:20 Respiratory Rate 26 H 03/30/25 01:20 Blood Pressure 154/92 H 03/30/25 01:20 Pulse Oximetry 97 03/30/25 01:20 Oxygen Delivery Room Air 03/30/25 01:20 Temperature 98.6 F 03/30/25 07:35 Pulse Rate 107 H 03/30/25 09:03 Respiratory Rate 38 H 03/30/25 09:03 Blood Pressure 176/81 H 03/30/25 09:03 Pulse Oximetry 96 03/30/25 09:18 Oxygen Delivery Nasal Cannula 03/30/25 09:18 Oxygen Flow Rate 4 03/30/25 09:18 <Elder Dean MD - Last Filed: 03/30/25 01:52> Vital Signs Temperature 99.9 F H 03/30/25 01:20 Pulse Rate 133 H 03/30/25 01:20 Respiratory Rate 26 H 03/30/25 01:20 Blood Pressure 154/92 H 03/30/25 01:20 Pulse Oximetry 97 03/30/25 01:20 Oxygen Delivery Room Air 03/30/25 01:20 Temperature 98.6 F 03/30/25 07:35 Pulse Rate 107 H 03/30/25 09:03 Respiratory Rate 38 H 03/30/25 09:03 Blood Pressure 176/81 H 03/30/25 09:03 Pulse Oximetry 96 03/30/25 09:18 Oxygen Delivery Nasal Cannula 03/30/25 09:18 Oxygen Flow Rate 4 03/30/25 09:18 <Pierre Chakraborty MD - Last Filed: 03/30/25 19:47> Lab Data Result diagrams: 03/30/25 02:01 03/30/25 02:01 <Elder Dean MD - Last Filed: 03/30/25 01:52> Labs: Lab Results 03/30/25 03/30/25 03/30/25 Range/Units 02:01 03:28 05:42 WBC 7.0 (4.5-10.0) K/mm3 RBC 3.36 L (4.6-6.20) M/mm3 Hgb 10.6 L (14.0-18.0) g/dL Hct 32.5 L (42.0-52.0) % MCV 96.7 (80-100) fl MCH 31.5 (26-34) pg MCHC 32.6 (32-36) g/dl RDW 15.2 H (11.5-14.5) % Plt Count 218 (150-375) k/mm3 MPV 9.8 (7.4-10.4) fl Immature Gran % (Auto) 0.3 (0-0.5) % Neut % (Auto) 74.9 H (45.5-73.1) % Lymph % (Auto) 8.0 L (18.3-44.2) % [place] % (Auto) 3.3 (2.6-8.5) % Eos % (Auto) 12.8 H (0-4.4) % Baso % (Auto) 0.7 (0.2-1.2) % Lymph # (Auto) 0.56 L (0.9-3.2) K/mm3 [place] # (Auto) 0.2 (0.1-0.6) K/mm3 Eos # (Auto) 0.9 H (0-0.3) K/mm3 Baso # (Auto) 0.1 (0.0-0.1) K/mm3 Abs Immat Gran (auto) 0.02 (0.00-0.031) K/mm3 Absolute Neuts (auto) 5.2 (1.3-6.7) K/mm3 Absolute Nucleated RBC 0.000 (0.0-0.012) K/mm3 Nucleated RBC % 0.0 (0.0-0.2) % Sodium 140 (137-145) mmol/L Potassium 3.5 (3.4-5.0) mmol/L Chloride 106 (98-107) mmol/L Carbon Dioxide 26 (22-30) mmol/L Anion Gap 8 (4-12) mmol/L BUN 18 (9-20) mg/dL Creatinine 0.93 (0.7-1.3) mg/dL Estim Creat Clear Calc 46 ml/min Estimated GFR > 60 (59 - ) Glucose 162 H (65-110) mg/dL Lactic Acid 2.5 H 2.1 H (0.7-2.0) mmol/L Calcium 9.5 (8.4-10.2) mg/dL Magnesium 1.9 (1.6-2.3) mg/dL Total Bilirubin 0.6 (0.2-1.3) mg/dL AST 27 (17-59) U/L ALT 16 (6-50) U/L Alkaline Phosphatase 73 (38-126) U/L Troponin I 0.033 (0.000-0.034) ng/mL NT-Pro-B Natriuret Pep (19.9-100) pg/mL Total Protein 6.5 (6.3-8.2) g/dL Albumin 3.7 (3.5-5.1) g/dL Lipase 29 (23-300) U/L Procalcitonin 0.1 ng/mL Urine Color Yellow (Yellow) Urine Appearance Clear (Clear) Urine pH 7.5 (5.0-9.0) Ur Specific [place] 1.025 (1.001-1.035) Urine Protein Trace (Negative) mg/dL Urine Glucose (UA) Negative (Negative) mg/dL Urine Ketones Negative (Negative) mg/dL Ur Blood (Man) Negative (Negative) Urine Nitrate Negative (Negative) Urine Bilirubin Negative (Negative) Urine Urobilinogen 0.2 (<2.0) mg/dL Leukocyte Esterase Rfl Negative (Negative) [place]RA[place]/UL Urine RBC 0-2 (0-2) /hpf Urine WBC 0-5 (0-3) /hpf Ur Squamous Epith Cells None seen (Few) /hpf Urine Bacteria None seen /hpf Urine Casts 0-2 Influenza A (RT-PCR) Negative (Negative) Influenza B (RT-PCR) Negative (Negative) RSV (RT-PCR) Negative (Negative) SARS-CoV-2 RNA (RT-PCR) Negative (Negative) 03/30/25 Range/Units 09:02 WBC (4.5-10.0) K/mm3 RBC (4.6-6.20) M/mm3 Hgb (14.0-18.0) g/dL Hct (42.0-52.0) % MCV (80-100) fl MCH (26-34) pg MCHC (32-36) g/dl RDW (11.5-14.5) % Plt Count (150-375) k/mm3 MPV (7.4-10.4) fl Immature Gran % (Auto) (0-0.5) % Neut % (Auto) (45.5-73.1) % Lymph % (Auto) (18.3-44.2) % [place] % (Auto) (2.6-8.5) % Eos % (Auto) (0-4.4) % Baso % (Auto) (0.2-1.2) % Lymph # (Auto) (0.9-3.2) K/mm3 [place] # (Auto) (0.1-0.6) K/mm3 Eos # (Auto) (0-0.3) K/mm3 Baso # (Auto) (0.0-0.1) K/mm3 Abs Immat Gran (auto) (0.00-0.031) K/mm3 Absolute Neuts (auto) (1.3-6.7) K/mm3 Absolute Nucleated RBC (0.0-0.012) K/mm3 Nucleated RBC % (0.0-0.2) % Sodium (137-145) mmol/L Potassium (3.4-5.0) mmol/L Chloride (98-107) mmol/L Carbon Dioxide (22-30) mmol/L Anion Gap (4-12) mmol/L BUN (9-20) mg/dL Creatinine (0.7-1.3) mg/dL Estim Creat Clear Calc ml/min Estimated GFR (59 - ) Glucose (65-110) mg/dL Lactic Acid (0.7-2.0) mmol/L Calcium (8.4-10.2) mg/dL Magnesium (1.6-2.3) mg/dL Total Bilirubin (0.2-1.3) mg/dL AST (17-59) U/L ALT (6-50) U/L Alkaline Phosphatase (38-126) U/L Troponin I (0.000-0.034) ng/mL NT-Pro-B Natriuret Pep 2710 H (19.9-100) pg/mL Total Protein (6.3-8.2) g/dL Albumin (3.5-5.1) g/dL Lipase (23-300) U/L Procalcitonin ng/mL Urine Color (Yellow) Urine Appearance (Clear) Urine pH (5.0-9.0) Ur Specific [place] (1.001-1.035) Urine Protein (Negative) mg/dL Urine Glucose (UA) (Negative) mg/dL Urine Ketones (Negative) mg/dL Ur Blood (Man) (Negative) Urine Nitrate (Negative) Urine Bilirubin (Negative) Urine Urobilinogen (<2.0) mg/dL Leukocyte Esterase Rfl (Negative) [place]RA[place]/UL Urine RBC (0-2) /hpf Urine WBC (0-3) /hpf Ur Squamous Epith Cells (Few) /hpf Urine Bacteria /hpf Urine Casts Influenza A (RT-PCR) (Negative) Influenza B (RT-PCR) (Negative) RSV (RT-PCR) (Negative) SARS-CoV-2 RNA (RT-PCR) (Negative) <Elder Dean MD - Last Filed: 03/30/25 01:52> Lab Results 03/30/25 03/30/25 03/30/25 Range/Units 02:01 03:28 05:42 WBC 7.0 (4.5-10.0) K/mm3 RBC 3.36 L (4.6-6.20) M/mm3 Hgb 10.6 L (14.0-18.0) g/dL Hct 32.5 L (42.0-52.0) % MCV 96.7 (80-100) fl MCH 31.5 (26-34) pg MCHC 32.6 (32-36) g/dl RDW 15.2 H (11.5-14.5) % Plt Count 218 (150-375) k/mm3 MPV 9.8 (7.4-10.4) fl Immature Gran % (Auto) 0.3 (0-0.5) % Neut % (Auto) 74.9 H (45.5-73.1) % Lymph % (Auto) 8.0 L (18.3-44.2) % [place] % (Auto) 3.3 (2.6-8.5) % Eos % (Auto) 12.8 H (0-4.4) % Baso % (Auto) 0.7 (0.2-1.2) % Lymph # (Auto) 0.56 L (0.9-3.2) K/mm3 [place] # (Auto) 0.2 (0.1-0.6) K/mm3 Eos # (Auto) 0.9 H (0-0.3) K/mm3 Baso # (Auto) 0.1 (0.0-0.1) K/mm3 Abs Immat Gran (auto) 0.02 (0.00-0.031) K/mm3 Absolute Neuts (auto) 5.2 (1.3-6.7) K/mm3 Absolute Nucleated RBC 0.000 (0.0-0.012) K/mm3 Nucleated RBC % 0.0 (0.0-0.2) % Sodium 140 (137-145) mmol/L Potassium 3.5 (3.4-5.0) mmol/L Chloride 106 (98-107) mmol/L Carbon Dioxide 26 (22-30) mmol/L Anion Gap 8 (4-12) mmol/L BUN 18 (9-20) mg/dL Creatinine 0.93 (0.7-1.3) mg/dL Estim Creat Clear Calc 46 ml/min Estimated GFR > 60 (59 - ) Glucose 162 H (65-110) mg/dL Lactic Acid 2.5 H 2.1 H (0.7-2.0) mmol/L Calcium 9.5 (8.4-10.2) mg/dL Magnesium 1.9 (1.6-2.3) mg/dL Total Bilirubin 0.6 (0.2-1.3) mg/dL AST 27 (17-59) U/L ALT 16 (6-50) U/L Alkaline Phosphatase 73 (38-126) U/L Troponin I 0.033 (0.000-0.034) ng/mL NT-Pro-B Natriuret Pep (19.9-100) pg/mL Total Protein 6.5 (6.3-8.2) g/dL Albumin 3.7 (3.5-5.1) g/dL Lipase 29 (23-300) U/L Procalcitonin 0.1 ng/mL Urine Color Yellow (Yellow) Urine Appearance Clear (Clear) Urine pH 7.5 (5.0-9.0) Ur Specific [place] 1.025 (1.001-1.035) Urine Protein Trace (Negative) mg/dL Urine Glucose (UA) Negative (Negative) mg/dL Urine Ketones Negative (Negative) mg/dL Ur Blood (Man) Negative (Negative) Urine Nitrate Negative (Negative) Urine Bilirubin Negative (Negative) Urine Urobilinogen 0.2 (<2.0) mg/dL Leukocyte Esterase Rfl Negative (Negative) [place]/UL Urine RBC 0-2 (0-2) /hpf Urine WBC 0-5 (0-3) /hpf Ur Squamous Epith Cells None seen (Few) /hpf Urine Bacteria None seen /hpf Urine Casts 0-2 Influenza A (RT-PCR) Negative (Negative) Influenza B (RT-PCR) Negative (Negative) RSV (RT-PCR) Negative (Negative) SARS-CoV-2 RNA (RT-PCR) Negative (Negative) 03/30/25 Range/Units 09:02 WBC (4.5-10.0) K/mm3 RBC (4.6-6.20) M/mm3 Hgb (14.0-18.0) g/dL Hct (42.0-52.0) % MCV (80-100) fl MCH (26-34) pg MCHC (32-36) g/dl RDW (11.5-14.5) % Plt Count (150-375) k/mm3 MPV (7.4-10.4) fl Immature Gran % (Auto) (0-0.5) % Neut % (Auto) (45.5-73.1) % Lymph % (Auto) (18.3-44.2) % [place] % (Auto) (2.6-8.5) % Eos % (Auto) (0-4.4) % Baso % (Auto) (0.2-1.2) % Lymph # (Auto) (0.9-3.2) K/mm3 [place] # (Auto) (0.1-0.6) K/mm3 Eos # (Auto) (0-0.3) K/mm3 Baso # (Auto) (0.0-0.1) K/mm3 Abs Immat Gran (auto) (0.00-0.031) K/mm3 Absolute Neuts (auto) (1.3-6.7) K/mm3 Absolute Nucleated RBC (0.0-0.012) K/mm3 Nucleated RBC % (0.0-0.2) % Sodium (137-145) mmol/L Potassium (3.4-5.0) mmol/L Chloride (98-107) mmol/L Carbon Dioxide (22-30) mmol/L Anion Gap (4-12) mmol/L BUN (9-20) mg/dL Creatinine (0.7-1.3) mg/dL Estim Creat Clear Calc ml/min Estimated GFR (59 - ) Glucose (65-110) mg/dL Lactic Acid (0.7-2.0) mmol/L Calcium (8.4-10.2) mg/dL Magnesium (1.6-2.3) mg/dL Total Bilirubin (0.2-1.3) mg/dL AST (17-59) U/L ALT (6-50) U/L Alkaline Phosphatase (38-126) U/L Troponin I (0.000-0.034) ng/mL NT-Pro-B Natriuret Pep 2710 H (19.9-100) pg/mL Total Protein (6.3-8.2) g/dL Albumin (3.5-5.1) g/dL Lipase (23-300) U/L Procalcitonin ng/mL Urine Color (Yellow) Urine Appearance (Clear) Urine pH (5.0-9.0) Ur Specific [place] (1.001-1.035) Urine Protein (Negative) mg/dL Urine Glucose (UA) (Negative) mg/dL Urine Ketones (Negative) mg/dL Ur Blood (Man) (Negative) Urine Nitrate (Negative) Urine Bilirubin (Negative) Urine Urobilinogen (<2.0) mg/dL Leukocyte Esterase Rfl (Negative) [place]/UL Urine RBC (0-2) /hpf Urine WBC (0-3) /hpf Ur Squamous Epith Cells (Few) /hpf Urine Bacteria /hpf Urine Casts Influenza A (RT-PCR) (Negative) Influenza B (RT-PCR) (Negative) RSV (RT-PCR) (Negative) SARS-CoV-2 RNA (RT-PCR) (Negative) <Pierre Chakraborty MD - Last Filed: 03/30/25 19:47> ECG Data EKG #1: Attestation: I personally reviewed and interpreted this ECG as follows: <Pierre Chakraborty MD - Last Filed: 03/30/25 19:47> ECG completion date: 03/30/25 <Pierre Chakraborty MD - Last Filed: 03/30/25 19:47> ECG completion time: 02:34 <Pierre Chakraborty MD - Last Filed: 03/30/25 19:47> Interpretation: A flutter with rapid ventricular response, rate 124, normal axis, right bundle-branch block, no ST segment elevations or T-wave inversions concerning for ischemia, normal intervals with QTC of 492. No significant change compared to EKG done in February 2025. <Pierre Chakraborty MD - Last Filed: 03/30/25 19:47> Critical Care Time Critical Care Time Critical Care Time: Yes <Pierre Chakraborty MD - Last Filed: 03/30/25 19:47> Total Critical Care Time: 35 <Pierre Chakraborty MD - Last Filed: 03/30/25 19:47> Discharge Plan Discharge Clinical Impression: Atrial fibrillation with RVR Aspiration pneumonia Qualifiers: Aspiration pneumonia type: due to vomit Laterality: right Lung location: upper lobe of lung Qualified Code(s): J69.0 - Pneumonitis due to inhalation of food and vomit AMS (altered mental status) Qualifiers: Altered mental status type: delirium Qualified Code(s): R41.0 - Disorientation, unspecified <Elder Dean MD - Last Filed: 03/30/25 01:52> Patient Disposition: Still a Patient <Elder Dean MD - Last Filed: 03/30/25 01:52> Condition: Serious <Elder Dean MD - Last Filed: 03/30/25 01:52> Time of Disposition: 10:00 <Elder Dean MD - Last Filed: 03/30/25 01:52> 10:00 <Pierre Chakraborty MD - Last Filed: 03/30/25 19:47> Sign Out Sign Out Data: Patient Sign Out occurred on 03/30/25 at 06:11. Patient's care was discussed, and care was transferred from Elder Dean MD to Pierre Chakraborty MD. <Elder Dean MD - Last Filed: 03/30/25 01:52>
[2025-03-30 02:08] LABS: Hematocrit 32.5 % (42.0-52.0); Hemoglobin 10.6 g/dL (14.0-18.0); Immature Granulocyte Percent A 0.3 % (0-0.5); Lymphocytes Absolute Auto 0.56 K/mm3 (0.9-3.2); Mean Corpuscular HGB Conc 32.6 g/dl (32-36); Mean Corpuscular Hemoglobin 31.5 pg (26-34); Mean Corpuscular Volume 96.7 fl (80-100); Nucleated Red Blood Cells Absolute Auto 0.000 K/mm3 (0.0-0.012); Nucleated Red Blood Cells Perc 0.0 % (0.0-0.2); Platelet Count Result 218 k/mm3 (150-375); Red Blood Count 3.36 M/mm3 (4.6-6.20); White Blood Count 7.0 K/mm3 (4.5-10.0)
[2025-03-30 02:24] LABS: Alanine Aminotransferase 16 U/L (6-50); Albumin Level 3.7 g/dL (3.5-5.1); Alkaline Phosphatase 73 U/L (38-126); Anion Gap 8 mmol/L (4-12); Aspartate Amino Transferase 27 U/L (17-59); Bilirubin,Total 0.6 mg/dL (0.2-1.3); Blood Urea Nitrogen 18 mg/dL (9-20); Calcium 9.5 mg/dL (8.4-10.2); Carbon Dioxide 26 mmol/L (22-30); Chloride 106 mmol/L (98-107); Estimated CRCL calculation 46 ml/min; Estimated Glomerular Filt Rate > 60; Glucose 162 mg/dL (65-110); Lipase 29 U/L (23-300); Magnesium 1.9 mg/dL (1.6-2.3); Potassium 3.5 mmol/L (3.4-5.0); Sodium 140 mmol/L (137-145); Total Protein 6.5 g/dL (6.3-8.2)
[2025-03-30] MEDS: SODIUM CHLORIDE 0.9% IV 1,000 ML 999 ML IV CONT (02:24)
[2025-03-30] MEDS: ONDANSETRON INJ 4 MG/2 ML VIAL IV PUSH ×2 (02:24→04:59)
[2025-03-30 02:34] LABS: Troponin I 0.033 ng/mL (0.000-0.034)
[2025-03-30 02:39] LABS: Procalcitonin 0.1 ng/mL
[2025-03-30 03:21] LABS: Influenza A QL RT-PCR Negative (Negative); Influenza B QL RT-PCR Negative (Negative); RSV RNA, RT-PCR Negative (Negative); SARS-CoV-2 RNA PCR Negative (Negative)
[2025-03-30 03:45] LABS: Add Urine Microscopic? YES; Appearance Urine Clear (Clear); Glucose Urine UA Negative (Negative); Leukocyte Esterase Ur Negative LEU/UL (Negative); Nitrate Urine Negative (Negative); Non Pathogenic Casts 0-2; Specific Grav Ur 1.025 (1.001-1.035)
--- NOTE | 2025-03-30 07:43 | PC.NURSE ---
[facility]R received from [facility], assumed care of pt
[2025-03-30] MEDS: dilTIAZem 100 MG/100 ML 100 MG/100 ML BAG IV CONT (08:40)
[2025-03-30] MEDS: PROCHLORPERAZINE EDISYLATE 10 MG/2 ML VIAL IV PUSH (08:47)
[2025-03-30] MEDS: CEFEPIME 2 GM in SODIUM CHLORIDE 0.9% IV 50 ML 100 ML IVPB ×2 (08:50→20:46)
--- NOTE | 2025-03-30 09:10 | PC.NURSE ---
Pt was put on 3L NC O2 by restaurant shift leader RN and titrated to 4L upon day shift RN arrival.
[2025-03-30 09:28] LABS: NT Pro B Type Natriuretic Pept 2710 pg/mL (19.9-100)
[2025-03-30] MEDS: DOXYCYCLINE IV 100 MG in SODIUM CHLORIDE 0.9% IV 100 ML IVPB ×2 (10:06→20:47)
--- NOTE | 2025-03-30 13:24 | P.HP_ITS ---
H&P: HPI History of Present Illness Date/Time: 03/30/25 13:24 Chief Complaint: Nausea vomiting fever chills. Narrative: 89-year-old male with past medical history of prostate cancer, atrial fibrillation, CHF, presents the hospital with nausea vomiting fever and chills. Patient is alert and oriented x2. Per nursing is normally A&O x4. HPI is limited due to altered mental status. Patient complains of abdominal pain on palpation. Lab work in the ED shows hemoglobin of 10.6, glucose of 162, lactic acid of 2.5 followed by 2.1, proBNP 2710, UA is negative for infection. It is influenza A/B RSV and COVID negative. While in the ED patient had low oxygen levels and was placed on 4 L nasal cannula with repeat chest x-ray showing aspiration pneumonia on the right side. He had tachycardia and 130 EKG showed AFib with RVR and he was hypertensive. Patient was started on a Cardizem drip. 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 Head CT shows no acute finding. UA negative for infection. Review of Systems Review of Systems: ROS unobtainable: Yes unobtainable due to mental status [facility] Past Medical History Medical History (Updated 03/30/25 @ 23:51 by Peri Aponte, [place]) Multiple falls COVID-19 Secondary malignant neoplasm of bone Prostate CA Atrial fibrillation Orthostatic hypotension CHF (congestive heart failure) Family History Family History Other Unknown family medical history Social History Social History Smoking packs per day: 1 Smoking cigarettes per day: 20.0 Years smoked: 15 Smoking pack-years: 15.00 Smoking status: Former smoker Alcohol intake: never Drinks per week: 0 Alcohol use details: 2 per month Substance use: never Lack of Transportation: No Lack of Food: Never True Current Housing: I Have Housing Concerned About Future Housing: No Difficulty Paying Gas/Electric Bills: No Difficulty Paying for Meds: No Currently Unemployed: No Education: High School Diploma/GED Difficulty w/ Childcare or Family Care: No Living arrangements: assisted living Additional living arrangements comments: [facility] phone Spiritual care concerns: Yes Meds Home Medications and Allergies Home Medications ?Medication ?Instructions ?Recorded ?Confirmed ?Type loratadine 10 mg tablet 10 mg PO DAILY 04/25/2303/15 History rivaroxaban 20 mg tablet (Xarelto) 20 mg PO DAILY #30 tabs 05/03/23 03/30/25 Rx abiraterone 250 mg tablet 250 mg PO QID 01/23/2503/30 History azelastine 137 mcg (0.1 %) nasal 2 spray intranasal Q1 2H PRN 01/23/25 03/30/25 History spray allergy symptoms acetaminophen 650 mg 650 mg PO Q8H PRN pain 03/0303/30/25 History tablet,extended release (8 Hour Pain Reliever) sertraline 50 mg tablet 50 mg PO DAILY 03/03/2503/15 History polyethylene glycol 3350 17 gram 17 g PO QAM PRN Const ipation #10 ea 03/08/25 03/30/25 Rx oral powder packet (Miralax) melatonin 5 mg tablet 5 mg PO HS 03/30/25 03/30/25 History Allergies Allergy/AdvReac Type Severity Reaction Status Date / Time No Known Allergies Allergy Verified 03/30/25 14:35 Vital Signs Vital Signs - 24 hr 03/30/25 01:20 03/30/25 02:02 03/30/25 02:31 Temperature 99.9 F H Pulse Rate 133 H 119 H 129 H Respiratory Rate 26 H 31 H 26 H Blood Pressure 154/92 H 147/93 H 156/103 H Pulse Oximetry 97 Oxygen Delivery Room Air Oxygen Flow Rate 03/30/25 02:55 03/30/25 03:00 03/30/25 03:02 Temperature Pulse Rate 132 H 130 H 121 H Respiratory Rate 27 H 23 H 25 H Blood Pressure 144/78 H 155/90 H Pulse Oximetry 94 92 96 Oxygen Delivery Oxygen Flow Rate 03/30/25 03:19 03/30/25 03:32 03/30/25 04:02 Temperature Pulse Rate 131 H 121 H 107 H Respiratory Rate 27 H 26 H 22 H Blood Pressure 155/99 H 142/86 H 154/79 H Pulse Oximetry 92 93 Oxygen Delivery Oxygen Flow Rate 03/30/25 04:32 03/30/25 07:09 03/30/25 07:15 Temperature Pulse Rate 104 H 99 109 H Respiratory Rate 20 28 H 25 H Blood Pressure 150/74 H Pulse Oximetry 91 96 96 Oxygen Delivery Oxygen Flow Rate 03/30/25 07:35 03/30/25 07:38 03/30/25 07:47 Temperature 98.6 F Pulse Rate 133 H 149 H Respiratory Rate 22 H 36 H Blood Pressure 178/80 H Pulse Oximetry 95 93 Oxygen Delivery Nasal Cannula Oxygen Flow Rate 4 03/30/25 08:20 03/30/25 08:40 03/30/25 08:46 Temperature Pulse Rate 125 H 138 H 103 H Respiratory Rate 39 H 33 H Blood Pressure 150/106 H 150/106 H Pulse Oximetry Oxygen Delivery Oxygen Flow Rate 03/30/25 09:00 03/30/25 09:03 03/30/25 09:18 Temperature Pulse Rate 108 H 107 H Respiratory Rate 31 H 38 H Blood Pressure 176/81 H Pulse Oximetry 91 93 96 Oxygen Delivery Nasal Cannula Oxygen Flow Rate 4 03/30/25 09:21 03/30/25 10:01 03/30/25 10:10 Temperature Pulse Rate 102 H 114 H 110 H Respiratory Rate 24 H 27 H 28 H Blood Pressure 155/85 H 170/92 H 165/84 H Pulse Oximetry 94 92 Oxygen Delivery Oxygen Flow Rate 03/30/25 10:17 03/30/25 10:21 03/30/25 10:41 Temperature Pulse Rate 103 H 102 H 98 Respiratory Rate 21 H 28 H 28 H Blood Pressure 165/84 H 168/90 H 156/84 H Pulse Oximetry 93 93 95 Oxygen Delivery Oxygen Flow Rate Exam Narrative: General: well appearing, appears stated age. No acute distress HEENT: normocephalic, atraumatic. Mucous membranes moist. EOMI, PERRLA, bilateral sclera anicteric, no conjunctival injection. Neck supple without JVD, lymphadenopathy, or bruit. Respiratory: Diminished, upper airway noises Cardiovascular: Regular rate and rhythm, normal S1-S2 upon ascultation. No murmurs, rubs, or clicks. PMI is nondisplaced, capillary refill less than 3 second. Abdomen: Soft, round, no pulsatile masses, nondistended No rebound, no guarding. . Bowel sounds present to all four quadrants. No high pitch or tinkling sounds, resonant to percussion. Tender to palpation on assessment Extremities: No cyanosis, clubbing, or edema present. Pulses are palpable 2/2. Active ROM to all four extremities. Neuro: Alert and orientated x 2. PERRLA. Cranial nerves 2-12 intact without focal deficit. Skin: Warm, dry, and intact, without rash, erythema, or lesion. Psych: pleasant, cooperative, normal speech, normal affect, no hallucinations, no dysarthia Sinus rhythm H&P: Results Labs Labs: Short CBC 03/30/25 Range/Units 02:01 WBC 7.0 (4.5-10.0) K/mm3 Hgb 10.6 L (14.0-18.0) g/dL Hct 32.5 L (42.0-52.0) % Plt Count 218 (150-375) k/mm3 BMP 03/30/25 02:01 Sodium 140 Potassium 3.5 Chloride 106 Carbon Dioxide 26 BUN 18 Creatinine 0.93 Glucose 162 H Calcium 9.5 Cardiac Enzymes 03/30/25 Range/Units 02:01 Troponin I 0.033 (0.000-0.034) ng/mL Liver Function 03/30/25 Range/Units 02:01 Total Bilirubin 0.6 (0.2-1.3) mg/dL AST 27 (17-59) U/L ALT 16 (6-50) U/L Alkaline Phosphatase 73 (38-126) U/L Albumin 3.7 (3.5-5.1) g/dL Urine 03/30/25 Range/Units 03:28 Urine Color Yellow (Yellow) Urine Appearance Clear (Clear) Urine pH 7.5 (5.0-9.0) Ur Specific [place] 1.025 (1.001-1.035) Urine Protein Trace (Negative) mg/dL Urine Glucose (UA) Negative (Negative) mg/dL Assessment and Plan Assessment and plan (1) Aspiration pneumonia: Qualifiers: Aspiration pneumonia type: due to vomit Laterality: right Lung location: upper lobe of lung Qualified Code(s): J69.0 - Pneumonitis due to inhalation of food and vomit Code(s): J69.0 - Pneumonitis due to inhalation of food and vomit Status: Acute Assessment and Plan: Cefepime and doxy Speech swallow evaluation NPO until cleared by speech (2) Hypoxic respiratory failure: Code(s): J96.91 - Respiratory failure, unspecified with hypoxia Status: Acute Assessment and Plan: Secondary to above Wean oxygen as able (3) Atrial fibrillation with RVR: Code(s): I48.91 - Unspecified atrial fibrillation Status: Acute Assessment and Plan: Started on diltiazem in the ED Rate controlled now Cardiology consulted On Xarelto at home Weight based Lovenox until patient can swallow (4) Sepsis: Code(s): A41.9 - Sepsis, unspecified organism Status: Acute Assessment and Plan: Blood cultures pending Fluid bolus given UA negative for infection (5) Abdominal pain: Code(s): R10.9 - Unspecified abdominal pain Status: Acute Assessment and Plan: Abdominal ultrasound shows Gallbladder is distended. There is echogenic debris in the gallbladder. No pericholecystic fluid. The common bile duct is normal in size, measuring 5.1 mm. Generalized abdominal pain Gallbladder distension could be from fasting patient is NPO due to aspiration pneumonia (6) CHF (congestive heart failure): Code(s): I50.9 - Heart failure, unspecified Status: Acute Assessment and Plan: Not on diuretics (7) Prostate CA: Code(s): C61 - Malignant neoplasm of prostate Status: Acute Assessment and Plan: Can bring abiraterone from home Quality VTE Prophylaxis VTE prophylaxis: mechanical ordered and pharmacologic ordered Hospitalist MIPS Advance Care Plan I have confirmed that the patient's Advanced Care Plan is present, code status is documented, or surrogate decision maker is listed in patient medical record.: Yes Medication Reconciliation I have utilized all available resources to obtain, update and review the patients current medications (includes all prescriptions, OTC, herbals, cannabis, and nutritional supplements).: Yes
--- NOTE | 2025-03-30 13:57 | PC.NURSE ---
Prior to pt being transported to admission room, pt had saturated depends. RN and tech cleaned patient and changed linens and gown and depends.
--- NOTE | 2025-03-30 14:28 | PM.CNCAR ---
Assessment and Plan Assessment and plan (1) Atrial fibrillation with RVR: Code(s): I48.91 - Unspecified atrial fibrillation Status: Acute Assessment and Plan: This is not a new diagnosis. Has atrial fibrillation with rapid ventricular response in the setting of acute illness with pneumonia. On telemetry he appears to be back in sinus rhythm. EKG to confirm. If he is in sinus rhythm, then diltiazem can be discontinued. He is already anticoagulated with Xarelto which should be continued after he has a speech evaluation. Therapeutic lovenox can be used for systemic anticoagulation until then. (2) Sepsis: Code(s): A41.9 - Sepsis, unspecified organism Status: Acute Assessment and Plan: Management per hospitalist. (3) Aspiration pneumonia: Qualifiers: Aspiration pneumonia type: due to vomit Laterality: right Lung location: upper lobe of lung Qualified Code(s): J69.0 - Pneumonitis due to inhalation of food and vomit Code(s): J69.0 - Pneumonitis due to inhalation of food and vomit Status: Acute Assessment and Plan: Awaiting speech eval. On antibiotics. Management her hospitalist History of Present Illness History of Present Illness Consult date/time: 03/30/25 14:28 Requesting physician: Peri Aponte APRN Consult reason: atrial fibrillation Reason For Visit: Aspiration Pneumonia Narrative: Ranulfo Montague is an 89-year-old male with past medical history of prostate cancer, atrial fibrillation, CHF. He presents the hospital with complaints of nausea vomiting fever and chills. Patient is alert and oriented x2. Per nursing is normally A&O x4. HPI is limited due to altered mental status. He is admitted for treatment of pneumonia - apparently has dysphagia and aspirated. Cardiology is consulted for atrial fibrillation. He did have an episode of atrial fibrillation with rapid ventricular response but at the time of my evaluation appears to be back in sinus rhythm. [facility] Past Medical History Medical History (Updated 04/06/25 @ 17:41 by Elder Gallegos MD) Multiple falls COVID-19 Secondary malignant neoplasm of bone Prostate CA Atrial fibrillation Orthostatic hypotension CHF (congestive heart failure) Family History Family History Other Unknown family medical history Social History Social History Smoking packs per day: 1 Smoking cigarettes per day: 20.0 Years smoked: 15 Smoking pack-years: 15.00 Smoking status: Former smoker Alcohol intake: never Drinks per week: 0 Alcohol use details: 2 per month Substance use: never Lack of Transportation: No Lack of Food: Never True Current Housing: I Have Housing Concerned About Future Housing: No Difficulty Paying Gas/Electric Bills: No Difficulty Paying for Meds: No Currently Unemployed: No Education: High School Diploma/GED Difficulty w/ Childcare or Family Care: No Living arrangements: assisted living Additional living arrangements comments: [facility] phone Spiritual care concerns: Yes Meds Home Medications and Allergies Home Medications ?Medication ?Instructions ?Recorded ?Confirmed ?Type loratadine 10 mg tablet 10 mg PO DAILY 04/25/23 03/30/25 History rivaroxaban 20 mg tablet (Xarelto) 20 mg PO DAILY #30 tabs 05/03/23 03/30/25 Rx abiraterone 250 mg tablet 250 mg PO QID 01/23/25 03/30/25 History azelastine 137 mcg (0.1 %) nasal 2 spray intranasal Q12H PRN 01/23/25 03/30/25 History spray allergy symptoms acetaminophen 650 mg 650 mg PO Q8H PRN pain 03/03/25 03/30/25 History tablet,extended release (8 Hour Pain Reliever) sertraline 50 mg tablet 50 mg PO DAILY 03/03/25 03/30/25 History polyethylene glycol 3350 17 gram 17 g PO QAM PRN Constipation #10 ea 03/08/25 03/30/25 Rx oral powder packet (Miralax) melatonin 5 mg tablet 5 mg PO HS 03/30/25 03/30/25 History Allergies Allergy/AdvReac Type Severity Reaction Status Date / Time No Known Allergies Allergy Verified 03/30/25 14:35 Vital Signs Vital Signs - 24 hr 03/30/25 01:20 03/30/25 02:02 03/30/25 02:31 Temperature 37.7 C H Pulse Rate 133 H 119 H 129 H Respiratory Rate 26 H 31 H 26 H Blood Pressure 154/92 H 147/93 H 156/103 H Pulse Oximetry 97 Oxygen Delivery Room Air Oxygen Flow Rate 03/30/25 02:55 03/30/25 03:00 03/30/25 03:02 Temperature Pulse Rate 132 H 130 H 121 H Respiratory Rate 27 H 23 H 25 H Blood Pressure 144/78 H 155/90 H Pulse Oximetry 94 92 96 Oxygen Delivery Oxygen Flow Rate 03/30/25 03:19 03/30/25 03:32 03/30/25 04:02 Temperature Pulse Rate 131 H 121 H 107 H Respiratory Rate 27 H 26 H 22 H Blood Pressure 155/99 H 142/86 H 154/79 H Pulse Oximetry 92 93 Oxygen Delivery Oxygen Flow Rate 03/30/25 04:32 03/30/25 07:09 03/30/25 07:15 Temperature Pulse Rate 104 H 99 109 H Respiratory Rate 20 28 H 25 H Blood Pressure 150/74 H Pulse Oximetry 91 96 96 Oxygen Delivery Oxygen Flow Rate 03/30/25 07:35 03/30/25 07:38 03/30/25 07:47 Temperature 37.0 C Pulse Rate 133 H 149 H Respiratory Rate 22 H 36 H Blood Pressure 178/80 H Pulse Oximetry 95 93 Oxygen Delivery Nasal Cannula Oxygen Flow Rate 4 03/30/25 08:20 03/30/25 08:40 03/30/25 08:46 Temperature Pulse Rate 125 H 138 H 103 H Respiratory Rate 39 H 33 H Blood Pressure 150/106 H 150/106 H Pulse Oximetry Oxygen Delivery Oxygen Flow Rate 03/30/25 09:00 03/30/25 09:03 03/30/25 09:18 Temperature Pulse Rate 108 H 107 H Respiratory Rate 31 H 38 H Blood Pressure 176/81 H Pulse Oximetry 91 93 96 Oxygen Delivery Nasal Cannula Oxygen Flow Rate 4 03/30/25 09:21 03/30/25 10:01 03/30/25 10:10 Temperature Pulse Rate 102 H 114 H 110 H Respiratory Rate 24 H 27 H 28 H Blood Pressure 155/85 H 170/92 H 165/84 H Pulse Oximetry 94 92 Oxygen Delivery Oxygen Flow Rate 03/30/25 10:17 03/30/25 10:21 03/30/25 10:41 Temperature Pulse Rate 103 H 102 H 98 Respiratory Rate 21 H 28 H 28 H Blood Pressure 165/84 H 168/90 H 156/84 H Pulse Oximetry 93 93 95 Oxygen Delivery Oxygen Flow Rate 03/30/25 11:13 03/30/25 11:23 03/30/25 11:30 Temperature Pulse Rate 98 102 H 100 Respiratory Rate 29 H 35 H 29 H Blood Pressure Pulse Oximetry 93 91 97 Oxygen Delivery Oxygen Flow Rate 03/30/25 11:41 03/30/25 11:45 03/30/25 12:11 Temperature Pulse Rate 100 99 97 Respiratory Rate 26 H 30 H 26 H Blood Pressure 169/89 H Pulse Oximetry Oxygen Delivery Oxygen Flow Rate 03/30/25 12:24 03/30/25 12:30 03/30/25 12:46 Temperature Pulse Rate 97 98 97 Respiratory Rate 26 H 35 H 26 H Blood Pressure Pulse Oximetry Oxygen Delivery Oxygen Flow Rate 03/30/25 13:00 03/30/25 13:01 Temperature Pulse Rate 98 97 Respiratory Rate 30 H 27 H Blood Pressure 159/79 H Pulse Oximetry 94 Oxygen Delivery Oxygen Flow Rate Results Labs and Meds 04/06/25 05:31 04/06/25 05:31 Lab results: Cardiac Enzymes 03/30/25 Range/Units 02:01 AST 27 (17-59) U/L Troponin I 0.033 (0.000-0.034) ng/mL CBC 03/30/25 Range/Units 02:01 WBC 7.0 (4.5-10.0) K/mm3 RBC 3.36 L (4.6-6.20) M/mm3 Hgb 10.6 L (14.0-18.0) g/dL Hct 32.5 L (42.0-52.0) % Plt Count 218 (150-375) k/mm3 Lymph # (Auto) 0.56 L (0.9-3.2) K/mm3 [place] # (Auto) 0.2 (0.1-0.6) K/mm3 Eos # (Auto) 0.9 H (0-0.3) K/mm3 Baso # (Auto) 0.1 (0.0-0.1) K/mm3 Comprehensive Metabolic Panel 03/30/25 Range/Units 02:01 Sodium 140 (137-145) mmol/L Potassium 3.5 (3.4-5.0) mmol/L Chloride 106 (98-107) mmol/L Carbon Dioxide 26 (22-30) mmol/L BUN 18 (9-20) mg/dL Creatinine 0.93 (0.7-1.3) mg/dL Glucose 162 H (65-110) mg/dL Calcium 9.5 (8.4-10.2) mg/dL AST 27 (17-59) U/L ALT 16 (6-50) U/L Alkaline Phosphatase 73 (38-126) U/L Total Protein 6.5 (6.3-8.2) g/dL Albumin 3.7 (3.5-5.1) g/dL Intake and Output 03/29/25 03/30/25 03/30/25 23:59 07:59 15:59 Intake Total 1000 150 Balance 1000 150 Intake: IV 1000 150 Sodium Chloride 0.9% IV 1,000 1000 ml @ 999 mls/hr IV CONT .Q1H1M STA Rx#:[id number] Cefepime 2 gm In Sodium 50 Chloride 0.9% IV 50 ml @ 100 mls/hr IVPB ONCE STA Rx#: [id number] Doxycycline IV 100 mg In Sodium 100 Chloride 0.9% IV 100 ml @ 100 mls/hr IVPB ONCE STA Rx#: [id number] Patient Weight 03/30/25 23:59 Weight 76 kg
--- NOTE | 2025-03-30 14:34 | ADMGEN ---
This patient, Ranulfo Montague, was admitted to Intensive Care Unit-9 at 1358. Patient/family oriented to hospital policies and general routines including ID bracelet, bed and alarms, visiting hours, pain management, procedures, bathroom and other care routines, personal items, smoking policy, room service/diet, and visiting hours. Information on how to activate the Rapid Response Team has been discussed. Patient/Family are encouraged to report perceived risks to care and to ask questions if they do not understand what they are told or what they should do.
--- NOTE | 2025-03-30 14:45 | ECG_ITS ---
Test Date: 2025-03-30 15:15:00 Measurements Intervals [place] Rate: 101 P: -74 ND: 153 QRS: 4 QRSD: 136 T: -1 QT: 367 QTc: 478 Interpretive Statements SINUS TACHYCARDIA RIGHT BUNDLE BRANCH BLOCK BASELINE ARTIFACT- I, II, III, AVR, AVL, AVF, V1-V2, V4-V6 ABNORMAL ECG Compared to ECG 03/30/2025 02:34:27 ATRIAL FLUTTER NOT LONGER PRESENT Electronically Signed On 03-30-2025 15:17:09 CDT by Jamal Werner D.O.
[2025-03-30] MEDS: ACETAMINOPHEN 650 MG SUPPOSITORY RECTAL (17:46)
[2025-03-30] MEDS: ENOXAPARIN 80 MG/0.8 ML SYRINGE 78 MG SUB-Q (20:47)
[2025-03-31] VITALS (11 sets, daily range): BP systolic 105–159; BP diastolic 53–84; PULSE 77–103; RESP 17–23; TEMP 37–37.2; O2SAT 94–100
--- NOTE | 2025-03-31 | ECHO_ITS ---
Patient Info Name: Ranulfo Gongora Age: 89 years : 1935 Gender: Male Ht: 67 in Wt: 167 lbs BSA: 1.91 m2 HR: 88 bpm BP: 105 / 53 mmHg Technical Quality: Fair Exam Date: 03/31/2025 11:38 AM Patient Status: I Admit Date: 03/31/2025 Exam Type: CA echo dop color flow w con Complete two-dimensional, color flow and Doppler transthoracic echocardiogram is performed with contrast to opacify the left ventricle and to improve the deliniation of the left ventricle endocardial borders. Staff Referring Physician: Peri Aponte Sonogram Technician: Antonella Clark Attending Provider: Thong Abreu MD Contrast/Agitated Saline Contrast/Ag. Saline: Definity Amount: 2.00 ml Summary 1. Technically difficult study, suboptimal image quality. Echo contrast was used. Normal LV size, mild LVH, hyperdynamic LV systolic function, ejection fraction more than 70%. Grade 1 diastolic dysfunction. Normal RV size and systolic function. Mild to moderate left atrial enlargement. Mitral annular calcification, no significant MR. Aortic valve is not well visualized, no hemodynamically significant stenosis by Doppler. Unable to assess RVSP due to inadequate TR jet. Normal aortic root size. No significant pericardial effusion. Normal IVC size. Left Ventricular Outflow Tract Name Value Normal LVOT 2D LVOT Diameter 2.0 cm LVOT Doppler LVOT Peak Velocity 117 cm/s LVOT Peak Gradient 5 mmHg LVOT Mean Gradient 3 mmHg LVOT VTI 25 cm LVOT Stroke Volume 79 ml LVOT CO 7.0 l/min LVOT CI 3.7 l/min/m2 Mitral Valve Name Value Normal MV Diastolic Function MV E Peak Velocity 61 cm/s MV A Peak Velocity 102 cm/s MV E/A 0.6 MV Decel Time (PW) 240 ms MV Annular TDI MV E/e' (Septal) 9.9 MV E/e' (Lateral) 8.3 MV E/e' (Average) 9.1 Aortic Valve Name Value Normal AV Doppler AV Peak Velocity 153 cm/s AV Peak Gradient 9 mmHg AV Area (Cont Eq Osiel) 2.4 cm2 AV DI (Osiel) 0.76 AV Regurgitation 2D LVOT Area 3.1 cm2 Ventricles Name Value Normal LV Dimensions 2D/MM LVOT Diameter 2.0 cm LV Fractional Shortening/Ejection Fraction 2D/MM LV Diastolic Volume (4C MOD) 81 ml LV EF (4C MOD) 52 % LV Diastolic Volume (2C MOD) 95 ml LV EF (2C MOD) 64 % LV Diastolic Volume (BP MOD) 90 ml 62-150 LV Diastolic Volume Index (BP MOD) 47 ml/m2 34-74 LV Systolic Volume (BP MOD) 36 ml 21-61 LV Systolic Volume Index (BP MOD) 19 ml/m2 11-31 LV EF (BP MOD) 60 % 52-72 LV Diastolic Length (4C) 7.6 cm LV Systolic Length (4C) 6.2 cm LV Stroke Volume (4C MOD) 42 ml Atria Name Value Normal LA Dimensions LA Volume (4C A-L) 56 ml LA Volume (BP A-L) 60 ml RA Dimensions RA Systolic Major Arden Length (4C) 4.6 cm 2.1-2.7 RA Area (4C) 13.2 cm2 <=18.0 Report Signatures
[2025-03-31 04:22] LABS: Hematocrit 28.0 % (42.0-52.0); Hemoglobin 9.1 g/dL (14.0-18.0); Immature Granulocyte Percent A 0.1 % (0-0.5); Lymphocytes Absolute Auto 0.50 K/mm3 (0.9-3.2); Mean Corpuscular HGB Conc 32.5 g/dl (32-36); Mean Corpuscular Hemoglobin 31.6 pg (26-34); Mean Corpuscular Volume 97.2 fl (80-100); Nucleated Red Blood Cells Absolute Auto 0.000 K/mm3 (0.0-0.012); Nucleated Red Blood Cells Perc 0.0 % (0.0-0.2); Platelet Count Result 165 k/mm3 (150-375); Red Blood Count 2.88 M/mm3 (4.6-6.20); White Blood Count 7.1 K/mm3 (4.5-10.0)
[2025-03-31 04:53] LABS: Anion Gap 2 mmol/L (4-12); Blood Urea Nitrogen 20 mg/dL (9-20); Calcium 8.4 mg/dL (8.4-10.2); Carbon Dioxide 28 mmol/L (22-30); Chloride 110 mmol/L (98-107); Estimated CRCL calculation 38 ml/min; Estimated Glomerular Filt Rate 60; Glucose 108 mg/dL (65-110); Potassium 3.3 mmol/L (3.4-5.0); Sodium 140 mmol/L (137-145)
[2025-03-31] MEDS: CEFEPIME 2 GM in SODIUM CHLORIDE 0.9% IV 50 ML 100 ML IVPB (08:25)
[2025-03-31] MEDS: ENOXAPARIN 80 MG/0.8 ML SYRINGE 78 MG SUB-Q (08:25)
[2025-03-31] MEDS: DOXYCYCLINE IV 100 MG in SODIUM CHLORIDE 0.9% IV 100 ML IVPB (08:25)
--- NOTE | 2025-03-31 08:35 | PCSTNOTE ---
Please refer to the Bedside Swallow Evaluation in the EMR. Please note, silent aspiration cannot be ruled out at bedside. The patient is a 89 year old male referred admitted with abdominal pain and vomiting. Orders received to complete a BSE and r/o aspiration risk. The patient was positioned upright in bed and presented the following consistencies: tsp/5cc thin liquid, thin liquid via straw, puree consistency/applesauce, and solid/cracker. Oral Stage: Timely oral preparation all consistencies. Required some extra time for mastication of the cracker but within functional limits. Pharyngeal Stage: Timely swallow initiation with good laryngeal elevation and no clinical signs of aspiration across consistencies
--- NOTE | 2025-03-31 09:12 | P.PNIM_ITS ---
Progress Note: A&P Assessment and Plan (1) Aspiration pneumonia: Qualifiers: Aspiration pneumonia type: due to vomit Laterality: right Lung location: upper lobe of lung Qualified Code(s): J69.0 - Pneumonitis due to inhalation of food and vomit Code(s): J69.0 - Pneumonitis due to inhalation of food and vomit Status: Acute Assessment and Plan: Switch to p.o. Augmentin Swallow evaluation done. Start diet. (2) Hypoxic respiratory failure: Code(s): J96.91 - Respiratory failure, unspecified with hypoxia Status: Acute Assessment and Plan: Significantly improved as patient is only on 1 L oxygen while sleeping. Will try to wean it off. Secondary to above (3) Atrial fibrillation with RVR: Code(s): I48.91 - Unspecified atrial fibrillation Status: Acute Assessment and Plan: Started on diltiazem in the ED Patient converted to sinus rhythm Cardiology following Check echo On Xarelto at home which will be resumed Currently on Lovenox will switch to Xarelto since patient can not take p.o. (4) Sepsis: Code(s): A41.9 - Sepsis, unspecified organism Status: Acute Assessment and Plan: Secondary to aspiration pneumonia Blood cultures pending Fluid bolus given initially but not on maintenance fluids UA negative for infection Continue antibiotics (5) Abdominal pain: Code(s): R10.9 - Unspecified abdominal pain Status: Acute Assessment and Plan: Abdominal ultrasound shows Gallbladder is distended. There is echogenic debris in the gallbladder. No pericholecystic fluid. The common bile duct is normal in size, measuring 5.1 mm. Generalized abdominal pain Gallbladder distension could be from fasting patient is NPO due to aspiration pneumonia Denies any pain this morning Add laxative (6) CHF (congestive heart failure): Code(s): I50.9 - Heart failure, unspecified Status: Acute Assessment and Plan: Elevated BNP Diuretics held due to NPO status Echo from 2022 reviewed Repeat echo ordered (7) Prostate CA: Code(s): C61 - Malignant neoplasm of prostate Status: Acute Assessment and Plan: Can bring abiraterone from home Plan DVT prophylaxis -resume Xarelto Nutrition -resume diet Consult PT OT Incentive spirometry Subjective Date/time seen: 03/31/25 Converted to sinus rhythm. Afebrile. Denies any complaints. On 1 L nasal cannula. All the systems reviewed and were negative. Review of Systems Review of Systems: All systems reviewed & are unremarkable except as noted in HPI and below (HPI) Exam Narrative: General: well appearing, appears stated age. No acute distress HEENT: normocephalic, atraumatic. Mucous membranes moist. EOMI, PERRLA, bilateral sclera anicteric, no conjunctival injection. Neck supple without JVD, lymphadenopathy, or bruit. Respiratory: Diminished, upper airway noises Cardiovascular: Regular rate and rhythm, normal S1-S2 upon ascultation. No murmurs, rubs, or clicks. PMI is nondisplaced, capillary refill less than 3 second. Abdomen: Soft, round, no pulsatile masses, nondistended No rebound, no guarding. . Bowel sounds present to all four quadrants. No high pitch or tinkling sounds, resonant to percussion. No tenderness Extremities: No cyanosis, clubbing, or edema present. Pulses are palpable 2/2. Active ROM to all four extremities. Neuro: Alert and orientated x 2. PERRLA. Cranial nerves 2-12 intact without focal deficit. Skin: Warm, dry, and intact, without rash, erythema, or lesion. Psych: pleasant, cooperative, normal speech, normal affect, no hallucinations, no dysarthia Sinus rhythm Objective Data Vital Signs Vital Signs: Vital Signs - 24 hr 03/30/25 09:18 03/30/25 09:21 03/30/25 10:01 Temperature Pulse Rate 102 H 114 H Respiratory Rate 24 H 27 H Blood Pressure 155/85 H 170/92 H Pulse Oximetry 96 94 Oxygen Delivery Nasal Cannula Oxygen Flow Rate 4 03/30/25 10:10 03/30/25 10:17 03/30/25 10:21 Temperature Pulse Rate 110 H 103 H 102 H Respiratory Rate 28 H 21 H 28 H Blood Pressure 165/84 H 165/84 H 168/90 H Pulse Oximetry 92 93 93 Oxygen Delivery Oxygen Flow Rate 03/30/25 10:41 03/30/25 11:13 03/30/25 11:23 Temperature Pulse Rate 98 98 102 H Respiratory Rate 28 H 29 H 35 H Blood Pressure 156/84 H Pulse Oximetry 95 93 91 Oxygen Delivery Oxygen Flow Rate 03/30/25 11:30 03/30/25 11:41 03/30/25 11:45 Temperature Pulse Rate 100 100 99 Respiratory Rate 29 H 26 H 30 H Blood Pressure 169/89 H Pulse Oximetry 97 Oxygen Delivery Oxygen Flow Rate 03/30/25 12:11 03/30/25 12:24 03/30/25 12:30 Temperature Pulse Rate 97 97 98 Respiratory Rate 26 H 26 H 35 H Blood Pressure Pulse Oximetry Oxygen Delivery Oxygen Flow Rate 03/30/25 12:46 03/30/25 13:00 03/30/25 13:01 Temperature Pulse Rate 97 98 97 Respiratory Rate 26 H 30 H 27 H Blood Pressure 159/79 H Pulse Oximetry 94 Oxygen Delivery Oxygen Flow Rate 03/30/25 13:56 03/30/25 14:20 03/30/25 15:16 Temperature 37.4 C Pulse Rate 112 H Respiratory Rate 37 H Blood Pressure 141/113 H 119/86 Pulse Oximetry 93 96 Oxygen Delivery Nasal Cannula Oxygen Flow Rate 2 03/30/25 15:28 03/30/25 16:00 03/30/25 16:00 Temperature 37.9 C H Pulse Rate 99 100 100 Respiratory Rate 27 H Blood Pressure 156/92 H 146/65 H Pulse Oximetry 96 Oxygen Delivery Oxygen Flow Rate 03/30/25 17:40 03/30/25 17:46 03/30/25 18:00 Temperature 39.0 C H 39.0 C H Pulse Rate 105 H Respiratory Rate Blood Pressure Pulse Oximetry Oxygen Delivery Oxygen Flow Rate 03/30/25 20:00 03/30/25 20:00 03/30/25 20:00 Temperature 38.8 C H Pulse Rate 98 94 Respiratory Rate 22 H Blood Pressure 119/72 Pulse Oximetry 98 98 Oxygen Delivery Nasal Cannula Oxygen Flow Rate 2 03/30/25 22:00 03/30/25 23:23 03/31/25 00:00 Temperature Pulse Rate 94 Respiratory Rate Blood Pressure Pulse Oximetry 95 100 Oxygen Delivery Nasal Cannula Nasal Cannula Oxygen Flow Rate 2 1 03/31/25 00:00 03/31/25 00:00 03/31/25 02:00 Temperature 37.0 C Pulse Rate 92 92 94 Respiratory Rate 22 H Blood Pressure 116/73 Pulse Oximetry 100 Oxygen Delivery Oxygen Flow Rate 03/31/25 04:00 03/31/25 04:00 03/31/25 04:00 Temperature 37.2 C Pulse Rate 89 89 Respiratory Rate 17 Blood Pressure 121/62 Pulse Oximetry 96 96 Oxygen Delivery Nasal Cannula Oxygen Flow Rate 1 03/31/25 06:00 03/31/25 08:00 03/31/25 08:00 Temperature 37.1 C Pulse Rate 95 92 88 Respiratory Rate 19 18 Blood Pressure 105/53 L Pulse Oximetry 98 98 Oxygen Delivery Nasal Cannula Oxygen Flow Rate 1 03/31/25 08:00 Temperature Pulse Rate 91 Respiratory Rate Blood Pressure Pulse Oximetry Oxygen Delivery Oxygen Flow Rate Intake/Output Intake/Output: Intake & Output 03/28/25 03/29/25 03/30/25 03/31/25 23:59 23:59 23:59 23:59 Intake Total 1334 50 Output Total 500 Balance 1334 -450 Meds/Results Medications: Active Medications Generic Name Dose Route Start Last Admin Trade Name Freq PRN Reason Stop Dose Admin Acetaminophen 650 mg 03/30/25 10:12 03/30/25 17:46 Acetaminophen 650 Mg Suppository RECTAL 650 mg Q6H PRN Administration Mild Pain (1-3)/FEVER IF NPO Acetaminophen 650 mg 03/30/25 13:58 Acetaminophen 325 Mg Tablet PO Q4H PRN Mild Pain (1-3) or Fever Dextrose 12.5 gm 03/30/25 20:12 Dextrose 50% 25 Gm/50 Ml Syringe IV PUSH PRN PRN Hypoglycemia Protocol Docusate Sodium 100 mg 03/30/25 13:58 Docusate Sodium 100 Mg Capsule PO BID PRN Constipation Enoxaparin Sodium 78 mg 03/30/25 21:00 03/31/25 08:25 Enoxaparin 80 Mg/0.8 Ml Syringe SUB-Q 78 mg Q12HR SAMSON Administration Glucagon 1 mg 03/30/25 20:12 Glucagon For Inj 1 Mg Vial IM PRN PRN Hypoglycemia Protocol Glucose 15 gm 03/30/25 20:12 Glucose Oral Gel 15 Gm Of Glucse In 37.5 Gm Tube PO PRN PRN Hypoglycemia Protocol Cefepime HCl 2 gm/ Sodium 50 mls @ 100 mls/hr 03/30/25 21:00 03/31/25 08:57 Chloride IVPB Infused Q12H SAMSON Infusion Doxycycline Hyclate 100 mg/ 100 mls @ 100 mls/hr 03/30/25 21:00 03/31/25 08:25 Sodium Chloride IVPB 100 mls/hr Q12HR SAMSON Administration Dextrose 1,000 mls @ 100 mls/hr 03/30/25 20:12 Dextrose 5% 1,000 Ml IVPB PRN PRN Hypoglycemia Protocol Insulin Aspart 2 - 5 units 03/31/25 00:00 03/31/25 06:15 Insulin Aspart (*Bkc) 100 Units/Ml SUB-Q Not Given Q6HR SAMSON Protocol Metoprolol Tartrate 5 mg 03/30/25 20:14 Metoprolol Tartrate Inj 5 Mg/5 Ml Vial IV PUSH Q6HR PRN Tachycardia Radiology Results: ITS Impressions Head CT 03/30/25 06:38 IMPRESSION: 1. No acute intracranial findings. Abdomen/Pelvis CT 03/30/25 07:34 IMPRESSION: 1. Stool distends the rectum. 2. Gallbladder distention, which may be secondary to fasting. Correlate with physical exam to exclude acute cholecystitis. 3. 1.9 cm left kidney mass which may be a hemorrhagic cyst or renal cell carcinoma. Abdomen CT or MRI without and with contrast is recommended. 4. Chronic interstitial lung disease. 5. Small sliding hiatal hernia. Chest X-Ray 03/30/25 07:56 IMPRESSION: 1. Minimal bibasilar aspiration not excluded. 2. No large airspace disease. Chest CTA 03/30/25 09:44 IMPRESSION: 1. Right upper lobe aspiration pneumonia. 2. 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 Recommend endovascular or surgical consultation for management. 3. No large central PE identified. Respiratory motion artifact precludes evaluation of segmental branches and beyond. Abdomen Ultrasound 03/30/25 22:19 IMPRESSION echogenic debris in the gallbladder may represent sludge. Common bowel loss normal in thickness. There are no pericholecystic fluid. Labs Labs: Laboratory Results - last 24 hr 03/30/25 03/31/25 03/31/25 09:02 00:34 03:51 WBC 7.1 RBC 2.88 L Hgb 9.1 L Hct 28.0 L MCV 97.2 MCH 31.6 MCHC 32.5 RDW 15.5 H Plt Count 165 MPV 10.3 Immature Gran % (Auto) 0.1 Neut % (Auto) 86.2 H Lymph % (Auto) 7.0 L [place] % (Auto) 5.3 Eos % (Auto) 1.0 Baso % (Auto) 0.4 Lymph # (Auto) 0.50 L [place] # (Auto) 0.4 Eos # (Auto) 0.1 Baso # (Auto) 0.0 Abs Immat Gran (auto) 0.01 Absolute Neuts (auto) 6.1 Absolute Nucleated RBC 0.000 Nucleated RBC % 0.0 Sodium 140 Potassium 3.3 L Chloride 110 H Carbon Dioxide 28 Anion Gap 2 L BUN 20 Creatinine 1.15 Estim Creat Clear Calc 38 Estimated GFR 60 Glucose 108 POC Capillary Glucose 119 H Calcium 8.4 NT-Pro-B Natriuret Pep 2710 H Quality VTE Prophylaxis VTE prophylaxis: mechanical ordered and pharmacologic ordered
[2025-03-31] MEDS: POTASSIUM BICARBONATE 25 MEQ TABEF 50 MEQ PO (09:40)
[2025-03-31] MEDS: LORATADINE 10 MG TABLET PO (10:25)
[2025-03-31] MEDS: RIVAROXABAN 20 MG TABLET PO (10:51)
[2025-03-31] MEDS: SERTRALINE HCL 50 MG TABLET PO (10:51)
[2025-03-31] MEDS: PERFLUTREN LIPID MICROSPHERES 1.5 ML VIAL DILUTED TO 10 ML TOTAL VOLUME IV PUSH (15:09)
--- NOTE | 2025-03-31 15:10 | IVDEFINITY ---
Prior to administration of IV Definity the patient was educated on the risks and benefits of the imaging enhancing agent including potential adverse side effects. The patient verbalized understanding. Allergies were verified. No exclusion criteria were identified and at least one of the following inclusion criteria were met: 1) physician request, 2) patient technically difficult to image (per the [place] [employer] guidelines of two or more segments not discernable within the apical view), or 3) questionable left ventricular function. ?
[2025-03-31] MEDS: DOCUSATE SODIUM 100 MG CAPSULE PO (15:54)
[2025-04-01] VITALS (10 sets, daily range): BP systolic 135–163; BP diastolic 67–87; PULSE 79–101; RESP 15–23; O2SAT 94–97
--- NOTE | 2025-04-01 08:19 | P.PNIM_ITS ---
Progress Note: A&P Assessment and Plan (1) Aspiration pneumonia: Qualifiers: Aspiration pneumonia type: due to vomit Laterality: right Lung location: upper lobe of lung Qualified Code(s): J69.0 - Pneumonitis due to inhalation of food and vomit Code(s): J69.0 - Pneumonitis due to inhalation of food and vomit Status: Acute Assessment and Plan: On room air. Antibiotics switched to p.o. Augmentin Swallow evaluation done. Patient now on diet. (2) Hypoxic respiratory failure: Code(s): J96.91 - Respiratory failure, unspecified with hypoxia Status: Acute Assessment and Plan: Significantly improved as patient now off oxygen Secondary to above (3) Atrial fibrillation with RVR: Code(s): I48.91 - Unspecified atrial fibrillation Status: Acute Assessment and Plan: Started on diltiazem in the ED Patient converted to sinus rhythm Cardiology following Echo is pending Patient is on On Xarelto at home which is being held due to hematuria (4) Sepsis: Code(s): A41.9 - Sepsis, unspecified organism Status: Acute Assessment and Plan: Secondary to aspiration pneumonia Blood cultures negative till now Fluid bolus given initially but not on maintenance fluids UA negative for infection Continue antibiotics (5) Abdominal pain: Code(s): R10.9 - Unspecified abdominal pain Status: Acute Assessment and Plan: Abdominal ultrasound shows Gallbladder is distended. There is echogenic debris in the gallbladder. No pericholecystic fluid. The common bile duct is normal in size, measuring 5.1 mm. Generalized abdominal pain Gallbladder distension could be from fasting patient is NPO due to aspiration pneumonia Denies any pain this morning Continue laxative (6) CHF (congestive heart failure): Code(s): I50.9 - Heart failure, unspecified Status: Acute Assessment and Plan: Elevated BNP Diuretics were held due to NPO status Echo from 2022 reviewed Repeat echo ordered (7) Prostate CA: Code(s): C61 - Malignant neoplasm of prostate Status: Acute Assessment and Plan: Can bring abiraterone from home (8) Hematuria: Code(s): R31.9 - Hematuria, unspecified Status: Acute Assessment and Plan: Patient has history of prostate cancer. He is on anticoagulation. He has developed hematuria. This could be traumatic as patient has a Sommer catheter in. Hopefully it will clear otherwise will consult Urology. Plan DVT prophylaxis -SCD . Xarelto is on hold Nutrition -tolerating diet Consult PT OT Incentive spirometry Subjective Date/time seen: 04/01/25 0 Patient denies any new complaints. He states he has cough which is dry. He feels weak and tired. He denies any shortness of breath chest pain abdominal pain nausea vomiting diarrhea constipation. All other systems were reviewed and were negative. Patient developed some hematuria yesterday and Lovenox was held. He is on room air. He is in sinus rhythm. Stable blood pressure. Sommer is in place Review of Systems Review of Systems: All systems reviewed & are unremarkable except as noted in HPI and below (HPI) Exam Narrative: General: well appearing, appears stated age. No acute distress HEENT: normocephalic, atraumatic. Mucous membranes moist. EOMI, PERRL, bilateral sclera anicteric, no conjunctival injection. Neck supple without JVD, lymphadenopathy, or bruit. Respiratory: Diminished, upper airway noises Cardiovascular: Regular rate and rhythm, normal S1-S2 upon ascultation. No murmurs, rubs, or clicks. PMI is nondisplaced, capillary refill less than 3 second. Abdomen: Soft, round, no pulsatile masses, nondistended No rebound, no guarding. . Bowel sounds present to all four quadrants. No high pitch or tinkling sounds, resonant to percussion. No tenderness Extremities: No cyanosis, clubbing, or edema present. Pulses are palpable 2/2. Active ROM to all four extremities. Neuro: Alert and orientated x 2. PERRLA. Cranial nerves 2-12 intact without focal deficit. Skin: Warm, dry, and intact, without rash, erythema, or lesion. Psych: pleasant, cooperative, normal speech, normal affect, no hallucinations, no dysarthia Sinus rhythm Objective Data Vital Signs Vital Signs: Vital Signs - 24 hr 03/31/25 10:00 03/31/25 11:06 03/31/25 12:00 Temperature Pulse Rate 91 96 Respiratory Rate Blood Pressure Pulse Oximetry 98 Oxygen Delivery Nasal Cannula Oxygen Flow Rate 1 03/31/25 12:34 03/31/25 16:00 03/31/25 16:00 Temperature 37.2 C Pulse Rate 103 H 77 Respiratory Rate 23 H Blood Pressure 159/84 H Pulse Oximetry 95 94 Oxygen Delivery Room Air Oxygen Flow Rate 03/31/25 20:00 04/01/25 00:00 04/01/25 00:00 Temperature Pulse Rate 101 H 92 Respiratory Rate 23 H Blood Pressure 135/67 Pulse Oximetry 96 94 Oxygen Delivery Nasal Cannula Oxygen Flow Rate 1 04/01/25 04:00 Temperature Pulse Rate 87 Respiratory Rate Blood Pressure Pulse Oximetry Oxygen Delivery Oxygen Flow Rate Intake/Output Intake/Output: Intake & Output 03/29/25 03/30/25 03/31/25 04/01/25 23:59 23:59 23:59 23:59 Intake Total 1334 150 300 Output Total 850 150 Balance 1334 -700 150 Meds/Results Medications: Active Medications Generic Name Dose Route Start Last Admin Trade Name Freq PRN Reason Stop Dose Admin Acetaminophen 650 mg 03/30/25 10:12 03/30/25 17:46 Acetaminophen 650 Mg Suppository RECTAL 650 mg Q6H PRN Administration Mild Pain (1-3)/FEVER IF NPO Acetaminophen 650 mg 03/31/25 09:18 Acetaminophen 325 Mg Tablet PO Q8H PRN Pain Amoxicillin/Clavulanate Potassium 1 tablet 03/31/25 21:00 03/31/25 21:04 Amoxicillin/Clavulanate K 875-125 Mg Tab PO 1 tablet Q12HR SAMSON Administration Azelastine HCl 2 spray 03/31/25 09:18 Azelastine Hcl Nasal 0.1% 137 Mcg/Spr 30 Ml Btl NASAL Q12H PRN allergy symptoms Bisacodyl 10 mg 03/31/25 09:23 Bisacodyl 10 Mg Suppository RECTAL QAM PRN Constipation Dextrose 12.5 gm 03/30/25 20:12 Dextrose 50% 25 Gm/50 Ml Syringe IV PUSH PRN PRN Hypoglycemia Protocol Docusate Sodium 100 mg 03/31/25 17:00 03/31/25 15:54 Docusate Sodium 100 Mg Capsule PO 100 mg BID SAMSON Administration Glucagon 1 mg 03/30/25 20:12 Glucagon For Inj 1 Mg Vial IM PRN PRN Hypoglycemia Protocol Glucose 15 gm 03/30/25 20:12 Glucose Oral Gel 15 Gm Of Glucse In 37.5 Gm Tube PO PRN PRN Hypoglycemia Protocol Dextrose 1,000 mls @ 100 mls/hr 03/30/25 20:12 Dextrose 5% 1,000 Ml IVPB PRN PRN Hypoglycemia Protocol Insulin Aspart 2 - 5 units 03/31/25 16:30 04/01/25 08:02 Insulin Aspart (*Bkc) 100 Units/Ml SUB-Q Not Given ACHS SAMSON Protocol Loratadine 10 mg 03/31/25 10:15 03/31/25 10:25 Loratadine 10 Mg Tablet PO 10 mg DAILY SAMSON Administration Metoprolol Tartrate 5 mg 03/30/25 20:14 Metoprolol Tartrate Inj 5 Mg/5 Ml Vial IV PUSH Q6HR PRN Tachycardia Polyethylene Glycol 17 gm 03/31/25 10:15 03/31/25 10:23 Polyethylene Glycol 3350 17 Gm Powd.Pack PO 17 gm QAM SAMSON Administration Rivaroxaban 20 mg 03/31/25 10:15 03/31/25 10:51 Rivaroxaban 20 Mg Tablet PO 20 mg On Hold: 03/31/25 18:31 DAILY SAMSON Administration Sertraline HCl 50 mg 03/31/25 10:15 03/31/25 10:51 Sertraline Hcl 50 Mg Tablet PO 50 mg DAILY SAMSON Administration Radiology Results: ITS Impressions Head CT 03/30/25 06:38 IMPRESSION: 1. No acute intracranial findings. Abdomen/Pelvis CT 03/30/25 07:34 IMPRESSION: 1. Stool distends the rectum. 2. Gallbladder distention, which may be secondary to fasting. Correlate with physical exam to exclude acute cholecystitis. 3. 1.9 cm left kidney mass which may be a hemorrhagic cyst or renal cell carcinoma. Abdomen CT or MRI without and with contrast is recommended. 4. Chronic interstitial lung disease. 5. Small sliding hiatal hernia. Chest X-Ray 03/30/25 07:56 IMPRESSION: 1. Minimal bibasilar aspiration not excluded. 2. No large airspace disease. Chest CTA 03/30/25 09:44 IMPRESSION: 1. Right upper lobe aspiration pneumonia. 2. 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 Recommend endovascular or surgical consultation for management. 3. No large central PE identified. Respiratory motion artifact precludes evaluation of segmental branches and beyond. Abdomen Ultrasound 03/30/25 22:19 IMPRESSION echogenic debris in the gallbladder may represent sludge. Common bowel loss normal in thickness. There are no pericholecystic fluid. Labs Labs: Laboratory Results - last 24 hr 03/31/25 03/31/25 03/31/25 11:52 16:10 19:44 POC Capillary Glucose 107 H 112 H 139 H 04/01/25 07:38 POC Capillary Glucose 101 Quality VTE Prophylaxis VTE prophylaxis: mechanical ordered
[2025-04-01] MEDS: SERTRALINE HCL 50 MG TABLET PO (08:25)
[2025-04-01] MEDS: LORATADINE 10 MG TABLET PO (08:26)
[2025-04-01] MEDS: DOCUSATE SODIUM 100 MG CAPSULE PO ×2 (08:26→18:21)
[2025-04-01] MEDS: METOPROLOL TARTRATE 12.5 MG TABLET PO ×2 (08:47→22:00)
[2025-04-01] MEDS: ONDANSETRON HCL ODT 4 MG TABLET PO (10:40)
[2025-04-01] MEDS: BENZONATATE 100 MG CAPSULE 200 MG PO (18:21)
[2025-04-02] VITALS (8 sets, daily range): BP systolic 133–148; BP diastolic 78–93; PULSE 73–87; RESP 16–20; TEMP 36.4–37.1; O2SAT 95–96
[2025-04-02 08:10] LABS: Hematocrit 28.7 % (42.0-52.0); Hemoglobin 9.5 g/dL (14.0-18.0); Mean Corpuscular HGB Conc 33.1 g/dl (32-36); Mean Corpuscular Hemoglobin 31.9 pg (26-34); Mean Corpuscular Volume 96.3 fl (80-100); Platelet Count Result 164 k/mm3 (150-375); Red Blood Count 2.98 M/mm3 (4.6-6.20); White Blood Count 4.8 K/mm3 (4.5-10.0)
[2025-04-02 08:21] LABS: INR 1.1; Prothrombin Time 14.5 Seconds (11.1-14.7)
[2025-04-02 08:22] LABS: Partial Thromboplastin Time 37.5 Seconds (22.3-36.8)
--- NOTE | 2025-04-02 08:25 | P.PNIM_ITS ---
Progress Note: A&P Assessment and Plan (1) Aspiration pneumonia: Qualifiers: Aspiration pneumonia type: due to vomit Laterality: right Lung location: upper lobe of lung Qualified Code(s): J69.0 - Pneumonitis due to inhalation of food and vomit Code(s): J69.0 - Pneumonitis due to inhalation of food and vomit Status: Acute Assessment and Plan: On room air. Antibiotics switched to p.o. Augmentin Swallow evaluation done. Patient now on diet. Test on Robitussin D for cough (2) Hypoxic respiratory failure: Code(s): J96.91 - Respiratory failure, unspecified with hypoxia Status: Acute Assessment and Plan: Significantly improved as patient now off oxygen Secondary to above (3) Atrial fibrillation with RVR: Code(s): I48.91 - Unspecified atrial fibrillation Status: Acute Assessment and Plan: Started on diltiazem in the ED Patient converted to sinus rhythm Cardiology following Echo is pending Patient is on On Xarelto at home which is being held due to hematuria (4) Sepsis: Code(s): A41.9 - Sepsis, unspecified organism Status: Acute Assessment and Plan: Secondary to aspiration pneumonia Blood cultures negative till now Fluid bolus given initially but not on maintenance fluids UA negative for infection Continue antibiotics (5) Abdominal pain: Code(s): R10.9 - Unspecified abdominal pain Status: Acute Assessment and Plan: Abdominal ultrasound shows Gallbladder is distended. There is echogenic debris in the gallbladder. No pericholecystic fluid. The common bile duct is normal in size, measuring 5.1 mm. Generalized abdominal pain Gallbladder distension could be from fasting patient is NPO due to aspiration pneumonia Denies any pain this morning Continue laxative (6) CHF (congestive heart failure): Code(s): I50.9 - Heart failure, unspecified Status: Acute Assessment and Plan: Elevated BNP Diuretics were held due to NPO status Echo from 2022 reviewed Repeat echo ordered (7) Prostate CA: Code(s): C61 - Malignant neoplasm of prostate Status: Acute Assessment and Plan: Can bring abiraterone from home (8) Hematuria: Code(s): R31.9 - Hematuria, unspecified Status: Acute Assessment and Plan: Patient has history of prostate cancer. He was on anticoagulation. He has developed hematuria. This could be traumatic as patient has a Sommer catheter in. It is persistent. Will consult Urology. Plan DVT prophylaxis -SCD . Xarelto is on hold Nutrition -tolerating diet Continue PT OT Incentive spirometry Subjective Date/time seen: 04/02/25 Patient denies any new complaints. He states he has cough which is dry. He feels weak and tired. He denies any shortness of breath chest pain abdominal pain nausea vomiting diarrhea constipation. All other systems were reviewed and were negative. He continues to have hematuria He is on room air. He is in sinus rhythm. Stable blood pressure. Sommer is in place Review of Systems Review of Systems: All systems reviewed & are unremarkable except as noted in HPI and below (HPI) Exam Narrative: General: well appearing, appears stated age. No acute distress HEENT: normocephalic, atraumatic. Mucous membranes moist. EOMI, PERRL, bilateral sclera anicteric, no conjunctival injection. Neck supple without JVD, lymphadenopathy, or bruit. Respiratory: Diminished, upper airway noises Cardiovascular: Regular rate and rhythm, normal S1-S2 upon ascultation. No murmurs, rubs, or clicks. PMI is nondisplaced, capillary refill less than 3 second. Abdomen: Soft, round, no pulsatile masses, nondistended No rebound, no guarding. . Bowel sounds present to all four quadrants. No high pitch or tinkling sounds, resonant to percussion. No tenderness Extremities: No cyanosis, clubbing, or edema present. Pulses are palpable 2/2. Active ROM to all four extremities. Neuro: Alert and orientated x 2. PERRLA. Cranial nerves 2-12 intact without focal deficit. Skin: Warm, dry, and intact, without rash, erythema, or lesion. Psych: pleasant, cooperative, normal speech, normal affect, no hallucinations, no dysarthia : Sommer catheter with hematuria Sinus rhythm Objective Data Vital Signs Vital Signs: Vital Signs - 24 hr 04/01/25 08:30 04/01/25 08:47 04/01/25 12:00 Temperature Pulse Rate 83 90 79 Respiratory Rate 20 Blood Pressure Pulse Oximetry 96 Oxygen Delivery Room Air Fraction of Inspired Oxygen 21 04/01/25 16:00 04/01/25 16:00 04/01/25 16:11 Temperature Pulse Rate 79 80 Respiratory Rate 17 Blood Pressure 139/72 Pulse Oximetry 95 Oxygen Delivery Room Air Fraction of Inspired Oxygen 04/01/25 20:00 04/01/25 20:00 04/01/25 22:00 Temperature Pulse Rate 84 81 Respiratory Rate Blood Pressure Pulse Oximetry Oxygen Delivery Room Air Fraction of Inspired Oxygen 04/02/25 00:00 04/02/25 00:00 04/02/25 04:00 Temperature 37.1 C Pulse Rate 73 73 75 Respiratory Rate 16 Blood Pressure 133/78 Pulse Oximetry 95 Oxygen Delivery Fraction of Inspired Oxygen Intake/Output Intake/Output: Intake & Output 03/30/25 03/31/25 04/01/25 04/02/25 23:59 23:59 23:59 23:59 Intake Total 1334 150 850 50 Output Total 850 950 400 Balance 4564 700 -100 -350 Meds/Results Medications: Active Medications Generic Name Dose Route Start Last Admin Trade Name Freq PRN Reason Stop Dose Admin Acetaminophen 650 mg 03/30/25 10:12 03/30/25 17:46 Acetaminophen 650 Mg Suppository RECTAL 650 mg Q6H PRN Administration Mild Pain (1-3)/FEVER IF NPO Acetaminophen 650 mg 03/31/25 09:18 Acetaminophen 325 Mg Tablet PO Q8H PRN Pain Amoxicillin/Clavulanate Potassium 1 tablet 03/31/25 21:00 04/01/25 22:01 Amoxicillin/Clavulanate K 875-125 Mg Tab PO 1 tablet Q12HR SAMSON Administration Azelastine HCl 2 spray 03/31/25 09:18 Azelastine Hcl Nasal 0.1% 137 Mcg/Spr 30 Ml Btl NASAL Q12H PRN allergy symptoms Benzonatate 200 mg 04/01/25 17:00 04/01/25 18:21 Benzonatate 100 Mg Capsule PO 200 mg TID SAMSON Administration Bisacodyl 10 mg 03/31/25 09:23 Bisacodyl 10 Mg Suppository RECTAL QAM PRN Constipation Dextrose 12.5 gm 03/30/25 20:12 Dextrose 50% 25 Gm/50 Ml Syringe IV PUSH PRN PRN Hypoglycemia Protocol Docusate Sodium 100 mg 03/31/25 17:00 04/01/25 18:21 Docusate Sodium 100 Mg Capsule PO 100 mg BID SAMSON Administration Glucagon 1 mg 03/30/25 20:12 Glucagon For Inj 1 Mg Vial IM PRN PRN Hypoglycemia Protocol Glucose 15 gm 03/30/25 20:12 Glucose Oral Gel 15 Gm Of Glucse In 37.5 Gm Tube PO PRN PRN Hypoglycemia Protocol Guaifenesin/Dextromethorphan 10 ml 04/01/25 13:06 Guaifenesin/Dextromethorphan 10 Ml Udc PO Q4H PRN Cough Dextrose 1,000 mls @ 100 mls/hr 03/30/25 20:12 Dextrose 5% 1,000 Ml IVPB PRN PRN Hypoglycemia Protocol Insulin Aspart 2 - 5 units 03/31/25 16:30 04/02/25 07:32 Insulin Aspart (*Bkc) 100 Units/Ml SUB-Q Not Given ACHS [facility] Protocol Loratadine 10 mg 03/31/25 10:15 04/01/25 08:26 Loratadine 10 Mg Tablet PO 10 mg DAILY SAMSON Administration Metoprolol Tartrate 5 mg 03/30/25 20:14 Metoprolol Tartrate Inj 5 Mg/5 Ml Vial IV PUSH Q6HR PRN Tachycardia Metoprolol Tartrate 12.5 mg 04/01/25 09:00 04/01/25 22:00 Metoprolol Tartrate 12.5 Mg Tablet PO 12.5 mg Q12HR SAMSON Administration Ondansetron HCl 4 mg 04/01/25 10:30 04/01/25 10:40 Ondansetron Hcl Odt 4 Mg Tablet PO 4 mg Q6H PRN Administration Nausea And Vomiting Polyethylene Glycol 17 gm 03/31/25 10:15 04/01/25 08:25 Polyethylene Glycol 3350 17 Gm Powd.Pack PO 17 gm QAM SAMSON Administration Rivaroxaban 20 mg 03/31/25 10:15 03/31/25 10:51 Rivaroxaban 20 Mg Tablet PO 20 mg On Hold: 03/31/25 18:31 DAILY SAMSON Administration Sertraline HCl 50 mg 03/31/25 10:15 04/01/25 08:25 Sertraline Hcl 50 Mg Tablet PO 50 mg DAILY SAMSON Administration Radiology Results: ITS Impressions Head CT 03/30/25 06:38 IMPRESSION: 1. No acute intracranial findings. Abdomen/Pelvis CT 03/30/25 07:34 IMPRESSION: 1. Stool distends the rectum. 2. Gallbladder distention, which may be secondary to fasting. Correlate with physical exam to exclude acute cholecystitis. 3. 1.9 cm left kidney mass which may be a hemorrhagic cyst or renal cell carcinoma. Abdomen CT or MRI without and with contrast is recommended. 4. Chronic interstitial lung disease. 5. Small sliding hiatal hernia. Chest X-Ray 03/30/25 07:56 IMPRESSION: 1. Minimal bibasilar aspiration not excluded. 2. No large airspace disease. Chest CTA 03/30/25 09:44 IMPRESSION: 1. Right upper lobe aspiration pneumonia. 2. 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 Recommend endovascular or surgical consultation for management. 3. No large central PE identified. Respiratory motion artifact precludes evaluation of segmental branches and beyond. Abdomen Ultrasound 03/30/25 22:19 IMPRESSION echogenic debris in the gallbladder may represent sludge. Common bowel loss normal in thickness. There are no pericholecystic fluid. Labs Labs: Laboratory Results - last 24 hr 04/01/25 04/01/25 04/01/25 11:42 16:40 20:01 WBC RBC Hgb Hct MCV MCH MCHC RDW Plt Count MPV PT INR APTT POC Capillary Glucose 110 H 106 H 101 04/02/25 04/02/25 07:43 08:05 WBC 4.8 RBC 2.98 L Hgb 9.5 L Hct 28.7 L MCV 96.3 MCH 31.9 MCHC 33.1 RDW 15.3 H Plt Count 164 MPV 10.0 PT 14.5 INR 1.1 APTT 37.5 H POC Capillary Glucose 90 Quality VTE Prophylaxis VTE prophylaxis: mechanical ordered
[2025-04-02 08:29] LABS: Alanine Aminotransferase 14 U/L (6-50); Albumin Level 3.0 g/dL (3.5-5.1); Alkaline Phosphatase 60 U/L (38-126); Anion Gap 3 mmol/L (4-12); Aspartate Amino Transferase 28 U/L (17-59); Bilirubin,Total 0.5 mg/dL (0.2-1.3); Blood Urea Nitrogen 23 mg/dL (9-20); Calcium 8.2 mg/dL (8.4-10.2); Carbon Dioxide 30 mmol/L (22-30); Chloride 107 mmol/L (98-107); Estimated CRCL calculation 50 ml/min; Estimated Glomerular Filt Rate > 60; Glucose 92 mg/dL (65-110); Magnesium 2.3 mg/dL (1.6-2.3); Potassium 3.0 mmol/L (3.4-5.0); Sodium 140 mmol/L (137-145); Total Protein 5.7 g/dL (6.3-8.2)
[2025-04-02] MEDS: DOCUSATE SODIUM 100 MG CAPSULE PO ×2 (09:06→16:57)
[2025-04-02] MEDS: SERTRALINE HCL 50 MG TABLET PO (09:06)
[2025-04-02] MEDS: BENZONATATE 100 MG CAPSULE 200 MG PO ×3 (09:06→16:57)
[2025-04-02] MEDS: METOPROLOL TARTRATE 12.5 MG TABLET PO ×2 (09:06→20:40)
[2025-04-02] MEDS: LORATADINE 10 MG TABLET PO (09:06)
[2025-04-03] VITALS (10 sets, daily range): BP systolic 110–161; BP diastolic 78–98; PULSE 71–93; RESP 14–24; TEMP 36.6–37.1; O2SAT 96–97
--- NOTE | 2025-04-03 03:42 | PC.NURSE ---
Pt refusing his lab work/blood draw this morning. Multiple attempts made to convince pt to allow the laborer tin can to draw his blood this A.M. and educated pt on why the Dr needed to see his resulted lab work. Pt stated he understood, but was not getting stuck again. Pt pulled out his IV earlier in the shift, however did allow us to put in a new IV at that time.
[2025-04-03 08:14] LABS: Hematocrit 30.6 % (42.0-52.0); Hemoglobin 10.1 g/dL (14.0-18.0); Mean Corpuscular HGB Conc 33.0 g/dl (32-36); Mean Corpuscular Hemoglobin 31.4 pg (26-34); Mean Corpuscular Volume 95.0 fl (80-100); Platelet Count Result 189 k/mm3 (150-375); Red Blood Count 3.22 M/mm3 (4.6-6.20); White Blood Count 5.1 K/mm3 (4.5-10.0)
[2025-04-03 08:42] LABS: Alanine Aminotransferase 15 U/L (6-50); Albumin Level 3.2 g/dL (3.5-5.1); Alkaline Phosphatase 67 U/L (38-126); Anion Gap 6 mmol/L (4-12); Aspartate Amino Transferase 43 U/L (17-59); Bilirubin,Total 0.7 mg/dL (0.2-1.3); Blood Urea Nitrogen 18 mg/dL (9-20); Calcium 8.3 mg/dL (8.4-10.2); Carbon Dioxide 27 mmol/L (22-30); Chloride 107 mmol/L (98-107); Estimated CRCL calculation 58 ml/min; Estimated Glomerular Filt Rate > 60; Glucose 94 mg/dL (65-110); Magnesium 2.3 mg/dL (1.6-2.3); Potassium 2.9 mmol/L (3.4-5.0); Sodium 140 mmol/L (137-145); Total Protein 6.0 g/dL (6.3-8.2)
[2025-04-03] MEDS: SERTRALINE HCL 50 MG TABLET PO (08:47)
[2025-04-03] MEDS: METOPROLOL TARTRATE 12.5 MG TABLET PO ×2 (08:47→20:11)
[2025-04-03] MEDS: LORATADINE 10 MG TABLET PO (08:48)
[2025-04-03] MEDS: DOCUSATE SODIUM 100 MG CAPSULE PO (08:48)
[2025-04-03] MEDS: BENZONATATE 100 MG CAPSULE 200 MG PO ×2 (08:48→16:39)
--- NOTE | 2025-04-03 08:56 | P.PNIM_ITS ---
Progress Note: A&P Assessment and Plan (1) Aspiration pneumonia: Qualifiers: Aspiration pneumonia type: due to vomit Laterality: right Lung location: upper lobe of lung Qualified Code(s): J69.0 - Pneumonitis due to inhalation of food and vomit Code(s): J69.0 - Pneumonitis due to inhalation of food and vomit Status: Acute Assessment and Plan: On room air. Antibiotics switched to p.o. Augmentin Swallow evaluation done. Patient now on diet. Tessalon Perles and Robitussin D for cough Incentive spirometry (2) Hypoxic respiratory failure: Code(s): J96.91 - Respiratory failure, unspecified with hypoxia Status: Acute Assessment and Plan: Significantly improved as patient now off oxygen Secondary to above (3) Atrial fibrillation with RVR: Code(s): I48.91 - Unspecified atrial fibrillation Status: Acute Assessment and Plan: Started on diltiazem in the ED Patient converted to sinus rhythm Cardiology following Echo is pending Patient is on On Xarelto at home which is being held due to hematuria (4) Sepsis: Code(s): A41.9 - Sepsis, unspecified organism Status: Acute Assessment and Plan: Secondary to aspiration pneumonia Blood cultures negative till now Fluid bolus given initially but not on maintenance fluids UA negative for infection Continue antibiotics (5) Abdominal pain: Code(s): R10.9 - Unspecified abdominal pain Status: Acute Assessment and Plan: Abdominal ultrasound shows Gallbladder is distended. There is echogenic debris in the gallbladder. No pericholecystic fluid. The common bile duct is normal in size, measuring 5.1 mm. Generalized abdominal pain Gallbladder distension could be from fasting patient is NPO due to aspiration pneumonia Denies any pain this morning Continue laxative (6) CHF (congestive heart failure): Code(s): I50.9 - Heart failure, unspecified Status: Acute Assessment and Plan: Elevated BNP Diuretics were held due to NPO status Echo from 2022 reviewed Repeat echo Technically difficult study, suboptimal image quality. Echo contrast was used. Normal LV size, mild LVH, hyperdynamic LV systolic function, ejection fraction more than 70%. Grade 1 diastolic dysfunction. Normal RV size and systolic function. Mild to moderate left atrial enlargement. Mitral annular calcification, no significant MR. Aortic valve is not well visualized, no hemodynamically significant stenosis by Doppler. Unable to assess RVSP due to inadequate TR jet. Normal aortic root size. No significant pericardial effusion. Normal IVC size (7) Prostate CA: Code(s): C61 - Malignant neoplasm of prostate Status: Acute Assessment and Plan: Can bring abiraterone from home (8) Hematuria: Code(s): R31.9 - Hematuria, unspecified Status: Acute Assessment and Plan: Patient has history of prostate cancer. He was on anticoagulation. He has developed hematuria. Anticoagulation has been on hold. This could be traumatic as patient has a Sommer catheter in. It is persistent. Urology consulted and pending (9) Electrolyte abnormality: Code(s): E87.8 - Other disorders of electrolyte and fluid balance, not elsewhere classified Status: Acute Assessment and Plan: Potassium and phosphorous replacement ordered Plan DVT prophylaxis -SCD . Xarelto is on hold Nutrition -tolerating diet Continue PT OT Incentive spirometry Subjective Date/time seen: 04/03/25 08:56 Review of Systems Review of Systems: All systems reviewed & are unremarkable except as noted in HPI and below (HPI) Exam Narrative: General: well appearing, appears stated age. No acute distress HEENT: normocephalic, atraumatic. Mucous membranes moist. EOMI, PERRL, bilateral sclera anicteric, no conjunctival injection. Neck supple without JVD, lymphadenopathy, or bruit. Respiratory: Diminished, upper airway noises Cardiovascular: Regular rate and rhythm, normal S1-S2 upon ascultation. No murmurs, rubs, or clicks. PMI is nondisplaced, capillary refill less than 3 second. Abdomen: Soft, round, no pulsatile masses, nondistended No rebound, no guarding. . Bowel sounds present to all four quadrants. No high pitch or tinkling sounds, resonant to percussion. No tenderness Extremities: No cyanosis, clubbing, or edema present. Pulses are palpable 2/2. Active ROM to all four extremities. Neuro: Alert and orientated x 2. PERRLA. Cranial nerves 2-12 intact without focal deficit. Skin: Warm, dry, and intact, without rash, erythema, or lesion. Psych: pleasant, cooperative, normal speech, normal affect, no hallucinations, no dysarthia : Sommer catheter with hematuria Sinus rhythm Objective Data Vital Signs Vital Signs: Vital Signs - 24 hr 04/02/25 09:06 04/02/25 12:00 04/02/25 16:00 Temperature 36.4 C Pulse Rate 81 77 81 Respiratory Rate 20 Blood Pressure 137/78 Pulse Oximetry 95 Oxygen Delivery Fraction of Inspired Oxygen 04/02/25 16:00 04/02/25 20:00 04/02/25 20:00 Temperature Pulse Rate 80 78 Respiratory Rate 20 Blood Pressure Pulse Oximetry 96 Oxygen Delivery Room Air Room Air Fraction of Inspired Oxygen 21 04/02/25 20:00 04/02/25 20:40 04/03/25 00:00 Temperature Pulse Rate 83 83 71 Respiratory Rate Blood Pressure Pulse Oximetry Oxygen Delivery Fraction of Inspired Oxygen 04/03/25 00:00 04/03/25 04:00 04/03/25 08:00 Temperature 36.9 C 37.1 C Pulse Rate 71 93 89 Respiratory Rate 19 14 Blood Pressure 161/80 H 110/98 H Pulse Oximetry 96 97 Oxygen Delivery Fraction of Inspired Oxygen 04/03/25 08:00 04/03/25 08:47 Temperature Pulse Rate 82 88 Respiratory Rate 18 Blood Pressure Pulse Oximetry 97 Oxygen Delivery Room Air Fraction of Inspired Oxygen Intake/Output Intake/Output: Intake & Output 03/31/25 04/01/25 04/02/25 04/03/25 23:59 23:59 23:59 23:59 Intake Total 150 850 270 120 Output Total 850 950 875 550 Hhmyswz -700 -100 -605 -430 Meds/Results Medications: Active Medications Generic Name Dose Route Start Last Admin Trade Name Freq PRN Reason Stop Dose Admin Acetaminophen 650 mg 03/30/25 10:12 03/30/25 17:46 Acetaminophen 650 Mg Suppository RECTAL 650 mg Q6H PRN Administration Mild Pain (1-3)/FEVER IF NPO Acetaminophen 650 mg 03/31/25 09:18 Acetaminophen 325 Mg Tablet PO Q8H PRN Pain Amoxicillin/Clavulanate Potassium 1 tablet 03/31/25 21:00 04/03/25 08:47 Amoxicillin/Clavulanate K 875-125 Mg Tab PO 1 tablet Q12HR SAMOSN Administration Azelastine HCl 2 spray 03/31/25 09:18 Azelastine Hcl Nasal 0.1% 137 Mcg/Spr 30 Ml Btl NASAL Q12H PRN allergy symptoms Benzonatate 200 mg 04/01/25 17:00 04/03/25 08:48 Benzonatate 100 Mg Capsule PO 200 mg TID SAMSON Administration Bisacodyl 10 mg 03/31/25 09:23 Bisacodyl 10 Mg Suppository RECTAL QAM PRN Constipation Dextrose 12.5 gm 03/30/25 20:12 Dextrose 50% 25 Gm/50 Ml Syringe IV PUSH PRN PRN Hypoglycemia Protocol Docusate Sodium 100 mg 03/31/25 17:00 04/03/25 08:48 Docusate Sodium 100 Mg Capsule PO 100 mg BID SAMSON Administration Glucagon 1 mg 03/30/25 20:12 Glucagon For Inj 1 Mg Vial IM PRN PRN Hypoglycemia Protocol Glucose 15 gm 03/30/25 20:12 Glucose Oral Gel 15 Gm Of Glucse In 37.5 Gm Tube PO PRN PRN Hypoglycemia Protocol Guaifenesin/Dextromethorphan 10 ml 04/01/25 13:06 Guaifenesin/Dextromethorphan 10 Ml Udc PO Q4H PRN Cough Dextrose 1,000 mls @ 100 mls/hr 03/30/25 20:12 Dextrose 5% 1,000 Ml IVPB PRN PRN Hypoglycemia Protocol Potassium Phosphate 20 mmol/ 256.6667 mls @ 64.167 mls/hr 04/03/25 08:54 Sodium Chloride IVPB 04/03/25 12:53 ONCE ONE Insulin Aspart 2 - 5 units 03/31/25 16:30 04/03/25 08:49 Insulin Aspart (*Bkc) 100 Units/Ml SUB-Q Not Given ACHS [facility] Protocol Loratadine 10 mg 03/31/25 10:15 04/03/25 08:48 Loratadine 10 Mg Tablet PO 10 mg DAILY SAMSON Administration Metoprolol Tartrate 5 mg 03/30/25 20:14 Metoprolol Tartrate Inj 5 Mg/5 Ml Vial IV PUSH Q6HR PRN Tachycardia Metoprolol Tartrate 12.5 mg 04/01/25 09:00 04/03/25 08:47 Metoprolol Tartrate 12.5 Mg Tablet PO 12.5 mg Q12HR SAMSON Administration Ondansetron HCl 4 mg 04/01/25 10:30 04/01/25 10:40 Ondansetron Hcl Odt 4 Mg Tablet PO 4 mg Q6H PRN Administration Nausea And Vomiting Polyethylene Glycol 17 gm 03/31/25 10:15 04/03/25 08:48 Polyethylene Glycol 3350 17 Gm Powd.Pack PO Not Given QAM [facility] Potassium Chloride 40 meq 04/03/25 08:54 Potassium Chloride 20 Meq Packet (For Liquid) PO 04/03/25 08:55 ONCE ONE Rivaroxaban 20 mg 03/31/25 10:15 03/31/25 10:51 Rivaroxaban 20 Mg Tablet PO 20 mg On Hold: 03/31/25 18:31 DAILY SAMSON Administration Sertraline HCl 50 mg 03/31/25 10:15 04/03/25 08:47 Sertraline Hcl 50 Mg Tablet PO 50 mg DAILY SAMSON Administration Radiology Results: ITS Impressions Head CT 03/30/25 06:38 IMPRESSION: 1. No acute intracranial findings. Abdomen/Pelvis CT 03/30/25 07:34 IMPRESSION: 1. Stool distends the rectum. 2. Gallbladder distention, which may be secondary to fasting. Correlate with physical exam to exclude acute cholecystitis. 3. 1.9 cm left kidney mass which may be a hemorrhagic cyst or renal cell carcinoma. Abdomen CT or MRI without and with contrast is recommended. 4. Chronic interstitial lung disease. 5. Small sliding hiatal hernia. Chest X-Ray 03/30/25 07:56 IMPRESSION: 1. Minimal bibasilar aspiration not excluded. 2. No large airspace disease. Chest CTA 03/30/25 09:44 IMPRESSION: 1. Right upper lobe aspiration pneumonia. 2. 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 Recommend endovascular or surgical consultation for management. 3. No large central PE identified. Respiratory motion artifact precludes evaluation of segmental branches and beyond. Abdomen Ultrasound 03/30/25 22:19 IMPRESSION echogenic debris in the gallbladder may represent sludge. Common bowel loss normal in thickness. There are no pericholecystic fluid. Labs Labs: Laboratory Results - last 24 hr 04/02/25 04/02/25 04/02/25 11:20 16:37 20:37 WBC RBC Hgb Hct MCV MCH MCHC RDW Plt Count MPV Sodium Potassium Chloride Carbon Dioxide Anion Gap BUN Creatinine Estim Creat Clear Calc Estimated GFR Glucose POC Capillary Glucose 107 H 107 H 95 Calcium Phosphorus Magnesium Total Bilirubin AST ALT Alkaline Phosphatase Total Protein Albumin 04/03/25 04/03/25 07:36 08:00 WBC 5.1 RBC 3.22 L Hgb 10.1 L Hct 30.6 L MCV 95.0 MCH 31.4 MCHC 33.0 RDW 14.8 H Plt Count 189 MPV 10.4 Sodium 140 Potassium 2.9 L Chloride 107 Carbon Dioxide 27 Anion Gap 6 BUN 18 Creatinine 0.72 Estim Creat Clear Calc 58 Estimated GFR > 60 Glucose 94 POC Capillary Glucose 99 Calcium 8.3 L Phosphorus 1.7 L Magnesium 2.3 Total Bilirubin 0.7 AST 43 ALT 15 Alkaline Phosphatase 67 Total Protein 6.0 L Albumin 3.2 L Quality VTE Prophylaxis VTE prophylaxis: mechanical ordered
[2025-04-03] MEDS: POTASSIUM CHLORIDE 20 MEQ PACKET (FOR LIQUID) 40 MEQ PO (09:23)
[2025-04-03] MEDS: POTASSIUM PHOS,M-BASIC-D-BASIC 20 MMOL in SODIUM CHLORIDE 0.9% IV 250 ML 64.17 MMOL IVPB (09:58)
--- NOTE | 2025-04-03 12:00 | PC.NURSE ---
Patient confused at this time refusing to let me reapply telemetry leads. Tried to reorient him but continues to refuse.
--- NOTE | 2025-04-03 12:03 | P.CONUR_ITS ---
Assessment and Plan Assessment and plan (1) Gross hematuria: Code(s): R31.0 - Gross hematuria Status: Acute Assessment and Plan: - Urine light pink colored (0830); cleared even further at reassessment (1200) - No clots in Sommer tubing or bag - Sommer catheter patent and draining without issue - Hgb stable at 10.1 - Continue to hold Xarelto per primary - No urologic surgical intervention planned at this time - If gross hematuria becomes significant with dark red urine with clots obstructing catheter outflow recommend irrigation followed by CBI (2) Urinary retention: Code(s): R33.9 - Retention of urine, unspecified Status: Acute Assessment and Plan: - New urinary retention; likely etiologies include BPH vs deconditioning from admission vs UTI - Recommend UCx to rule out UTI - Recommend starting tamsulosin 0.4 mg and can attempt void trial prior to discharge Urology Consult Note HPI Date Seen: 04/03/25 Requesting Physician: Thong Abreu MD Primary Care Provider: Geoffrey Kelley, M.D. Consult Narrative Narrative: Pt is an 89 year old M with a Hx of prostate cancer treated with EBRT, A fib on Xarelto and CHF admitted for sepsis 2/2 aspiration pneumonia with gross hematuria for whom urology is consulted for management of hematuria. Difficult to ascertain from hospital notes but pt states Sommer catheter was placed because he was having difficulty emptying his bladder. Pt states that he was voiding well before admission. No history of urinary retention prior. Does report urinary frequency but denies stranguria, weak stream, incomplete emptying. Review of Systems 2 Constitutional: Constitutional: Denies body ache(s) and Denies chills Eyes: Eyes: Denies blurry vision ENT: Reports Normal hearing present Cardiovascular: Cardiovascular: Denies chest pain and Denies lightheadedness Respiratory: Respiratory: Reports cough and Reports dyspnea Gastrointestinal: Gastrointestinal: Denies abdominal pain, Denies constipation and Denies diarrhea Genitourinary: Genitourinary: Reports hematuria, Denies flank pain, Reports urinary frequency, Denies urinary hesitancy and Denies urinary urgency Musculoskeletal: Musculoskeletal: Denies back pain Neurologic: Denies Abnormal speech present [facility] Past Medical History Medical History (Updated 04/03/25 @ 15:35 by DANIELLE Jimenez) Multiple falls COVID-19 Secondary malignant neoplasm of bone Prostate CA Atrial fibrillation Orthostatic hypotension CHF (congestive heart failure) Family History Family History Other Unknown family medical history Social History Social History Smoking packs per day: 1 Smoking cigarettes per day: 20.0 Years smoked: 15 Smoking pack-years: 15.00 Smoking status: Former smoker Alcohol intake: never Drinks per week: 0 Alcohol use details: 2 per month Substance use: never Lack of Transportation: No Lack of Food: Never True Current Housing: I Have Housing Concerned About Future Housing: No Difficulty Paying Gas/Electric Bills: No Difficulty Paying for Meds: No Currently Unemployed: No Education: High School Diploma/GED Difficulty w/ Childcare or Family Care: No Living arrangements: assisted living Additional living arrangements comments: [facility] phone Spiritual care concerns: Yes Meds Home Medications and Allergies Home Medications ?Medication ?Instructions ?Recorded ?Confirmed ?Type loratadine 10 mg tablet 10 mg PO DAILY 04/25/2303/15 History rivaroxaban 20 mg tablet (Xarelto) 20 mg PO DAILY #30 tabs 05/03/23 03/30/25 Rx abiraterone 250 mg tablet 250 mg PO QID 01/23/2503/30 History azelastine 137 mcg (0.1 %) nasal 2 spray intranasal Q1 2H PRN 01/23/25 03/30/25 History spray allergy symptoms acetaminophen 650 mg 650 mg PO Q8H PRN pain 03/0303/30/25 History tablet,extended release (8 Hour Pain Reliever) sertraline 50 mg tablet 50 mg PO DAILY 03/03/2503/15 History polyethylene glycol 3350 17 gram 17 g PO QAM PRN Const ipation #10 ea 03/08/25 03/30/25 Rx oral powder packet (Miralax) melatonin 5 mg tablet 5 mg PO HS 03/30/25 03/30/25 History Allergies Allergy/AdvReac Type Severity Reaction Status Date / Time No Known Allergies Allergy Verified 03/30/25 14:35 Vital Signs Vital Signs - 24 hr 04/02/25 16:00 04/02/25 16:00 04/02/25 20:00 Temperature 36.4 C Pulse Rate 81 80 78 Respiratory Rate 20 20 Blood Pressure 137/78 Pulse Oximetry 95 96 Oxygen Delivery Room Air Fraction of Inspired Oxygen 21 04/02/25 20:00 04/02/25 20:00 04/02/25 20:40 Temperature Pulse Rate 83 83 Respiratory Rate Blood Pressure Pulse Oximetry Oxygen Delivery Room Air Fraction of Inspired Oxygen 04/03/25 00:00 04/03/25 00:00 04/03/25 04:00 Temperature 36.9 C Pulse Rate 71 71 93 Respiratory Rate 19 Blood Pressure 161/80 H Pulse Oximetry 96 Oxygen Delivery Fraction of Inspired Oxygen 04/03/25 08:00 04/03/25 08:00 04/03/25 08:00 Temperature 37.1 C Pulse Rate 89 82 89 Respiratory Rate 14 18 Blood Pressure 110/98 H Pulse Oximetry 97 97 Oxygen Delivery Room Air Fraction of Inspired Oxygen 04/03/25 08:47 Temperature Pulse Rate 88 Respiratory Rate Blood Pressure Pulse Oximetry Oxygen Delivery Fraction of Inspired Oxygen Exam 2 Const: General: comfortable and no acute distress HENMT: Face/Nose/Sinus: Normal nares present Eyes: Sclera: sclerae normal Resp: Effort & Inspection: normal respiratory effort Urinary Catheter: Urinary Catheter: patent and draining and urine red Skin: General skin exam: normal color Neuro: Speech: normal speech Results Labs 04/03/25 08:00 04/03/25 08:00 Labs: Short CBC 04/03/25 Range/Units 08:00 WBC 5.1 (4.5-10.0) K/mm3 Hgb 10.1 L (14.0-18.0) g/dL Hct 30.6 L (42.0-52.0) % Plt Count 189 (150-375) k/mm3 [facility] 04/03/25 08:00 Sodium 140 Potassium 2.9 L Chloride 107 Carbon Dioxide 27 BUN 18 Creatinine 0.72 Glucose 94 Calcium 8.3 L Liver Function 04/03/25 Range/Units 08:00 Total Bilirubin 0.7 (0.2-1.3) mg/dL AST 43 (17-59) U/L ALT 15 (6-50) U/L Alkaline Phosphatase 67 (38-126) U/L Albumin 3.2 L (3.5-5.1) g/dL
[2025-04-03] MEDS: ACETAMINOPHEN 325 MG TABLET 650 MG PO (20:12)
[2025-04-04] VITALS (8 sets, daily range): BP systolic 152–168; BP diastolic 75–90; PULSE 65–87; RESP 13–16; TEMP 36.9–37.2; O2SAT 99–100
[2025-04-04 05:59] LABS: Hematocrit 26.8 % (42.0-52.0); Hemoglobin 8.9 g/dL (14.0-18.0); Mean Corpuscular HGB Conc 33.2 g/dl (32-36); Mean Corpuscular Hemoglobin 31.3 pg (26-34); Mean Corpuscular Volume 94.4 fl (80-100); Platelet Count Result 172 k/mm3 (150-375); Red Blood Count 2.84 M/mm3 (4.6-6.20); White Blood Count 5.0 K/mm3 (4.5-10.0)
[2025-04-04 06:28] LABS: Alanine Aminotransferase 16 U/L (6-50); Albumin Level 2.8 g/dL (3.5-5.1); Alkaline Phosphatase 57 U/L (38-126); Anion Gap 4 mmol/L (4-12); Aspartate Amino Transferase 29 U/L (17-59); Bilirubin,Total 0.6 mg/dL (0.2-1.3); Blood Urea Nitrogen 15 mg/dL (9-20); Calcium 8.1 mg/dL (8.4-10.2); Carbon Dioxide 27 mmol/L (22-30); Chloride 109 mmol/L (98-107); Estimated CRCL calculation 61 ml/min; Estimated Glomerular Filt Rate > 60; Glucose 95 mg/dL (65-110); Magnesium 2.2 mg/dL (1.6-2.3); Potassium 2.9 mmol/L (3.4-5.0); Sodium 140 mmol/L (137-145); Total Protein 5.4 g/dL (6.3-8.2)
[2025-04-04] MEDS: SERTRALINE HCL 50 MG TABLET PO (08:24)
[2025-04-04] MEDS: METOPROLOL TARTRATE 12.5 MG TABLET PO ×2 (08:24→21:30)
[2025-04-04] MEDS: POTASSIUM CHLORIDE 20 MEQ PACKET (FOR LIQUID) 40 MEQ PO (08:24)
[2025-04-04] MEDS: BENZONATATE 100 MG CAPSULE 200 MG PO ×3 (08:25→16:53)
[2025-04-04] MEDS: LORATADINE 10 MG TABLET PO (08:25)
[2025-04-04] MEDS: POTASSIUM CHLORIDE INJ 40 MEQ in SODIUM CHLORIDE 0.9% IV 500 ML 130 MEQ IVPB (08:51)
--- NOTE | 2025-04-04 10:01 | P.PNUR_ITS ---
Progress Note: A&P Assessment and Plan (1) Gross hematuria: Code(s): R31.0 - Gross hematuria Status: Acute Assessment and Plan: - Urine clear pink; less hematuria as compared to yesterday - No clots in urine and catheter draining well - Discussed with primary team, if advising pt restart on Xarelto may trial as hematuria is minimal and continues to resolve. If restarted and signifcant gross hematuria hold again at that time. (2) Urinary retention: Code(s): R33.9 - Retention of urine, unspecified Status: Acute Assessment and Plan: - Start on tamsulosin 0.4 qd - Plan for void trial once gross hematuria is resolved and pt approaching discharge Subjective Subjective Date/Time Seen: 04/04/25 10:01 Interval history: Pt resting comfortably in bed this AM; NAEO. No complaints currently. Exam Const: General: comfortable and no acute distress HENMT: Face/Nose/Sinus: Normal nares present Eyes: Sclera: sclerae normal Resp: Effort & Inspection: normal respiratory effort Urinary Catheter: Urinary Catheter: patent and draining and urine pink Skin: General skin exam: normal color Neuro: Speech: normal speech Objective Data Vital Signs Vital Signs: Vital Signs - 24 hr 04/03/25 14:00 04/03/25 16:00 04/03/25 16:00 Temperature 36.6 C Pulse Rate 79 90 90 Respiratory Rate 24 H Blood Pressure 149/78 H Pulse Oximetry 96 Oxygen Delivery 04/03/25 18:00 04/03/25 20:00 04/03/25 20:00 Temperature Pulse Rate 92 87 Respiratory Rate Blood Pressure Pulse Oximetry Oxygen Delivery Room Air 04/03/25 20:11 04/03/25 22:00 04/04/25 00:00 Temperature 37.2 C Pulse Rate 89 77 84 Respiratory Rate 16 Blood Pressure 152/83 H Pulse Oximetry 100 Oxygen Delivery 04/04/25 00:00 04/04/25 02:00 04/04/25 04:00 Temperature Pulse Rate 83 82 87 Respiratory Rate Blood Pressure Pulse Oximetry Oxygen Delivery 04/04/25 06:00 04/04/25 08:00 04/04/25 08:00 Temperature 37.0 C Pulse Rate 83 82 Respiratory Rate 13 Blood Pressure 153/90 H Pulse Oximetry 99 Oxygen Delivery Room Air 04/04/25 08:00 04/04/25 08:24 Temperature Pulse Rate 77 80 Respiratory Rate Blood Pressure Pulse Oximetry Oxygen Delivery Intake/Output Intake/Output: Intake & Output 04/01/25 04/02/25 04/03/25 04/04/25 23:59 23:59 23:59 23:59 Intake Total 850 270 320 50 Output Total 811 108 7213 850 [facility] -100 -605 -1280 -800 Meds/Results Medications: Active Medications Generic Name Dose Route Start Last Admin Trade Name Freq PRN Reason Stop Dose Admin Acetaminophen 650 mg 03/30/25 10:12 03/30/25 17:46 Acetaminophen 650 Mg Suppository RECTAL 650 mg Q6H PRN Administration Mild Pain (1-3)/FEVER IF NPO Acetaminophen 650 mg 03/31/25 09:18 04/03/25 20:12 Acetaminophen 325 Mg Tablet PO 650 mg Q8H PRN Administration Pain Amoxicillin/Clavulanate Potassium 1 tablet 03/31/25 21:00 04/04/25 08:25 Amoxicillin/Clavulanate K 875-125 Mg Tab PO 04/05/25 21:01 1 tablet Q12HR SAMSON Administration Azelastine HCl 2 spray 03/31/25 09:18 Azelastine Hcl Nasal 0.1% 137 Mcg/Spr 30 Ml Btl NASAL Q12H PRN allergy symptoms Benzonatate 200 mg 04/01/25 17:00 04/04/25 08:25 Benzonatate 100 Mg Capsule PO 200 mg TID SAMSON Administration Bisacodyl 10 mg 03/31/25 09:23 Bisacodyl 10 Mg Suppository RECTAL QAM PRN Constipation Dextrose 12.5 gm 03/30/25 20:12 Dextrose 50% 25 Gm/50 Ml Syringe IV PUSH PRN PRN Hypoglycemia Protocol Docusate Sodium 100 mg 03/31/25 17:00 04/03/25 16:39 Docusate Sodium 100 Mg Capsule PO Not Given BID SAMSON Glucagon 1 mg 03/30/25 20:12 Glucagon For Inj 1 Mg Vial IM PRN PRN Hypoglycemia Protocol Glucose 15 gm 03/30/25 20:12 Glucose Oral Gel 15 Gm Of Glucse In 37.5 Gm Tube PO PRN PRN Hypoglycemia Protocol Guaifenesin/Dextromethorphan 10 ml 04/01/25 13:06 Guaifenesin/Dextromethorphan 10 Ml Udc PO Q4H PRN Cough Dextrose 1,000 mls @ 100 mls/hr 03/30/25 20:12 Dextrose 5% 1,000 Ml IVPB PRN PRN Hypoglycemia Protocol Potassium Chloride 40 meq/ 520 mls @ 130 mls/hr 04/04/25 08:45 04/04/25 08:51 Sodium Chloride IVPB 04/04/25 12:44 130 mls/hr ONCE ONE Administration Insulin Aspart 2 - 5 units 03/31/25 16:30 04/04/25 05:58 Insulin Aspart (*Bkc) 100 Units/Ml SUB-Q Not Given ACHS SAMSON Protocol Loratadine 10 mg 03/31/25 10:15 04/04/25 08:25 Loratadine 10 Mg Tablet PO 10 mg DAILY SAMSON Administration Metoprolol Tartrate 5 mg 03/30/25 20:14 Metoprolol Tartrate Inj 5 Mg/5 Ml Vial IV PUSH Q6HR PRN Tachycardia Metoprolol Tartrate 12.5 mg 04/01/25 09:00 04/04/25 08:24 Metoprolol Tartrate 12.5 Mg Tablet PO 12.5 mg Q12HR SAMSON Administration Ondansetron HCl 4 mg 04/01/25 10:30 04/01/25 10:40 Ondansetron Hcl Odt 4 Mg Tablet PO 4 mg Q6H PRN Administration Nausea And Vomiting Polyethylene Glycol 17 gm 03/31/25 10:15 04/03/25 08:48 Polyethylene Glycol 3350 17 Gm Powd.Pack PO Not Given QAM SAMSON Rivaroxaban 20 mg 03/31/25 10:15 03/31/25 10:51 Rivaroxaban 20 Mg Tablet PO 20 mg On Hold: 03/31/25 18:31 DAILY SAMSON Administration Sertraline HCl 50 mg 03/31/25 10:15 04/04/25 08:24 Sertraline Hcl 50 Mg Tablet PO 50 mg DAILY SAMSON Administration Radiology Results: ITS Impressions Head CT 03/30/25 06:38 IMPRESSION: 1. No acute intracranial findings. Abdomen/Pelvis CT 03/30/25 07:34 IMPRESSION: 1. Stool distends the rectum. 2. Gallbladder distention, which may be secondary to fasting. Correlate with physical exam to exclude acute cholecystitis. 3. 1.9 cm left kidney mass which may be a hemorrhagic cyst or renal cell carcinoma. Abdomen CT or MRI without and with contrast is recommended. 4. Chronic interstitial lung disease. 5. Small sliding hiatal hernia. Chest X-Ray 03/30/25 07:56 IMPRESSION: 1. Minimal bibasilar aspiration not excluded. 2. No large airspace disease. Chest CTA 03/30/25 09:44 IMPRESSION: 1. Right upper lobe aspiration pneumonia. 2. 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 Recommend endovascular or surgical consultation for management. 3. No large central PE identified. Respiratory motion artifact precludes evaluation of segmental branches and beyond. Abdomen Ultrasound 03/30/25 22:19 IMPRESSION echogenic debris in the gallbladder may represent sludge. Common bowel loss normal in thickness. There are no pericholecystic fluid. Labs Labs: Laboratory Results - last 24 hr 04/03/25 04/03/25 04/03/25 11:39 16:35 20:46 WBC RBC Hgb Hct MCV MCH MCHC RDW Plt Count MPV Sodium Potassium Chloride Carbon Dioxide Anion Gap BUN Creatinine Estim Creat Clear Calc Estimated GFR Glucose POC Capillary Glucose 108 H 128 H 129 H Calcium Magnesium Total Bilirubin AST ALT Alkaline Phosphatase Total Protein Albumin 04/04/25 04/04/25 04/04/25 05:41 05:56 08:20 WBC 5.0 RBC 2.84 L Hgb 8.9 L Hct 26.8 L MCV 94.4 MCH 31.3 MCHC 33.2 RDW 14.7 H Plt Count 172 MPV 10.2 Sodium 140 Potassium 2.9 L Chloride 109 H Carbon Dioxide 27 Anion Gap 4 BUN 15 Creatinine 0.69 L Estim Creat Clear Calc 61 Estimated GFR > 60 Glucose 95 POC Capillary Glucose 104 94 Calcium 8.1 L Magnesium 2.2 Total Bilirubin 0.6 AST 29 ALT 16 Alkaline Phosphatase 57 Total Protein 5.4 L Albumin 2.8 L
--- NOTE | 2025-04-04 12:26 | P.PNIM_ITS ---
Progress Note: A&P Assessment and Plan (1) Aspiration pneumonia: Qualifiers: Aspiration pneumonia type: due to vomit Laterality: right Lung location: upper lobe of lung Qualified Code(s): J69.0 - Pneumonitis due to inhalation of food and vomit Code(s): J69.0 - Pneumonitis due to inhalation of food and vomit Status: Acute Assessment and Plan: On room air. Antibiotics switched to p.o. Augmentin for total of 5 days Swallow evaluation done. Patient now on diet. Tessalon Perles and Robitussin D for cough Incentive spirometry (2) Hypoxic respiratory failure: Code(s): J96.91 - Respiratory failure, unspecified with hypoxia Status: Acute Assessment and Plan: Significantly improved as patient now off oxygen Secondary to above (3) Atrial fibrillation with RVR: Code(s): I48.91 - Unspecified atrial fibrillation Status: Acute Assessment and Plan: Patient was initially started on diltiazem in the ED Patient converted to sinus rhythm Cardiology following Echo is pending Patient is on On Xarelto at home which is being held due to hematuria 03/31/2025: Echocardiogram Summary 1. Technically difficult study, suboptimal image quality. Echo contrast was used. Normal LV size, mild LVH, hyperdynamic LV systolic function, ejection fraction more than 70%. Grade 1 diastolic dysfunction. Normal RV size and systolic function. Mild to moderate left atrial enlargement. Mitral annular calcification, no significant MR. Aortic valve is not well visualized, no hemodynamically significant stenosis by Doppler. Unable to assess RVSP due to inadequate TR jet. Normal aortic root size. No significant pericardial effusion. Normal IVC size. (4) Sepsis: Code(s): A41.9 - Sepsis, unspecified organism Status: Acute Assessment and Plan: Secondary to aspiration pneumonia Blood cultures negative till now Fluid bolus given initially but not on maintenance fluids UA negative for infection Continue antibiotics 03/30: Blood cultures negative (5) Abdominal pain: Code(s): R10.9 - Unspecified abdominal pain Status: Acute Assessment and Plan: Abdominal ultrasound shows Gallbladder is distended. There is echogenic debris in the gallbladder. No pericholecystic fluid. The common bile duct is normal in size, measuring 5.1 mm. Generalized abdominal pain Gallbladder distension could be from fasting patient as he was NPO for aspiration pneumonia. Currently on heart healthy diet and tolerating Denies any pain this morning Continue laxative (6) CHF (congestive heart failure): Code(s): I50.9 - Heart failure, unspecified Status: Acute Assessment and Plan: Elevated BNP Diuretics were held due to NPO status Echo from 2022 reviewed Repeat echo Technically difficult study, suboptimal image quality. Echo contrast was used. Normal LV size, mild LVH, hyperdynamic LV systolic function, ejection fraction more than 70%. Grade 1 diastolic dysfunction. Normal RV size and systolic function. Mild to moderate left atrial enlargement. Mitral annular calcification, no significant MR. Aortic valve is not well visualized, no hemodynamically significant stenosis by Doppler. Unable to assess RVSP due to inadequate TR jet. Normal aortic root size. No significant pericardial effusion. Normal IVC size (7) Prostate CA: Code(s): C61 - Malignant neoplasm of prostate Status: Acute Assessment and Plan: Can bring abiraterone from home (8) Hematuria: Code(s): R31.9 - Hematuria, unspecified Status: Acute Assessment and Plan: Patient has history of prostate cancer. He was on anticoagulation. He has developed hematuria. Anticoagulation has been on hold. This could be traumatic as patient has a Sommer catheter in. It is persistent. -appreciate Neurology evaluation recommendation -continue Flomax -okay to restart rivaroxaban, if patient bleeds again will hold and inform Urology (9) Electrolyte abnormality: Code(s): E87.8 - Other disorders of electrolyte and fluid balance, not elsewhere classified Status: Acute Assessment and Plan: Potassium replaced Plan DVT prophylaxis -SCD . 04/04: Restarted rivaroxaban after discussing with urology Nutrition -tolerating diet Continue PT OT Incentive spirometry Subjective Date/time seen: 04/04/25 12:26 Interval history: 89-year-old male with past medical history of prostate cancer, atrial fibrillation, CHF, presents the hospital with nausea, vomiting, fever and chills. Patient is alert and oriented x2. Per nurse at the independent living place he is normally A&O x4. HPI is limited due to altered mental status. Patient complains of abdominal pain on palpation. Lab work in the ED shows hemoglobin of 10.6, glucose of 162, lactic acid of 2.5 followed by 2.1, proBNP 2710, UA is negative for infection. Influenza A/B RSV and COVID negative. While in the ED patient had low oxygen levels and was placed on 4 L nasal cannula with repeat chest x-ray showing aspiration pneumonia on the right side. He had tachycardia and 130 EKG showed AFib with RVR and he was hypertensive. Patient was started on a Cardizem drip. 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 Head CT shows no acute finding. UA negative for infection. 04/04/2025: Patient being seen for the hospitalist team Patient was easily arousable this morning, but later he was a little bit more somnolent. Remains in sinus rhythm, rate controlled, on room air with adequate O2 sats. Patient denies any chest pain, shortness of breath, abdominal pain, nausea or vomiting. Urine output has been adequate, pink urine Review of Systems Review of Systems: All systems reviewed & are unremarkable except as noted in HPI and below Exam Narrative: General: well appearing, appears stated age. No acute distress HEENT: normocephalic, atraumatic. Mucous membranes moist. Pupils equal and reactive bilaterally, sclera is clear, no conjunctival injection. Neck supple Respiratory: Adequate air entry, clear to auscultation, decreased at bases, no wheeze Cardiovascular: Regular rate and rhythm, normal S1-S2 upon auscultation. No murmurs Abdomen: Soft, nontender, nondistended, normoactive bowel so Extremities: No cyanosis, clubbing, or edema present. Pulses are palpable 2/2. Neuro: Patient is awake, alert was answering all questions follows simple commands in all extremities Skin: Warm, dry, and intact, without rash, upper extremity bruising noted Psych: pleasant and cooperative patient. : Sommer catheter with hematuria Objective Data Vital Signs Vital Signs: Vital Signs - 24 hr 04/03/25 14:00 04/03/25 16:00 04/03/25 16:00 Temperature 97.8 F Pulse Rate 79 90 90 Respiratory Rate 24 H Blood Pressure 149/78 H Pulse Oximetry 96 Oxygen Delivery 04/03/25 18:00 04/03/25 20:00 04/03/25 20:00 Temperature Pulse Rate 92 87 Respiratory Rate Blood Pressure Pulse Oximetry Oxygen Delivery Room Air 04/03/25 20:11 04/03/25 22:00 04/04/25 00:00 Temperature 98.9 F Pulse Rate 89 77 84 Respiratory Rate 16 Blood Pressure 152/83 H Pulse Oximetry 100 Oxygen Delivery 04/04/25 00:00 04/04/25 02:00 04/04/25 04:00 Temperature Pulse Rate 83 82 87 Respiratory Rate Blood Pressure Pulse Oximetry Oxygen Delivery 04/04/25 06:00 04/04/25 08:00 04/04/25 08:00 Temperature 98.6 F Pulse Rate 83 82 Respiratory Rate 13 Blood Pressure 153/90 H Pulse Oximetry 99 Oxygen Delivery Room Air 04/04/25 08:00 04/04/25 08:24 04/04/25 10:00 Temperature Pulse Rate 77 80 65 Respiratory Rate Blood Pressure Pulse Oximetry Oxygen Delivery 04/04/25 10:00 Temperature Pulse Rate 65 Respiratory Rate Blood Pressure Pulse Oximetry Oxygen Delivery Intake/Output Intake/Output: Intake & Output 04/01/25 04/02/25 04/03/25 04/04/25 23:59 23:59 23:59 23:59 Intake Total 850 270 320 50 Output Total 745 872 4470 850 Balance -100 -605 -1280 -800 Meds/Results Medications: Active Medications Generic Name Dose Route Start Last Admin Trade Name Freq PRN Reason Stop Dose Admin Acetaminophen 650 mg 03/30/25 10:12 03/30/25 17:46 Acetaminophen 650 Mg Suppository RECTAL 650 mg Q6H PRN Administration Mild Pain (1-3)/FEVER IF NPO Acetaminophen 650 mg 03/31/25 09:18 04/03/25 20:12 Acetaminophen 325 Mg Tablet PO 650 mg Q8H PRN Administration Pain Amoxicillin/Clavulanate Potassium 1 tablet 03/31/25 21:00 04/04/25 08:25 Amoxicillin/Clavulanate K 875-125 Mg Tab PO 04/05/25 21:01 1 tablet Q12HR SAMSON Administration Azelastine HCl 2 spray 03/31/25 09:18 Azelastine Hcl Nasal 0.1% 137 Mcg/Spr 30 Ml Btl NASAL Q12H PRN allergy symptoms Benzonatate 200 mg 04/01/25 17:00 04/04/25 08:25 Benzonatate 100 Mg Capsule PO 200 mg TID SAMSON Administration Bisacodyl 10 mg 03/31/25 09:23 Bisacodyl 10 Mg Suppository RECTAL QAM PRN Constipation Dextrose 12.5 gm 03/30/25 20:12 Dextrose 50% 25 Gm/50 Ml Syringe IV PUSH PRN PRN Hypoglycemia Protocol Docusate Sodium 100 mg 03/31/25 17:00 04/03/25 16:39 Docusate Sodium 100 Mg Capsule PO Not Given BID SAMSON Glucagon 1 mg 03/30/25 20:12 Glucagon For Inj 1 Mg Vial IM PRN PRN Hypoglycemia Protocol Glucose 15 gm 03/30/25 20:12 Glucose Oral Gel 15 Gm Of Glucse In 37.5 Gm Tube PO PRN PRN Hypoglycemia Protocol Guaifenesin/Dextromethorphan 10 ml 04/01/25 13:06 Guaifenesin/Dextromethorphan 10 Ml Udc PO Q4H PRN Cough Dextrose 1,000 mls @ 100 mls/hr 03/30/25 20:12 Dextrose 5% 1,000 Ml IVPB PRN PRN Hypoglycemia Protocol Potassium Chloride 40 meq/ 520 mls @ 130 mls/hr 04/04/25 08:45 04/04/25 08:51 Sodium Chloride IVPB 04/04/25 12:44 130 mls/hr ONCE ONE Administration Insulin Aspart 2 - 5 units 03/31/25 16:30 04/04/25 05:58 Insulin Aspart (*Bkc) 100 Units/Ml SUB-Q Not Given ACHS [facility] Protocol Loratadine 10 mg 03/31/25 10:15 04/04/25 08:25 Loratadine 10 Mg Tablet PO 10 mg DAILY [facility] Administration Metoprolol Tartrate 5 mg 03/30/25 20:14 Metoprolol Tartrate Inj 5 Mg/5 Ml Vial IV PUSH Q6HR PRN Tachycardia Metoprolol Tartrate 12.5 mg 04/01/25 09:00 04/04/25 08:24 Metoprolol Tartrate 12.5 Mg Tablet PO 12.5 mg Q12HR SAMSON Administration Ondansetron HCl 4 mg 04/01/25 10:30 04/01/25 10:40 Ondansetron Hcl Odt 4 Mg Tablet PO 4 mg Q6H PRN Administration Nausea And Vomiting Polyethylene Glycol 17 gm 03/31/25 10:15 04/03/25 08:48 Polyethylene Glycol 3350 17 Gm Powd.Pack PO Not Given QAM SAMSON Rivaroxaban 20 mg 03/31/25 10:15 03/31/25 10:51 Rivaroxaban 20 Mg Tablet PO 20 mg DAILY [facility] Administration Sertraline HCl 50 mg 03/31/25 10:15 04/04/25 08:24 Sertraline Hcl 50 Mg Tablet PO 50 mg DAILY [facility] Administration Tamsulosin HCl 0.4 mg 04/05/25 09:00 Tamsulosin Hcl 0.4 Mg Capsule PO QAM [facility] Radiology Results: ITS Impressions Head CT 03/30/25 06:38 IMPRESSION: 1. No acute intracranial findings. Abdomen/Pelvis CT 03/30/25 07:34 IMPRESSION: 1. Stool distends the rectum. 2. Gallbladder distention, which may be secondary to fasting. Correlate with physical exam to exclude acute cholecystitis. 3. 1.9 cm left kidney mass which may be a hemorrhagic cyst or renal cell carcinoma. Abdomen CT or MRI without and with contrast is recommended. 4. Chronic interstitial lung disease. 5. Small sliding hiatal hernia. Chest X-Ray 03/30/25 07:56 IMPRESSION: 1. Minimal bibasilar aspiration not excluded. 2. No large airspace disease. Chest CTA 03/30/25 09:44 IMPRESSION: 1. Right upper lobe aspiration pneumonia. 2. 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 Recommend endovascular or surgical consultation for management. 3. No large central PE identified. Respiratory motion artifact precludes evaluation of segmental branches and beyond. Abdomen Ultrasound 03/30/25 22:19 IMPRESSION echogenic debris in the gallbladder may represent sludge. Common bowel loss normal in thickness. There are no pericholecystic fluid. Labs Labs: Laboratory Results - last 24 hr 04/03/25 04/03/25 04/04/25 16:35 20:46 05:41 WBC 5.0 RBC 2.84 L Hgb 8.9 L Hct 26.8 L MCV 94.4 MCH 31.3 MCHC 33.2 RDW 14.7 H Plt Count 172 MPV 10.2 Sodium 140 Potassium 2.9 L Chloride 109 H Carbon Dioxide 27 Anion Gap 4 BUN 15 Creatinine 0.69 L Estim Creat Clear Calc 61 Estimated GFR > 60 Glucose 95 POC Capillary Glucose 128 H 129 H Calcium 8.1 L Magnesium 2.2 Total Bilirubin 0.6 AST 29 ALT 16 Alkaline Phosphatase 57 Total Protein 5.4 L Albumin 2.8 L 04/04/25 04/04/25 05:56 08:20 WBC RBC Hgb Hct MCV MCH MCHC RDW Plt Count MPV Sodium Potassium Chloride Carbon Dioxide Anion Gap BUN Creatinine Estim Creat Clear Calc Estimated GFR Glucose POC Capillary Glucose 104 94 Calcium Magnesium Total Bilirubin AST ALT Alkaline Phosphatase Total Protein Albumin Quality VTE Prophylaxis VTE prophylaxis: mechanical ordered
[2025-04-04] MEDS: DOCUSATE SODIUM 100 MG CAPSULE PO (16:53)
[2025-04-05] VITALS: BP 135/75; PULSE 76; RESP 16; TEMP 37.8; O2SAT 96
[2025-04-05 04:43] LABS: Hematocrit 27.3 % (42.0-52.0); Hemoglobin 8.8 g/dL (14.0-18.0); Immature Granulocyte Percent A 0.2 % (0-0.5); Lymphocytes Absolute Auto 1.19 K/mm3 (0.9-3.2); Mean Corpuscular HGB Conc 32.2 g/dl (32-36); Mean Corpuscular Hemoglobin 31.0 pg (26-34); Mean Corpuscular Volume 96.1 fl (80-100); Nucleated Red Blood Cells Absolute Auto 0.000 K/mm3 (0.0-0.012); Nucleated Red Blood Cells Perc 0.0 % (0.0-0.2); Platelet Count Result 181 k/mm3 (150-375); Red Blood Count 2.84 M/mm3 (4.6-6.20); White Blood Count 5.6 K/mm3 (4.5-10.0)
[2025-04-05 05:04] LABS: Alanine Aminotransferase 15 U/L (6-50); Albumin Level 2.8 g/dL (3.5-5.1); Alkaline Phosphatase 56 U/L (38-126); Anion Gap 4 mmol/L (4-12); Aspartate Amino Transferase 30 U/L (17-59); Bilirubin,Total 0.6 mg/dL (0.2-1.3); Blood Urea Nitrogen 15 mg/dL (9-20); Calcium 8.1 mg/dL (8.4-10.2); Carbon Dioxide 25 mmol/L (22-30); Chloride 111 mmol/L (98-107); Estimated CRCL calculation 57 ml/min; Estimated Glomerular Filt Rate > 60; Glucose 94 mg/dL (65-110); Magnesium 2.2 mg/dL (1.6-2.3); Potassium 3.5 mmol/L (3.4-5.0); Sodium 140 mmol/L (137-145); Total Protein 5.4 g/dL (6.3-8.2)
[2025-04-05 08:00] VITALS: BP 154/79; PULSE 85; RESP 16; TEMP 37.3; O2SAT 96
[2025-04-05 08:13] VITALS: PULSE 87
[2025-04-05] MEDS: TAMSULOSIN HCL 0.4 MG CAPSULE PO (08:13)
[2025-04-05] MEDS: METOPROLOL TARTRATE 12.5 MG TABLET PO ×2 (08:13→20:33)
[2025-04-05] MEDS: RIVAROXABAN 20 MG TABLET PO (08:14)
[2025-04-05] MEDS: DOCUSATE SODIUM 100 MG CAPSULE PO ×2 (08:14→16:18)
[2025-04-05] MEDS: SERTRALINE HCL 50 MG TABLET PO (08:14)
[2025-04-05] MEDS: LORATADINE 10 MG TABLET PO (08:14)
[2025-04-05] MEDS: BENZONATATE 100 MG CAPSULE 200 MG PO ×3 (08:20→16:17)
--- NOTE | 2025-04-05 10:30 | PC.NURSE ---
Transfer from ICU per wheelchair. Belongings verified. Assist of 3 with gait belt to transfer to bed from wheelchair.
--- NOTE | 2025-04-05 10:41 | PC.NURSE ---
This patient, Ranulfo Montague, was transferred to [facility] on 04/05/25 at 1041. Personal belongings sent with patient. Report given to Leelee. Appropriate documentation sent with patient.
--- NOTE | 2025-04-05 13:48 | P.PNIM_ITS ---
Progress Note: A&P Assessment and Plan (1) Aspiration pneumonia: Qualifiers: Aspiration pneumonia type: due to vomit Laterality: right Lung location: upper lobe of lung Qualified Code(s): J69.0 - Pneumonitis due to inhalation of food and vomit Code(s): J69.0 - Pneumonitis due to inhalation of food and vomit Status: Acute Assessment and Plan: On room air. Antibiotics switched to p.o. Augmentin for total of 5 days Swallow evaluation done. Patient now on diet. Tessalon Perles and Robitussin D for cough Incentive spirometry (2) Hypoxic respiratory failure: Code(s): J96.91 - Respiratory failure, unspecified with hypoxia Status: Acute Assessment and Plan: Significantly improved as patient now off oxygen Secondary to above (3) Atrial fibrillation with RVR: Code(s): I48.91 - Unspecified atrial fibrillation Status: Acute Assessment and Plan: Patient was initially started on diltiazem in the ED Patient converted to sinus rhythm Cardiology following Echo showing EF 70% with grade I diastolic dysfunction, moderate LA enlargement. Patient is on On Xarelto at home which initially was held due to hematuria but now resumed. (4) Sepsis: Code(s): A41.9 - Sepsis, unspecified organism Status: Acute Assessment and Plan: Secondary to aspiration pneumonia. Blood cultures negative Fluid bolus given initially but not on maintenance fluids UA negative for infection Continue antibiotics (5) Abdominal pain: Code(s): R10.9 - Unspecified abdominal pain Status: Acute Assessment and Plan: Abdominal ultrasound shows Gallbladder is distended. There is echogenic debris in the gallbladder. No pericholecystic fluid. The common bile duct is normal in size, measuring 5.1 mm. Patient had generalized abdominal pain Gallbladder distension could be from fasting patient as he was NPO for aspiration pneumonia. Abd pain has resolved. Currently on heart healthy diet and tolerating Follow (6) CHF (congestive heart failure): Code(s): I50.9 - Heart failure, unspecified Status: Acute Assessment and Plan: Elevated BNP. Echo as above. Diuretics were held due to NPO status Clinically euvolemic. Follow (7) Hematuria: Code(s): R31.9 - Hematuria, unspecified Status: Acute Assessment and Plan: Patient has history of prostate cancer. He was on anticoagulation and developed hematuria. [place] hematuria related to Sommer trauma. Anticoagulation was held but now resumed. Appreciate Urology recommendation Continue Flomax Monitor for recurrent hematuria. If no bleeding, plan voiding trial. If patient bleeds again will hold anticoagulation and inform Urology (8) Electrolyte abnormality: Code(s): E87.8 - Other disorders of electrolyte and fluid balance, not elsewhere cla ssified Status: Acute Assessment and Plan: Phos low so this was replaced. Follow (9) Prostate CA: Code(s): C61 - Malignant neoplasm of prostate Status: Acute Assessment and Plan: As above. Can bring abiraterone from home Plan DVT prophylaxis - rivaroxaban Code status - DNR Subjective Date/time seen: 04/05/25 13:48 Interval history: 89yo male with prostate cancer, atrial fibrillation, CHF here for nausea, vomiting, fever and chills. Assuming care. Chart reviewed. Patient has complains of neck pain which is chronic. No further abdominal pain. No chest pain. No shortness of breath. Normal bowel movements. No nausea or vomiting. No diarrhea. Exam Narrative: Tm 100.0 99.1 154/79 87 16 96% ra Gen - NARD sitting up in chair Chest - distant BS. CV - RRR S1/S2. Tele showing no significant dysryhtmias. Abd - soft, NT/ND, +BS - Sommer secured draining dark yellow urine. Ext - Rt LE edema. Negative Homans. Neuro - AOx4 except did not know the name of the hospital. Psych - pleasant and cooperative. Skin - warm and dry Objective Data Vital Signs Vital Signs: Vital Signs - 24 hr 04/04/25 16:00 04/04/25 20:00 04/05/25 00:00 Temperature 98.4 F 100.0 F H Pulse Rate 81 76 Respiratory Rate 16 16 Blood Pressure 168/75 H 135/75 Pulse Oximetry 100 96 Oxygen Delivery Room Air 04/05/25 08:00 04/05/25 08:00 04/05/25 08:13 Temperature 99.1 F Pulse Rate 85 87 Respiratory Rate 16 Blood Pressure 154/79 H Pulse Oximetry 96 Oxygen Delivery Room Air 04/05/25 10:48 Temperature Pulse Rate Respiratory Rate Blood Pressure Pulse Oximetry Oxygen Delivery Room Air Intake/Output Intake/Output: Intake & Output 04/02/25 04/03/25 04/04/25 04/05/25 23:59 23:59 23:59 23:59 Intake Total 882 000 6468 700 Output Total 875 1600 1750 750 [facility] -605 -1280 -430 -50 Meds/Results Medications: Active Medications Generic Name Dose Route Start Last Admin Trade Name Freq PRN Reason Stop Dose Admin Acetaminophen 650 mg 03/30/25 10:12 03/30/25 17:46 Acetaminophen 650 Mg Suppository RECTAL 650 mg Q6H PRN Administration Mild Pain (1-3)/FEVER IF NPO Acetaminophen 650 mg 03/31/25 09:18 04/03/25 20:12 Acetaminophen 325 Mg Tablet PO 650 mg Q8H PRN Administration Pain Amoxicillin/Clavulanate Potassium 1 tablet 03/31/25 21:00 04/05/25 08:14 Amoxicillin/Clavulanate K 875-125 Mg Tab PO 04/05/25 21:01 1 tablet Q12HR SAMSON Administration Azelastine HCl 2 spray 03/31/25 09:18 Azelastine Hcl Nasal 0.1% 137 Mcg/Spr 30 Ml Btl NASAL Q12H PRN allergy symptoms Benzonatate 200 mg 04/01/25 17:00 04/05/25 12:17 Benzonatate 100 Mg Capsule PO 200 mg TID SAMSON Administration Bisacodyl 10 mg 03/31/25 09:23 Bisacodyl 10 Mg Suppository RECTAL QAM PRN Constipation Dextrose 12.5 gm 03/30/25 20:12 Dextrose 50% 25 Gm/50 Ml Syringe IV PUSH PRN PRN Hypoglycemia Protocol Docusate Sodium 100 mg 03/31/25 17:00 04/05/25 08:14 Docusate Sodium 100 Mg Capsule PO 100 mg BID SAMSON Administration Glucagon 1 mg 03/30/25 20:12 Glucagon For Inj 1 Mg Vial IM PRN PRN Hypoglycemia Protocol Glucose 15 gm 03/30/25 20:12 Glucose Oral Gel 15 Gm Of Glucse In 37.5 Gm Tube PO PRN PRN Hypoglycemia Protocol Guaifenesin/Dextromethorphan 10 ml 04/01/25 13:06 Guaifenesin/Dextromethorphan 10 Ml Udc PO Q4H PRN Cough Dextrose 1,000 mls @ 100 mls/hr 03/30/25 20:12 Dextrose 5% 1,000 Ml IVPB PRN PRN Hypoglycemia Protocol Insulin Aspart 2 - 5 units 03/31/25 16:30 04/05/25 12:18 Insulin Aspart (*Bkc) 100 Units/Ml SUB-Q Not Given ACHS [facility] Protocol Loratadine 10 mg 03/31/25 10:15 04/05/25 08:14 Loratadine 10 Mg Tablet PO 10 mg DAILY [facility] Administration Metoprolol Tartrate 5 mg 03/30/25 20:14 Metoprolol Tartrate Inj 5 Mg/5 Ml Vial IV PUSH Q6HR PRN Tachycardia Metoprolol Tartrate 12.5 mg 04/01/25 09:00 04/05/25 08:13 Metoprolol Tartrate 12.5 Mg Tablet PO 12.5 mg Q12HR [facility]SON Administration Ondansetron HCl 4 mg 04/01/25 10:30 04/01/25 10:40 Ondansetron Hcl Odt 4 Mg Tablet PO 4 mg Q6H PRN Administration Nausea And Vomiting Polyethylene Glycol 17 gm 03/31/25 10:15 04/05/25 08:20 Polyethylene Glycol 3350 17 Gm Powd.Pack PO 17 gm QAM [facility] Administration Rivaroxaban 20 mg 03/31/25 10:15 04/05/25 08:14 Rivaroxaban 20 Mg Tablet PO 20 mg DAILY [facility] Administration Sertraline HCl 50 mg 03/31/25 10:15 04/05/25 08:14 Sertraline Hcl 50 Mg Tablet PO 50 mg DAILY [facility] Administration Tamsulosin HCl 0.4 mg 04/05/25 09:00 04/05/25 08:13 Tamsulosin Hcl 0.4 Mg Capsule PO 0.4 mg QAM [facility] Administration Radiology Results: ITS Impressions Head CT 03/30/25 06:38 IMPRESSION: 1. No acute intracranial findings. Abdomen/Pelvis CT 03/30/25 07:34 IMPRESSION: 1. Stool distends the rectum. 2. Gallbladder distention, which may be secondary to fasting. Correlate with physical exam to exclude acute cholecystitis. 3. 1.9 cm left kidney mass which may be a hemorrhagic cyst or renal cell carcinoma. Abdomen CT or MRI without and with contrast is recommended. 4. Chronic interstitial lung disease. 5. Small sliding hiatal hernia. Chest X-Ray 03/30/25 07:56 IMPRESSION: 1. Minimal bibasilar aspiration not excluded. 2. No large airspace disease. Chest CTA 03/30/25 09:44 IMPRESSION: 1. Right upper lobe aspiration pneumonia. 2. 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 Recommend endovascular or surgical consultation for management. 3. No large central PE identified. Respiratory motion artifact precludes evaluation of segmental branches and beyond. Abdomen Ultrasound 03/30/25 22:19 IMPRESSION echogenic debris in the gallbladder may represent sludge. Common bowel loss normal in thickness. There are no pericholecystic fluid. Labs Labs: Laboratory Results - last 24 hr 04/04/25 04/04/25 04/05/25 16:45 21:27 04:28 WBC 5.6 RBC 2.84 L Hgb 8.8 L Hct 27.3 L MCV 96.1 MCH 31.0 MCHC 32.2 RDW 15.0 H Plt Count 181 MPV 10.5 H Immature Gran % (Auto) 0.2 Neut % (Auto) 55.6 Lymph % (Auto) 21.2 [place] % (Auto) 7.3 Eos % (Auto) 14.8 H Baso % (Auto) 0.9 Lymph # (Auto) 1.19 [place] # (Auto) 0.4 Eos # (Auto) 0.8 H Baso # (Auto) 0.1 Abs Immat Gran (auto) 0.01 Absolute Neuts (auto) 3.1 Absolute Nucleated RBC 0.000 Nucleated RBC % 0.0 Sodium 140 Potassium 3.5 Chloride 111 H Carbon Dioxide 25 Anion Gap 4 BUN 15 Creatinine 0.74 Estim Creat Clear Calc 57 Estimated GFR > 60 Glucose 94 POC Capillary Glucose 98 104 Calcium 8.1 L Phosphorus 2.2 L Magnesium 2.2 Total Bilirubin 0.6 AST 30 ALT 15 Alkaline Phosphatase 56 Total Protein 5.4 L Albumin 2.8 L 04/05/25 11:24 WBC RBC Hgb Hct MCV MCH MCHC RDW Plt Count MPV Immature Gran % (Auto) Neut % (Auto) Lymph % (Auto) [place] % (Auto) Eos % (Auto) Baso % (Auto) Lymph # (Auto) [place] # (Auto) Eos # (Auto) Baso # (Auto) Abs Immat Gran (auto) Absolute Neuts (auto) Absolute Nucleated RBC Nucleated RBC % Sodium Potassium Chloride Carbon Dioxide Anion Gap BUN Creatinine Estim Creat Clear Calc Estimated GFR Glucose POC Capillary Glucose 100 Calcium Phosphorus Magnesium Total Bilirubin AST ALT Alkaline Phosphatase Total Protein Albumin
[2025-04-05 16:00] VITALS: BP 153/76; PULSE 85; RESP 16; TEMP 36.9; O2SAT 96
[2025-04-05] MEDS: ONDANSETRON HCL ODT 4 MG TABLET PO (16:35)
[2025-04-05] MEDS: AZELASTINE HCL NASAL 0.1% 137 MCG/SPR 30 ML BTL 2 SPRAY NASAL (17:59)
[2025-04-05 20:00] VITALS: PULSE 91; RESP 16; O2SAT 95
[2025-04-05] MEDS: MELATONIN 5 MG TABLET PO (20:33)
[2025-04-05 21:29] VITALS: BP 143/76; PULSE 91; RESP 16; TEMP 36.5; O2SAT 95
[2025-04-06 06:09] LABS: Hematocrit 27.1 % (42.0-52.0); Hemoglobin 8.4 g/dL (14.0-18.0); Mean Corpuscular HGB Conc 31.0 g/dl (32-36); Mean Corpuscular Hemoglobin 31.7 pg (26-34); Mean Corpuscular Volume 102.3 fl (80-100); Platelet Count Result 173 k/mm3 (150-375); Red Blood Count 2.65 M/mm3 (4.6-6.20); White Blood Count 5.0 K/mm3 (4.5-10.0)
[2025-04-06 06:32] LABS: Alanine Aminotransferase 15 U/L (6-50); Albumin Level 2.8 g/dL (3.5-5.1); Alkaline Phosphatase 56 U/L (38-126); Anion Gap 3 mmol/L (4-12); Aspartate Amino Transferase 25 U/L (17-59); Bilirubin,Total 0.5 mg/dL (0.2-1.3); Blood Urea Nitrogen 17 mg/dL (9-20); Calcium 8.1 mg/dL (8.4-10.2); Carbon Dioxide 25 mmol/L (22-30); Chloride 109 mmol/L (98-107); Estimated CRCL calculation 58 ml/min; Estimated Glomerular Filt Rate > 60; Glucose 98 mg/dL (65-110); Magnesium 2.2 mg/dL (1.6-2.3); Potassium 3.5 mmol/L (3.4-5.0); Sodium 137 mmol/L (137-145); Total Protein 5.3 g/dL (6.3-8.2)
[2025-04-06 08:16] VITALS: PULSE 91
[2025-04-06] MEDS: METOPROLOL TARTRATE 12.5 MG TABLET PO ×2 (08:16→21:05)
[2025-04-06] MEDS: DOCUSATE SODIUM 100 MG CAPSULE PO ×2 (08:16→16:50)
[2025-04-06] MEDS: RIVAROXABAN 20 MG TABLET PO (08:16)
[2025-04-06] MEDS: LORATADINE 10 MG TABLET PO (08:16)
[2025-04-06] MEDS: SERTRALINE HCL 50 MG TABLET PO (08:16)
[2025-04-06] MEDS: TAMSULOSIN HCL 0.4 MG CAPSULE PO (08:16)
[2025-04-06] MEDS: ACETAMINOPHEN 325 MG TABLET 650 MG PO (10:03)
[2025-04-06 14:00] VITALS: BP 128/69; PULSE 93; RESP 16; TEMP 36.4; O2SAT 96
--- NOTE | 2025-04-06 15:15 | WPDUROPN2 ---
Progress Note: A&P Assessment and Plan (1) Gross hematuria: Code(s): R31.0 - Gross hematuria Status: Acute Assessment and Plan: - xarelto restarted yesterday. -urine still clear. (2) Urinary retention: Code(s): R33.9 - Retention of urine, unspecified Status: Acute Assessment and Plan: - continue tamsulosin 0.4 qd - No hematuria yesterday or today. -may have voiding trial today. -serial pvr's Subjective Subjective Date/Time Seen: 04/06/25 15:15 Interval history: 89yo male with prostate cancer, atrial fibrillation, CHF here for nausea, vomiting, fever and chills. patient doing well. olivas draining clear yellow still. anticoagulants restarted yesterday. no hematuria. Review of Systems Review of Systems: per hpi Exam Const: General: comfortable and no acute distress HENMT: Face/Nose/Sinus: Normal nares present Eyes: Sclera: sclerae normal Resp: Effort & Inspection: normal respiratory effort Urinary Catheter: Urinary Catheter: patent and draining Skin: General skin exam: normal color Neuro: Cranial nerves: Yes Normal hearing present Speech: normal speech and No Abnormal speech present Objective Data Vital Signs Vital Signs: Vital Signs - 24 hr 04/05/25 16:00 04/05/25 20:00 04/05/25 21:29 Temperature 98.5 F 97.7 F Pulse Rate 85 91 91 Respiratory Rate 16 16 16 Blood Pressure 153/76 H 143/76 H Pulse Oximetry 96 95 95 Oxygen Delivery Room Air Fraction of Inspired Oxygen 21 04/06/25 08:00 04/06/25 08:16 Temperature Pulse Rate 91 Respiratory Rate Blood Pressure Pulse Oximetry Oxygen Delivery Room Air Fraction of Inspired Oxygen Intake/Output Intake/Output: Intake & Output 04/03/25 04/04/25 04/05/25 04/06/25 23:59 23:59 23:59 23:59 Intake Total 320 1320 700 400 Output Total 1600 1750 1250 300 Balance -1280 -430 -550 100 Meds/Results Medications: Active Medications Generic Name Dose Route Start Last Admin Trade Name Freq PRN Reason Stop Dose Admin Acetaminophen 650 mg 03/30/25 10:12 03/30/25 17:46 Acetaminophen 650 Mg Suppository RECTAL 650 mg Q6H PRN Administration Mild Pain (1-3)/FEVER IF NPO Acetaminophen 650 mg 03/31/25 09:18 04/06/25 10:03 Acetaminophen 325 Mg Tablet PO 650 mg Q8H PRN Administration Pain Azelastine HCl 2 spray 03/31/25 09:18 04/05/25 17:59 Azelastine Hcl Nasal 0.1% 137 Mcg/Spr 30 Ml Btl NASAL 2 spray Q12H PRN Administration allergy symptoms Benzonatate 200 mg 04/06/25 07:10 Benzonatate 100 Mg Capsule PO TID PRN Cough Bisacodyl 10 mg 03/31/25 09:23 Bisacodyl 10 Mg Suppository RECTAL QAM PRN Constipation Dextrose 12.5 gm 03/30/25 20:12 Dextrose 50% 25 Gm/50 Ml Syringe IV PUSH PRN PRN Hypoglycemia Protocol Docusate Sodium 100 mg 03/31/25 17:00 04/06/25 08:16 Docusate Sodium 100 Mg Capsule PO 100 mg BID SAMSON Administration Glucagon 1 mg 03/30/25 20:12 Glucagon For Inj 1 Mg Vial IM PRN PRN Hypoglycemia Protocol Glucose 15 gm 03/30/25 20:12 Glucose Oral Gel 15 Gm Of Glucse In 37.5 Gm Tube PO PRN PRN Hypoglycemia Protocol Guaifenesin/Dextromethorphan 10 ml 04/01/25 13:06 Guaifenesin/Dextromethorphan 10 Ml Udc PO Q4H PRN Cough Dextrose 1,000 mls @ 100 mls/hr 03/30/25 20:12 Dextrose 5% 1,000 Ml IVPB PRN PRN Hypoglycemia Protocol Insulin Aspart 2 - 5 units 03/31/25 16:30 04/06/25 12:30 Insulin Aspart (*Bkc) 100 Units/Ml SUB-Q Not Given ACHS SAMSON Protocol Loratadine 10 mg 03/31/25 10:15 04/06/25 08:16 Loratadine 10 Mg Tablet PO 10 mg DAILY SAMSON Administration Melatonin 5 mg 04/05/25 21:00 04/05/25 20:33 Melatonin 5 Mg Tablet PO 5 mg HS SAMSON Administration Metoprolol Tartrate 5 mg 03/30/25 20:14 Metoprolol Tartrate Inj 5 Mg/5 Ml Vial IV PUSH Q6HR PRN Tachycardia Metoprolol Tartrate 12.5 mg 04/01/25 09:00 04/06/25 08:16 Metoprolol Tartrate 12.5 Mg Tablet PO 12.5 mg Q12HR SAMSON Administration Ondansetron HCl 4 mg 04/01/25 10:30 04/05/25 16:35 Ondansetron Hcl Odt 4 Mg Tablet PO 4 mg Q6H PRN Administration Nausea And Vomiting Polyethylene Glycol 17 gm 03/31/25 10:15 04/06/25 08:16 Polyethylene Glycol 3350 17 Gm Powd.Pack PO 17 gm QAM SAMSON Administration Rivaroxaban 20 mg 03/31/25 10:15 04/06/25 08:16 Rivaroxaban 20 Mg Tablet PO 20 mg DAILY SAMSON Administration Sertraline HCl 50 mg 03/31/25 10:15 04/06/25 08:16 Sertraline Hcl 50 Mg Tablet PO 50 mg DAILY SAMSON Administration Tamsulosin HCl 0.4 mg 04/05/25 09:00 04/06/25 08:16 Tamsulosin Hcl 0.4 Mg Capsule PO 0.4 mg QAM SAMSON Administration Radiology Results: ITS Impressions Head CT 03/30/25 06:38 IMPRESSION: 1. No acute intracranial findings. Abdomen/Pelvis CT 03/30/25 07:34 IMPRESSION: 1. Stool distends the rectum. 2. Gallbladder distention, which may be secondary to fasting. Correlate with physical exam to exclude acute cholecystitis. 3. 1.9 cm left kidney mass which may be a hemorrhagic cyst or renal cell carcinoma. Abdomen CT or MRI without and with contrast is recommended. 4. Chronic interstitial lung disease. 5. Small sliding hiatal hernia. Chest X-Ray 03/30/25 07:56 IMPRESSION: 1. Minimal bibasilar aspiration not excluded. 2. No large airspace disease. Chest CTA 03/30/25 09:44 IMPRESSION: 1. Right upper lobe aspiration pneumonia. 2. 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 Recommend endovascular or surgical consultation for management. 3. No large central PE identified. Respiratory motion artifact precludes evaluation of segmental branches and beyond. Abdomen Ultrasound 03/30/25 22:19 IMPRESSION echogenic debris in the gallbladder may represent sludge. Common bowel loss normal in thickness. There are no pericholecystic fluid. Ankle X-Ray 04/06/25 13:47 Impression: 1: Mild polyarticular osteoarthritis. Labs Labs: Laboratory Results - last 24 hr 04/05/25 04/05/2504/06/25 16:40 20:42 05:31 WBC 5.0 RBC 2.65 L Hgb 8.4 L Hct 27.1 L MCV 102.3 H D MCH 31.7 MCHC 31.0 L RDW 15.3 H Plt Count 173 MPV 10.8 H Sodium 137 Potassium 3.5 Chloride 109 H Carbon Dioxide 25 Anion Gap 3 L BUN 17 Creatinine 0.73 Estim Creat Clear Calc 58 Estimated GFR > 60 Glucose 98 POC Capillary Glucose 108 H 119 H Calcium 8.1 L Phosphorus 2.6 Magnesium 2.2 Total Bilirubin 0.5 AST 25 ALT 15 Alkaline Phosphatase 56 Total Protein 5.3 L Albumin 2.8 L 04/06/25 04/06/25 07:58 11:48 WBC RBC Hgb Hct MCV MCH MCHC RDW Plt Count MPV Sodium Potassium Chloride Carbon Dioxide Anion Gap BUN Creatinine Estim Creat Clear Calc Estimated GFR Glucose POC Capillary Glucose 99 125 H Calcium Phosphorus Magnesium Total Bilirubin AST ALT Alkaline Phosphatase Total Protein Albumin
--- NOTE | 2025-04-06 17:37 | PM.IMPN ---
Progress Note: A&P Assessment and Plan (1) Right foot pain: Code(s): M79.671 - Pain in right foot Status: Acute Assessment and Plan: Patient noted to have edema yesterday but no pain. He has now developed ankle and foot pain. Rt ankle xray showing no acute fx but osteoarthritis. Consider gout flare vs OA. Treat symptomatically. (2) Aspiration pneumonia: Qualifiers: Aspiration pneumonia type: due to vomit Laterality: right Lung location: upper lobe of lung Qualified Code(s): J69.0 - Pneumonitis due to inhalation of food and vomit Code(s): J69.0 - Pneumonitis due to inhalation of food and vomit Status: Acute Assessment and Plan: On room air. Antibiotics switched to p.o. Augmentin for total of 5 days Swallow evaluation done. Patient now on diet. Tessalon Perles and Robitussin D prn for cough Incentive spirometry (3) Hypoxic respiratory failure: Code(s): J96.91 - Respiratory failure, unspecified with hypoxia Status: Acute Assessment and Plan: Significantly improved as patient now off oxygen Secondary to above (4) Atrial fibrillation with RVR: Code(s): I48.91 - Unspecified atrial fibrillation Status: Acute Assessment and Plan: Patient was initially started on diltiazem in the ED Patient converted to sinus rhythm Cardiology following Echo showing EF 70% with grade I diastolic dysfunction, moderate LA enlargement. Patient is on On Xarelto at home which initially was held due to hematuria but now resumed. (5) Sepsis: Code(s): A41.9 - Sepsis, unspecified organism Status: Acute Assessment and Plan: Secondary to aspiration pneumonia. Blood cultures negative Fluid bolus given initially but not on maintenance fluids UA negative for infection; felt related to aspiration PNA Continue antibiotics (6) Abdominal pain: Code(s): R10.9 - Unspecified abdominal pain Status: Acute Assessment and Plan: Abdominal ultrasound shows Gallbladder is distended. There is echogenic debris in the gallbladder. No pericholecystic fluid. The common bile duct is normal in size, measuring 5.1 mm. Patient had generalized abdominal pain Gallbladder distension could be from fasting patient as he was NPO for aspiration pneumonia. Abd pain has resolved. Currently on heart healthy diet and tolerating Follow (7) CHF (congestive heart failure): Code(s): I50.9 - Heart failure, unspecified Status: Acute Assessment and Plan: Elevated BNP. Echo as above. Diuretics were held due to NPO status Clinically euvolemic. Follow (8) Hematuria: Code(s): R31.9 - Hematuria, unspecified Status: Acute Assessment and Plan: Patient has history of prostate cancer. He was on anticoagulation and developed hematuria. Mcdonough hematuria related to Sommer trauma. Anticoagulation was held but now resumed. Appreciate Urology recommendation Continue Flomax No further hematuria. Urology informed and voiding trial ordered (9) Electrolyte abnormality: Code(s): E87.8 - Other disorders of electrolyte and fluid balance, not elsewhere classified Status: Acute Assessment and Plan: Phos low so this was replaced. Follow (10) Prostate CA: Code(s): C61 - Malignant neoplasm of prostate Status: Acute Assessment and Plan: As above. Can bring abiraterone from home Plan DVT prophylaxis - rivaroxaban Code status - DNR SNF placement being arranged Subjective Date/time seen: 04/06/25 17:37 Interval history: 89yo male with prostate cancer, atrial fibrillation, CHF here for nausea, vomiting, fever and chills. Complains of right foot pain today. No twists or trauma to the right foot or ankle. No hx of gout. No CP or SOB. No n/v. Feels well otherwise. Did not have pain yesterday. Exam Narrative: AF 97.6 128/69 93 16 96% ra Gen - NARD sitting up in chair Chest - CTA bilaterally. CV - RRR S1/S2 with occasional extra beats Abd - soft, NT/ND, +BS - Sommer secured draining clear yellow urine. Ext - Rt low ankle and foot edema. Negative Homans. point tenderness medial malleolus and foot. Neuro - Alert and appropriate Psych - pleasant and cooperative. Skin - warm and dry Objective Data Vital Signs Vital Signs: Vital Signs - 24 hr 04/05/25 20:00 04/05/25 21:29 04/06/25 08:00 Temperature 97.7 F Pulse Rate 91 91 Respiratory Rate 16 16 Blood Pressure 143/76 H Pulse Oximetry 95 95 Oxygen Delivery Room Air Room Air Fraction of Inspired Oxygen 21 04/06/25 08:16 04/06/25 14:00 Temperature 97.6 F Pulse Rate 91 93 Respiratory Rate 16 Blood Pressure 128/69 Pulse Oximetry 96 Oxygen Delivery Fraction of Inspired Oxygen Intake/Output Intake/Output: Intake & Output 04/03/25 04/04/25 04/05/25 04/06/25 23:59 23:59 23:59 23:59 Intake Total 320 1320 700 640 Output Total 1600 1750 1250 300 Balance -1280 -430 -550 340 Meds/Results Medications: Active Medications Generic Name Dose Route Start Last Admin Trade Name Freq PRN Reason Stop Dose Admin Acetaminophen 650 mg 03/30/25 10:12 03/30/25 17:46 Acetaminophen 650 Mg Suppository RECTAL 650 mg Q6H PRN Administration Mild Pain (1-3)/FEVER IF NPO Acetaminophen 650 mg 03/31/25 09:18 04/06/25 10:03 Acetaminophen 325 Mg Tablet PO 650 mg Q8H PRN Administration Pain Azelastine HCl 2 spray 03/31/25 09:18 04/05/25 17:59 Azelastine Hcl Nasal 0.1% 137 Mcg/Spr 30 Ml Btl NASAL 2 spray Q12H PRN Administration allergy symptoms Benzonatate 200 mg 04/06/25 07:10 Benzonatate 100 Mg Capsule PO TID PRN Cough Bisacodyl 10 mg 03/31/25 09:23 Bisacodyl 10 Mg Suppository RECTAL QAM PRN Constipation Dextrose 12.5 gm 03/30/25 20:12 Dextrose 50% 25 Gm/50 Ml Syringe IV PUSH PRN PRN Hypoglycemia Protocol Docusate Sodium 100 mg 03/31/25 17:00 04/06/25 16:50 Docusate Sodium 100 Mg Capsule PO 100 mg BID SAMSON Administration Glucagon 1 mg 03/30/25 20:12 Glucagon For Inj 1 Mg Vial IM PRN PRN Hypoglycemia Protocol Glucose 15 gm 03/30/25 20:12 Glucose Oral Gel 15 Gm Of Glucse In 37.5 Gm Tube PO PRN PRN Hypoglycemia Protocol Guaifenesin/Dextromethorphan 10 ml 04/01/25 13:06 Guaifenesin/Dextromethorphan 10 Ml Udc PO Q4H PRN Cough Dextrose 1,000 mls @ 100 mls/hr 03/30/25 20:12 Dextrose 5% 1,000 Ml IVPB PRN PRN Hypoglycemia Protocol Insulin Aspart 2 - 5 units 03/31/25 16:30 04/06/25 12:30 Insulin Aspart (*Bkc) 100 Units/Ml SUB-Q Not Given ACHS [facility] Protocol Loratadine 10 mg 03/31/25 10:15 04/06/25 08:16 Loratadine 10 Mg Tablet PO 10 mg DAILY SAMSON Administration Melatonin 5 mg 04/05/25 21:00 04/05/25 20:33 Melatonin 5 Mg Tablet PO 5 mg HS SAMSON Administration Metoprolol Tartrate 5 mg 03/30/25 20:14 Metoprolol Tartrate Inj 5 Mg/5 Ml Vial IV PUSH Q6HR PRN Tachycardia Metoprolol Tartrate 12.5 mg 04/01/25 09:00 04/06/25 08:16 Metoprolol Tartrate 12.5 Mg Tablet PO 12.5 mg Q12HR SAMSON Administration Ondansetron HCl 4 mg 04/01/25 10:30 04/05/25 16:35 Ondansetron Hcl Odt 4 Mg Tablet PO 4 mg Q6H PRN Administration Nausea And Vomiting Polyethylene Glycol 17 gm 03/31/25 10:15 04/06/25 08:16 Polyethylene Glycol 3350 17 Gm Powd.Pack PO 17 gm QAM SAMSON Administration Rivaroxaban 20 mg 03/31/25 10:15 04/06/25 08:16 Rivaroxaban 20 Mg Tablet PO 20 mg DAILY SAMSON Administration Sertraline HCl 50 mg 03/31/25 10:15 04/06/25 08:16 Sertraline Hcl 50 Mg Tablet PO 50 mg DAILY SAMSON Administration Tamsulosin HCl 0.4 mg 04/05/25 09:00 04/06/25 08:16 Tamsulosin Hcl 0.4 Mg Capsule PO 0.4 mg QAM SAMSON Administration Radiology Results: ITS Impressions Head CT 03/30/25 06:38 IMPRESSION: 1. No acute intracranial findings. Abdomen/Pelvis CT 03/30/25 07:34 IMPRESSION: 1. Stool distends the rectum. 2. Gallbladder distention, which may be secondary to fasting. Correlate with physical exam to exclude acute cholecystitis. 3. 1.9 cm left kidney mass which may be a hemorrhagic cyst or renal cell carcinoma. Abdomen CT or MRI without and with contrast is recommended. 4. Chronic interstitial lung disease. 5. Small sliding hiatal hernia. Chest X-Ray 03/30/25 07:56 IMPRESSION: 1. Minimal bibasilar aspiration not excluded. 2. No large airspace disease. Chest CTA 03/30/25 09:44 IMPRESSION: 1. Right upper lobe aspiration pneumonia. 2. 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 Recommend endovascular or surgical consultation for management. 3. No large central PE identified. Respiratory motion artifact precludes evaluation of segmental branches and beyond. Abdomen Ultrasound 03/30/25 22:19 IMPRESSION echogenic debris in the gallbladder may represent sludge. Common bowel loss normal in thickness. There are no pericholecystic fluid. Ankle X-Ray 04/06/25 13:47 Impression: 1: Mild polyarticular osteoarthritis. Labs Labs: Laboratory Results - last 24 hr 04/05/25 04/06/25 04/06/25 20:42 05:31 07:58 WBC 5.0 RBC 2.65 L Hgb 8.4 L Hct 27.1 L MCV 102.3 H D MCH 31.7 MCHC 31.0 L RDW 15.3 H Plt Count 173 MPV 10.8 H Sodium 137 Potassium 3.5 Chloride 109 H Carbon Dioxide 25 Anion Gap 3 L BUN 17 Creatinine 0.73 Estim Creat Clear Calc 58 Estimated GFR > 60 Glucose 98 POC Capillary Glucose 119 H 99 Calcium 8.1 L Phosphorus 2.6 Magnesium 2.2 Total Bilirubin 0.5 AST 25 ALT 15 Alkaline Phosphatase 56 Total Protein 5.3 L Albumin 2.8 L 04/06/25 04/06/25 11:48 17:22 WBC RBC Hgb Hct MCV MCH MCHC RDW Plt Count MPV Sodium Potassium Chloride Carbon Dioxide Anion Gap BUN Creatinine Estim Creat Clear Calc Estimated GFR Glucose POC Capillary Glucose 125 H 124 H Calcium Phosphorus Magnesium Total Bilirubin AST ALT Alkaline Phosphatase Total Protein Albumin
[2025-04-06 21:05] VITALS: PULSE 93
[2025-04-06] MEDS: MELATONIN 5 MG TABLET PO (21:06)
[2025-04-06 22:00] VITALS: BP 120/66; PULSE 92; RESP 14; TEMP 36.4; O2SAT 97
[2025-04-07 04:21] VITALS: BP 121/63; PULSE 78; RESP 18; TEMP 36.4; O2SAT 95
[2025-04-07 08:29] VITALS: PULSE 76
[2025-04-07] MEDS: SERTRALINE HCL 50 MG TABLET PO (08:29)
[2025-04-07] MEDS: TAMSULOSIN HCL 0.4 MG CAPSULE PO (08:29)
[2025-04-07] MEDS: LORATADINE 10 MG TABLET PO (08:29)
[2025-04-07] MEDS: RIVAROXABAN 20 MG TABLET PO (08:29)
[2025-04-07] MEDS: METOPROLOL TARTRATE 12.5 MG TABLET PO ×2 (08:29→21:06)
[2025-04-07] MEDS: DOCUSATE SODIUM 100 MG CAPSULE PO ×2 (08:29→17:33)
--- NOTE | 2025-04-07 09:35 | P.PNUR_ITS ---
Progress Note: A&P Assessment and Plan (1) Gross hematuria: Code(s): R31.0 - Gross hematuria Status: Acute Assessment and Plan: - xarelto restarted two days ago -urine yellow. was incontinent (2) Urinary retention: Code(s): R33.9 - Retention of urine, unspecified Status: Acute Assessment and Plan: - continue tamsulosin 0.4 qd - No hematuria yesterday or today. -voiding trial yesterday. Patient reports issues with urination. -Continue serial pvr's at this time. Subjective Subjective Date/Time Seen: 04/07/25 09:35 Interval history: 89yo male with prostate cancer, atrial fibrillation, CHF here for nausea, vomiting, fever and chills. Patient reports he is doing well but that he is having trouble urinating. Review of Systems Review of Systems: per hpi Exam Const: General: comfortable and no acute distress HENMT: Face/Nose/Sinus: Normal nares present Eyes: Sclera: sclerae normal Resp: Effort & Inspection: normal respiratory effort Skin: General skin exam: normal color Neuro: Cranial nerves: Yes Normal hearing present Speech: normal speech and No Abnormal speech present Objective Data Vital Signs Vital Signs: Vital Signs - 24 hr 04/06/25 14:00 04/06/25 21:05 04/06/25 22:00 Temperature 97.6 F 97.6 F Pulse Rate 93 93 92 Respiratory Rate 16 14 Blood Pressure 128/69 120/66 Pulse Oximetry 96 97 04/07/25 04:21 04/07/25 08:29 Temperature 97.5 F L Pulse Rate 78 76 Respiratory Rate 18 Blood Pressure 121/63 Pulse Oximetry 95 Intake/Output Intake/Output: Intake & Output 04/04/25 04/05/25 04/06/25 04/07/25 23:59 23:59 23:59 23:59 Intake Total 5537 679 8177 150 Output Total 1750 1250 300 Balance -430 -550 740 150 Meds/Results Medications: Active Medications Generic Name Dose Route Start Last Admin Trade Name Freq PRN Reason Stop Dose Admin Acetaminophen 650 mg 03/30/25 10:12 03/30/25 17:46 Acetaminophen 650 Mg Suppository RECTAL 650 mg Q6H PRN Administration Mild Pain (1-3)/FEVER IF NPO Acetaminophen 650 mg 03/31/25 09:18 04/06/25 10:03 Acetaminophen 325 Mg Tablet PO 650 mg Q8H PRN Administration Pain Azelastine HCl 2 spray 03/31/25 09:18 04/05/25 17:59 Azelastine Hcl Nasal 0.1% 137 Mcg/Spr 30 Ml Btl NASAL 2 spray Q12H PRN Administration allergy symptoms Benzonatate 200 mg 04/06/25 07:10 Benzonatate 100 Mg Capsule PO TID PRN Cough Bisacodyl 10 mg 03/31/25 09:23 Bisacodyl 10 Mg Suppository RECTAL QAM PRN Constipation Dextrose 12.5 gm 03/30/25 20:12 Dextrose 50% 25 Gm/50 Ml Syringe IV PUSH PRN PRN Hypoglycemia Protocol Docusate Sodium 100 mg 03/31/25 17:00 04/07/25 08:29 Docusate Sodium 100 Mg Capsule PO 100 mg BID SAMSON Administration Glucagon 1 mg 03/30/25 20:12 Glucagon For Inj 1 Mg Vial IM PRN PRN Hypoglycemia Protocol Glucose 15 gm 03/30/25 20:12 Glucose Oral Gel 15 Gm Of Glucse In 37.5 Gm Tube PO PRN PRN Hypoglycemia Protocol Guaifenesin/Dextromethorphan 10 ml 04/01/25 13:06 Guaifenesin/Dextromethorphan 10 Ml Udc PO Q4H PRN Cough Dextrose 1,000 mls @ 100 mls/hr 03/30/25 20:12 Dextrose 5% 1,000 Ml IVPB PRN PRN Hypoglycemia Protocol Insulin Aspart 2 - 5 units 03/31/25 16:30 04/07/25 09:16 Insulin Aspart (*Bkc) 100 Units/Ml SUB-Q Not Given ACHS SAMSON Protocol Loratadine 10 mg 03/31/25 10:15 04/07/25 08:29 Loratadine 10 Mg Tablet PO 10 mg DAILY SAMSON Administration Melatonin 5 mg 04/05/25 21:00 04/06/25 21:06 Melatonin 5 Mg Tablet PO 5 mg HS SAMSON Administration Metoprolol Tartrate 5 mg 03/30/25 20:14 Metoprolol Tartrate Inj 5 Mg/5 Ml Vial IV PUSH Q6HR PRN Tachycardia Metoprolol Tartrate 12.5 mg 04/01/25 09:00 04/07/25 08:29 Metoprolol Tartrate 12.5 Mg Tablet PO 12.5 mg Q12HR SAMSON Administration Ondansetron HCl 4 mg 04/01/25 10:30 04/05/25 16:35 Ondansetron Hcl Odt 4 Mg Tablet PO 4 mg Q6H PRN Administration Nausea And Vomiting Polyethylene Glycol 17 gm 03/31/25 10:15 04/07/25 08:32 Polyethylene Glycol 3350 17 Gm Powd.Pack PO Not Given QAM SAMSON Rivaroxaban 20 mg 03/31/25 10:15 04/07/25 08:29 Rivaroxaban 20 Mg Tablet PO 20 mg DAILY SAMSON Administration Sertraline HCl 50 mg 03/31/25 10:15 04/07/25 08:29 Sertraline Hcl 50 Mg Tablet PO 50 mg DAILY SAMSON Administration Tamsulosin HCl 0.4 mg 04/05/25 09:00 04/07/25 08:29 Tamsulosin Hcl 0.4 Mg Capsule PO 0.4 mg QAM SAMSON Administration Radiology Results: ITS Impressions Head CT 03/30/25 06:38 IMPRESSION: 1. No acute intracranial findings. Abdomen/Pelvis CT 03/30/25 07:34 IMPRESSION: 1. Stool distends the rectum. 2. Gallbladder distention, which may be secondary to fasting. Correlate with physical exam to exclude acute cholecystitis. 3. 1.9 cm left kidney mass which may be a hemorrhagic cyst or renal cell carcinoma. Abdomen CT or MRI without and with contrast is recommended. 4. Chronic interstitial lung disease. 5. Small sliding hiatal hernia. Chest X-Ray 03/30/25 07:56 IMPRESSION: 1. Minimal bibasilar aspiration not excluded. 2. No large airspace disease. Chest CTA 03/30/25 09:44 IMPRESSION: 1. Right upper lobe aspiration pneumonia. 2. 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 Recommend endovascular or surgical consultation for management. 3. No large central PE identified. Respiratory motion artifact precludes evaluation of segmental branches and beyond. Abdomen Ultrasound 03/30/25 22:19 IMPRESSION echogenic debris in the gallbladder may represent sludge. Common bow el loss normal in thickness. There are no pericholecystic fluid. Ankle X-Ray 04/06/25 13:47 Impression: 1: Mild polyarticular osteoarthritis. Labs Labs: Laboratory Results - last 24 hr 04/06/25 04/06/25 04/06/25 11:48 17:22 20:53 POC Capillary Glucose 125 H 124 H 108 H 04/07/25 07:46 POC Capillary Glucose 98
--- NOTE | 2025-04-07 10:03 | PCNWS ---
Weekly nutritional screen. Patient is tolerating current Heart healthy, SBS L6 diet with varied intake, 0-100%. Ensure Plus HP BID ordered by provider. (350 kcal, 20 g protein each). No weight loss reported. No nutritional needs at this time.
[2025-04-07] MEDS: FUROSEMIDE INJ 40 MG/4 ML VIAL 20 MG IV PUSH ×2 (12:38→17:46)
[2025-04-07 14:00] VITALS: BP 115/52; PULSE 83; RESP 20; TEMP 35.9; O2SAT 99
--- NOTE | 2025-04-07 17:26 | PM.IMPN ---
Progress Note: A&P Assessment and Plan (1) Right foot pain: Code(s): M79.671 - Pain in right foot Status: Acute Assessment and Plan: Patient developed ankle and foot pain. Rt ankle xray showing no acute fx but osteoarthritis. Symptoms have resolved. (2) Aspiration pneumonia: Qualifiers: Aspiration pneumonia type: due to vomit Laterality: right Lung location: upper lobe of lung Qualified Code(s): J69.0 - Pneumonitis due to inhalation of food and vomit Code(s): J69.0 - Pneumonitis due to inhalation of food and vomit Status: Acute Assessment and Plan: On room air. Antibiotics switched to p.o. Augmentin and completed a course Swallow evaluation done. Patient now on diet. Tessalon Perles and Robitussin D prn for cough Incentive spirometry (3) Hypoxic respiratory failure: Code(s): J96.91 - Respiratory failure, unspecified with hypoxia Status: Acute Assessment and Plan: Significantly improved as patient now off oxygen Secondary to above (4) Atrial fibrillation with RVR: Code(s): I48.91 - Unspecified atrial fibrillation Status: Acute Assessment and Plan: Patient was initially started on diltiazem in the ED Patient converted to sinus rhythm Cardiology following Echo showing EF 70% with grade I diastolic dysfunction, moderate LA enlargement. Patient is on Xarelto at home which initially was held due to hematuria but now resumed. (5) Sepsis: Code(s): A41.9 - Sepsis, unspecified organism Status: Acute Assessment and Plan: Secondary to aspiration pneumonia. Blood cultures negative Fluid bolus given initially but not on maintenance fluids UA negative for infection; felt related to aspiration PNA Continue antibiotics (6) Abdominal pain: Code(s): R10.9 - Unspecified abdominal pain Status: Acute Assessment and Plan: Abdominal ultrasound shows Gallbladder is distended. There is echogenic debris in the gallbladder. No pericholecystic fluid. The common bile duct is normal in size, measuring 5.1 mm. Patient had generalized abdominal pain Gallbladder distension could be from fasting patient as he was NPO for aspiration pneumonia. Abd pain has resolved. Currently on heart healthy diet and tolerating Follow (7) CHF (congestive heart failure): Code(s): I50.9 - Heart failure, unspecified Status: Acute Assessment and Plan: Elevated BNP. Echo as above. Diuretics were held due to NPO status Evidence of increasnig fluid. Start IV Lasix for a few doses. Add Dany [email or web address] Follow (8) Hematuria: Code(s): R31.9 - Hematuria, unspecified Status: Acute Assessment and Plan: Patient has history of prostate cancer. He was on anticoagulation and developed hematuria. [place] hematuria related to Ayou[place] trauma. Anticoagulation was held and hematuria resolved. Xarelto was resumed. Appreciate Urology recommendation Continue Flomax No further hematuria so Ayoub removed 04/06. Patient with poor UOP. Urology informed and have decided to monitor for now. (9) Electrolyte abnormality: Code(s): E87.8 - Other disorders of electrolyte and fluid balance, not elsewhere classified Status: Acute Assessment and Plan: Phos low so this was replaced. Follow (10) Prostate CA: Code(s): C61 - Malignant neoplasm of prostate Status: Acute Assessment and Plan: As above. Can bring abiraterone from home Plan DVT prophylaxis - rivaroxaban Code status - DNR SNF placement being arranged Subjective Date/time seen: 04/07/25 17:26 Interval history: 89yo male with prostate cancer, atrial fibrillation, CHF here for nausea, vomiting, fever and chills. Slept well. Only voided once since Ayoub removed when he was examined in the morning. No CP or SOB. No hematuria. Foot pain much better. Exam Narrative: AF 96.7 115/52 83 20 99% ra Gen - NARD sitting up in chair Chest - few bibasilar crackles CV - RRR S1/S2 Abd - soft, NT/ND, +BS Ext - Right ankle pain improved. R>L pedal edema. Neuro - Alert and appropriate Psych - pleasant and cooperative. Skin - warm and dry Objective Data Vital Signs Vital Signs: Vital Signs - 24 hr 04/06/25 21:05 04/06/25 22:00 04/07/25 04:21 Temperature 97.6 F 97.5 F L Pulse Rate 93 92 78 Respiratory Rate 14 18 Blood Pressure 120/66 121/63 Pulse Oximetry 97 95 Oxygen Delivery 04/07/25 08:00 04/07/25 08:29 04/07/25 14:00 Temperature 96.7 F L Pulse Rate 76 83 Respiratory Rate 20 Blood Pressure 115/52 L Pulse Oximetry 99 Oxygen Delivery Room Air Intake/Output Intake/Output: Intake & Output 04/04/25 04/05/25 04/06/25 04/07/25 23:59 23:59 23:59 23:59 Intake Total 8843 865 8384 1410 Output Total 1750 1250 300 Balance -430 -766 637 5121 Meds/Results Medications: Active Medications Generic Name Dose Route Start Last Admin Trade Name Freq PRN Reason Stop Dose Admin Acetaminophen 650 mg 03/30/25 10:12 03/30/25 17:46 Acetaminophen 650 Mg Suppository RECTAL 650 mg Q6H PRN Administration Mild Pain (1-3)/FEVER IF NPO Acetaminophen 650 mg 03/31/25 09:18 04/06/25 10:03 Acetaminophen 325 Mg Tablet PO 650 mg Q8H PRN Administration Pain Azelastine HCl 2 spray 03/31/25 09:18 04/05/25 17:59 Azelastine Hcl Nasal 0.1% 137 Mcg/Spr 30 Ml Btl NASAL 2 spray Q12H PRN Administration allergy symptoms Benzonatate 200 mg 04/06/25 07:10 Benzonatate 100 Mg Capsule PO TID PRN Cough Bisacodyl 10 mg 03/31/25 09:23 Bisacodyl 10 Mg Suppository RECTAL QAM PRN Constipation Dextrose 12.5 gm 03/30/25 20:12 Dextrose 50% 25 Gm/50 Ml Syringe IV PUSH PRN PRN Hypoglycemia Protocol Docusate Sodium 100 mg 03/31/25 17:00 04/07/25 08:29 Docusate Sodium 100 Mg Capsule PO 100 mg BID SAMSON Administration Glucagon 1 mg 03/30/25 20:12 Glucagon For Inj 1 Mg Vial IM PRN PRN Hypoglycemia Protocol Glucose 15 gm 03/30/25 20:12 Glucose Oral Gel 15 Gm Of Glucse In 37.5 Gm Tube PO PRN PRN Hypoglycemia Protocol Guaifenesin/Dextromethorphan 10 ml 04/01/25 13:06 Guaifenesin/Dextromethorphan 10 Ml Udc PO Q4H PRN Cough Dextrose 1,000 mls @ 100 mls/hr 03/30/25 20:12 Dextrose 5% 1,000 Ml IVPB PRN PRN Hypoglycemia Protocol Insulin Aspart 2 - 5 units 03/31/25 16:30 04/07/25 12:49 Insulin Aspart (*Bkc) 100 Units/Ml SUB-Q Not Given ACHS SAMSON Protocol Loratadine 10 mg 03/31/25 10:15 04/07/25 08:29 Loratadine 10 Mg Tablet PO 10 mg DAILY SAMSON Administration Melatonin 5 mg 04/05/25 21:00 04/06/25 21:06 Melatonin 5 Mg Tablet PO 5 mg HS SAMSON Administration Metoprolol Tartrate 5 mg 03/30/25 20:14 Metoprolol Tartrate Inj 5 Mg/5 Ml Vial IV PUSH Q6HR PRN Tachycardia Metoprolol Tartrate 12.5 mg 04/01/25 09:00 04/07/25 08:29 Metoprolol Tartrate 12.5 Mg Tablet PO 12.5 mg Q12HR SAMSON Administration Ondansetron HCl 4 mg 04/01/25 10:30 04/05/25 16:35 Ondansetron Hcl Odt 4 Mg Tablet PO 4 mg Q6H PRN Administration Nausea And Vomiting Polyethylene Glycol 17 gm 03/31/25 10:15 04/07/25 08:32 Polyethylene Glycol 3350 17 Gm Powd.Pack PO Not Given QAM [facility] Rivaroxaban 20 mg 03/31/25 10:15 04/07/25 08:29 Rivaroxaban 20 Mg Tablet PO 20 mg DAILY [facility] Administration Sertraline HCl 50 mg 03/31/25 10:15 04/07/25 08:29 Sertraline Hcl 50 Mg Tablet PO 50 mg DAILY [facility] Administration Tamsulosin HCl 0.4 mg 04/05/25 09:00 04/07/25 08:29 Tamsulosin Hcl 0.4 Mg Capsule PO 0.4 mg QAM [facility] Administration Radiology Results: ITS Impressions Head CT 03/30/25 06:38 IMPRESSION: 1. No acute intracranial findings. Abdomen/Pelvis CT 03/30/25 07:34 IMPRESSION: 1. Stool distends the rectum. 2. Gallbladder distention, which may be secondary to fasting. Correlate with physical exam to exclude acute cholecystitis. 3. 1.9 cm left kidney mass which may be a hemorrhagic cyst or renal cell carcinoma. Abdomen CT or MRI without and with contrast is recommended. 4. Chronic interstitial lung disease. 5. Small sliding hiatal hernia. Chest X-Ray 03/30/25 07:56 IMPRESSION: 1. Minimal bibasilar aspiration not excluded. 2. No large airspace disease. Chest CTA 03/30/25 09:44 IMPRESSION: 1. Right upper lobe aspiration pneumonia. 2. 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 Recommend endovascular or surgical consultation for management. 3. No large central PE identified. Respiratory motion artifact precludes evaluation of segmental branches and beyond. Abdomen Ultrasound 03/30/25 22:19 IMPRESSION echogenic debris in the gallbladder may represent sludge. Common bowel loss normal in thickness. There are no pericholecystic fluid. Ankle X-Ray 04/06/25 13:47 Impression: 1: Mild polyarticular osteoarthritis. Labs Labs: Laboratory Results - last 24 hr 04/06/25 04/06/25 04/07/25 17:22 20:53 07:46 POC Capillary Glucose 124 H 108 H 98 04/07/25 04/07/25 11:52 16:31 POC Capillary Glucose 110 H 108 H
[2025-04-07 20:00] VITALS: PULSE 93; RESP 18; O2SAT 95
[2025-04-07 20:46] VITALS: BP 129/52; PULSE 93; RESP 18; TEMP 36.3; O2SAT 95
[2025-04-07 21:06] VITALS: PULSE 93
[2025-04-07] MEDS: MELATONIN 5 MG TABLET PO (21:06)
[2025-04-08 04:15] VITALS: BP 135/70; PULSE 87; RESP 14; TEMP 36.3; O2SAT 97
[2025-04-08 05:39] LABS: Albumin Level 2.7 g/dL (3.5-5.1); Anion Gap 3 mmol/L (4-12); Blood Urea Nitrogen 18 mg/dL (9-20); Calcium 8.3 mg/dL (8.4-10.2); Carbon Dioxide 28 mmol/L (22-30); Chloride 105 mmol/L (98-107); Estimated CRCL calculation 53 ml/min; Estimated Glomerular Filt Rate > 60; Glucose 96 mg/dL (65-110); Potassium 3.3 mmol/L (3.4-5.0); Sodium 136 mmol/L (137-145)
[2025-04-08] MEDS: TAMSULOSIN HCL 0.4 MG CAPSULE PO (08:14)
[2025-04-08] MEDS: LORATADINE 10 MG TABLET PO (08:14)
[2025-04-08] MEDS: DOCUSATE SODIUM 100 MG CAPSULE PO (08:14)
[2025-04-08] MEDS: RIVAROXABAN 20 MG TABLET PO (08:14)
[2025-04-08] MEDS: SERTRALINE HCL 50 MG TABLET PO (08:14)
[2025-04-08] MEDS: FUROSEMIDE INJ 40 MG/4 ML VIAL 20 MG IV PUSH (08:14)
[2025-04-08 08:15] VITALS: PULSE 89
[2025-04-08] MEDS: METOPROLOL TARTRATE 12.5 MG TABLET PO (08:15)
[2025-04-08] MEDS: POTASSIUM CHLORIDE 20 MEQ ER TABLET 40 MEQ PO (08:17)
--- NOTE | 2025-04-08 12:38 | P.DS_ITS ---
DS: Admitting Diagnosis Discharge Date 04/08/25 Admitting Diagnosis Nausea, vomiting, fever and chills DS: Discharge Diagnosis Discharge Diagnosis (1) Sepsis: Code(s): A41.9 - Sepsis, unspecified organism Status: Acute (2) Right foot pain: Code(s): M79.671 - Pain in right foot Status: Acute (3) Aspiration pneumonia: Qualifiers: Aspiration pneumonia type: due to vomit Laterality: right Lung location: upper lobe of lung Qualified Code(s): J69.0 - Pneumonitis due to inhalation of food and vomit Code(s): J69.0 - Pneumonitis due to inhalation of food and vomit Status: Acute (4) Hypoxic respiratory failure: Code(s): J96.91 - Respiratory failure, unspecified with hypoxia Status: Acute (5) Atrial fibrillation with RVR: Code(s): I48.91 - Unspecified atrial fibrillation Status: Acute (6) Abdominal pain: Code(s): R10.9 - Unspecified abdominal pain Status: Acute (7) CHF (congestive heart failure): Code(s): I50.9 - Heart failure, unspecified Status: Acute (8) Hematuria: Code(s): R31.9 - Hematuria, unspecified Status: Acute (9) Electrolyte abnormality: Code(s): E87.8 - Other disorders of electrolyte and fluid balance, not elsewhere classified Status: Acute (10) Prostate CA: Code(s): C61 - Malignant neoplasm of prostate Status: Acute DS: Summary Hospital Course Reason for hospitalization: 89yo male with prostate cancer, atrial fibrillation, CHF here for nausea, vomiting, fever and chills. Please see H&P for details. Hospital Course: The following problems were addressed during this hospital course: (1) Right foot pain: Patient developed ankle and foot pain. No injury. No hx of gout. Rt ankle xray showing no acute fx but osteoarthritis. Symptoms resolved after about 1 day. He has chronic asymmetric lower extremity edema without change. (2) Aspiration pneumonia: CTA chest showing right upper lobe aspiration pneumonitis. Started on IV abx. He did well and was able to be weaned to room air. Antibiotics switched to Augmentin and he completed a course. Bedside swallow evaluation was normal. (3) Hypoxic respiratory failure: Patient was on 4L oxygen early in his hospital course. No ABG. CTA chest as above. Hypoxia improved with appropriate treatment and able to wean off oxygen. (4) Atrial fibrillation with RVR: Patient was tachycardic on admission. EKG showing aflutter/tachycardia and Rt BBB. Initially started on diltiazem in the ED. Patient converted to sinus rhythm. Cardiology consulted. Echo showing EF 70% with grade I diastolic dysfunction, moderate LA enlargement. Patient was on Xarelto at home which initially was held due to hematuria but then able to be resumed without recurrence of hematuria. (5) Sepsis: Sepsis present on admission secondary to aspiration pneumonia. Antibiotic started. Blood cultures negative. Fluid bolus given. UA negative for infection. He completed a course of antibiotics. (6) Abdominal pain: Abdominal ultrasound shows Gallbladder was distended. There is echogenic debris in the gallbladder. No pericholecystic fluid. The common bile duct is normal in size. Patient had generalized abdominal pain. Gallbladder distension could be from fasting as he was NPO for aspiration pneumonia. He improved and abdominal pain has resolved. Diet started and advanced without recurrence of pain. (7) CHF (congestive heart failure): Patient had an elevated BNP. Echo as above. Diuretics were given intermittently. Right LE edema is more chronic. (8) Hematuria: Patient has history of prostate cancer. He was on anticoagulation and developed hematuria here. [place] hematuria related to [place] trauma. Urology consulted. Anticoagulation was held and hematuria resolved. Xarelto was resumed. We con tinued Flomax. No further hematuria so [place] removed 04/06. Patient is voiding without hematuria noted. 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 This was also seen in Apr [address]23 CT showing a 2.6 cm saccular aneurysm of inferior aortic arch. Appears to have decreased in size. Will have patient follow up with Cardiology who can follow this. Patient worked with PT/OT and they felt he would benefit from SNF placement. Arrangements made and patient was able to be discharged on 04/08/25 to SNF. Discharge instructions discussed including medication side effects. All questions answered. Status at Discharge Cognitive/behavioral status at discharge: stable Time Spent with Patient Time attestation: Total time spent providing and/or coordinating discharge services: 35 minutes Time spent: Greater than 30 minutes Exam Narrative: AF 97.3 135/70 89 14 97% ra Gen - NARD sitting up in chair Chest - few bibasilar crackles CV - RRR S1/S2 Abd - soft, NT/ND, +BS Ext - no palpable right ankle or foot pain. Trace Rt LE edema Psych - pleasant and cooperative. Skin - warm and dry DS: Data Data Completed and Pending Labs on day of discharge: Labs from last 24 hours 04/08/25 04/08/25 04/08/25 11:59 07:35 05:04 Sodium 136 L Potassium 3.3 L Chloride 105 Carbon Dioxide 28 Anion Gap 3 L BUN 18 Creatinine 0.80 Estim Creat Clear Calc 53 Estimated GFR > 60 Glucose 96 POC Capillary Glucose 104 99 Calcium 8.3 L Phosphorus 2.7 Albumin 2.7 L 04/07/25 04/07/25 20:35 16:31 Sodium Potassium Chloride Carbon Dioxide Anion Gap BUN Creatinine Estim Creat Clear Calc Estimated GFR Glucose POC Capillary Glucose 110 H 108 H Calcium Phosphorus Albumin Discharge Plan Discharge Attending physician on discharge: Elder Gallegos Consulting providers: Kathy Rodríguez; Paresh Barillas Discharging Clinician: Elder Gallegos Anticipated Discharge Date/Time: 04/08/25 13:07 Patient Disposition: SNF Activity: as tolerated Diet: heart healthy and other - see discharge instructions Discharge Instructions: Level 6 soft foods. Speech therapy to evaluate and treat Compression hose on in the morning and off at bedtime. Check blood pressure 1 to 2 times a day. Record for the doctor's review. Take precautions to avoid falls. Rise slowly from a lying or sitting position. Pause before standing or walking. Check daily morning weights after voiding. Call the heart doctor if the patient gains more than 3 lb in 2 days or 5 lb in 1 week. Contact the doctor if the patient has lightheadedness with standing or other worrisome symptoms. Avoid NSAIDs (ibuprofen, naproxen, Aleve). Tylenol is safe to take. Follow-up with the provider at the facility. Follow-up with Cardiology in 2-4 weeks. Please call for an appointment. Thank you for using [facility] for your health care needs. Patient Language: Mexican Stand Alone Forms: General Discharge Information Follow-up/Referrals: Harms,Geoffrey Chacon M.D. [Primary Care Provider] - Call for Appointment Kathy Rodríguez, CAMPAIGN CONSULTANT-C [Advanced Practice Nurse, Cardiology] - Call for Appointment Discharge Medications: New metoprolol succinate 25 mg tablet extended release 24 hr 25 mg PO DAILY Qty: 30 1RF metoprolol succinate 25 mg tablet extended release 24 hr 25 mg PO DAILY Qty: 30 1RF tamsulosin 0.4 mg Capsule 0.4 mg PO QAM Qty: 30 1RF Continued loratadine 10 mg Tablet 10 mg PO DAILY Patient Comments: .... Xarelto 20 mg tablet 20 mg PO DAILY Qty: 30 0RF Rx Instructions: must administer with evening meal after 15 mg twice daily dosing for 21 days sertraline 50 mg tablet 50 mg PO DAILY acetaminophen [8 Hour Pain Reliever] 650 mg tablet extended release 650 mg PO Q8H PRN (Reason: pain) polyethylene glycol 3350 [Miralax] 17 gram Powder In Packet 17 g PO QAM PRN (Reason: Constipation) Qty: 10 0RF melatonin 5 mg tablet 5 mg PO HS abiraterone 250 mg tablet 250 mg PO QID azelastine 137 mcg (0.1 %) spray,non-aerosol 2 spray INTRANASAL Q12H PRN (Reason: allergy symptoms) Date of admission: 03/31/25 08:18 Primary Care Provider: RoshanGeoffrey Admitting Provider: Thong Abreu Attending physician on admission: Thong Abreu Condition: Stable Hospitalist MIPS Heart Failure (Exclusion) Patient has history of Heart Transplant or Left Ventricular Assistive Device?: No IF YES, STOP HERE Heart Failure (Qualifier) Patient has current or prior documentation of LVEF less than or equal to 40%, or mod/servere depressed LVSF?: No IF NO, STOP HERE
[2025-04-08 14:00] VITALS: BP 135/64; PULSE 79; RESP 16; TEMP 36.8; O2SAT 97
== END 2025-04-08 14:55 | DRG 871 ==
LOC: ANHED 10:12 → ANHIMU 10:35 → ANHICU 12:35 → ANH3MEDSUR 04-05 10:16
PROVIDERS: Emergency Medicine; Internal Medicine; Admitting Provider Family Medicine; Emergency Provider Preventive Medicine Aerospace Medicine; PCP Family Medicine; Visit Provider Internal Medicine
DX: A41.9 Sepsis, unspecified organism (principal); J18.9 Pneumonia, unspecified organism; J69.0 Pneumonitis due to inhalation of food and vomit; J96.91 Respiratory failure, unspecified with hypoxia; I50.30 Unspecified diastolic (congestive) heart failure; C79.51 Secondary malignant neoplasm of bone; T83.83XA Hemorrhage due to genitourinary prosthetic devices, implants and grafts, initial encounter; I48.91 Unspecified atrial fibrillation; I95.1 Orthostatic hypotension; C61 Malignant neoplasm of prostate; I45.10 Unspecified right bundle-branch block; K82.8 Other specified diseases of gallbladder; I11.0 Hypertensive heart disease with heart failure; R33.9 Retention of urine, unspecified; R35.0 Frequency of micturition; R31.0 Gross hematuria; E86.0 Dehydration; M79.671 Pain in right foot; M54.2 Cervicalgia; R60.0 Localized edema; I71.22 Aneurysm of the aortic arch, without rupture; F10.90 Alcohol use, unspecified, uncomplicated; Z20.822 Contact with and (suspected) exposure to COVID-19; Z79.01 Long term (current) use of anticoagulants; Z86.16 Personal history of COVID-19; Z87.891 Personal history of nicotine dependence; Z91.81 History of falling; Z23 Encounter for immunization
CPT/HCPCS: 36415; 70450; 71045; 71275; 73610; 74177; 76705; 80048; 80053; 80069; 81001; 82948; 83605; 83690; 83735; 83880; 84100; 84145; 84484; 85025; 85027; 85610; 85730; 87040; 87637; 92610; 93005; 96361; 96365; 96366; 96367; 96368; 96372; 96375; 96376; 97110; 97161; 97165; 97530; 97535; 99285; A9270; C8929; G0378; J0692; J0780; J1163; J1650; J1938; J2405; J3480; J7030; J7040; J7050; Q9957; Q9967

== ENCOUNTER 2025-04-20 11:46 | Emergency (ER) | payer MEDICARE, MEDICAID, SELFPAY ==
[2025-04-20] VITALS (15 sets, daily range): BP systolic 118–148; BP diastolic 56–94; PULSE 85–106; RESP 12–21; TEMP 36.7; O2SAT 94–100
--- NOTE | ~2025-04-20 | CT_ITS ---
EXAM/PROCEDURE: CTA brain carotid HISTORY: episode blurred vision;now dizzy gait abnml COMPARISON: None available. TECHNIQUE: Contrast-enhanced CT angiography of the neck and intracranial arteries performed. FINDINGS: Three-vessel left-sided arch noted with patent common carotid and cervical ICAs as well as vertebral arteries, patent throughout. The right vertebral artery slightly dominant. Within the intracranial circulation, probably severe stenosis in the distal P1 segment on the left WAGON PERSON noted. The P2 segment is patent. The right WAGON PERSON is patent. In the anterior circulation, moderately severe diffuse atherosclerotic plaque disease present in the intracranial carotid arteries which remain patent. Hypoplastic right VALERIO. The left VALERIO and both A2 branches are patent. Moderately severe diffuse disease present in both MCAs but no critical stenosis or occlusion seen. No aneurysm, dural sinus thrombosis or AVM seen. No abnormal enhancing lesions or masses. IMPRESSION: 1. 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 2. 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 Reviewed, dictated and finalized at location A. IC NORMALIZER IMPRESSION: 1. 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 2. At least moderately severe diffuse disease throughout the middle cerebral ar teries bilaterally; A1 branches for the right VALERIO is probably hypoplastic.
--- NOTE | ~2025-04-20 | CT_ITS ---
EXAMINATION: CT brain wo salome, 04/20/2025 14:05 QUALITY CONTROL OPERATOR HISTORY: episode dizziness and blurred vision COMPARISON: No comparisons available. Technique: Axial images obtained of the brain without contrast. One or more of the following dose reduction techniques were used: automated exposure control, adjustment of the mA and/or kV according to patient size, use of iterative reconstruction technique. Findings: Remote right basal ganglia lacunar infarcts. No acute infarct or hemorrhage. No midline shift or mass effect. No extra-axial fluid collections Mastoid air cells unremarkable. Sinuses and orbits unremarkable. No acute fracture. No significant facial or scalp soft tissue swelling evident. No radiopaque foreign body is seen. Impression: 1.No acute intracranial abnormality. Reviewed, dictated and finalized at location P. ITY CONTROL OPERATOR Impression: 1.No acute intracranial abnormality.
--- NOTE | ~2025-04-20 | XR_ITS ---
Clinical history:A. Fib EXAM:X-ray chest one view portable TECHNIQUE:A single portable AP upright frontal image of the chest was obtained Comparisons:03/30/2025 FINDINGS: Cardiomediastinal silhouette is enlarged. No pneumothorax. No pleural effusion. No free air under the diaphragm. Small opacities in the mid and lower lungs. IMPRESSION: 1. Small opacities in the mid and lower lungs which represents atelectasis/scarring or infiltrates. If symptoms persist or worsen, consider a short-term follow-up study or additional imaging for further assessment. Reviewed, dictated and finalized at location Q. PASS OPERATOR IMPRESSION: 1. Small opacities in the mid and lower lungs which represents atelectasis/scar ring or infiltrates. If symptoms persist or worsen, consider a short-term follow-up study or additio nal imaging for further assessment.
--- NOTE | 2025-04-20 11:54 | ECG_ITS ---
Test Date: 2025-04-20 11:51:21 Measurements Intervals [place] Rate: 150 P: 0 HI: 0 QRS: -20 QRSD: 130 T: 26 QT: 325 QTc: 515 Interpretive Statements ATRIAL FIBRILLATION WITH RAPID VENTRICULAR RESPONSE RIGHT BUNDLE BRANCH BLOCK [120+ ms QRS DURATION, UPRIGHT V1, 40+ ms S IN I/aVL/V4/V5/V6] Compared to ECG 03/30/2025 15:15:00 Sinus tachycardia no longer present Electronically Signed On 04-20-2025 13:35:51 HEAD WAITER/WAITRESS BANQUET by Lamonte Vasquez M.D.
[2025-04-20] MEDS: METOPROLOL TARTRATE INJ 5 MG/5 ML VIAL 2.5 MG IV PUSH (13:04)
[2025-04-20 13:19] LABS: Hematocrit 30.8 % (42.0-52.0); Hemoglobin 9.8 g/dL (14.0-18.0); Immature Granulocyte Percent A 0.2 % (0-0.5); Lymphocytes Absolute Auto 1.21 K/mm3 (0.9-3.2); Mean Corpuscular HGB Conc 31.8 g/dl (32-36); Mean Corpuscular Hemoglobin 30.5 pg (26-34); Mean Corpuscular Volume 96.0 fl (80-100); Nucleated Red Blood Cells Absolute Auto 0.000 K/mm3 (0.0-0.012); Nucleated Red Blood Cells Perc 0.0 % (0.0-0.2); Platelet Count Result 258 k/mm3 (150-375); Red Blood Count 3.21 M/mm3 (4.6-6.20); White Blood Count 6.0 K/mm3 (4.5-10.0)
--- NOTE | 2025-04-20 13:41 | ED.ARRPALP ---
HPI - Arrhythmia/Palpitations General Chief Complaint: Arrhythmia/Palpitations Stated Complaint: afib Time Seen by Provider: 04/20/25 12:57 Source: patient and RN notes reviewed Mode of arrival: EMS Limitations: no limitations History of Present Illness HPI narrative: Patient presents with report of dizziness that was present upon waking up this morning at 8:00 a.m.. He describes it as a lightheadedness and that he was unable to focus and that his vision was blurred but he denies any double vision or curtain defect. No flashes or floaters. He states those symptoms were resolved upon arrival to the emergency department not occurred since. EMS found him to be in atrial fibrillation with rapid ventricular response in the 150s. History of AFib. They noted that he had an 8 sec pause on their cardiac monitoring concerning for asystole but they shouted at the patient and had cardiac activity on the monitor again and patient was conscious. Patient undergoes chemotherapy at home for prostate cancer. He reported that he is on metoprolol. Heart rate upon arrival was 1 07. He denies any chest pain shortness of breath. He denies any heart palpitations heart racing. He believes he is on anticoagulation although he does not know the name. He thought perhaps warfarin sounded familiar although is not certain. When asked if he gets his INR checked he thought he might have had that done 10 months ago; again, not certain. Denies any headache. Denies seeing a vamp seamer. Denies any syncope. Resides at [facility]. No complaints currently. Related Data Home Medications ?Medication ?Instructions ?Recorded ?Confirmed ?Last Taken ?Type loratadine 10 mg tablet 10 mg PO DAILY 04/25/23 03/30/25 03/02/25 History abiraterone 250 mg tablet 250 mg PO QID 01/23/25 03/30/25 03/02/25 History azelastine 137 mcg (0.1 %) nasal 2 spray intranasal Q12H PRN 01/23/25 03/30/25 Unknown History spray allergy symptoms acetaminophen 650 mg 650 mg PO Q8H PRN pain 03/03/25 03/30/25 Unknown History tablet,extended release (8 Hour Pain Reliever) sertraline 50 mg tablet 50 mg PO DAILY 03/03/25 03/30/25 03/02/25 History melatonin 5 mg tablet 5 mg PO HS 03/30/25 03/30/25 Unknown History Allergies Allergy/AdvReac Type Severity Reaction Status Date / Time No Known Allergies Allergy Verified 03/30/25 14:35 [facility] Past Medical History Medical History Multiple falls COVID-19 Secondary malignant neoplasm of bone Prostate CA Atrial fibrillation Orthostatic hypotension CHF (congestive heart failure) Family History Family History Other Unknown family medical history Social History Social History (Updated 04/21/25 @ 06:13 by Shannan Fernandez MD) Social History: Has a daughter Smoking packs per day: 1 Smoking cigarettes per day: 20.0 Years smoked: 15 Smoking pack-years: 15.00 Alcohol intake: never Drinks per week: 0 Alcohol use details: 2 per month Substance use: never Lack of Transportation: No Lack of Food: Never True Current Housing: I Have Housing Concerned About Future Housing: No Difficulty Paying Gas/Electric Bills: No Difficulty Paying for Meds: No Currently Unemployed: No Education: High School Diploma/GED Difficulty w/ Childcare or Family Care: No Living arrangements: assisted living Additional living arrangements comments: [facility] Spiritual care concerns: Yes Exam Narrative: GENERAL: Well-appearing, well-nourished, and in no acute distress. HEAD: Normocephalic, atraumatic. Well healed scar on head. EYES: Non injected, non icteric ENT: Nares clear, no rhinorrhea or epistaxis. Gross auditory acuity intact. NECK: Supple. No meningismus. CHEST: Speaking in full sentences. No respiratory distress. HEART: IRREGULARLY IRRegular rate and rhythm. . ABDOMEN: Soft, nondistended. Not peritoneal SKIN: Warm, dry, no rash. NEURO: No focal deficits. Alert and oriented. Answering questions. Following commands. Normal speech without aphasia or dysarthria. PSYCH: Congruent mood and affect. Course Vital Signs Vital signs: Vital Signs Temperature 98.0 F 04/20/25 11:46 Pulse Rate 104 H 04/20/25 11:46 Respiratory Rate 13 04/20/25 11:46 Blood Pressure 118/70 04/20/25 11:46 Pulse Oximetry 100 04/20/25 11:46 Oxygen Delivery Room Air 04/20/25 11:46 Temperature 98.0 F 04/20/25 12:02 Pulse Rate 88 04/20/25 18:58 Respiratory Rate 14 04/20/25 18:58 Blood Pressure 140/68 04/20/25 18:58 Pulse Oximetry 100 04/20/25 18:58 Oxygen Delivery Room Air 04/20/25 11:46 MDM - Arrhythmia/Palpitations MDM Narrative Medical decision making narrative: Patient presents with report of dizziness which he describes as lightheadedness that was present right upon awakening at 8:00 a.m.. He also notes that he was unable to focus and describes blurred vision that was intermittent. All of those symptoms had resolved upon arrival to the emergency department and have not recurred. However, EMS did note that they found him to be in atrial fibrillation with rapid ventricular response at a rate in the 150s. He had endorsed a history atrial fibrillation it is reported that he is on metoprolol as well anticoagulation (though patient did not recall the name of the latter). EMS also noted that he had an 8sec pause/asystole on the monitor during transport with spontaneous return of cardiac activity on the monitor with verbal stimuli alone. In the emergency department he is afebrile with vital signs notable for heart rate of 104. Patient was then noted to be with a rate between 120 and 140 on telemetry/monitor and EKG 150bpm. Patient hemodynamically stable thus early priority in management was to slow the ventricular rate using metoprolol given this is a medication he is already on. IVP 2.5mg over 2 minutes initially ordered. Notably, RN states that he had already controlled the rate when it was given, at 100s, spontaneously. Maintaining rate in the 80s after it was administered. In fact, repeat EKG shows he has converted to normal sinus rhythm. Patient is on metoprolol by report. EMR shows he is on 25 mg daily. He believes he is also on anticoagulation although he does not know the name. He initially states he thought it might be warfarin but states that he does not get routine INR checks. Per review of EMR it does appear that he is on Xarelto. Mild hypokalemia but magnesium normal. Oral repletion ordered. INR 2.1. Visual acuity 20/40 in each eye. Orthostats from supine and sitting obtained and normal but RN notes unable to obtain standing as became very symptomatic during standing attempt. She notes that this attempt at ambulation went poorly as he became significantly dizzy and although he stated he just needed a minute he was leaning to 1 side during this and his gait was affected to the degree that she was concerned he would fall. CT noncontrast normal but will obtain CTA with carotid and give meclizine as first line agent (although not clearly meeting criteria for BPPV diagnosis). DIFFERENTIAL DIAGNOSIS VERTIGO (although his dizziness/lightheadedness is not distinctly vertiginous) Central causes: infection ( encephalitis, meningitis, cerebritis); vertebrobasilar arterial insufficiency, subclavian steal syndrome, cerebellar or brainstem hemorrhage or infarction, vertebrobasilar migraine, trauma ( temporal bone fracture, post concussive syndrome); tumor (brainstem or cerebellum); MS; temporal lobe epilepsy Peripheral causes: Foreign body, cerumen impaction, acute otitis media, labyrinthitis, benign paroxysmal positional vertigo, Meniere's disease, vestibular neuronitis, perilymphatic fistula, trauma, motion sickness, acoustic neuroma, ototoxic medications Also considered orthostatic etiology; Enrrique dysrhythmia; tachydysrhythmia; perfusion issue Normocytic anemia, stable from previous. Denies having a vamp seamer. When patient is reassessed states that he did poorly on his ambulation road test due to the nurse having a table too close which he stumbled on. He would like reassessment as he otherwise states that he feels fine and felt like him being seated in the bed too long before caused him to also do poorly. He would like to go home/back to [facility] if possible and I noted that there were safety concerns of him falling from first attempt but would give him a chance to prove otherwise. He is reassessed and does improve. This is performed with the walker which is his baseline. I did discuss with the patient his findings and offered admission for MRI for further evaluation of his brain based on the CT findings which we discussed. Also noted that he had had the reported 8 second pause and that he had had an episode of AFib with RVR although this had resolved. Explained the risks and benefits and patient is adamant that he would like to be discharged and follow-up with his primary care physician, Dr Kelley. States Dr Kelley is within [facility]. He notes that he is going to call his daughter for transportation and she and her his son-in-law can help and get his walker to the car. Given that he otherwise seems to demonstrate the capacity to make these decisions, this is not unreasonable as he can demonstrate a clear plan and intention to follow up. Patient discharged and as daughter arrives, she does request to speak with me. I did go to bedside and she provided extensive collateral information that is very helpful. Notably, patient does have a history of atrial fibrillation but this is a relatively new diagnosis as it is only come in the past month or so when he presented after being found to be in afib with RVR requiring hospitalization. She knew that he was placed on metoprolol and anticoagulation after that but these are new medications and she notes that she had not been having him take the metoprolol since discharge because she thought it was for blood pressure and she was concerned because his blood pressure had not been an issue. We discussed the while at does have some antihypertensive proper ease, it is more so for rate control which can be helpful and the absence of this medication may explain why he went into atrial fibrillation with RVR. Discussed that it is supposed that his episode of dizziness/lightheadedness and the vision changes that were brief/intermittent might of been attributed to poor perfusion while this was going on although we also discussed the findings on the CT scan and that this might represent a stroke and that MRI would ultimately be a more definitive/sensitive imaging study. She verifies understanding. She does note that Dr Kelley is through the [facility] network and typically she is able to see her father's labs/imaging studies/etc populate into his [facility] portal even when performed through outside hospitals. I again encouraged follow up outpatient and noted that he should be taking the medications as prescribed and we reviewed the medication list within his discharge instructions what some of these are 4 including reiterating metoprolol and anticoagulant properties an indication. Encouraged follow-up with PCP but also recommended cardiology and neurology follow-up and that referral contact information was included in discharge instructions for these as well if unable to do so through alternative network. Patient is seated up at the side of the bed ready to use his walker during this entire conversation. Differential Diagnosis Differential diagnosis: Likely palpitations, sinus tachycardia, artial fibrillation, artial flutter, ventricular premature beats, supraventricular tachycardia, ventricular tachycardia and WPW Lab Data Attestation: I reviewed the patient's lab results. 04/20/25 13:04 04/20/25 13:04 Labs: Lab Results 04/20/25 Range/Units 13:04 WBC 6.0 (4.5-10.0) K/mm3 RBC 3.21 L (4.6-6.20) M/mm3 Hgb 9.8 L (14.0-18.0) g/dL Hct 30.8 L (42.0-52.0) % MCV 96.0 (80-100) fl MCH 30.5 (26-34) pg MCHC 31.8 L (32-36) g/dl RDW 15.5 H (11.5-14.5) % Plt Count 258 (150-375) k/mm3 MPV 10.6 H (7.4-10.4) fl Immature Gran % (Auto) 0.2 (0-0.5) % Neut % (Auto) 57.9 (45.5-73.1) % Lymph % (Auto) 20.1 (18.3-44.2) % Tama % (Auto) 7.5 (2.6-8.5) % Eos % (Auto) 13.3 H (0-4.4) % Baso % (Auto) 1.0 (0.2-1.2) % Lymph # (Auto) 1.21 (0.9-3.2) K/mm3 Tama # (Auto) 0.5 (0.1-0.6) K/mm3 Eos # (Auto) 0.8 H (0-0.3) K/mm3 Baso # (Auto) 0.1 (0.0-0.1) K/mm3 Abs Immat Gran (auto) 0.01 (0.00-0.031) K/mm3 Absolute Neuts (auto) 3.5 (1.3-6.7) K/mm3 Absolute Nucleated RBC 0.000 (0.0-0.012) K/mm3 Nucleated RBC % 0.0 (0.0-0.2) % PT 22.9 H (11.1-14.7) Seconds INR 2.1 APTT 43.0 H (22.3-36.8) Seconds Sodium 139 (137-145) mmol/L Potassium 3.2 L (3.4-5.0) mmol/L Chloride 109 H (98-107) mmol/L Carbon Dioxide 23 (22-30) mmol/L Anion Gap 7 (4-12) mmol/L BUN 14 (9-20) mg/dL Creatinine 0.97 (0.7-1.3) mg/dL Estim Creat Clear Calc 47 ml/min Estimated GFR > 60 (59 - ) Glucose 123 H (65-110) mg/dL Calcium 8.8 (8.4-10.2) mg/dL Magnesium 2.1 (1.6-2.3) mg/dL Total Bilirubin 0.5 (0.2-1.3) mg/dL AST 26 (17-59) U/L ALT 13 (6-50) U/L Alkaline Phosphatase 68 (38-126) U/L Total Protein 6.3 (6.3-8.2) g/dL Albumin 3.4 L (3.5-5.1) g/dL Imaging Data Radiologist's impression: Impressions Chest X-Ray 04/20/25 13:28 IMPRESSION: 1. Small opacities in the mid and lower lungs which represents atelectasis/scarring or infiltrates. If symptoms persist or worsen, consider a short-term follow-up study or additional imaging for further assessment. Head CT 04/20/25 14:18 Impression: 1.No acute intracranial abnormality. Head/Neck CTA 04/20/25 15:09 IMPRESSION: 1. 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 2. 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 ECG Data EKG #1: Attestation: I personally reviewed and interpreted this ECG as follows: ECG completion date: 04/20/25 ECG completion time: 11:51 Interpretation: Atrial fibrillation at a rate of 150 beats per minute, rapid ventricular response. RBBB given QRS greater [id number] (130ms); RSR' M-shaped pattern in V1-V3; wide, slurred S wave in lateral leads (I, aVL, V5-6). QT/QTC 525/515. EKG #2: Attestation: I personally reviewed and interpreted this ECG as follows: ECG completion date: 04/20/25 ECG completion time: 14:37 Interpretation: Normal sinus rhythm at a rate of 85 beats per minute. AZ interval is prolonged at 208 milliseconds. QRS 146. QT/QTC 401/478. R-wave progression across the precordial leads. 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 You stated you don't have a vamp seamer. The name of one is listed below for follow up. It is very important that you continue to use your walker when you get around/ambulate. As we discussed, your CT scan without contrast did not show any thing concerning however the CTA brain/carotid that was performed did show significant stenosis at the left PURCHASING/RECEIVING, one of the blood vessels in your brain which may indicate a mild stroke. You were offered admission for further work up such as an MRI but are choosing to follow up outpatient. Please notify your primary care physician about this. They may be able to see records from today including labs, images, EKG, my note, etc. ; alternatively, they can be requested if needed later. The name of a neurologist is also listed below if you choose to follow-up with them. You had some anemia and your potassium was slightly low although you did receive oral repletion/supplementation for the latter. Do not hesitate to return to the emergency department with any new or worsening symptoms. In the interim, continue taking all of your medications as prescribed. Patient Language: Estonian Prescriptions: No Action loratadine 10 mg Tablet 10 mg PO DAILY Patient Comments: .... Xarelto 20 mg tablet 20 mg PO DAILY Qty: 30 0RF Rx Instructions: must administer with evening meal after 15 mg twice daily dosing for 21 days sertraline 50 mg tablet 50 mg PO DAILY acetaminophen [8 Hour Pain Reliever] 650 mg tablet extended release 650 mg PO Q8H PRN (Reason: pain) polyethylene glycol 3350 [Miralax] 17 gram Powder In Packet 17 g PO QAM PRN (Reason: Constipation) Qty: 10 0RF melatonin 5 mg tablet 5 mg PO HS metoprolol succinate 25 mg tablet extended release 24 hr 25 mg PO DAILY Qty: 30 1RF tamsulosin 0.4 mg Capsule 0.4 mg PO QAM Qty: 30 1RF abiraterone 250 mg tablet 250 mg PO QID azelastine 137 mcg (0.1 %) spray,non-aerosol 2 spray INTRANASAL Q12H PRN (Reason: allergy symptoms) Follow-up/Referrals: Harms,Geoffrey Chacon M.D. [Primary Care Provider] Love Disla DO [Physician, Cardiology] Guido Ritter MD [Physician, Neurology] Time of Disposition: 17:19
[2025-04-20 13:46] LABS: Alanine Aminotransferase 13 U/L (6-50); Albumin Level 3.4 g/dL (3.5-5.1); Alkaline Phosphatase 68 U/L (38-126); Anion Gap 7 mmol/L (4-12); Aspartate Amino Transferase 26 U/L (17-59); Bilirubin,Total 0.5 mg/dL (0.2-1.3); Blood Urea Nitrogen 14 mg/dL (9-20); Calcium 8.8 mg/dL (8.4-10.2); Carbon Dioxide 23 mmol/L (22-30); Chloride 109 mmol/L (98-107); Estimated CRCL calculation 47 ml/min; Estimated Glomerular Filt Rate > 60; Glucose 123 mg/dL (65-110); Magnesium 2.1 mg/dL (1.6-2.3); Potassium 3.2 mmol/L (3.4-5.0); Sodium 139 mmol/L (137-145); Total Protein 6.3 g/dL (6.3-8.2)
--- NOTE | 2025-04-20 13:55 | ECG_ITS ---
Test Date: 2025-04-20 14:37:59 Measurements Intervals [place] Rate: 85 P: 6 SD: 208 QRS: -2 QRSD: 146 T: -3 QT: 401 QTc: 478 Interpretive Statements SINUS RHYTHM RIGHT BUNDLE BRANCH BLOCK [120+ ms QRS DURATION, UPRIGHT V1, 40+ ms S IN I/aVL/V4/V5/V6] Compared to ECG 04/20/2025 11:51:21 Atrial fibrillation no longer present Electronically Signed On 04-20-2025 15:00:45 FUNDS DEVELOPMENT DIRECTOR by Lamonte Vasquez M.D.
[2025-04-20 14:25] LABS: INR 2.1; Prothrombin Time 22.9 Seconds (11.1-14.7)
[2025-04-20 14:26] LABS: Partial Thromboplastin Time 43.0 Seconds (22.3-36.8)
[2025-04-20] MEDS: MECLIZINE HCL 25 MG TABLET PO (15:14)
--- OUTSIDE RECORDS SUMMARY | 2025-04-20 19:55 | XMS_ITS | Encounter Summary ---
Author Organization [facility] [employer] [facility] Address [address] [place] [address] Care Team Providers Care Church Administrator Name Role Phone Geoffrey Kelley MD Primary Care Provider [phone] Encounter Details Date Type Department Care Team (Late st Contact Info) Description 04/17/[address] [facility] Oncology and Hematology - [place] [address] [facility] [address] [place] [address] Charlie Anderson MD [address] [facility] [facility] [address] [place] [address] Prostate cancer (CMS/HCC) Social History [...] prostate documented in this encounter Care Teams Church Administrator Relationship Specialty Start Date End Date Geoffrey Kelley MD PCP - General Family Practice 05/22/17 documented as of this encounter
--- OUTSIDE RECORDS SUMMARY | 2025-04-20 19:55 | XMS_ITS | Encounter Summary ---
Author Organization [facility] Address [address] [place] [address] Care Team Providers Care Food Technology Teacher Name Role Phone Unavailable Primary Care Provider Unavailabl e Encounter Details Date Type Department Care Team (Late st Contact Info) Description 04/06/2024 Lab Requisition [facility] - DermPath Lab [address] [facility] [address] [place] [id number] Gifty Goel PA-C [address] [place] [address] Neoplasm of uncertain behavior of [...] AM CDT) Case Report Dermatopathology Report Case: [id number] Authorizing Provider: Gifty Goel PA-C Collected: 04/06/2024 12:00 AM Ordering Location: [facility] Physician [facility] - Received: 04/07/2024 04:19 PM DermPath Lab [...] characteristic determined by the Dermatopathology Laboratory at [facility], directed by Dr. Savage Brunson. These tests need not be, and therefore are not, approved by the [place] Food and Drug Administration. The tests are used for clinical purposes. Billing Codes Specimen Charges Stain Charges 79256 1 11:27 AM CDT DERMATOPATHOLOGY LABORATORY Embedded Images 11:27 AM CDT DERMATOPATHOLOGY LABORATORY Pathology/Cytolog y TISSUE SPECIMEN FROM SKIN / Unknown 04/06/2024 04/07/2024 4:19 PM CDT Gifty Goel PA-C LAB - PATHOLOGY/CYTOLOGY [facility] Final Result DERMATOPATHOLOGY LABORATORY [facility] - Department of Dermatology [address] [place] [address], [facility] [phone] documented in this encounter Visit Diagnoses Diagnosis Neoplasm of uncertain behavior of skin documented in this encounter
--- OUTSIDE RECORDS SUMMARY | 2025-04-20 19:55 | XMS_ITS | Clinical Summary ---
Author Organization [facility] [email or web address] Address [address] [place] [address] Care Team Providers Care Aligning Checker Name Role Phone Unavailable Primary Care Provider Unavailabl e Source Comments [facility] [email or web address],non-owned Affiliates and Associated Physician Practices is amultiple site organization consisting of ambulatory clinics and hospital sitesin [place], [place], [place] and [place]. This disclosure is being madepursuant to the Care Everywhere program and may not contain all information available regarding this patient. Last updated 18.[facility] [email or web address] Social History Tobacco Use Types Packs/Day Years [...]
--- OUTSIDE RECORDS SUMMARY | 2025-04-20 19:55 | XMS_ITS | Encounter Summary ---
Author Organization [facility] Address [address] [place] [address] Phone Care Team Providers Care Skin Diver Name Role Phone Geoffrey Kelley MD Primary Care Provider [phone] Stacey Pike RN Unavailable Unavailabl Mireya George PT Unavailable Unavailable Demetra Patel PTA Unavailable Unavailable Jorge Chand MD PhD Unavailable + [phone] Barry Adame MD Unavailable + [phone] Christine Iniguez LPN Unavailable [phone] Encounter Details Date Type Department Care Team (Late st Contact Info) Description 10/01/2017 Orders Only [facility] ProviderAnirudh MD [address] [place], [place] [id number] Social History Tobacco Use Types Packs/Day Years Used Date Smoking Tobacco: Former Smokeless Tobacco: Never Comments:Smoking History Pac ks/day: 0.5 Packs Alcohol Use Standard Drinks/Week Comments Yes 0 (1 standard drink = 0.6 oz pur e alcohol) Sex and Gender Information Value Date Recorded Sex Assigned at Not on file Legal Sex Male 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 08/16/2020 08/16/2020 12/14/2020 3:05 AM C DT documented as of this encounter Care Teams Skin Diver Relationship Specialty Start Date End Date Geoffrey Kelley MD [address] [place] [address] PCP - General 08/01/16 Stacey Pike, RN Registered Nurse 09/01/17 Mireya [place], PT Physical Therapist Physical Therapy 11/16/17 Demetra Patel PTA Cabin Supervisor Physical Therapy 11/26/17 Jorge Chand MD PhD [address] [place] [address] Radiation Oncologist Radiation Oncology 01/05/18 Barry Adame MD [address] [facility] [address] [place] [address] Referring Physician General Surgery 01/05/18 Christine Iniguez LPN [address] [place] [address] [address] [place] [address] Slip Caster 03/07/25 03/07/25 documented as of this encounter
--- OUTSIDE RECORDS SUMMARY | 2025-04-20 19:55 | XMS_ITS | Encounter Summary ---
Author Organization [facility] Address [address] [facility] [place] [address] Care Team Providers Care Composite Boat Builder Name Role Phone Unavailable Primary Care Provider Unavailabl e Encounter Details Date Type Department Care Team (Late st Contact Info) Description 12/05/2024 Lab Requisition [facility] - DermPath Lab [address] [facility], [place] [phone] Michael Boykin MD [facility] DERMATOLOGY [address] [place] [phone] Neoplasm of uncertain behavior of skin [...] AM CDT) Case Report Dermatopathology Report Case: [id number] Authorizing Provider: Michael Boykin MD Collected: 12/05/2024 12:00 AM Ordering Location: [facility] - Received: 12/06/2024 11:47 AM DermPath Lab Pathologist: Anny Alvarez MD Specimens: A) - Skin, right lower calf B) - Skin, right scientology C) - Skin, right forehead 4:10 PM CDT DERMATOPATHOLOGY LABORATORY Final Diagnosis Specimen A. 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 The specimen consists of a shave biopsy [...] increased in number. Specimen B. SKIN, right scientology: Sections show an acanthotic lesion composed of [...] characteristic determined by the Dermatopathology Laboratory at [facility], directed by Dr. Savage Brunson. These tests need not be, and therefore are not, approved by the [place] Food and Drug Administration. The tests are used for clinical purposes. Billing Codes Specimen Charges Stain Charges 69935 49967 63640 1 1 1 5 4:10 PM CDT [...] PATHOLOGY/CYTOLOGY GREGG SANTIAGO Final Result DERMATOPATHOLOGY LABORATORY [facility] - Department of Dermatology [facility] Medicine [address] [place] [address], [address] [phone] documented in this encounter Visit Diagnoses Diagnosis Neoplasm of uncertain behavior of skin documented in this encounter
--- OUTSIDE RECORDS SUMMARY | 2025-04-20 19:55 | XMS_ITS | Clinical Summary ---
Author Organization [facility] Address [address] [place] [address] Phone Care Team Providers Care Mosaic Tiler Name Role Phone Geoffrey Kelley MD Primary Care Provider [phone] Allergies No known active allergies Medications mirabegron [...] predniSONE (DELTASONE) 5 mg tabletIndicatio ns:Prostate cancer ([facility]) Take 1 Tablet (5 mg) by mouth [...] Encounters Date Type Department Care Team Description 04/17/2025 Orders Only [facility] Oncology and Hematology - [place] [address] Charlie Anderson MD Prostate cancer ([facility]) 04/03/2025 Orders Only [facility] Oncology and Hematology - [place] [address] [place] [phone] Charlie Anderson MD Prostate cancer ([facility]) 03/29/2025 Orders Only [facility] Oncology and Hematology - [place] [address] [place] [phone] Charlie Anderson MD 03/28/2025 External Device Data STL ABSTRACTION Provider, Abstract 03/28/2025 Orders Only [facility] Oncology and Hematology - [place] [address] [place] [phone] Charlie Anderson MD 03/20/2025 Orders Only [facility] Oncology and Hematology - [place] [address] [place] [address] Charlie Anderson MD Prostate cancer ([facility]) 03/06/2025 Orders Only [facility] Oncology and Hematology - [place] [address] [place] [address] Charlie Anderson MD Prostate cancer ([facility]) 03/01/2025 External Device Data STL ABSTRACTION Provider, Abstract 02/28/2025 External Device Data STL ABSTRACTION Provider, Abstract 02/21/2025 9:30 AM CDT Office Visit [facility] Oncology and Hematology - [place] [address] [place] [address] Amina Schmid MD Prostate cancer ([facility]) (Primary Dx); Cancer, metastatic to bone ([facility]) 02/21/2025 Orders Only [facility] Oncology and Hematology - [place] [address] [place] [address] Charlie Anderson MD 02/20/2025 Orders Only [facility] Oncology and Hematology - [place] [address] [place] [phone] Charlie Anderson MD Prostate cancer ([facility]) 02/06/2025 Orders Only [facility] Oncology and Hematology - [place] [address] [place] [phone] Charlie Anderson MD Prostate cancer ([facility]) 01/31/2025 External Device Data STL ABSTRACTION Provider, Abstract 01/31/2025 External Device Data STL ABSTRACTION Provider, Abstract 01/24/2025 8:45 AM CDT Office Visit [facility] Oncology and Hematology - [place] [address] [place] [phone] Charlie Anderson MD Prostate cancer ([facility]) (Primary Dx) 01/24/2025 Orders Only [facility] Oncology and Hematology - [place] [address] [place] [phone] Charlie Anderson MD 01/23/2025 Orders Only [facility] Oncology and Hematology - [place] [address] [place] [phone] Charlie Anderson MD Prostate cancer ([facility]) from Last 3 Months Family History Relation [...] 172.7 cm (5' 8) 06/24/2023 10:26 AM SPINDLE PLUMBER Body Mass Index 26.4 06/24/2023 10:26 AM SPINDLE PLUMBER Plan of Treatment Health Maintenance Due Date Last Done Comments ZOSTER VACCINE (1 of 2) 1954 RSV VACCINE (60+ or ) (1 - 1-dose 75+ series) 2012 DTAP/TDAP/TD VACCINES (1 - Tdap) 03/29/2023 03/28/2023, 07/18/2014, 07/18/2014 [place] ([place]) Preventative Visit/Annual Wellness Visit 06/15/2024 INFLUENZA VACCINE (#1) 2025 , 04/20/2022, 03/19/2021, Additional history exists PNEUMOCOCCAL VACCINE 50+ YEARS Completed 07/26/2014 , 07/25/2014 Medical Devices Implanted Type Area Legal Document Assistant Device Identifier Shelf Expiration Date Model / Serial / Lot Log [id number] - Cement - 1 - Cement [place] G-Hv 40g [id number] Implanted:Qty: 1 on 09/30/2012 at [facility] Cement Left: Knee [employer] 04/14/2014 [id number] / / [id number] Comp Fem Vngrd Cr Intrlk Lt 70mm [id number] - [id number] Implanted:Qty: 1 on 09/30/2012 at [facility] Knee Left: Knee [employer] 06/14/2022 [id number] / / [id number] Comp Tib Cocr Finned 79mm [id number] - [id number] Implanted:Qty: 1 on 09/30/2012 at [facility] Knee Left: Knee [employer] 08/12/2022 [id number] / / [id number] Brg Tib Vngrd Ant Stblzd [id number] - [id number] Implanted:Qty: 1 on 09/30/2012 at [facility] Knee Left: Knee [employer] 04/14/2016 [id number] / / [id number] Patella 3peg Series A [id number] - [id number] Implanted:Qty: 1 on 09/30/2012 at [facility] Left: Knee [employer] 08/12/2017 [id number] / / [id number] Procedures Procedure Name Priority Date/Time Associated Diagnosis Comments CBC WITH AUTODIFFERENTIAL Routine 2024 2:49 PM CDT COMPREHENSIVE METABOLIC PANEL Routine 03/28/2025 11:49 AM CDT PSA Routine 02/21/2025 3:48 PM CDT BASIC METABOLIC PANEL Routine 02/21/2025 3:36 PM CDT CBC WITH AUTODIFFERENTIAL Routine 2024 3:34 PM CDT BASIC METABOLIC PANEL Routine 01/24/2025 1:12 PM CDT COMPREHENSIVE METABOLIC PANEL Routine 01/24/2025 1:11 PM CDT from Last 3 Months Results * CBC WITH AUTODIFFERENTIAL (03/28/2025 2:49 PM CDT) Only the most recent of2 resultswithin the time period is included. Blood us Charlie Anderson MD HEMATOLOGY ORDERABLES Final Res ult * COMPREHENSIVE METABOLIC PANEL (03/28/2025 11:49 AM CDT) Only the most recent of2 resultswithin the time period is included. Blood Charlie Anderson MD CHEMISTRY ORDERABLES Final Resu lt * PSA (02/21/2025 3:48 PM CDT) Blood Charlie Anderson MD CHEMISTRY ORDERABLES Final Resu lt * BASIC METABOLIC PANEL (02/21/2025 3:36 PM CDT) Only the most recent of2 resultswithin the time period is included. Blood Charlie Anderson MD CHEMISTRY ORDERABLES Final Resu lt from Last 3 Months Insurance MEDICAID [place] AETNA OPEN CHOICE PPO AETNA [facility] RX AETNA Medicare Part D [place]ICA[place] AETNA OPEN CHOICE O AETNA O [facility] Advance Directives For more information, please contact: [phone] * Full Code (Latest Code Status on File) Date Activated Date Inactivated Comments 09/30/2012 1:03 PM 10/02/2012 5:10 PM * Full Code Date Activated Date Inactivated Comments 09/30/2012 9:31 AM 09/30/2012 1:03 PM * Full Code Date Activated Date Inactivated Comments 09/30/2012 8:37 AM 09/30/2012 9:31 AM Care Teams Mosaic Tiler Relationship Specialty Start Date End Date Geoffrey Kelley MD PCP - General Family Practice 05/22/17
--- OUTSIDE RECORDS SUMMARY | 2025-04-20 19:55 | XMS_ITS | Encounter Summary ---
Author Organization [facility] Address [address] [facility] [place] [address] Care Team Providers Care Rehab Care Assistant Name Role Phone Unavailable Primary Care Provider Unavailabl e Encounter Details Date Type Department Care Team (Late st Contact Info) Description 10/06/2023 Lab Requisition [facility] - DermPath Lab [address] [facility], [place] [phone] Michael Boykin MD [facility] DERMATOLOGY [address] [place] [phone] Neoplasm of uncertain behavior of skin; [...] AM CDT) Case Report Dermatopathology Report Case: [id number] Authorizing Provider: Michael Boykin MD Collected: 10/06/2023 03:33 AM Ordering Location: [facility] - Received: 10/07/2023 03:24 PM DermPath Lab [...] right arm. The specimen consists of a 15i61a0 mm piece of skin. The specimen is serially sectioned and a direct sales representative section is submitted in cassette [...] purposes. Billing Codes Specimen Charges Stain Charges 56876 1 11:20 AM CDT DERMATOPATHOLOGY LABORATORY Embedded Images 11:20 AM T DERMATOPATHOLOGY LABORATORY Pathology/Cytolo gy TISSUE SPECIMEN FROM SKIN / Unknown 10/06/2023 3:33 AM CDT 10/07/2023 3:24 PM CDT us Michael Boykin MD LAB - PATHOLOGY/CYTOLOGY GREGG SANTIAGO Final Result DERMATOPATHOLOGY LABORATORY [facility] - Department of Dermatology [address], [address] [phone] documented in this encounter Visit Diagnoses Diagnosis Neoplasm of uncertain behavior of skin Other specified erythematous conditions Other disturbances of skin sensation documented in this encounter
--- OUTSIDE RECORDS SUMMARY | 2025-04-20 19:55 | XMS_ITS | Clinical Summary ---
Author Organization [facility] Address [address] [place] [address] Care Team Providers Care Edge Stripper Name Role Phone Geoffrey Kelley MD Primary Care Provider [phone] Stacey Pike RN Unavailable Unavailabl e Mireya Jimenez PT Unavailable Unavailable Demetra Patel PTA Unavailable Unavailable Jorge Chand MD PhD Unavailable [phone] Barry Adame MD Unavailable [phone] Allergies No known active allergies Medications clobetasoL [...] times a day 60 tablet 11 4 Active sertraline (ZOLOFT) 50 mg tablet Take [...] 08/17/2020 Assessment & Plan (08/17/2020 5:19 PM CALL CENTER MANAGER): Discussed and the patient refuses immunization today. Educated regarding the need to vaccinate for personal protection and to limit the viruses in the community to protect those most vulnerable. Current use of penitentiary anticoagulation 021 Assessment & Plan (08/17/2020 4:55 PM CALL CENTER MANAGER): Reviewed INRs from time of hospitalization. Has been on 3mg nightly. To have INR repeat approx 08/30. Standing order sent to [facility] [employer] [facility] as well as copy of orders [...] response. Assessment & Plan (05/24/2024 8:35 AM CALL CENTER MANAGER): Continue on supportive measure, timed voiding. Assessment & Plan (08/17/2020 5:17 PM CALL CENTER MANAGER): Improved bladder control w/oxybutynin. Denies any med SEs. Refilled oxybutynin. COVID-19 07/23/2020 History of DVT (deep vein thrombosis) 07/22/2020 Assessment & Plan (08/23/2024 1:36 PM CDT): Continues on xaretlo and will follow respnse. Assessment & Plan (07/22/2020 3:00 PM CALL CENTER MANAGER): History of RLE DVT. Patient is [...] 07/21/2020 Assessment & Plan (08/17/2020 5:20 PM CALL CENTER MANAGER): Using O2 at HS (1L NC). Discussed O2 w/activity as needed. Has pulse ox that he uses to frequently check sats. Slowly improving. Using symbicort inhaler bid. Reviewed red flags; what would warrant call/rtc or ED for more emergent need. Assessment & Plan (07/22/2020 12:32 PM CALL CENTER MANAGER): With onset of symptoms about a [...] dermatolgoy. Assessment & Plan (05/24/2024 8:35 AM CALL CENTER MANAGER): COntinue f/u with dermatology. COntinues to [...] regemin. Assessment & Plan (05/24/2024 8:35 AM CALL CENTER MANAGER): Continue f/u with urology and will monitor response. NO gross hematuria. Discogenic low back pain 09/04/2017 Assessment & Plan (11/01/2024 2:15 PM CDT): NO bowel/bladder symptoms and will follow response. Chronic kidney disease, stage III (moderate) Overview (09/18/2016): Chronic kidney disease stage 3 Assessment & Plan (12/25/2024 11:04 AM CDT): Continue aggressive hydration. No hematuria. Revieweed labwork completed at [facility] last week and stable at present time. Assessment & Plan (08/23/2024 1:36 PM CDT): COntinue aggressive hydration and blood pressure control. Continues on momthly basis and will follwdi manzo. Assessment & Plan (05/24/2024 8:36 AM CALL CENTER MANAGER): Continue aggressive hyudration and will follow response. Assessment & Plan (07/22/2020 12:33 PM CALL CENTER MANAGER): Creatinine is 1.37, which is around [...] 09/30/2012 Assessment & Plan (05/24/2024 8:35 AM CALL CENTER MANAGER): Gait is stable. No increased pain. Remains active. 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 Reviewed recommendations for daily intake & activity 20-30 minutes/day. Discussed healthy diet and importance of regular physical activity. Acute respiratory failure with hypoxia 07/22/2020 08/17/2020 Assessment & Plan (07/22/2020 12:40 PM CALL CENTER MANAGER): Secondary to COVID 19 pneumonia. EMS [...] Encounters Date Type Department Care Team Description 04/06/2025 Orders Only [facility] Health Information Management [address] [place] [address] Scanning, Provider 04/04/2025 Orders Only [facility] Medical Group Cardiology [address] [place] [address] Kathy Rodríguez, LOS 03/31/2025 Orders Only [facility] Health Information Management [address] [place] [address] Scanning, Provider 03/30/2025 Orders Only [facility] Health Information Management [address] [place] [address] Scanning, Provider 03/30/2025 Telephone [facility] [address] [phone] Geoffrey Kelley MD Medical Question/Miscellaneo us 03/22/2025 Telephone [facility] [address] [phone] Geoffrey Kelley MD Medical Question/Miscellaneo us 03/20/2025 Telephone [facility] [address] [phone] Geoffrey Kelley MD Forms Request 03/07/2025 ZHANNA IP Outreach [facility] Accountable Care Organization [address] [place] [address] Christine Iniguez, DRYWALL FINISHING FOREMAN 03/04/2025 Orders Only [facility] Health Information Management [address] [place] [address] Scanning, Provider 03/03/2025 Orders Only [facility] Health Information Management [address] [place] [address] Scanning, Provider 03/03/2025 Telephone [facility] [address] [phone] Geoffrey Kelley MD 02/27/2025 Telephone [facility] [address] [phone] Geoffrey Kelley MD 02/06/2025 Orders Only [facility] [address] [phone] Geoffrey Kelley MD 02/06/2025 Telephone [facility] [address] [phone] Geoffrey Kelley MD Medication Request 02/06/2025 Telephone [facility] [address] [phone] Geoffrey Kelley MD Forms Request 01/24/2025 Orders Only [facility] Health Information Management [address] [place] [address] Scanning, Provider from Last 3 Months Immunizations Immunization Administration [...] Velez Cardiovascul ar disease; Heart attack Mother Cassandra Heart disease Mother Vi Cardiovascular disease; Arthritis Other Family history of Arthritis; Lung cancer Sister Cancer, lung; Relation Name Status Comments Father Wiliam Velez Mother Cassandra Other Sister Social History Tobacco Use Types [...] on file Legal Sex Male 1:01 AM CALL CENTER MANAGER Gender Identity Male 02/07/2021 1:09 PM CDT [...] 10/08/2022, 09/05/2021, Additional history exists Covid-19 Vaccine (2024-2 6 season) 2025 12/24/2021, 05/23/2021, 09/17/2020 Pneumococcal vaccine 65+ Completed 07/26/2014, 07/16 DTaP/Tdap/Td Vaccine Discontinued 03/28/2023, 07/18/2014, 07/18/2014 Influenza Vaccine Discontinued 03/29/2025, , 04/20/2022, Additional history exists Procedures Procedure Name Priority Date/Time Associated Diagnosis Comments SCAN - RADIOLOGY/IMAGING 04/06/2025 CARDIOLOGY DOCUMENT SCAN 03/31/2025 CARDIOLOGY DOCUMENT SCAN Routine 03/30/2025 3:54 PM CDT SCAN - LABS 03/30/2025 SCAN - RADIOLOGY/IMAGING 03/30/2025 SCAN - RADIOLOGY/IMAGING 03/04/2025 SCAN - LABS 03/03/2025 SCAN - RADIOLOGY/IMAGING 03/03/2025 SCAN - LABS 01/24/2025 from Last 3 Months Results * SCAN - RADIOLOGY/IMAGING (04/06/2025) Anatomical Region Laterality Modality Other us Provider Scanning Final Result * Cardiology Document Scan (03/31/2025) Anatomical Region Laterality Modality Other us Provider Scanning CV CARDIAC SERVICES PROCEDURES Final Result * Cardiology Document Scan (03/30/2025 3:54 PM CDT) Anatomical Region Laterality Modality Other us Kathy Rodríguez NP CV CARDIAC SERVICES PROCEDUR ES Final Result * SCAN - RADIOLOGY/IMAGING (03/30/2025) Anatomical Region Laterality Modality Other us Provider Scanning Edited Result - Final * SCAN - LABS (03/30/2025) us Provider Scanning Edited Result - Final * SCAN - RADIOLOGY/IMAGING (03/04/2025) Anatomical Region Laterality Modality Other us Provider Scanning Final Result * SCAN - RADIOLOGY/IMAGING (03/03/2025) Anatomical Region Laterality Modality Other us Provider Scanning Edited Result - Final * SCAN - LABS (03/03/2025) us Provider Scanning Edited Result - Final * SCAN - LABS (01/24/2025) us Provider Scanning Final Result from Last 3 Months Insurance [facility] [place] [facility] ADV REF [facility]TRA AETNA [facility] ADVANTRA Advance Directives For more information, please contact: [phone] Documents on File Type Date Recorded Patient Data Processing Consultant Expl anation ADVANCE DIRECTIVE 02/06/2025 2:03 PM POLST - Phys Order for PT Preferences * Full Code (Latest Code Status on File) Date Activated Date Inactivated Comments 07/21/2020 10:08 PM 08/02/2020 4:19 PM Care Teams Edge Stripper Relationship Specialty Start Date End Date Geoffrey Kelley MD [address] [place] [address] PCP - General 08/01/16 Stacey Pike, RN Registered Nurse 09/01/17 Mireya Jimenez, PT Physical Therapist Physical Therapy 11/16/17 Demetra Patel PTA Information Security Director Physical Therapy 11/26/17 Jorge Chand MD PhD [address] [place] [address] Radiation Oncologist Radiation Oncology 01/05/18 Barry Adame MD [address] [address] Referring Physician General Surgery 01/05/18
--- OUTSIDE RECORDS SUMMARY | 2025-04-20 19:55 | XMS_ITS ---
Author Organization [facility] Address [address] [place] [address] Care Team Providers Care Comparator Operator Name Role Phone Geoffrey Kelley MD Primary Care Provider [phone] Stacey Pike RN Unavailable Unavailabl e Mireya Jimenez PT Unavailable Unavailable Demetra Patel PTA Unavailable Unavailable Jorge Calderon MD PhD Unavailable [phone] Barry Adame MD Unavailable + [phone] Active Problems Problem Noted Date Diagnosed Date [...] 08/17/2020 Assessment & Plan (08/17/2020 5:19 PM ARCHITECTURAL EXAMINER): Discussed and the patient refuses immunization today. Educated regarding the need to vaccinate for personal protection and to limit the viruses in the community to protect those most vulnerable. Current use of senior care anticoagulation 021 Assessment & Plan (08/17/2020 4:55 PM ARCHITECTURAL EXAMINER): Reviewed INRs from time of hospitalization. Has been on 3mg nightly. To have INR repeat approx 08/30. Standing order sent to [facility] as well as copy of orders given [...] response. Assessment & Plan (05/24/2024 8:35 AM ARCHITECTURAL EXAMINER): Continue on supportive measure, timed voiding. Assessment & Plan (08/17/2020 5:17 PM ARCHITECTURAL EXAMINER): Improved bladder control w/oxybutynin. Denies any med SEs. Refilled oxybutynin. COVID-19 07/23/2020 History of DVT (deep vein thrombosis) 07/22/2020 Assessment & Plan (08/23/2024 1:36 PM CDT): Continues on xaretlo and will follow respnse. Assessment & Plan (07/22/2020 3:00 PM ARCHITECTURAL EXAMINER): History of RLE DVT. Patient is on [...] 07/21/2020 Assessment & Plan (08/17/2020 5:20 PM ARCHITECTURAL EXAMINER): Using O2 at HS (1L NC). Discussed O2 w/activity as needed. Has pulse ox that he uses to frequently check sats. Slowly improving. Using symbicort inhaler bid. Reviewed red flags; what would warrant call/rtc or ED for more emergent need. Assessment & Plan (07/22/2020 12:32 PM ARCHITECTURAL EXAMINER): With onset of symptoms about a week [...] dermatolgoy. Assessment & Plan (05/24/2024 8:35 AM ARCHITECTURAL EXAMINER): COntinue f/u with dermatology. COntinues to have [...] IIB(T2c, N0, M0, PSA: 20 or greater, [place] 8-10) - Signed by Jorge Calderon MD [...] regemin. Assessment & Plan (05/24/2024 8:35 AM ARCHITECTURAL EXAMINER): Continue f/u with urology and will monitor response. NO gross hematuria. Discogenic low back pain 09/04/2017 Assessment & Plan (11/01/2024 2:15 PM CDT): NO bowel/bladder symptoms and will follow response. Chronic kidney disease, stage III (moderate) Overview (09/18/2016): Chronic kidney disease stage 3 Assessment & Plan (12/25/2024 11:04 AM CDT): Continue aggressive hydration. No hematuria. [place] labwork completed at [facility] last week and stable at present time. Assessment & Plan (08/23/2024 1:36 PM CDT): COntinue aggressive hydration and blood pressure control. Continues on momthly basis and will follwor esponse. Assessment & Plan (05/24/2024 8:36 AM ARCHITECTURAL EXAMINER): Continue aggressive hyudration and will follow response. Assessment & Plan (07/22/2020 12:33 PM ARCHITECTURAL EXAMINER): Creatinine is 1.37, which is around this [...] 09/30/2012 Assessment & Plan (05/24/2024 8:35 AM ARCHITECTURAL EXAMINER): Gait is stable. No increased pain. Remains [...] 21 Assessment & Plan (08/17/2020 4:50 PM ARCHITECTURAL EXAMINER): Reviewed need to lose weight, reviewed health benefits. Reviewed recommendations for daily intake & activity 20-30 minutes/day. Discussed healthy diet and importance of regular physical activity. Acute respiratory failure with hypoxia 07/22/2020 08/17/2020 Assessment & Plan (07/22/2020 12:40 PM ARCHITECTURAL EXAMINER): Secondary to COVID 19 pneumonia. EMS reported [...]
--- OUTSIDE RECORDS SUMMARY | 2025-04-20 19:56 | XMS_ITS | Encounter Summary ---
Author Organization [facility] Address [address] [place] [address] Phone Care Team Providers Care Library Monitor Name Role Phone Geoffrey Kelley MD Primary Care Provider + [phone] Stacey Pike RN Unavailable Unavailabl e Mireya Jimenez PT Unavailable Unavailable Demetra Patel PTA Unavailable Unavailable Jorge Chand MD PhD Unavailable + [phone] Barry Adame MD Unavailable + [phone] Christine Iniguez LPN Unavailable [phone] Encounter Details Date Type Department Care Team (Late st Contact Info) Description 11/03/2017 Orders Only [facility] ProviderAnirudh MD [address] [place], [place] [id number] Social History Tobacco Use Types Packs/Day Years Used Date Smoking Tobacco: Former Smokeless Tobacco: Never Comments:Smoking History Pac ks/day: 0.5 Packs Alcohol Use Standard Drinks/Week Comments Yes 0 (1 standard drink = 0.6 oz pur e alcohol) Sex and Gender Information Value Date Recorded Sex Assigned at Not on file Legal Sex Male 1:01 AM MONITORING COORDINATOR Gender Identity Male 02/07/2021 1:09 PM [...] Mayen 07/20/2020 07/20/2020 03/0 09/2020 3:07 AM MONITORING COORDINATOR COVID: Recovered Comment:Added based on recent COVID infection. 08/16/2020 08/16/2020 12/14/2020 3:05 AM C DT documented as of this encounter Care Teams Library Monitor Relationship Specialty Start Date End Date Geoffrey Kelley MD [address] [place] [address] PCP - General 08/01/16 Stacey Pike, RN Registered Nurse 09/01/17 Mireya Jimenez, PT Physical Therapist Physical Therapy 11/16/17 Demetra Patel PTA Casting Operator Physical Therapy 11/26/17 Jorge Chand MD PhD [address] [place] [address] Radiation Oncologist Radiation Oncology 01/05/18 Barry Adame MD [address] [facility] [address] [place] [address] Referring Physician General Surgery 01/05/18 Christine Iniguez, DMITRY [address] [place] [address] Optometrist 03/07/25 03/07/25 documented as of this encounter
== END 2025-04-20 18:59 ==
PROVIDERS: Emergency Provider Student in an Organized Health Care Education/Training Program; PCP Family Medicine
DX: I48.91 Unspecified atrial fibrillation (principal); I66.22 Occlusion and stenosis of left posterior cerebral artery; E87.6 Hypokalemia; D64.9 Anemia, unspecified; H53.8 Other visual disturbances; C61 Malignant neoplasm of prostate; C79.51 Secondary malignant neoplasm of bone; I50.9 Heart failure, unspecified; F17.210 Nicotine dependence, cigarettes, uncomplicated; Z86.16 Personal history of COVID-19; Z79.01 Long term (current) use of anticoagulants; Z79.899 Other long term (current) drug therapy; Z79.60 Long term (current) use of unspecified immunomodulators and immunosuppressants; I45.10 Unspecified right bundle-branch block
CPT/HCPCS: 36415; 70450; 70496; 70498; 71045; 80053; 83735; 85025; 85610; 85730; 93005; 96374; 99284; A9270; J0616; Q9967

== ENCOUNTER 2025-05-17 15:57 | Emergency (ER) | payer MEDICARE, MEDICAID, SELFPAY ==
[2025-05-17] VITALS (8 sets, daily range): BP systolic 130–167; BP diastolic 73–102; PULSE 84–97; RESP 16–22; TEMP 36.3; O2SAT 96–100
--- NOTE | ~2025-05-17 | XR_ITS ---
XR elbow RT 2V 05/17/2025 18:24 INDICATION: Status post fall. Elbow abrasion. PROCEDURE: 2 nonstandard views right elbow COMPARISON: No prior studies for comparison. FINDINGS: Fracture, dislocation or subluxation is not identified. Lateral view limited for evaluation of joint effusion. The soft tissues appear within normal limits. No foreign bodies are identified. IMPRESSION: 1: Limited study. No acute fracture. Reviewed, dictated and finalized at location I. CHOOL PROGRAM DIRECTOR
--- NOTE | ~2025-05-17 | XR_ITS ---
EXAMINATION: XR chest 1V portable COMPARISON: No comparisons available. HISTORY: requested by facility/daughter - bronchitis/PNA? FINDINGS: Bilateral small infiltrates. No pneumothorax. Heart is normal size. Mediastinal and hilar contours are within normal limits. Bony thorax no acute abnormality. Miscellaneous: None Impression: Early bilateral pneumonia Reviewed, dictated and finalized at location P. E GIFT WRAP ASSOCIATE Impression: Early bilateral pneumonia
--- NOTE | ~2025-05-17 | CT_ITS ---
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 Technique: Axial images obtained of the brain without contrast. One or more of the following dose reduction techniques were used: automated exposure control, adjustment of the mA and/or kV according to patient size, use of iterative reconstruction technique. Findings: Remote left basal ganglion lacunar infarct, no acute infarct or hemorrhage. No midline shift or mass effect. No extra-axial fluid collections. Mastoid air cells unremarkable. Moderate left maxillary sinusitis. Moderate ethmoidal sinusitis. No acute fracture. Anterior subcutaneous swelling with subcutaneous hemorrhage is noted. Impression: 1.No acute intracranial abnormality. Reviewed, dictated and finalized at location P. OR SALES ENGINEER Impression: 1.No acute intracranial abnormality.
--- NOTE | ~2025-05-17 | XR_ITS ---
XR_[id number] 05/17/2025 18:24 Indication: Status post fall. Abrasion. Procedure: 2 views left knee Comparison: No prior studies for comparison. 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 Prosthesis well seated. No fracture or traumatic malalignment. No significant joint effusion. Impression: 1: No acute fracture. Reviewed, dictated and finalized at location I. AIN FISHING VESSEL Impression: 1: No acute fracture.
--- NOTE | ~2025-05-17 | XR_ITS ---
[id number] 05/17/2025 18:24 INDICATION: Right knee pain PROCEDURE: 2 views right knee COMPARISON: No prior studies for comparison. FINDINGS: There is mild tricompartment osteoarthritis. Osteopenia. No fracture or traumatic alignment. No joint effusion. The soft tissues appear within normal limits. No foreign bodies are identified. IMPRESSION: 1: NO ACUTE BONE OR JOINT ABNORMALITY IDENTIFIED. Reviewed, dictated and finalized at location I. ER CLERK
--- NOTE | ~2025-05-17 | CT_ITS ---
EXAMINATION: CT facial & cervical spine wo COMPARISON: None HISTORY: fall on xarelto; facial injuries TECHNIQUE: Axial images were obtained without IV contrast. Sagittal, coronal reconstruction images were obtained from the axial views. CT scan performed using dose optimization techniques including the following automated exposure control; adjustment of mA and/or kV; use of iterative reconstruction technique. Automatic exposure control was used to reduce radiation dose. Permanent radiation dose record is archived to PACS. FINDINGS: CT facial bones: The nasal bones are intact. The anterior maxillary sinus moon and zygomatic arches are intact. Temporomandibular joints are intact. Orbital floors and medial orbits are intact. Moderate ethmoidal and left maxillary sinusitis. There is no retrobulbar hemorrhage identified. Anterior subcutaneous posttraumatic soft tissue changes noted. No significant preseptal swelling identified. CT cervical spine: Soft tissues unremarkable. Lung apices unremarkable. Grade 1 anterolisthesis of C7 on T1. No acute fracture is identified. Severe loss of disc height at C4-5 C5-6 and C6-7 with moderate canal and foraminal stenosis. IMPRESSION: 1. Posttraumatic soft tissue changes. No acute fracture identified Reviewed, dictated and finalized at location P. NCT TRAINER
--- NOTE | 2025-05-17 16:13 | PC.NURSE ---
pt to CT at this time
--- OUTSIDE RECORDS SUMMARY | 2025-05-17 17:10 | XMS_ITS | Encounter Summary ---
Author Organization [facility] Address [address] [place] [address] Care Team Providers Care Net Repairer Name Role Phone Geoffrey Kelley MD Primary Care Provider [phone] Stacey Pike RN Unavailable Unavailabl e Mireya Jimenez PT Unavailable Unavailable Demetra Patel PTA Unavailable Unavailable Jorge Chand MD PhD Unavailable + [phone] Barry Adame MD Unavailable + [phone] Reason for Visit * Reason Onset Date Comments Medical Question/Miscellaneous 04/28/2025 Encounter Details Date Type Department Care Team (Late st Contact Info) Description 04/28/2025 Telephone [facility] [address] [address] Geoffrey Kelley MD [address] [place] [address] Medical Question/Miscellaneous Social History Tobacco Use Types [...] on file 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 ALISSON Kelley BLOCKER * Telephone Encounter - Annemarie Wallace - 04/28/2025 1:17 PM CST Medical Question/Miscellaneous Caller???s Concern: Rocco with [facility], has a secure voicemail. He states that they completed the Eval., and has a plan of Care. 1 times a week for 5 weeks. Verbal Order is okay. Does message need to be routed? Yes-Action Needed BLOCKER documented in this encounter Plan of Treatment Not on file documented as of this encounter Visit Diagnoses Not on filedocumented in this encounter Care Teams Net Repairer Relationship Specialty Start Date End Date Geoffrey Kelley MD [address] [place] [address] PCP - General 08/01/16 Stacey Pike, RN Registered Nurse 09/01/17 Mireya Jimenez, BEVERLY Physical Therapist Physical Therapy 11/16/17 Demetra Paetl PTA Wheelage Clerk Physical Therapy 11/26/17 Jorge Chand MD PhD [address] [place] [address] Radiation Oncologist Radiation Oncology 01/05/18 Barry Adame MD [address] [address] Referring Physician General Surgery 01/05/18 documented as of this encounter
--- OUTSIDE RECORDS SUMMARY | 2025-05-17 17:10 | XMS_ITS | Encounter Summary ---
Author Organization [facility] Address [address] [facility] [place] [address] Care Team Providers Care Engineer Assistant Name Role Phone Unavailable Primary Care Provider Unavailabl e Encounter Details Date Type Department Care Team (Late st Contact Info) Description 10/06/2023 Lab Requisition [facility] - DermPath Lab [address] [facility] [place] [id number] Michael Boykin MD [facility] DERMATOLOGY [address] [place] [phone] Neoplasm of uncertain behavior of skin; [...] AM CDT) Case Report Dermatopathology Report Case: [id number] Authorizing Provider: Michael Boykin MD Collected: 10/06/2023 03:33 AM Ordering Location: [facility] - Received: 10/07/2023 03:24 PM [...] right arm. The specimen consists of a 27v82o1 mm piece of skin. The specimen is serially sectioned and a field representatives director section is submitted in cassette 1. Jar [...] characteristic determined by the Dermatopathology Laboratory at [facility], directed by Dr. Savage Brunson. These tests need not be, and therefore are not, approved by the [place] Food and Drug Administration. The tests are used for clinical purposes. Billing Codes Specimen Charges Stain Charges 20586 1 11:20 AM CDT DERMATOPATHOLOGY LABORATORY Embedded Images 11:20 AM T DERMATOPATHOLOGY LABORATORY Pathology/Cytolo gy TISSUE SPECIMEN FROM SKIN / Unknown 10/06/2023 3:33 AM CDT 10/07/2023 3:24 PM CDT us Michael Boykin MD LAB - PATHOLOGY/CYTOLOGY GREGG SANTIAGO Final Result DERMATOPATHOLOGY LABORATORY [facility] - Department of Dermatology [address], [address] [phone] documented in this encounter Visit Diagnoses Diagnosis Neoplasm of uncertain behavior of skin Other specified erythematous conditions Other disturbances of skin sensation documented in this encounter
--- OUTSIDE RECORDS SUMMARY | 2025-05-17 17:10 | XMS_ITS ---
Author Organization [facility] Address [address] [place] [address] Care Team Providers Care Vegetable Grower Name Role Phone Geoffrey Kelley MD Primary Care Provider [phone] Stacey Pike RN Unavailable Unavailabl e Mireya Jimenez PT Unavailable Unavailable Demetra Patel PTA Unavailable Unavailable Jorge Calderon MD PhD Unavailable +[phone] Barry Adame MD Unavailable + [phone] Active Problems Problem Noted Date Diagnosed Date [...] 08/17/2020 Assessment & Plan (08/17/2020 5:19 PM CYBER WORKFORCE DEVELOPER AND MANAGER): Discussed and the patient refuses immunization today. Educated regarding the need to vaccinate for personal protection and to limit the viruses in the community to protect those most vulnerable. Current use of [facility] anticoagulation 021 Assessment & Plan (08/17/2020 4:55 PM CYBER WORKFORCE DEVELOPER AND MANAGER): Reviewed INRs from time of hospitalization. Has been on 3mg nightly. To have INR repeat approx 08/30. Standing order sent to [facility] as well as copy of orders given [...] response. Assessment & Plan (05/24/2024 8:35 AM CYBER WORKFORCE DEVELOPER AND MANAGER): Continue on supportive measure, timed voiding. Assessment & Plan (08/17/2020 5:17 PM CYBER WORKFORCE DEVELOPER AND MANAGER): Improved bladder control w/oxybutynin. Denies any med SEs. Refilled oxybutynin. COVID-19 07/23/2020 History of DVT (deep vein thrombosis) 07/22/2020 Assessment & Plan (08/23/2024 1:36 PM CDT): Continues on xaretlo and will follow respnse. Assessment & Plan (07/22/2020 3:00 PM CYBER WORKFORCE DEVELOPER AND MANAGER): History of RLE DVT. Patient is [...] 07/21/2020 Assessment & Plan (08/17/2020 5:20 PM CYBER WORKFORCE DEVELOPER AND MANAGER): Using O2 at HS (1L NC). Discussed O2 w/activity as needed. Has pulse ox that he uses to frequently check sats. Slowly improving. Using symbicort inhaler bid. Reviewed red flags; what would warrant call/rtc or ED for more emergent need. Assessment & Plan (07/22/2020 12:32 PM CYBER WORKFORCE DEVELOPER AND MANAGER): With onset of symptoms about a [...] dermatolgoy. Assessment & Plan (05/24/2024 8:35 AM CYBER WORKFORCE DEVELOPER AND MANAGER): COntinue f/u with dermatology. COntinues to [...] IIB(T2c, N0, M0, PSA: 20 or greater, [place] 8-10) - Signed by Jorge Calderon MD [...] regemin. Assessment & Plan (05/24/2024 8:35 AM CYBER WORKFORCE DEVELOPER AND MANAGER): Continue f/u with urology and will [...] esponse. Assessment & Plan (05/24/2024 8:36 AM CYBER WORKFORCE DEVELOPER AND MANAGER): Continue aggressive hyudration and will follow response. Assessment & Plan (07/22/2020 12:33 PM CYBER WORKFORCE DEVELOPER AND MANAGER): Creatinine is 1.37, which is around [...] 09/30/2012 Assessment & Plan (05/24/2024 8:35 AM CYBER WORKFORCE DEVELOPER AND MANAGER): Gait is stable. No increased pain. [...] 21 Assessment & Plan (08/17/2020 4:50 PM CYBER WORKFORCE DEVELOPER AND MANAGER): Reviewed need to lose weight, reviewed health benefits. Reviewed recommendations for daily intake & activity 20-30 minutes/day. Discussed healthy diet and importance of regular physical activity. Acute respiratory failure with hypoxia 07/22/2020 08/17/2020 Assessment & Plan (07/22/2020 12:40 PM CYBER WORKFORCE DEVELOPER AND MANAGER): Secondary to COVID 19 pneumonia. EMS [...]
--- OUTSIDE RECORDS SUMMARY | 2025-05-17 17:10 | XMS_ITS | Encounter Summary ---
Author Organization [facility] Address [address] [facility] [place] [address] Care Team Providers Care Animal Cruelty Investigator Name Role Phone Unavailable Primary Care Provider Unavailabl e Encounter Details Date Type Department Care Team (Late st Contact Info) Description 12/05/2024 Lab Requisition [facility] - DermPath Lab [address] [facility] [place] [id number] Michael Boykin MD [facility] DERMATOLOGY [address] [place] [phone] Neoplasm of uncertain behavior of skin [...] AM CDT) Case Report Dermatopathology Report Case: [id number] Authorizing Provider: Michael Boykin MD Collected: 12/05/2024 12:00 AM Ordering Location: [facility] - Received: 12/06/2024 11:47 AM DermPath Lab Pathologist: Anny Alvarez MD Specimens: A) - Skin, right lower calf B) - Skin, right restoration C) - Skin, right forehead 4:10 PM CDT DERMATOPATHOLOGY LABORATORY Final Diagnosis Specimen A. 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 The specimen consists of a shave biopsy [...] increased in number. Specimen B. SKIN, right restoration: Sections show an acanthotic lesion composed of [...] characteristic determined by the Dermatopathology Laboratory at [facility], directed by Dr. Savage Brunson. These tests need not be, and therefore are not, approved by the [place] Food and Drug Administration. The tests are used for clinical purposes. Billing Codes Specimen Charges Stain Charges 31545 83011 71139 1 1 1 5 4:10 PM CDT [...] GREGG SANTIAGO Final Result DERMATOPATHOLOGY LABORATORY [facility] - Department of Dermatology [facility] Medicine [address] [place] [address], [address] [phone] documented in this encounter Visit Diagnoses Diagnosis Neoplasm of uncertain behavior of skin documented in this encounter
--- OUTSIDE RECORDS SUMMARY | 2025-05-17 17:10 | XMS_ITS | Encounter Summary ---
Author Organization [facility] Healthcare Address [address] [place] [address] Care Team Providers Care Property Man Name Role Phone Geoffrey Kelley MD Primary Care Provider [phone] Stacey Pike RN Unavailable Unavailabl e Mireya Jimenez PT Unavailable Unavailable Demetra Patel PTA Unavailable Unavailable Jorge Chand MD PhD Unavailable + [phone] Barry Adame MD Unavailable + [phone] Encounter Details Date Type Department Care Team (Late st Contact Info) Description 05/16/2025 Telephone [facility] [address] [place] [address] Geoffrey Kelley MD [address] [place] [address] Social History Tobacco Use Types Packs/Day Years [...] on file Legal Sex Male 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 Placed in [facility] folder. HBOOK MAKER documented in this encounter Plan of Treatment Not on file documented as of this encounter Visit Diagnoses Not on filedocumented in this encounter Care Teams Property Man Relationship Specialty Start Date End Date Geoffrey Kelley MD [address] [place] [address] PCP - General 08/01/16 Stacey Pike, RN Registered Nurse 09/01/17 Mireya Jimenez, PT Physical Therapist Physical Therapy 11/16/17 Demetra Patel, PROGRAM AND RESEARCH COORDINATOR Wood Preparation Supervisor Physical Therapy 11/26/17 Jorge Chand MD PhD [address] [place] [address] Radiation Oncologist Radiation Oncology 01/05/18 Barry Adame MD [address] [facility] [address] [address] Referring Physician General Surgery 01/05/18 documented as of this encounter
--- OUTSIDE RECORDS SUMMARY | 2025-05-17 17:10 | XMS_ITS | Encounter Summary ---
Author Organization [facility] Healthcare Address [address] [place] [address] Care Team Providers Care Proposal Manager Name Role Phone Geoffrey Kelley MD Primary Care Provider [phone] Stacey Pike RN Unavailable Unavailabl e Mireya Jimenez PT Unavailable Unavailable Demetra Patel PTA Unavailable Unavailable Jorge Chand MD PhD Unavailable + [phone] Barry Adame MD Unavailable + [phone] Encounter Details Date Type Department Care Team (Late st Contact Info) Description 05/16/2025 Orders Only [facility] [address] [place] [address] Geoffrey Kelley MD [address] [place] [address] Social History Tobacco Use Types Packs/Day Years [...] on file Legal Sex Male 1:01 AM ENGINEERING SUPERVISOR Gender Identity Male 02/07/2021 1:09 PM CDT Sexual Orientation Not on file documented as of this encounter Ordered Prescriptions Prescription Sig Dispense Quantity Refills Last Filled Start Date End Date doxycycline (VIBRAMYCIN) 100 mg capsule Take 1 tablet/caps ule (100 mg total) by mouth 2 (two) times a day for 10 days 20 tablet/capsule 05/16/2025 05/26/2025 documented in this encounter Plan of Treatment Not on file documented as of this encounter Visit Diagnoses Not on filedocumented in this encounter Care Teams Proposal Manager Relationship Specialty Start Date End Date Geoffrey Kelley MD [address] [place] [address] PCP - General 08/01/16 Stacey Pike, RN Registered Nurse 09/01/17 Mireya Jimenez, PT Physical Therapist Physical Therapy 11/16/17 Demetra Patel PTA Knot Saw Operator Physical Therapy 11/26/17 Jorge Chand MD PhD [address] [place] [address] Radiation Oncologist Radiation Oncology 01/05/18 Barry Adame MD [address] [facility] [facility] [address] [facility]note 2] [place] [address] Referring Physician General Surgery 01/05/18 documented as of this encounter
--- OUTSIDE RECORDS SUMMARY | 2025-05-17 17:10 | XMS_ITS | Encounter Summary ---
Author Organization [facility] Address [address] [place] [address] Phone Care Team Providers Care Wheel Worker Name Role Phone Geoffrey Kelley MD Primary Care Provider + [phone] Stacey Pike RN Unavailable Unavailabl Mireya George PT Unavailable Unavailable Demetra Patel PTA Unavailable Unavailable Jorge Chand MD PhD Unavailable + [phone] Barry Adame MD Unavailable + [phone] Christine Iniguez LPN Unavailable +[phone] Encounter Details Date Type Department Care Team (Late st Contact Info) Description 10/01/2017 Orders Only [facility] ProviderAnirudh MD [address] [place], [place] [id number] Social History Tobacco Use Types Packs/Day Years Used Date Smoking Tobacco: Former Smokeless Tobacco: Never Comments:Smoking History Pac ks/day: 0.5 Packs Alcohol Use Standard Drinks/Week Comments Yes 0 (1 standard drink = 0.6 oz pur e alcohol) Sex and Gender Information Value Date Recorded Sex Assigned at Not on file Legal Sex Male 1:01 AM PEDIATRIC REGISTERED NURSE Gender Identity Male 02/07/2021 1:09 PM CDT [...] Mayen 07/20/2020 07/20/2020 03/0 09/2020 3:07 AM PEDIATRIC REGISTERED NURSE COVID: Recovered Comment:Added based on recent COVID infection. 08/16/2020 08/16/2020 12/14/2020 3:05 AM C DT documented as of this encounter Care Teams Wheel Worker Relationship Specialty Start Date End Date Geoffrey Kelley MD [address] [place] [address] PCP - General 08/01/16 Stacey Pike, RN Registered Nurse 09/01/17 Mireya Jimenez, PT Physical Therapist Physical Therapy 11/16/17 Demetra Patel PTA Kitchen Hand Physical Therapy 11/26/17 Jorge Chand MD PhD [address] [place] [address] Radiation Oncologist Radiation Oncology 01/05/18 Barry Adame MD [address] [facility] [address] [place] [address] Referring Physician General Surgery 01/05/18 Christine Iniguez LPN [address] [place] [address] [address] [place] [address] Break And Load Operator 03/07/25 03/07/25 documented as of this encounter
--- OUTSIDE RECORDS SUMMARY | 2025-05-17 17:10 | XMS_ITS | Clinical Summary ---
Author Organization [facility] Address [address] [place] [address] Care Team Providers Care Cognos Architect Name Role Phone Geoffrey Kelley MD Primary Care Provider [phone] Stacey Pike RN Unavailable Unavailabl e Mireya Jimenez PT Unavailable Unavailable Demetra Patel PTA Unavailable Unavailable Jorge Chand MD PhD Unavailable + [phone] Barry Adame MD Unavailable + [phone] Allergies No known active allergies Medications clobetasoL [...] 30 tablet 2 5 02/07/20 26 Active doxycycline (VIBRAMYCIN) 100 mg capsule Take 1 tablet/capsule (100 mg total) by mouth 2 (two) times a day for 10 days 20 tablet/capsu le 5 05/26/20 25 Active Active Problems Problem Noted Date [...] 08/17/2020 Assessment & Plan (08/17/2020 5:19 PM MAINTENANCE CONTROLLER): Discussed and the patient refuses immunization today. Educated regarding the need to vaccinate for personal protection and to limit the viruses in the community to protect those most vulnerable. Current use of director long term care anticoagulation 021 Assessment & Plan (08/17/2020 4:55 PM MAINTENANCE CONTROLLER): Reviewed INRs from time of hospitalization. Has been on 3mg nightly. To have INR repeat approx 08/30. Standing order sent to [facility] [employer] as well as copy of orders given [...] response. Assessment & Plan (05/24/2024 8:35 AM MAINTENANCE CONTROLLER): Continue on supportive measure, timed voiding. Assessment & Plan (08/17/2020 5:17 PM MAINTENANCE CONTROLLER): Improved bladder control w/oxybutynin. Denies any med SEs. Refilled oxybutynin. COVID-19 07/23/2020 History of DVT (deep vein thrombosis) 07/22/2020 Assessment & Plan (08/23/2024 1:36 PM CDT): Continues on xaretlo and will follow respnse. Assessment & Plan (07/22/2020 3:00 PM MAINTENANCE CONTROLLER): History of RLE DVT. Patient is on [...] 07/21/2020 Assessment & Plan (08/17/2020 5:20 PM MAINTENANCE CONTROLLER): Using O2 at HS (1L NC). Discussed O2 w/activity as needed. Has pulse ox that he uses to frequently check sats. Slowly improving. Using symbicort inhaler bid. Reviewed red flags; what would warrant call/rtc or ED for more emergent need. Assessment & Plan (07/22/2020 12:32 PM MAINTENANCE CONTROLLER): With onset of symptoms about a week [...] dermatolgoy. Assessment & Plan (05/24/2024 8:35 AM MAINTENANCE CONTROLLER): COntinue f/u with dermatology. COntinues to have [...] regemin. Assessment & Plan (05/24/2024 8:35 AM MAINTENANCE CONTROLLER): Continue f/u with urology and will monitor response. NO gross hematuria. Discogenic low back pain 09/04/2017 Assessment & Plan (11/01/2024 2:15 PM CDT): NO bowel/bladder symptoms and will follow response. Chronic kidney disease, stage III (moderate) Overview (09/18/2016): Chronic kidney disease stage 3 Assessment & Plan (12/25/2024 11:04 AM CDT): Continue aggressive hydration. No hematuria. [place]ie[place] labwork completed at [facility] last week and stable at present time. Assessment & Plan (08/23/2024 1:36 PM CDT): COntinue aggressive hydration and blood pressure control. Continues on momthly basis and will follwor esponse. Assessment & Plan (05/24/2024 8:36 AM MAINTENANCE CONTROLLER): Continue aggressive hyudration and will follow response. Assessment & Plan (07/22/2020 12:33 PM MAINTENANCE CONTROLLER): Creatinine is 1.37, which is around this [...] 09/30/2012 Assessment & Plan (05/24/2024 8:35 AM MAINTENANCE CONTROLLER): Gait is stable. No increased pain. Remains active. 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 Reviewed recommendations for daily intake & activity 20-30 minutes/day. Discussed healthy diet and importance of regular physical activity. Acute respiratory failure with hypoxia 07/22/2020 08/17/2020 Assessment & Plan (07/22/2020 12:40 PM MAINTENANCE CONTROLLER): Secondary to COVID 19 pneumonia. EMS reported [...] Encounters Date Type Department Care Team Description 05/16/2025 Orders Only [facility] [address] [address] Geoffrey Kelley MD 05/16/2025 Telephone [facility] [place] [address] [place] [address] Geoffrey Kelley MD Symptom Based Call 05/16/2025 Telephone [facility] [address] [phone] Geoffrey Kelley MD 05/10/2025 Telephone [facility] [place] [address] [place] [address] Geoffrey Kelley MD 05/04/2025 Telephone [facility] [address] [address] Geoffrey Kelley MD 05/01/2025 Telephone [facility] [address] [address] Geoffrey Kelley MD 04/28/2025 Telephone [facility] [address] [address] Geoffrey Kelley MD Medical Question/Miscellaneo us 04/25/2025 Telephone [facility] [address] [address] Geoffrey Kelley MD Med Refill 04/21/2025 Telephone [facility] [address] [address] Geoffrey Kelley MD 04/20/2025 Orders Only [facility] Information Management [address] [place] [address] Scanning, Provider 04/06/2025 Orders Only [facility] [address] [place] [address] Scanning, Provider 04/04/2025 Orders Only [facility] Cardiology [address] [place] [phone] Kathy Rodríguez, LOS 03/31/2025 Orders Only [facility] [address] [place] [address] Scanning, Provider 03/30/2025 Orders Only [facility] [address] [place] [address] Scanning, Provider 03/30/2025 Telephone [facility] [address] [phone] Geoffrey Kelley MD Medical Question/Miscellaneo us 03/22/2025 Telephone [facility] [address] [phone] Geoffrey Kelley MD Medical Question/Miscellaneo us 03/20/2025 Telephone [facility] [address] [phone] Geoffrey Kelley MD Forms Request 03/07/2025 [facility] IP Outreach [facility] Accountable Care Organization [address] [place] [address] Christine Iniguez, BIT SHARPENER OPERATOR 03/04/2025 Orders Only [facility] [address] [place] [address] Scanning, Provider 03/03/2025 Orders Only [facility] [address] [place] [address] Scanning, Provider 03/03/2025 Telephone [facility] [address] [phone] Geoffrey Kelley MD 02/27/2025 Telephone [facility] [address] [phone] Geoffrey Kelley MD from Last 3 Months Immunizations Immunization Administration [...] on file Legal Sex Male 1:01 AM MAINTENANCE CONTROLLER Gender Identity Male 02/07/2021 1:09 PM CDT [...] Date/Time Associated Diagnosis Comments SCAN - LABS 04/20/2025 SCAN - RADIOLOGY/IMAGING 04/20/2025 SCAN - RADIOLOGY/IMAGING 04/06/2025 CARDIOLOGY DOCUMENT SCAN 03/31/2025 CARDIOLOGY DOCUMENT SCAN Routine 03/30/2025 3:54 PM CDT SCAN - LABS 03/30/2025 SCAN - RADIOLOGY/IMAGING 03/30/2025 SCAN - RADIOLOGY/IMAGING 03/04/2025 SCAN - LABS 03/03/2025 SCAN - RADIOLOGY/IMAGING 03/03/2025 from Last 3 Months Results * SCAN - RADIOLOGY/IMAGING (04/20/2025) Anatomical Region Laterality Modality Other us Provider Scanning Edited Result - Final * SCAN - LABS (04/20/2025) us Provider Scanning Edited Result - Final * SCAN - RADIOLOGY/IMAGING (04/06/2025) Anatomical Region Laterality Modality Other us Provider Scanning Final Result * Cardiology Document Scan (03/31/2025) Anatomical Region Laterality Modality Other us Provider Scanning CV CARDIAC SERVICES PROCEDURES Final Result * Cardiology Document Scan (03/30/2025 3:54 PM CDT) Anatomical Region Laterality Modality Other us Kathy Rodríguez TALENT DEVELOPMENT DIRECTOR CV CARDIAC SERVICES PROCEDUR ES Final Result [...] us Provider Scanning Edited Result - Final from Last 3 Months Insurance [employer] [facility] [employer]ANTRA [place] [employer] [place] [employer] ADV REF [facility] [place] [facility] [address] Advance Directives For more information, please contact: [phone] Documents on File Type Date Recorded Patient Community Service Representative Expl anation ADVANCE DIRECTIVE 02/06/2025 2:03 PM POLST - Phys Order for PT Preferences * Full Code (Latest Code Status on File) Date Activated Date Inactivated Comments 07/21/2020 10:08 PM 08/02/2020 4:19 PM Care Teams Cognos Architect Relationship Specialty Start Date End Date Geoffrey Kelley MD [address] [place] [address] PCP - General 08/01/16 Stacey Pike, RN Registered Nurse 09/01/17 Mireya Jimenez, PT Physical Therapist Physical Therapy 11/16/17 Demetra Patel, RADAR OPERATOR Engineer Third Assistant Physical Therapy 11/26/17 Jorge Chand MD PhD [address] [place] [address] Radiation Oncologist Radiation Oncology 01/05/18 Barry Adame MD [address] [facility] [address] [address] Referring Physician General Surgery 01/05/18
--- OUTSIDE RECORDS SUMMARY | 2025-05-17 17:10 | XMS_ITS | Encounter Summary ---
Author Organization [facility] Address [address] [place] [address] Care Team Providers Care Cardiothoracic Anesthesia Technician Name Role Phone Geoffrey Kelley MD Primary Care Provider [phone] Stacey Pike RN Unavailable Unavailabl e Mireya Jimenez PT Unavailable Unavailable Demetra Patel PTA Unavailable Unavailable Jorge Chand MD PhD Unavailable + [phone] Barry Adame MD Unavailable + [phone] Reason for Visit * Reason Onset Date Comments Symptom Based Call 05/16/2025 Encounter Details Date Type Department Care Team (Late st Contact Info) Description 05/16/2025 Telephone [facility] [address] [place] [address] Geoffrey Kelley MD [address] [place] [address] Symptom Based Call Social History Tobacco Use Types Packs/Day Years [...] on file Legal Sex Male 1:01 AM DRIVER'S LICENSE REVIEWING OFFICER Gender Identity Male 02/07/2021 1:09 PM CDT Sexual Orientation Not on file documented as of this encounter Miscellaneous Notes * Telephone Encounter - Jo Armstrong MA - 05/16/2025 4:13 PM DRIVER'S LICENSE REVIEWING OFFICER MIREYA notified abx sent to pharmacy. ER'S LICENSE REVIEWING OFFICER * Telephone Encounter - Jo Armstrong MA - 05/16/2025 11:32 AM DRIVER'S LICENSE REVIEWING OFFICER I spoke w/ MIREYA, Marlee, who states patient has had a cough, worse at night, sinus/ nasal congestion,sleeping more, almost non stop since yesterday. He had a fever yesterday but not today, MIREYA does not know what the temp was. The RN at [facility] listened to him today and stated he does not sound very good. He has had symptoms x 1 week. MIREYA feels he needs to start an abx today as she is not comfortable with waiting until his home visit on 05/18/25. If Dr. Kelley orders a CXR, patient would not be able to get it until 05/18 at the earliest as that is when Marlee will be able to take him. Marlee states if abx are prescribed, they need to be sent BELKIS (before 12pm-1pm) otherwise patient will not get them today. Dr. Kelley, please advise if you are willing to send an abx or if patient should be seen for eval prior to his 05/18 home visit. Thank you. ER'S LICENSE REVIEWING OFFICER * Telephone Encounter - Sarah Kemp MA - 05/16/2025 11:07 AM CST Symptom Based Call Chief Complaint(s): The nurse at his home says the patient says he probably needs a chest xray. Shesays he doesn't sound very good. Duration: About a week What type of symptom(s) is the patient experiencing? Non-Emergent. Is this a new or reoccurring symptom(s)? New What have you tried to help your symptom(s)? Nothing Why was appointment not scheduled? Requesting advice from clinical teamcenter solution architect. Additional Comments: Patient's daughter Marlee verified on HIPAA says the patient does have an appointment on with Dr Kelley. But she really feels he needs an antibiotic before then. Please advise and thank you so much. Marlee is also asking that I send this over as HP therefore I shall. Does message need to be routed? Yes-Action Needed ER'S LICENSE REVIEWING OFFICER documented in this encounter Plan of Treatment Not on file documented as of this encounter Visit Diagnoses Not on filedocumented in this encounter Care Teams Cardiothoracic Anesthesia Technician Relationship Specialty Start Date End Date Geoffrey Kelley MD [address] [place] [address] PCP - General 08/01/16 Stacey Pike, RN Registered Nurse 09/01/17 Mireya Jimenez, PT Physical Therapist Physical Therapy 11/16/17 Demetra Patel, NEWSPAPER PEDDLER Bundle Shaker Physical Therapy 11/26/17 Jorge Chand MD PhD [address] [place] [address] Radiation Oncologist Radiation Oncology 01/05/18 Barry Adame MD [address] [facility] [address] [address] Referring Physician General Surgery 01/05/18 documented as of this encounter
--- OUTSIDE RECORDS SUMMARY | 2025-05-17 17:10 | XMS_ITS | Clinical Summary ---
Author Organization [facility] Address [address] [place] [address] Care Team Providers Care Shuttle Operator Name Role Phone Unavailable Primary Care Provider Unavailabl e Source Comments [facility],non-owned Affiliates and Associated Physician Practices is amultiple site organization consisting of ambulatory clinics and hospital sitesin [place], [place], [place] and [place]. This disclosure is being madepursuant to the Care Everywhere program and may not contain all information available regarding this patient. Last updated 18.[facility] Social History Tobacco Use Types Packs/Day Years [...] CALENDAR YEAR 2024 COVID-19 VACCINE (1 - 2024-2 6 season) 2025 INFLUENZA VACCINE (#1) 2025 HEPATITIS [...]
--- OUTSIDE RECORDS SUMMARY | 2025-05-17 17:10 | XMS_ITS | Encounter Summary ---
Author Organization [facility] Address [address] [place] [address] Phone Care Team Providers Care Culture Media Laboratory Assistant Name Role Phone Geoffrey Kelley MD Primary Care Provider + [phone] Stacey Pike RN Unavailable Unavailabl e Mireya Jimenez PT Unavailable Unavailable Demetra Patel PTA Unavailable Unavailable Jorge Chand MD PhD Unavailable + [phone] Barry Adame MD Unavailable + [phone] Christine Iniguez LPN Unavailable +[phone] Encounter Details Date Type Department Care Team (Late st Contact Info) Description 11/03/[address] [facility] ProviderAnirudh MD [address] [place], [place] [id number] Social History Tobacco Use Types Packs/Day Years Used Date Smoking Tobacco: Former Smokeless Tobacco: Never Comments:Smoking History Pac ks/day: 0.5 Packs Alcohol Use Standard Drinks/Week Comments Yes 0 (1 standard drink = 0.6 oz pur e alcohol) Sex and Gender Information Value Date Recorded Sex Assigned at Not on file Legal Sex Male 1:01 AM FUMIGATOR AND STERILIZER Gender Identity Male 02/07/2021 1:09 PM CDT [...] Mayen 07/20/2020 07/20/2020 03/0 09/2020 3:07 AM FUMIGATOR AND STERILIZER COVID: Recovered Comment:Added based on recent COVID infection. 08/16/2020 08/16/2020 12/14/2020 3:05 AM C DT documented as of this encounter Care Teams Culture Media Laboratory Assistant Relationship Specialty Start Date End Date Geoffrey Kelley MD [address] [place] [address] PCP - General 08/01/16 Stacey Pike, RN Registered Nurse 09/01/17 Mireya Jimenez, PT Physical Therapist Physical Therapy 11/16/17 Demetra Patel PTA Stock Chaser Physical Therapy 11/26/17 Jorge Chand MD PhD [address] [place] [address] Radiation Oncologist Radiation Oncology 01/05/18 Barry Adame MD [address] [facility] [address] [place] [address] Referring Physician General Surgery 01/05/18 Christine Iniguez, DMITRY [address] [facility] [address] [place] [address] Data Processor 03/07/25 03/07/25 documented as of this encounter
--- OUTSIDE RECORDS SUMMARY | 2025-05-17 17:10 | XMS_ITS | Encounter Summary ---
Author Organization [facility] Address [address] [facility] [place] [address] Care Team Providers Care Chucking Machine Operator Name Role Phone Unavailable Primary Care Provider Unavailabl e Encounter Details Date Type Department Care Team (Late st Contact Info) Description 04/06/2024 Lab Requisition [facility] - DermPath Lab [address] [facility] [place] [id number] Gifty Goel PA-C [address] [place] [address] Neoplasm of uncertain behavior of [...] AM CDT) Case Report Dermatopathology Report Case: [id number] Authorizing Provider: Gifty Goel PA-C Collected: 04/06/2024 12:00 AM Ordering Location: [facility] Physician [facility] - Received: 04/07/2024 04:19 PM DermPath [...] characteristic determined by the Dermatopathology Laboratory at [facility], directed by Dr. Savage Brunson. These tests need not be, and therefore are not, approved by the [place] Food and Drug Administration. The tests are used for clinical purposes. Billing Codes Specimen Charges Stain Charges 08104 1 11:27 AM CDT DERMATOPATHOLOGY LABORATORY Embedded Images 11:27 AM CDT DERMATOPATHOLOGY LABORATORY Pathology/Cytolog y TISSUE SPECIMEN FROM SKIN / Unknown 04/06/2024 04/07/2024 4:19 PM CDT Gifty Goel PA-C LAB - PATHOLOGY/CYTOLOGY [facility] Final Result DERMATOPATHOLOGY LABORATORY [facility] - Department of Dermatology [address] [place] [address], [facility] [phone] documented in this encounter Visit Diagnoses Diagnosis Neoplasm of uncertain behavior of skin documented in this encounter
--- NOTE | 2025-05-17 17:25 | PC.NURSE ---
Spoke with pts daughter Marlee on the phone. She notified this RN that the pt has bronchitis right now and has recently started doxycycline. Per the daughter, pt is in need of Chest XR and wanted to know if he could have it done here. Provider notified.
--- NOTE | 2025-05-17 17:55 | ED.FALL ---
HPI - Fall General Chief Complaint: Fall Stated Complaint: fall Time Seen by Provider: 05/17/25 15:59 Source: patient and family Limitations: no limitations History of Present Illness HPI Narrative: Left hand dominant Patient presents after a ground level fall. He states he lost his balance and hit his face, sustaining a forehead injury, bleeding controlled. Has facial ecchymosis, bilateral knee abrasions, and right elbow abrasion. Currently on day 2 of doxycycline for reported bronchitis and daughter requesting CXR be performed as the plan was for him to get one outpatient. He has had an intermittent cough for the past 1 week. Denies pain. Says tetanus shot was 6 months ago. Would like to return to the facility. Related Data Home Medications ?Medication ?Instructions ?Recorded ?Confirmed ?Last Taken ?Type loratadine 10 mg tablet 10 mg PO DAILY 04/25/23 03/30/25 03/02/25 History abiraterone 250 mg tablet 250 mg PO QID 01/23/25 03/30/25 03/02/25 History azelastine 137 mcg (0.1 %) nasal 2 spray intranasal Q12H PRN 01/23/25 03/30/25 Unknown History spray allergy symptoms acetaminophen 650 mg 650 mg PO Q8H PRN pain 03/03/25 03/30/25 Unknown History tablet,extended release (8 Hour Pain Reliever) sertraline 50 mg tablet 50 mg PO DAILY 03/03/25 03/30/25 03/02/25 History melatonin 5 mg tablet 5 mg PO HS 03/30/25 03/30/25 Unknown History doxycycline hyclate 100 mg capsule mg 05/17/25 Unknown History Allergies Allergy/AdvReac Type Severity Reaction Status Date / Time No Known Allergies Allergy Verified 03/30/25 14:35 [facility] Past Medical History Medical History (Updated 05/18/25 @ 23:18 by Shannan Fernandez MD) Left hand dominant Overactive bladder Arthritis Multiple falls COVID-19 Secondary malignant neoplasm of bone Prostate CA Atrial fibrillation Orthostatic hypotension CHF (congestive heart failure) Surgical History Surgical History History of knee surgery Family History Family History Other Unknown family medical history Social History Social History Social History: Has a daughter Code status: DNR per facility paperwork Smoking packs per day: 1 Smoking cigarettes per day: 20.0 Years smoked: 15 Smoking pack-years: 15.00 Smoking status: Former smoker Alcohol intake: never Drinks per week: 0 Alcohol use details: 2 per month Substance use: never Lack of Transportation: No Lack of Food: Never True Current Housing: I Have Housing Concerned About Future Housing: No Difficulty Paying Gas/Electric Bills: No Difficulty Paying for Meds: No Currently Unemployed: No Education: High School Diploma/GED Difficulty w/ Childcare or Family Care: No Living arrangements: assisted living Additional living arrangements comments: [facility] Occupation/Education: retired 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 HEAD: 1.5 cm slightly macerated wound at forehead but without distinct laceration with edges to approximate. EYES: Non icteric. Subconjunctival hemorrhage medial aspect of right eye ENT: Abrasion along nasal bridge. Gross auditory acuity intact. NECK: Supple. No meningismus. CHEST: Speaking in full sentences. No respiratory distress. HEART: Regular rate ; not tachycardic/bradycardic . ABDOMEN: Soft, nondistended. No rigidity or guarding. Not peritoneal EXTREMITIES: Well healed midline scar from surgery. Bilateral knee abrasions, no active bleeding. 2.5cm skin tear at right elbow. 1cm abrasion right forearm. SKIN: Warm, dry NEURO: No focal deficits. Alert and oriented. Answering questions. Following commands. Normal speech without aphasia or dysarthria. PSYCH: Normal mood and affect. Course Vital Signs Vital signs: Vital Signs Temperature 97.3 F L 05/17/25 15:58 Pulse Rate 84 05/17/25 15:58 Respiratory Rate 16 05/17/25 15:58 Blood Pressure 163/102 H 05/17/25 15:58 Pulse Oximetry 100 05/17/25 15:58 Oxygen Delivery Room Air 05/17/25 15:58 Temperature 97.3 F L 05/17/25 15:58 Pulse Rate 97 05/17/25 19:46 Respiratory Rate 22 H 05/17/25 19:46 Blood Pressure 146/78 H 05/17/25 19:46 Pulse Oximetry 99 05/17/25 19:46 Oxygen Delivery Room Air 05/17/25 15:58 [facility] Narrative Medical decision making narrative: Patient presents after a ground level fall. He denies any pain. In the emergency department he is afebrile with vital signs notable for hypertension. Daughter requesting CXR be performed. Patient is stating he does not want to stay and would prefer to return back to the facility. I do not believe he needs labs. Medication list from the facility confirms that he is on Xarelto. Atrial fibrillation is a diagnosis in H. Viral swab negative. Imaging negative for acute process except CXR as below. He is already on doxycycline which is appropriate. Injuries are not amenable to repair with sutures/glue/adhesive/barby. Discussed wound care and RN to address each of these. Stable for discharge. Advised offering APAP; Rx provided. Daughter at bedside aware of and comfortable with the plan, feels comfortable driving him back to facility with assistance getting him into the car. Will have facility bring out either his wheelchair or walker upon arrival. Differential Diagnosis Differential Diagnosis: intracranial hemorrhage; facial bone fractures; vertebral fracture; fracture/dislocation knee; internal derangement of knees; abrasion/laceration/skin tears Medical Records I have reviewed the following patient records and this information was taken into consideration when formulating the assessment and plan.: previous ER visits Lab Data [facility] Lab Attestation statement: I personally reviewed the patient's lab results. Labs: Lab Results 05/17/25 Range/Units 18:40 Influenza A (RT-PCR) Negative (Negative) Influenza B (RT-PCR) Negative (Negative) RSV (RT-PCR) Negative (Negative) SARS-CoV-2 RNA (RT-PCR) Negative (Negative) Imaging Data Radiologist's impression: ITS Impressions Head CT 05/17/25 16:38 Impression: 1.No acute intracranial abnormality. Head/Cervical Spine/Facial Bones CT 05/17/25 16:40 IMPRESSION: 1. Posttraumatic soft tissue changes. No acute fracture identified Chest X-Ray 05/17/25 17:41 Impression: Early bilateral pneumonia Elbow X-Ray 05/17/25 18:27 IMPRESSION: 1: Limited study. No acute fracture. Knee X-Ray 05/17/25 18:31 IMPRESSION: 1: NO ACUTE BONE OR JOINT ABNORMALITY IDENTIFIED. Discharge Plan Discharge Clinical Impression: Bilateral pneumonia, Fall, Abrasion of both knees, Skin tear of elbow without complication, Abrasion of forearm, right, Scalp abrasion, non-infected Patient Disposition: CT Retirement/Asst Living Condition: Stable Instructions: Antibiotic Form, Fall Prevention for Older Adults (ED), Bacterial Pneumonia (DC), Abrasion (ED), Skin Tear (ED) Additional Instructions: Warm soapy water is fine to use on wounds and practice good wound care. No need for hydrogen peroxide. An antibiotic/triple antibiotic ointment and or Vaseline/petroleum jelly can be used if desired but recommend avoiding Neosporin in particular. Take acetaminophen as needed for pain, not to exceed 4000mg/day. However, NSAIDs like ibuprofen must be avoided given you are on Xarelto. Follow-up with primary care physician. Return to the emergency department with any new or worsening symptoms. You did have evidence of pneumonia but you are already on appropriate therapy. Patient Language: Divehi Prescriptions: New acetaminophen 500 mg capsule 1,000 mg PO Q6H PRN (Reason: pain) Qty: 30 0RF No Action loratadine 10 mg Tablet 10 mg PO DAILY Patient Comments: .... Xarelto 20 mg tablet 20 mg PO DAILY Qty: 30 0RF Rx Instructions: must administer with evening meal after 15 mg twice daily dosing for 21 days sertraline 50 mg tablet 50 mg PO DAILY acetaminophen [8 Hour Pain Reliever] 650 mg tablet extended release 650 mg PO Q8H PRN (Reason: pain) polyethylene glycol 3350 [Miralax] 17 gram Powder In Packet 17 g PO QAM PRN (Reason: Constipation) Qty: 10 0RF melatonin 5 mg tablet 5 mg PO HS metoprolol succinate 25 mg tablet extended release 24 hr 25 mg PO DAILY Qty: 30 1RF tamsulosin 0.4 mg Capsule 0.4 mg PO QAM Qty: 30 1RF abiraterone 250 mg tablet 250 mg PO QID azelastine 137 mcg (0.1 %) spray,non-aerosol 2 spray INTRANASAL Q12H PRN (Reason: allergy symptoms) doxycycline hyclate 100 mg capsule Follow-up/Referrals: Harms,Geoffrey K., M.D. [Primary Care Provider] Stand Alone Forms: Halfway Discharge Time of Disposition: 20:07
[2025-05-17] MEDS: ACETAMINOPHEN 500 MG TABLET 1000 MG PO (18:52)
[2025-05-17 19:23] LABS: Influenza A QL RT-PCR Negative (Negative); Influenza B QL RT-PCR Negative (Negative); RSV RNA, RT-PCR Negative (Negative); SARS-CoV-2 RNA PCR Negative (Negative)
== END 2025-05-17 20:45 ==
PROVIDERS: Emergency Provider Student in an Organized Health Care Education/Training Program; PCP Family Medicine
DX: S00.81XA Abrasion of other part of head, initial encounter (principal); S80.212A Abrasion, left knee, initial encounter; S80.211A Abrasion, right knee, initial encounter; S50.811A Abrasion of right forearm, initial encounter; S51.011A Laceration without foreign body of right elbow, initial encounter; J18.9 Pneumonia, unspecified organism; I50.9 Heart failure, unspecified; I48.91 Unspecified atrial fibrillation; N32.81 Overactive bladder; M19.90 Unspecified osteoarthritis, unspecified site; Z66 Do not resuscitate; Z86.16 Personal history of COVID-19; Z85.830 Personal history of malignant neoplasm of bone; Z85.46 Personal history of malignant neoplasm of prostate; Z87.891 Personal history of nicotine dependence; Z79.01 Long term (current) use of anticoagulants; Z79.899 Other long term (current) drug therapy; W18.39XA Other fall on same level, initial encounter
CPT/HCPCS: 70450; 70486; 71045; 72125; 73070; 73560; 87637; 99284; A9270